=== PATIENT | female | born 1935 | race Caucasian/White ===

== ENCOUNTER 2016-08-03 15:20 | Inpatient (IN) | payer MEDICARE, MEDICAID ==
--- NOTE | 2016-08-03 15:53 | ED Physician Chart ---
Chief Complaint/HPI - Patient Information Date Seen:: 08/03/16 Time Seen:: 15:40 Chief Complaint:: decubiti History of Present Illness:: Patient is being sent here for evaluation of decubiti. Patient states she's had them for a long time. Allergies:: Allergies Allergy/AdvReac Type Severity Reaction Status Date / Time furosemide [From Lasix] AdvReac Verified 06/14/16 11:58 Penicillins [PCN] AdvReac Verified 06/14/16 11:58 Tetanus Vaccines & Toxoid AdvReac Verified 06/14/16 11:58 Historian:: Patient Review:: Nurse's Note Reviewed Review of Systems - Review of Systems General/Constitutional: No fever, No chills Skin: Skin lesions Head: No headache Eyes: No loss of vision ENT: No earache Neck: No neck pain, No swelling Cardio Vascular: No chest pain Pulmonary: No SOB GI: No nausea, Vomiting G/U: No dysuria Musculoskeletal: No bone or joint pain Endocrine: No polyuria Psychiatric: No prior psych history Past Medical History - Past Medical History Past Medical History: HTN, DM, CHF, Thyroid disorder, Other (hypothyroidism; hyperlipidemia; peripheral vascular disease) Family History: Diabetes Melitus, HTN Social History: No Alcohol, Care Facility, Other Employment:: Former smoker Surgical History: other (shoulder) Psychiatricy History: None Medication: Reviewed Family Medical History - Family Member Mother History Unknown: Yes Ethnicity: Unknown Living Status: Unknown Hx Family Cancer: No Hx Family Congestive Heart Failure: No Hx Family Dementia: No Hx Family Hepatitis: No Hx Family Psychiatric Problems: No Physical Exam - Physical Examination General/Constitutional: Well-developed, well-nourished, Alert Other Gen/Cons comments:: Please to be slightly confused; patient does not know the correct year Eyes: Lids, conjuctiva normal, PERRL Other Skin comments:: 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 lateral hip; large stage IV decubitus right calf ENMT: External ears, nose nl Neck: No nuchal rigidity Respiratory: Nl effort/Exclusion Cardio Vascular: RRR GI: No tenderness/rebounding/guarding : No CVA tenderness Extremities: Normal digits & nails Neuro/Psych: No focal deficits Misc: Normal back Labs/Radiology/EKG Results - Lab Results Comments:: Laboratory Results - last 24 hr 06/29/17 06/29/17 06/29/17 15:57 15:57 15:57 WBC 14.9 H D RBC 3.20 L Hgb 9.8 L Hct 28.6 L MCV 89.3 MCH 30.7 MCHC Differential 34.4 RDW 13.6 Plt Count 527 H MPV 7.2 Neutrophils % 82.9 H Lymphocytes % 12.1 L Monocytes % 4.6 Eosinophils % 0.4 Basophils % 0.0 PT 20.7 H INR 1.92 H Sodium 130 L Potassium 3.5 Chloride 100 Carbon Dioxide 25.7 Anion Gap 7.8 BUN 12 Creatinine 0.4 L Est GFR ( Amer) TNP Est GFR (Non-Af Amer) TNP BUN/Creatinine Ratio 30.0 Glucose 166 H Whole Bld Lactic Acid Calcium 8.1 L 08/03/16 15:57 WBC RBC Hgb Hct MCV MCH MCHC Differential RDW Plt Count MPV Neutrophils % Lymphocytes % Monocytes % Eosinophils % Basophils % PT INR Sodium Potassium Chloride Carbon Dioxide Anion Gap BUN Creatinine Est GFR ( Amer) Est GFR (Non-Af Amer) BUN/Creatinine Ratio Glucose Whole Bld Lactic Acid 1.17 Calcium ED Septic Shock - . Is Septic Shock (SBP<90, OR Lactate>4 mmol\L) present?: No Reassessment (Disposition) - Reassessment Reassessment Condition:: Unchanged - Diagnosis Diagnosis:: stage 4 decubiti; leukocytosis; hyponatremia; hyperglycemia - Patient Disposition Admitted to:: Med/Surg Spoke to:: Ray Nunes Admitting Medical Physician:: Ray Nunes Condition at Disposition:: Stable, Unchanged
[2016-08-03 16:05] LABS: % EOSINOPHILS 0.4 % (0.0-5.0); % LYMPHOCYTES 12.1 % (20.0-50.0); % MONOCYTES 4.6 % (2.0-10.0); % NEUTROPHILS 82.9 % (40.0-80.0); HEMATOCRIT 28.6 % (35.0-45.0); HEMOGLOBIN 9.8 gm/dL (11.7-16.1); MEAN CELL VOLUME 89.3 fl (81-100); MEAN CORPUSCULAR HEMOGLOBIN 30.7 pg (27.0-31.0); MEAN CORPUSCULAR HGB CONC 34.4 pg (28.0-36.0); MEAN PLATELET VOLUME 7.2 fl; NEUTROPHILE ABSOLUTE 12.3 Th/cmm (1.8-8.0); PLATELET COUNT 527 Th/cmm (150-400); RED CELL DISTRIBUTION WIDTH 13.6 % (11.5-20.0)
[2016-08-03 16:13] LABS: WHITE BLOOD COUNT 14.9 Th/cmm (4.8-10.8)
[2016-08-03 16:20] LABS: INR 1.92 (0.5-1.4); PROTHROMBIN TIME (TEST) 20.7 SECONDS (9.5-11.5)
[2016-08-03 16:25] LABS: ANION GAP 7.8 (7.0-16.0); BUN - UREA NITROGEN 12 mg/dL (7-25); CALCIUM SERUM 8.1 mg/dL (8.6-10.3); CARBON DIOXIDE 25.7 mEq/L (21.0-31.0); CHLORIDE 100 mEq/L (98-107); CREATININE - SERUM 0.4 mg/dL (0.6-1.2); GLUCOSE 166 mg/dL (70-105); POTASSIUM SERUM 3.5 mEq/L (3.5-5.1); SODIUM SERUM 130 mEq/L (136-145)
[2016-08-03] MEDS ORDERED: Sodium Chloride 0.9% 1,000 ML IV SCH (21:32)
[2016-08-03] MEDS: INSULIN ASPART, RECOMBINANT 100 UNITS/ML SUBQ SCH (22:16)
[2016-08-03] MEDS: Albuterol/Ipratropium Neb 3 ML AERS HHN SCH (22:39)
[2016-08-04 03:43] VITALS: BP 136/63
[2016-08-04] MEDS: INSULIN ASPART, RECOMBINANT 100 UNITS/ML SUBQ SCH ×4 (06:31→21:54)
[2016-08-04] MEDS: Albuterol/Ipratropium Neb 3 ML AERS HHN SCH ×6 (07:40→23:24)
[2016-08-04 11:01] LABS: % BASOPHILS 0.2 % (0.0-2.0); % EOSINOPHILS 0.3 % (0.0-5.0); % LYMPHOCYTES 10.4 % (20.0-50.0); % MONOCYTES 6.2 % (2.0-10.0); % NEUTROPHILS 82.9 % (40.0-80.0); HEMATOCRIT 27.2 % (35.0-45.0); HEMOGLOBIN 9.2 gm/dL (11.7-16.1); MEAN CELL VOLUME 89.7 fl (81-100); MEAN CORPUSCULAR HEMOGLOBIN 30.5 pg (27.0-31.0); MEAN PLATELET VOLUME 7.5 fl; NEUTROPHILE ABSOLUTE 10.8 Th/cmm (1.8-8.0); PLATELET COUNT 501 Th/cmm (150-400); RED BLOOD COUNT 3.03 Mil/cmm (3.80-5.20); RED CELL DISTRIBUTION WIDTH 14.4 % (11.5-20.0); WHITE BLOOD COUNT 12.9 Th/cmm (4.8-10.8)
[2016-08-04 11:14] LABS: ALB/GLOB RATIO 0.5 (1.0-1.8); ALKALINE PHOSPHATASE 134 U/L (34-104); ANION GAP 7.7 (7.0-16.0); BILIRUBIN,TOTAL 0.3 mg/dL (0.3-1.0); BUN - UREA NITROGEN 10 mg/dL (7-25); BUN/CREATININE RATIO 33.3; CALCIUM SERUM 7.7 mg/dL (8.6-10.3); CARBON DIOXIDE 23.5 mEq/L (21.0-31.0); CHLORIDE 102 mEq/L (98-107); CHOLESTEROL 109 mg/dL (<200); CREATININE - SERUM 0.3 mg/dL (0.6-1.2); GLUCOSE 154 mg/dL (70-105); MAGNESIUM 1.3 mg/dL (1.9-2.7); POTASSIUM SERUM 3.2 mEq/L (3.5-5.1); SGOT 10 U/L (13-39); SGPT/ALT 8 U/L (7-52); SODIUM SERUM 130 mEq/L (136-145); TRIGLYCERIDES 111 mg/dL (<150)
[2016-08-04] MEDS: Hydrocodone/APAP 10 mg/325 mg Tab PO PRN (12:00)
[2016-08-04] MEDS ORDERED: VTE Chemical Prophylaxis Screen/Admission MC PRN (14:48)
[2016-08-04] MEDS: Potassium Chloride 20 mEq ER Tab PO SCH (17:32)
--- NOTE | 2016-08-04 19:12 | General Progress Note ---
Subjective - Review of Systems Service Date: 08/04/16 Events since last encounter: chart reviewed has multiple decutus ulcers doppler ; no DVT arterial result not back Objective - Results Result Diagrams: 08/04/16 10:37 08/04/16 10:37 Recent Labs: Laboratory Last Values WBC 12.9 Th/cmm (4.8-10.8) H 08/04/16 10:37 RBC 3.03 Mil/cmm (3.80-5.20) L 08/04/16 10:37 Hgb 9.2 gm/dL (11.7-16.1) L 08/04/16 10:37 Hct 27.2 % (35.0-45.0) L 08/04/16 10:37 MCV 89.7 fl (81-100) 08/04/16 10:37 MCH 30.5 pg (27.0-31.0) 08/04/16 10:37 MCHC Differential 34.0 pg (28.0-36.0) 08/04/16 10:37 RDW 14.4 % (11.5-20.0) 08/04/16 10:37 Plt Count 501 Th/cmm (150-400) H 08/04/16 10:37 MPV 7.5 fl 08/04/16 10:37 Neutrophils % 82.9 % (40.0-80.0) H 08/04/16 10:37 Lymphocytes % 10.4 % (20.0-50.0) L 08/04/16 10:37 Monocytes % 6.2 % (2.0-10.0) 08/04/16 10:37 Eosinophils % 0.3 % (0.0-5.0) 08/04/16 10:37 Basophils % 0.2 % (0.0-2.0) 08/04/16 10:37 ESR 140 mm/hr (0-30) H 08/04/16 10:37 PT 20.7 SECONDS (9.5-11.5) H 08/03/16 15:57 INR 1.92 (0.5-1.4) H 08/03/16 15:57 Sodium 130 mEq/L (136-145) L 08/04/16 10:37 Potassium 3.2 mEq/L (3.5-5.1) L 08/04/16 10:37 Chloride 102 mEq/L (98-107) 08/04/16 10:37 Carbon Dioxide 23.5 mEq/L (21.0-31.0) 08/04/16 10:37 Anion Gap 7.7 (7.0-16.0) 08/04/16 10:37 BUN 10 mg/dL (7-25) 08/04/16 10:37 Creatinine 0.3 mg/dL (0.6-1.2) L 08/04/16 10:37 Est GFR ( Amer) TNP 08/04/16 10:37 Est GFR (Non-Af Amer) TNP 08/04/16 10:37 BUN/Creatinine Ratio 33.3 08/04/16 10:37 Glucose 154 mg/dL (70-105) H 08/04/16 10:37 POC Glucose 119 MG/DL (70 - 105) H 08/04/16 17:29 Whole Bld Lactic Acid 1.17 mmol/L (0.60-1.99) 08/03/16 15:57 Calcium 7.7 mg/dL (8.6-10.3) L 08/04/16 10:37 Magnesium 1.3 mg/dL (1.9-2.7) L 08/04/16 10:37 Total Bilirubin 0.3 mg/dL (0.3-1.0) 08/04/16 10:37 AST 10 U/L (13-39) L 08/04/16 10:37 ALT 8 U/L (7-52) 08/04/16 10:37 Alkaline Phosphatase 134 U/L (34-104) H 08/04/16 10:37 C-Reactive Protein 24.6 mg/dL (0.0-0.9) H 08/04/16 10:37 Total Protein 5.5 gm/dL (6.0-8.3) L 08/04/16 10:37 Albumin 1.8 gm/dL (3.7-5.3) L 08/04/16 10:37 Globulin 3.7 gm/dL 08/04/16 10:37 Albumin/Globulin Ratio 0.5 (1.0-1.8) L 08/04/16 10:37 Triglycerides 111 mg/dL (<150) 08/04/16 10:37 Cholesterol 109 mg/dL (<200) 08/04/16 10:37 LDL Cholesterol Direct 66 mg/dL (75-193) L 08/04/16 10:37 HDL Cholesterol 24 mg/dL (23-92) 08/04/16 10:37 - Physical Exam Vitals and I&O: Vital Signs Temp 98.8 F 08/04/16 12:00 Pulse 99 08/04/16 14:15 Resp 18 08/04/16 14:15 BP 135/75 08/04/16 12:00 Pulse Ox 95 08/04/16 14:15 Intake & Output 08/04/16 08/04/16 08/05/16 06:59 18:59 06:59 Intake Total 250 350 Output Total 200 200 Balance 50 150 Weight (lbs) 108.409 kg 108.409 kg Intake: Intake, IV Amount 250 Vancomycin HCl 1 gm In 250 Sodium Chloride 0.9% 250 ml @ 165 mls/hr IV ONCE ONE Rx#:[id number] Oral 350 Output: Urine 200 200 Other: # Bowel Movements 1 Active Medications: Current Medications Acetaminophen (Tylenol) 325 mg PO Q4HR PRN PRN Reason: Fever > 101 Stop: 10/02/16 21:31 Acetaminophen/Hydrocodone Bitart (Currie 10 Mg/325 Mg) 1 tab PO Q6H PRN PRN Reason: Pain (Mild) Stop: 10/02/16 21:31 Last Admin: 08/04/16 12:00 Dose: 1 tab Albuterol/Ipratropium (Duoneb Neb) 3 ml HHN Q4HRT SHARIF Stop: 10/02/16 22:59 Last Admin: 08/04/16 14:14 Dose: Not Given Carvedilol (Coreg) 25 mg PO DAILY SHARIF Stop: 10/03/16 08:59 Last Admin: 08/04/16 08:50 Dose: 12.5 mg Ezetimibe (Zetia) 10 mg PO HS [facility] Stop: 10/02/16 21:31 Last Admin: 08/03/16 22:37 Dose: Not Given Furosemide (Lasix) 40 mg IVP DAILY SHARIF Stop: 10/03/16 09:14 Last Admin: 08/04/16 11:53 Dose: 40 mg Gabapentin (Neurontin) 600 mg PO BID [facility] Stop: 10/03/16 08:59 Last Admin: 08/04/16 17:33 Dose: 600 mg Heparin Sodium (Porcine) (Heparin) 5,000 units SUBQ Q12HR SHARIF Stop: 10/02/16 21:31 Last Admin: 08/04/16 08:52 Dose: 5,000 units Vancomycin HCl 1.25 gm/ Sodium (Chloride) 250 mls @ 165 mls/hr IV Q18H SHARIF Stop: 10/03/16 13:59 Last Admin: 08/04/16 15:21 Dose: 165 mls/hr Insulin Aspart (Novolog) 0 units SUBQ ACHS SHARIF PRN Reason: Protocol Stop: 10/02/16 21:59 Last Admin: 08/04/16 12:05 Dose: 2 units Miscellaneous (Vancomycin Iv Per Pharmacy) 1 ea PRN PRN PRN Reason: PROTOCOL Stop: 10/02/16 21:31 Miscellaneous (Vte Chemical Prophylaxis Screen/ Admission) 1 ea PRN PRN PRN Reason: PROTOCOL Stop: 10/03/16 14:47 Potassium Chloride (Klor-Con) 10 meq PO DAILY SHARIF Stop: 10/03/16 09:14 Last Admin: 08/04/16 17:32 Dose: 10 meq Valsartan (Diovan) 80 mg PO DAILY [facility] Stop: 10/03/16 08:59 Last Admin: 08/04/16 08:47 Dose: 80 mg Nutritional Asmnt/Malnutr-PDOC - Dietary Evaluation Malnutrition Findings (Please click <Entered> for more info): Nutritional Asmnt/Malnutrition Start: 08/04/16 12: 35 Text: Status: Complete Freq: Document 08/04/16 12:35 GSUN (Rec: 08/04/16 12:49 [email or web address] [email or web address]) Nutritional Asmnt/Malnutrition Patient General Information Nutritional Screening Consult Diagnosis ER: stage 4 decubiti, leukocytosis, hyponatremia, hyperglycemia Pertinent Medical Hx/Surgical Hx ER: HTN, DM, CHF, thyroid disorder, hypothyroidism, hyperlipidemia, peripheral vascular disease Subjective Information 81 [address] consult for multiple decubiti. Pt was alert, pleasant, but appeared unreceptive of diet recommendations. RD explaine importance of nutrient especially protein fod wound healing, suggested oral supplements, pt responded "no, I don't like those wound healing things." RD encouraged as able, pt finally said "I' ll see." Informed EVANGELISTA Saucedo of nutrition recommendations. Pt apepared obese, with some lose skin possible from weight loss. Pt does not know UBW. 12/22 Vicente adm, pt was 243.7lb . EMR CBW 239lb. Pt with few teeth intact. Pt stated usually fair appetite. Current Diet Order/ Nutrition Support [id number] Pertinent Medications Lasix, Novolog, Vancomycin, Klor-Con Pertinent Labs 08/04: glucose 154H Nutritional Hx/Data Height 1.7 m Height (Calculated Centimeters) 170.2 Current Weight (lbs) 108.409 kg Weight (Calculated Kilograms) 108.4 Weight (Calculated Grams) 466409.6 [place] Body Weight 148 Weight Status Obese GI Symptoms Food Allergies No Cultural/Ethnic/[employer] Belief Pt likes "dried crispy" food such as cheese and crakers. Skin Integrity/Comment: Grey 12. Multiple decubiti Estimated Nutritional Goals BEE in Kcals: Adj wt of IBW Calories/Kcals/Kg AdjBW 161/73.2kg Kcals Calculated 1830-2196kcal (25-30kcal/kg) Protein: Adj wt of IBW Protein Calculated 88-117g (1.2-1.6g/kg) Fluid: ml 1830-2196ml (1ml/kcal) Nutritional Problem 1. Problem Problem Icnreased prot needs related to Etiology skin integrity aeb Signs/Symptoms: pt with multiple decubiti, wound care consult pending Intervention/Recommendation Comments 1. Recommend [id number]. 2. Recommend 2 packet Arginaid daily and 1 packet Prosource daily for wound healing. Explained importance of nutrition especially protein for wound healing, purpose of oral supplements. Pt appeared unreceptive of idea, then finally said "I'll see." Provide encouragement as able. Expected Outcomes/Goals Expected Outcomes/Goals 1. PO intake to meet 100% of estimated nutritional needs.
[2016-08-05] MEDS: Albuterol/Ipratropium Neb 3 ML AERS HHN SCH ×7 (03:24→23:08)
[2016-08-05 06:00] LABS: % BASOPHILS 0.6 % (0.0-2.0); % EOSINOPHILS 0.6 % (0.0-5.0); % LYMPHOCYTES 11.3 % (20.0-50.0); % MONOCYTES 6.9 % (2.0-10.0); % NEUTROPHILS 80.6 % (40.0-80.0); HEMOGLOBIN 10.2 gm/dL (11.7-16.1); MEAN CELL VOLUME 89.9 fl (81-100); MEAN CORPUSCULAR HEMOGLOBIN 29.9 pg (27.0-31.0); MEAN CORPUSCULAR HGB CONC 33.2 pg (28.0-36.0); MEAN PLATELET VOLUME 7.5 fl; NEUTROPHILE ABSOLUTE 10.7 Th/cmm (1.8-8.0); PLATELET COUNT 506 Th/cmm (150-400); RED CELL DISTRIBUTION WIDTH 14.1 % (11.5-20.0)
[2016-08-05 06:02] LABS: ANION GAP 7.6 (7.0-16.0); BUN - UREA NITROGEN 9 mg/dL (7-25); BUN/CREATININE RATIO 22.5; CALCIUM SERUM 7.8 mg/dL (8.6-10.3); CARBON DIOXIDE 23.7 mEq/L (21.0-31.0); CHLORIDE 103 mEq/L (98-107); CREATININE - SERUM 0.4 mg/dL (0.6-1.2); GLUCOSE 130 mg/dL (70-105); MAGNESIUM 1.7 mg/dL (1.9-2.7); POTASSIUM SERUM 3.3 mEq/L (3.5-5.1); SODIUM SERUM 131 mEq/L (136-145)
[2016-08-05 06:12] LABS: HEMATOCRIT 30.6 % (35.0-45.0); WHITE BLOOD COUNT 13.3 Th/cmm (4.8-10.8)
[2016-08-05] MEDS: INSULIN ASPART, RECOMBINANT 100 UNITS/ML SUBQ SCH ×4 (06:33→21:11)
--- NOTE | 2016-08-05 07:04 | Admit Criteria Form ---
Admit Criteria Forms - Admit Criteria Diagnosis: GENERAL ADMISSION CRITERIA (Place 'X' for any and all applicable criteria): Admission is indicated for ANY ONE of the following: [ ]I. Hemodynamic instability as indicated by ANY ONE of the following(1)(2) (3)(4)(5): [ ]a) Vital sign abnormality not readily corrected by appropriate treatment within 12 to 24 hours indicated by ANY ONE of the following: [ ]i) Hypotension [ ]ii) Symptomatic Tachycardia unresponsive to treatment (eg , analgesia, fluids, sedation as indicated) [ ]iii) Orthostatic vital sign changes unresponsive to treatment (eg, fluids) [ ]b) Vital sign abnormality that is severe indicated by ANY ONE of the following: [ ]i) Inadequate perfusion indicated by ANY ONE of the following: [ ]1) Lactic acidosis (greater than 2 mmol/L) [ ]2) New abnormal capillary refill (greater than 3 seconds) [ ]3) Other metabolic acidosis (arterial pH less than 7.35) not otherwise explained [ ]4) Reduced urine output [ ]5) Altered mental status [ ]6) Myocardial Ischemia [ ]v) Mean arterial pressure[A] less than 60 mm Hg [ ]vi) Mean arterial pressure[A] less than 70 mm Hg after 30 minutes of appropriate treatment (eg, fluid resuscitation) [ ]vii) IV inotropic or vasopressor medication required to maintain adequate blood pressure or perfusion [ ]viii) Sustained heart rate greater than 120 beats per minute in adult or child 6 years or older[B]] [ ]II. Hypertension requiring inpatient treatment as indicated by ANY ONE of the following(6)(7)(8): [ ]a) SBP greater than 220 mm Hg or DBP greater than 120 mm Hg despite treatment [ ]b) SBP greater than 140 mm Hg or DBP greater than 100 mm Hg with evidence of acute end organ damage as indicated by ANY ONE of the following: [ ]i) Encephalopathy [ ]ii) Acute renal failure as indicated by new onset of ANY ONE of the following(9)(10)(11)(12)(13): [ ]1) A 3-fold rise in serum creatinine from baseline [ ]2) Serum creatinine greater than 4 mg/dL ( 354 micromoles/L) with acute rise greater than 0.5 mg/dL (44.2 micromoles/L) [ ]3) Reduction of more than 75% in estimated glomerular filtration rate from baseline [ ]4) Estimated glomerular filtration rate less than 35 mL/min/1.73m2 (0.59 mL/sec/1.73m2) in child up to 18 years of age [ ]5) Cessation of urine output indicated by ALL of the following: [ ]A. Adequate volume status [ ]B. Inadequate urine output as indicated by ANY ONE of the following: [ ]a. Urine output less than 0.3 mL/kg/hr for 24 hours [ ]b. Anuria (urine output less than 0.1 mL/kg/hr) for 12 hours [ ]iii) Aortic dissection [ ]iv) Myocardial ischemia [ ]v) Left ventricular heart failure [ ]vi) Retinal hemorrhage [ ]vii) Other significant finding [ ]c) Hypertension in child requiring inpatient treatment as indicated by ALL of the following(14)(15)(16): [ ]i) Outpatient treatment not effective, not available, or not appropriate [ ]ii) SBP or DBP greater than 95th percentile for age [ ]iii) Evidence of acute end organ damage as indicated by ANY ONE of the following: [ ]1) Altered mental status [ ]2) Acute renal failure as indicated by new onset of ANY ONE of the following(9)(10)(11)(12)(13): [ ]A. A 3-fold rise in serum creatinine from baseline [ ]B. Serum creatinine greater than 4 mg/dL (354 micromoles/L) with acute rise greater than 0.5 mg/dL (44.2 micromoles/L) [ ]C. Reduction of more than 75% in estimated glomerular filtration rate from baseline [ ]D. Estimated glomerular filtration rate less than 35 mL/min/1.73m2 (0.59 mL/sec/1.73m2)in child up to 18 years of age [ ]E. Cessation of urine output indicated by ALL of the following: [ ]a. Adequate volume status [ ]b. Inadequate urine output as indicated by ANY ONE of the following: [ ]1) Urine output less than 0.3 mL/kg/hr for 24 hours [ ]2) Anuria (urine output less than 0.1 mL/kg/hr) for 12 hours [ ]3) Severe headache [ ]4) Visual disturbance [ ]5) Retinal hemorrhage [ ]6) Other significant finding [ ]III. Acute cardiac or peripheral ischemia as indicated by ANY ONE of the following: [ ]a) Acute coronary syndrome(17)(18) [ ]b) Acute peripheral ischemia (eg, pulseless, cool, mottled, or cyanotic extremity)(19) [ ]IV. Cardiac arrhythmias or findings of immediate concern indicated by ANY ONE of the following(20)(21): [ ]a) Heart rhythms that are inherently dangerous or unstable indicated by ANY ONE of the following(22)(23)(24): [ ]i) Resuscitated ventricular fibrillation or cardiac arrest [ ]ii) Ventricular escape rhythm [ ]iii) Sustained ventricular tachycardia (30 seconds or more of ventricular rhythm at greater than 100 beats per minute) [ ]iv) Nonsustained ventricular tachycardia and ANY ONE of the following: [ ]1) Suspected cardiac ischemia as cause or consequence of ventricular tachycardia [ ]2) In setting of acute myocarditis [ ]b) Unstable cardiac conduction defects indicated by ANY ONE of the following(24)(25)(26): [ ]i) Type II second-degree atrioventricular block [ ]ii) Third-degree atrioventricular block [ ]iii) New-onset left bundle branch block with suspected myocardial ischemia [ ]c) Any heart rhythm and ANY ONE of the following(22)(23)(27)(28)( 29): [ ] i) Continuous long-term ECG monitoring needed (eg, initiation of drug requiring monitoring for more than 24 hours) [ ] ii) Patient has automatic implanted cardioverter defibrillator that is repeatedly firing, malfunctioning, or in need of immediate adjustment of settings beyond the scope of ambulatory or observation care. [ ]d) Heart rhythms of concern due to ANY ONE of the following: [ ]i) Hypotension [ ]ii) Respiratory distress [ ]iii) Association with other significant symptoms (eg, bradycardia with syncope or ongoing dizziness, supraventricular tachycardia with chest pain) (27)(28) (30) [ ] V. Severe heart failure as indicated by ANY ONE of the following ( 31)(32): [ ]a) Respiratory distress [ ]b) Hypotension [ ]c) Anasarca (refractory to outpatient therapy) [ ]d) Cardiac arrhythmias of immediate concern [ ]e) Myocardial ischemia [ ]. Respiratory abnormalities, including ANY ONE of the following(33)(34) (35)(36): [ ]a) Respiratory rate greater than 30 breaths per minute unresponsive to treatment [A] [ ]b) New saturation of arterial oxygen less than 90% [ ]c) New partial pressure of carbon dioxide greater than 44 mm Hg ( 5.9 kPa) [ ]d) Supplemental oxygen or respiratory treatments needed that are new or not performable at other levels of care [ ]e) New-onset cyanosis [ ]f) Inability to protect airway [ ]g) Chronic lung disease with severe deterioration (not responsive to emergency and observation care treatment as appropriate) as indicated by ANY ONE of the following(34)(36 ): [ ]i) SaO2 5% below baseline in patient with chronic hypoxemia [ ]ii) New requirement for supplemental oxygen to keep SaO2 at baseline or acceptable level [ ]iii) Required supplemental oxygen performable only in acute inpatient setting [ ]iv) Severe airflow or ventilation abnormalities [ ]v) Previously mobile patient unable to walk between rooms [ ]vi Inability to eat or sleep due to dyspnea [ ]vii) Rapid rate of exacerbation onset [ ]viii) Altered mental status ]VII. Severe airflow or ventilation abnormalities (not responsive to emergency and observation care treatment as appropriate) as indicated by ANY ONE of the following(33)(34)(35)(37): [ ]a) PCO2 greater than 42 mm Hg (5.6 kPa) and pH less than 7.35 (new ) [ ]b) Documented PCO2 increased more than 5 mm Hg (0.7 kPa) from disease baseline [ ]c) Airflow measurements [B] less than 60% of previous best or predicted (eg, peak expiratory flow rate less than 300 L/minute) despite intensive emergent treatment [C] [ ]d) Required respiratory treatments that are performable only in acute inpatient setting [ ]VIII. Impending or actual respiratory arrest ( Also use Respiratory Failure GRG for severe respiratory disease and long-term mechanical ventilation patients) [ ]IX. Neurologic abnormalities, including ANY ONE of the following: [ ]a) New findings that suggest ANY ONE of the following: [ ]i) CRITICAL CARE PHYSICIAN infection(38) [ ]ii) Cerebral bleeding, ischemia, or vasospasm(39)(40) [ ]iii) Increased intracranial pressure, hydrocephalus, or cerebral edema(41)(42)(43) [ ]iv) Spinal cord injury(44) [ ]b) Uncontrolled seizures(45) [ ]c) New-onset coma (eg, [place] coma scale score less than 9) or unexplained abnormal mental status (eg, [place] coma scale score less than 14) [D](41)(46)(47) [ ]X. New-onset severe neurologic findings requiring inpatient care; examples include(42)(48)(49): [ ]a) Papilledema [ ]b) Cerebral edema [ ]c) Mass effect on CT scan [ ]XI. Suspected acute intra-abdominal process with peritoneal signs, abdominal mass, or similar findings (50)(51)(52) [ ]XII. Severe physiologic disorder remaining after emergency or observation level care (as appropriate) as indicated by ANY ONE of the following (53): [ ]a) Significant dehydration [ ]b) Diabetic ketoacidosis [ ]c) Hyperglycemic hyperosmolar state (eg, osmolality greater than 320 mOsm/kg (mmol/kg) [ ]d) Hypoglycemia [ ]e) Other (new) acid-base disorder with pH less than 7.35 or greater than 7.5(54) [ ]f) Thyroid storm (55) [ ]g) Myxedema coma (55) [ ]XIII. Abdominal abnormalities with ANY ONE of the following(56)(57): [ ]a) Absent bowel sounds with complete ileus [ ]b) Signs of intestinal obstruction or peritonitis [E] [ ]c) Nausea and vomiting that cannot be controlled with outpatient or observation care [ ]XIV. Acute renal failure as indicated by new onset of ANY ONE of the following(9)(10)(11)(12)(13): [ ]a) A 3-fold rise in serum creatinine from baseline [ ]b) Serum creatinine greater than 4 mg/dL (354 micromoles/L) with acute rise greater than 0.5 mg/dL (44.2 micromoles/L) [ ]c) Reduction of more than 75% in estimated glomerular filtration rate from baseline [ ]d) Estimated glomerular filtration rate less than 35 mL/min/ 1.73m2 (0.59 mL/sec/1.73m2) in child up to 18 years of age [ ]e) Cessation of urine output indicated by ALL of the following: [ ]i) Adequate volume status [ ]ii) Inadequate urine output as indicated by ANY ONE of the following: [ ]1) Urine output less than 0.3 mL/kg/hr for 24 hours [ ]2) Anuria (urine output less than 0.1 mL/kg/hr) for 12 hours [ ]XV. Significant uremic complications as indicated by ANY ONE of the following(58)(59)(60): [ ]a) Outpatient therapy is ineffective or not feasible for ANY ONE of the following: [ ]i) Severe heart failure [ ]ii) Severehypertension [ ]iii) Pleural effusion [ ]iv) Pericarditis or pericardial effusion [ ]b) Cardiac arrhythmias of immediate concern [ ]c) Intractable nausea or vomiting [ ]d) Recurrent seizures [ ]e) Encephalopathy [ ]f) Bleeding abnormalities (eg, platelet dysfunction) with active (eg, gastrointestinal) bleeding [ ]g) Dialysis indicated before long-term access or ambulatory arrangements can be made [ ]h) Significant metabolic or electrolyte abnormalities (eg, severe acidosis or hyperkalemia) [ ]XVI. High fever or other high-risk infection situation as indicated by ANY ONE of the following(61)(62)(63)(64): [ ]a) Outpatient and observation care antimicrobial treatment unavailable, not effective, or not appropriate [ ]b) Documented bacteremia [ ]c) Temperature greater than 40.5 degrees C (104.9 degrees F) ( oral) [ ]d) Temperature greater than 39.5 degrees C (103.1 degrees F) ( oral) or less than 36 degrees C (96.8 degrees F) (rectal) that does not respond to e treatment and observation care [ ] XVII. Temperature less than 95 degrees F (35 degrees C)(rectal)(65) [ ] XVIII. Severe nutritional abnormalities as indicated by ALL of the following (66)(67): [ ]a) Inability to tolerate or establish sufficient oral or other enteral nutrition in outpatient setting [ ]b) Parenteral nutrition regimen need that must be implemented on inpatient basis [ ] XIX. Severe electrolyte abnormalities indicated by ALL of the following(68) (69)(70): [ ]a) Electrolytes and associated findings are not as expected for patient baseline or acceptable treatment effects. [ ]b) Severe abnormalities indicated by ANY ONE of the following: [ ]i) Sodium less than 130 mEq/L (mmol/L) (new) [ ]ii)Sodium less than 135 mEq/L (mmol/L) with ANY ONE of the following: [ ]1) Uncorrectable (to near normal or chronic baseline) after trial of outpatient and emergency treatment [ ]2) Altered mental status [ ]3) Seizures [ ]4) Severe medical etiology requiring inpatient management (eg, heart failure, hypovolemia) [ ]iii) Sodium greater than 155 mEq/L (mmol/L) [ ]iv) Sodium greater than 150 mEq/L (mmol/L) with ANY ONE of the following: [ ]1) Uncorrectable (to near normal or chronic baseline) with outpatient and emergency treatment [ ]2) Altered mental status [ ]3) Seizures [ ]4) Severe medical etiology (eg, hypovolemia, diabetes insipidus) [ ]v) Potassium less than 2.5 mEq/L (mmol/L) despite outpatient and emergency treatment [ ]vi) Potassium less than 3 mEq/L (mmol/L) with ANY ONE of the following: [ ]1) Weakness [ ]2) Cardiac abnormality (eg, arrhythmia, conduction disturbance) [ ]3) Cardiac ischemia [ ]4) Ileus [ ]5) Ongoing medical cause requiring inpatient management (eg, acute renal wasting or SIADH) [ ]6) Other severe symptoms [ ]vii) Potassium greater than 6.5 mEq/L (mmol/L) [ ]viii) Potassium greater than 5 mEq/L (mmol/L) with ANY ONE of the following: [ ]1) Uncorrectable (to near normal or chronic baseline) with outpatient and emergency treatment [ ]2) Severe ECG findings [F] [ ]3) Acute worsening of renal failure (creatinine greater than 2.5 mg/dL (221 micromoles/L) or significant elevation for age and size) [ ]4) Severe weakness [ ]5) Severe medical etiology (eg, hemolysis, infection, drug overdose) [ ]ix) Calcium less than 7 mg/dL (1.75 mmol/L) despite outpatient and emergency treatment (72) [ ]x) Calcium less than 8 mg/dL (2 mmol/L) with significant symptoms or findings; examples include(72): [ ]1) Altered mental status [ ]2) Muscle spasms [ ]3) Seizures [ ]4) Breathing difficulty [ ]5) Cardiac abnormality (eg, arrhythmia or conduction disturbance) [ ]xi) Calcium greater than 14 mg/dL (3.5 mmol/L)(72) [ ]xii) Calcium greater than 12 mg/dL (3 mmol/L) with ANY ONE of the following(72): [ ]1) Uncorrectable (to near normal or chronic baseline) with outpatient and emergency treatment [ ]2) Significant dehydration or hypovolemia as indicated by ALL of the following(70)(73)(74): [ ]A. Not resolved with initial treatments [ ]B. Clinically significant dehydration as indicated by ANY ONE of the following: [ ]a. Vomiting refractory to outpatient treatment (ie, precluding oral rehydration) [ ]b. Inability to drink [ ]c. Hypernatremia or other electrolyte abnormality unable to be corrected with outpatient and emergency treatment [ ]d. Failure to remain hydrated with outpatient therapy [ ]e. Reduced urine output [ ]f. Hypotension [ ]g. Serious cause for dehydration requiring acute hospitalization (eg, bowel obstruction, increased intracranial pressure, infectious cause) [ ]h. Child with ANY ONE of the following(75): [ ]1) Severe abdominal tenderness [ ]2) Adequate care not available at home [ ]3) Severe dehydration ( greater than 9% loss of body weight) [ ]4) Significant symptoms or findings; examples include: [ ]A. Altered mental status [ ]B. Cardiac abnormality (eg, arrhythmia, conduction disturbance) [ ]C. Malignant etiology requiring inpatient treatment [ ]xiii) Phosphorus less than 1 mg/dL (0.32 mmol/L) [ ]xiv) Phosphorus less than 1.5 mg/dL (0.48 mmol/L) with ANY ONE of the following: [ ]1) Patient unresponsive to outpatient and emergency treatment [ ]2) Significant symptoms or findings; examples include: [ ]A. Weakness [ ]B. Altered mental status [ ]C. Breathing difficulty [ ]D. Seizures [ ]E. Rhabdomyolysis [ ]xv) Phosphorus greater than 10 mg/dL (3.2 mmol/L) [ ]xvi) Phosphorus greater than 4.5 mg/dL (1.45 mmol/L) (new) with ANY ONE of the following: [ ]1) Severe medical etiology (eg, crush injury, acute renal failure) [ ]2) Associated hypocalcemia with significant findings; examples include: [ ]A. Neurologic symptoms [ ]B. Altered mental status [ ]C. Muscle spasms [ ]D. Seizures [ ]E. Breathing difficulty [ ]F. Cardiac abnormality (eg, arrhythmia, conduction disturbance) [ ]xvii) Magnesium less than 1 mg/dL (0.41 mmol/L) [ ]xviii) Magnesium less than 1.5 mg/dL (0.62 mmol/L) with ANY ONE of the following: [ ]1) Patient unresponsive to outpatient and emergency treatment [ ]2) Associated hypocalcemia with significant findings; examples include: [ ]A. Altered mental status [ ]B. Muscle spasms [ ]C. Seizures [ ]D. Breathing difficulty [ ]E. Cardiac abnormality (eg, arrhythmia , conduction disturbance) [ ]3) Associated hypokalemia (potassium less than 3 mEq/L (mmol/L)) with risk of arrhythmia [ ]xix) Magnesium greater than 4 mEq/L (2 mmol/L) [ ]xx) Magnesium greater than 2.5 mEq/L (1.25 mmol/L) with significant symptoms or findings; examples include: [ ]1) Weakness [ ]2) Altered mental status [ ]3) Cardiac abnormality (eg, arrhythmia, conduction disturbance) [ ]4) Breathing difficulty [ ]5) Severe medical etiology (eg, renal failure, hypovolemia) [ ]xxi) Uric acid greater than 20 mg/dL (1190 micromoles/L)(76) [ ]xxii) Uric acid greater than 8 mg/dL (476 micromoles/L) with significant symptoms or findings of tumor lysis syndrome; examples include(76): [ ]1) Creatinine greater than 1.5 times upper limit of normal [ ]2) Cardiac abnormality (eg, arrhythmia, conduction disturbance) [ ]3) Seizure [ ]XX. Acute blood loss causing significant abnormality as indicated by ANY ONE of the following(77)(78): [ ]a) Hemoglobin less than 10 g/dL (100 g/L) (not baseline) [ ]b) Hematocrit less than 30% (0.30) (not baseline) [ ]c) Repeat hematocrit decreased more than 2% (0.02) [ ]d) Uncontrolled bleeding [ ]XXI. Severe anemia indicated by ANY ONE of the following(78)(79): [ ]a) Altered mental status [ ]b) Chest pain [ ]c) Exertional dyspnea [ ]d) Syncope [ ]e) Other findings suggesting inadequate perfusion [ ]f) Treatment with transfusion or volume replacement is ineffective at resolving ANY ONE of the following [G]: [ ]i) Tachycardia for age [ ]ii) Orthostatic vital sign changes as indicated by ANY ONE of the following(80): [ ]1) Fall in SBP of 20 mm Hg or more 1 to 3 minutes after patient sits or stands from recumbent position [ ]2) Fall in DBP of 10 mm Hg or more 1 to 3 minutes after patient sits or stands from recumbent position [ ]XXII. High-risk low platelet count as indicated by ANY ONE of the following( 81)(82): [ ]a) Severe or life-threatening bleeding (eg, intracranial, major gastrointestinal, or extensive mucosal bleeding), with any reduced platelet count [ ]b) Platelet count less than 20,000/mm3 (20 x109/L) with any active bleeding [ ]c) Platelet count less than 10,000/mm3 (10 x109/L) with minor purpura or petechiae [ ]d) Platelet count less than 5000/mm3 (5 x109/L) [ ]e) Low platelet count with hemolytic anemia [ ]XXIII. Disseminated intravascular coagulation(77)(83) [ ]XXIV. Severe adverse drug or systemic toxin reaction requiring inpatient treatment; examples include(84)(85): [ ]a) Serotonin syndrome(86) [ ]b) Neuroleptic malignant syndrome(86) [ ]c) Cholinergic syndrome with severe symptoms (eg, bronchorrhea, weakness, mental status changes, seizures) [ ]d) Sympathetic syndrome with severe symptoms (eg, seizures, mental status changes, cardiac dysrhythmias) [ ]e) Anticholinergic syndrome [ ]XXV. Severe pain requiring acute inpatient management as indicated by ALL of the following (87)(88)(89): [ ]a) Continuous or frequent (eg, every 2 to 4 hours) parenteral analgesics required [H] [ ]b) Rapid improvement expected from treatment or acute intervention (eg, surgery, anesthesia procedure) [ ]XXVI.Severe behavioral health issues judged unmanageable at a lower level of care (eg, residential) in a patient who is ANY ONE of the following(91) [ ]a) Acutely suicidal [ ]b) A danger to self (eg, self-mutilating or suicidal behavior) [ ]c) A danger to others (eg, assaultive or homicidal behavior) [ ]d) Incapacitated because of grave disability (eg, inability to provide for self at lower level of care) (92) [X]XXVII. Inpatient monitoring needed; examples include(1)(3)(87)(93)(94)(95)(96 ): [X]a) Vital signs, neurologic signs, or vascular checks more frequently than every 4 hours [ ]b) Cardiac or respiratory monitoring beyond the scope (eg, over 24 hours) of observation care [ ]c) Pulmonary artery catheter monitoring [ ]d) Suspected compartment syndrome(97) (98) [ ]e) Cerebral bleeding, hydrocephalus, or vasospasm monitoring [ ]f) Increased intracranial pressure or cerebral edema monitoring [ ]g) monitoring [ ]XXVIII. Treatment requiring inpatient care; examples include: [ ]a) IV fluid to replace significant ongoing losses (greater than 3 L/m2 per day)(53) [ ]b) High concentration oxygen (greater than 40%)(33)(99)(100) [ ]c) Frequent respiratory therapy (more frequently than every 4 hours) to maintain airflow rates greater than 60% of baseline(33)(99)(100) [ ]d) Epidural analgesia(87) [ ]e) IV anticoagulation, vasoactive, or antiarrhythmic medication(19 )(23) [ ]f) Acute thrombolytics (generally require 24 hours of observation )(101)(102) [ ]XXIX. Emergency procedures needed; examples include: [ ]a) Emergency inpatient surgery [ ]b) Temporary pacemaker placement(103) [ ]c) Chest tube placement with active evacuation (eg, suction, drainage)(104) [ ]d) Emergent cardioversion(105) [ ]e) Emergent cardiac or vascular procedures (eg, cardiac catheterization, angioplasty) (17)(18) [ ]f) Emergent dialysis access placement and institution(10)(106) [ ]g) Emergent pericardiocentesis(107) [ ]h) Emergent plasmapheresis or leukapheresis(83) [ ]i) Emergent tracheostomy The original [employer] content created by [employer] has been revised. The portions of the content which have been revised are identified through the use of italic text or in bold, and [employer] has neither reviewed nor approved the modified material. All other unmodified content is copyright [employer]. Please see references footnoted in the original [employer] edition 2016
--- NOTE | 2016-08-05 09:59 | Diagnostic Imaging Report ---
Right lower extremity DVT study HISTORY: Pain COMPARISON: None Technique: Longitudinal and transverse sonographic images of the right lower extremity veins were obtained with doppler analysis. FINDINGS: Exam is incomplete as patient refused to cooperate for the entire examination. There is patency of the right common femoral and proximal and mid superficial femoral vein. Compressibility and augmentation is demonstrated with no evidence of DVT formation. There appears to be partial thrombus within the right distal superficial femoral vein. The patient refused the remainder of the exam. IMPRESSION: Incomplete exam as patient refused to cooperate for the entire examination. There appears to be partial thrombus in the region of the right distal superficial femoral vein. When clinically feasible, repeat exam is recommended for further assessment. Results relayed to the referring team following the exam.
[2016-08-05] MEDS: Potassium Chloride 20 mEq ER Tab PO SCH (10:12)
--- NOTE | 2016-08-05 10:20 | Diagnostic Imaging Report ---
Bilateral lower extremity arterial Doppler study HISTORY: Pain COMPARISON: None Technique: Longitudinal and transverse sonographic images of the bilateral lower extremity arteries were obtained with doppler analysis. FINDINGS: Exam the right side demonstrate severe generalized atherosclerotic vascular disease with diffuse monophasic waveforms seen extending from the right common femoral artery to the right dorsalis pedis artery. Exam of the left side demonstrates diffuse generalized atherosclerotic vascular disease with diffuse loss of the triphasic flow extending from left common femoral to the left tibialis anterior artery. The left tibialis posterior and dorsalis pedis arteries were not visualized. Ankle-brachial index were not able to be obtained due to patient medical condition including lower extremity ulcers and pain IMPRESSION: Extensive bilateral lower extremity atherosclerotic vascular disease. The left posterior tibialis and dorsalis pedis arteries were not visualized. Please correlate with clinical findings as occlusion these regions cannot be excluded. If indicated CT angiography of the lower extremities may also be obtained.
--- NOTE | 2016-08-05 11:38 | General Progress Note ---
Subjective - Review of Systems Service Date: 08/05/16 Events since last encounter: left leg ulcer very deep and extends close to knee right foot ulcer involves toes and heel arterial doppler severe PVD extent of ulcers and gangrene shown to daughter in law CTA might be helpful in determining level of amputation patient has been bedridden for at least 2 years Objective - Results Result Diagrams: 08/05/16 05:20 08/05/16 05:20 Recent Labs: Laboratory Last Values WBC 13.3 Th/cmm (4.8-10.8) H 08/05/16 05:20 RBC 3.40 Mil/cmm (3.80-5.20) L 08/05/16 05:20 Hgb 10.2 gm/dL (11.7-16.1) L 08/05/16 05:20 Hct 30.6 % (35.0-45.0) L D 08/05/16 05:20 MCV 89.9 fl (81-100) 08/05/16 05:20 MCH 29.9 pg (27.0-31.0) 08/05/16 05:20 MCHC Differential 33.2 pg (28.0-36.0) 08/05/16 05:20 RDW 14.1 % (11.5-20.0) 08/05/16 05:20 Plt Count 506 Th/cmm (150-400) H 08/05/16 05:20 MPV 7.5 fl 08/05/16 05:20 Neutrophils % 80.6 % (40.0-80.0) H 08/05/16 05:20 Lymphocytes % 11.3 % (20.0-50.0) L 08/05/16 05:20 Monocytes % 6.9 % (2.0-10.0) 08/05/16 05:20 Eosinophils % 0.6 % (0.0-5.0) 08/05/16 05:20 Basophils % 0.6 % (0.0-2.0) 08/05/16 05:20 ESR 140 mm/hr (0-30) H 08/04/16 10:37 PT 20.7 SECONDS (9.5-11.5) H 08/03/16 15:57 INR 1.92 (0.5-1.4) H 08/03/16 15:57 Sodium 131 mEq/L (136-145) L 08/05/16 05:20 Potassium 3.3 mEq/L (3.5-5.1) L 08/05/16 05:20 Chloride 103 mEq/L (98-107) 08/05/16 05:20 Carbon Dioxide 23.7 mEq/L (21.0-31.0) 08/05/16 05:20 Anion Gap 7.6 (7.0-16.0) 08/05/16 05:20 BUN 9 mg/dL (7-25) 08/05/16 05:20 Creatinine 0.4 mg/dL (0.6-1.2) L 08/05/16 05:20 Est GFR ( Amer) TNP 08/05/16 05:20 Est GFR (Non-Af Amer) NJP 08/05/16 05:20 BUN/Creatinine Ratio 22.5 08/05/16 05:20 Glucose 130 mg/dL (70-105) H 08/05/16 05:20 POC Glucose 132 MG/DL (70 - 105) H 08/05/16 05:50 Whole Bld Lactic Acid 1.17 mmol/L (0.60-1.99) 08/03/16 15:57 Calcium 7.8 mg/dL (8.6-10.3) L 08/05/16 05:20 Magnesium 1.7 mg/dL (1.9-2.7) L 08/05/16 05:20 Total Bilirubin 0.3 mg/dL (0.3-1.0) 08/04/16 10:37 AST 10 U/L (13-39) L 08/04/16 10:37 ALT 8 U/L (7-52) 08/04/16 10:37 Alkaline Phosphatase 134 U/L (34-104) H 08/04/16 10:37 C-Reactive Protein 24.6 mg/dL (0.0-0.9) H 08/04/16 10:37 Total Protein 5.5 gm/dL (6.0-8.3) L 08/04/16 10:37 Albumin 1.8 gm/dL (3.7-5.3) L 08/04/16 10:37 Globulin 3.7 gm/dL 08/04/16 10:37 Albumin/Globulin Ratio 0.5 (1.0-1.8) L 08/04/16 10:37 Triglycerides 111 mg/dL (<150) 08/04/16 10:37 Cholesterol 109 mg/dL (<200) 08/04/16 10:37 LDL Cholesterol Direct 66 mg/dL (75-193) L 08/04/16 10:37 HDL Cholesterol 24 mg/dL (23-92) 08/04/16 10:37 - Physical Exam Vitals and I&O: Vital Signs Temp 98.8 F 08/05/16 04:00 Pulse 97 08/05/16 11:04 Resp 18 08/05/16 11:04 BP 142/62 08/05/16 04:00 Pulse Ox 96 08/05/16 11:04 Intake & Output 08/04/16 08/05/16 08/05/16 18:59 06:59 18:59 Intake Total 600 120 Output Total 200 100 Balance 400 20 Weight (lbs) 108.409 kg 104.581 kg Intake: Intake, IV Amount 250 Vancomycin HCl 1.25 gm In 250 Sodium Chloride 0.9% 250 ml @ 165 mls/hr IV Q18H [facility] Rx#:[id number] Oral 350 120 Output: Urine 200 100 Other: # Voids 2 # Bowel Movements 1 Stool Characteristics Soft Soft Brown Brown Active Medications: Current Medications Acetaminophen (Tylenol) 325 mg PO Q4HR PRN PRN Reason: Fever > 101 Stop: 10/02/16 21:31 Last Admin: 08/05/16 00:39 Dose: 325 mg Acetaminophen/Hydrocodone Bitart (Wiggins 10 Mg/325 Mg) 1 tab PO Q6H PRN PRN Reason: Pain (Mild) Stop: 10/02/16 21:31 Last Admin: 08/04/16 12:00 Dose: 1 tab Albuterol/Ipratropium (Duoneb Neb) 3 ml HHN Q4HRT [facility] Stop: 10/02/16 22:59 Last Admin: 08/05/16 10:58 Dose: 3 ml Carvedilol (Coreg) 25 mg PO DAILY [facility] Stop: 10/03/16 08:59 Last Admin: 08/05/16 10:12 Dose: Not Given Ezetimibe (Zetia) 10 mg PO HS [facility] Stop: 10/02/16 21:31 Last Admin: 08/04/16 21:53 Dose: 10 mg Furosemide (Lasix) 40 mg IVP DAILY [facility] Stop: 10/03/16 09:14 Last Admin: 08/05/16 10:12 Dose: Not Given Gabapentin (Neurontin) 600 mg PO BID [facility] Stop: 10/03/16 08:59 Last Admin: 08/05/16 10:12 Dose: Not Given Heparin Sodium (Porcine) (Heparin) 5,000 units SUBQ Q12HR [facility] Stop: 10/02/16 21:31 Last Admin: 08/05/16 10:12 Dose: Not Given Vancomycin HCl 1.25 gm/ Sodium (Chloride) 250 mls @ 165 mls/hr IV Q18H [facility] Stop: 10/03/16 13:59 Last Admin: 08/05/16 09:24 Dose: 165 mls/hr Insulin Aspart (Novolog) 0 units SUBQ ACHS [facility] PRN Reason: Protocol Stop: 10/02/16 21:59 Last Admin: 08/05/16 06:33 Dose: Not Given Miscellaneous (Vancomycin Iv Per Pharmacy) 1 [facility] PRN PRN PRN Reason: PROTOCOL Stop: 10/02/16 21:31 Miscellaneous (Vte Chemical Prophylaxis Screen/ Admission) 1 [facility] PRN PRN PRN Reason: PROTOCOL Stop: 10/03/16 14:47 Potassium Chloride (Klor-Con) 10 meq PO DAILY [facility] Stop: 10/03/16 09:14 Last Admin: 08/05/16 10:12 Dose: Not Given Valsartan (Diovan) 80 mg PO DAILY [facility] Stop: 10/03/16 08:59 Last Admin: 08/05/16 10:12 Dose: Not Given Nutritional Asmnt/Malnutr-PDOC - Dietary Evaluation Malnutrition Findings (Please click <Entered> for more info): Nutritional Asmnt/Malnutrition Start: 08/04/16 12: 35 Text: Status: Complete Freq: Document 08/04/16 12:35 GSUN (Rec: 08/04/16 12:49 [email or web address] [email or web address]) Nutritional Asmnt/Malnutrition Patient General Information Nutritional Screening Consult Diagnosis ER: stage 4 decubiti, leukocytosis, hyponatremia, hyperglycemia Pertinent Medical Hx/Surgical Hx ER: HTN, DM, CHF, thyroid disorder, hypothyroidism, hyperlipidemia, peripheral vascular disease Subjective Information 81 [address] consult for multiple decubiti. Pt was alert, pleasant, but appeared unreceptive of diet recommendations. RD explaine importance of nutrient especially protein fod wound healing, suggested oral supplements, pt responded "no, I don't like those wound healing things." RD encouraged as able, pt finally said "I' ll see." Informed RN Sheryl of nutrition recommendations. Pt apepared obese, with some lose skin possible from weight loss. Pt does not know UBW. 12/22 Vicente adm, pt was 243.7lb . EMR CBW 239lb. Pt with few teeth intact. Pt stated usually fair appetite. Current Diet Order/ Nutrition Support [id number] Pertinent Medications Lasix, Novolog, Vancomycin, Klor-Con Pertinent Labs 08/04: glucose 154H Nutritional Hx/Data Height 1.7 m Height (Calculated Centimeters) 170.2 Current Weight (lbs) 108.409 kg Weight (Calculated Kilograms) 108.4 Weight (Calculated Grams) 666836.6 [place] Body Weight 148 Weight Status Obese GI Symptoms Food Allergies No Cultural/Ethnic/Taoism Belief Pt likes "dried crispy" food such as cheese and crakers. Skin Integrity/Comment: Grey 12. Multiple decubiti Estimated Nutritional Goals BEE in Kcals: Adj wt of IBW Calories/Kcals/Kg AdjBW 161/73.2kg Kcals Calculated 1830-2196kcal (25-30kcal/kg) Protein: Adj wt of IBW Protein Calculated 88-117g (1.2-1.6g/kg) Fluid: ml 1830-2196ml (1ml/kcal) Nutritional Problem 1. Problem Problem Icnreased prot needs related to Etiology skin integrity aeb Signs/Symptoms: pt with multiple decubiti, wound care consult pending Intervention/Recommendation Comments 1. Recommend [id number]. 2. Recommend 2 packet Arginaid daily and 1 packet Prosource daily for wound healing. Explained importance of nutrition especially protein for wound healing, purpose of oral supplements. Pt appeared unreceptive of idea, then finally said "I'll see." Provide encouragement as able. Expected Outcomes/Goals Expected Outcomes/Goals 1. PO intake to meet 100% of estimated nutritional needs.
[2016-08-05] MEDS ORDERED: Potassium Chloride 20 mEq ER Tab PO ONE (12:14)
[2016-08-05] MEDS ORDERED: Mag Sulfate 2gm/50mL Premix 2 GM/50 ML BAG IV ONE (12:15)
[2016-08-05] MEDS ORDERED: IOHEXOL 350mg/mL 100mL Bottle IVP ONE ×2 (14:06→14:37)
[2016-08-05] MEDS: Morphine Sulfate 2 mg/mL 1mL Syr IVP PRN ×2 (14:36→21:16)
[2016-08-06] MEDS: Albuterol/Ipratropium Neb 3 ML AERS HHN SCH ×6 (04:24→22:35)
[2016-08-06] MEDS: INSULIN ASPART, RECOMBINANT 100 UNITS/ML SUBQ SCH ×4 (06:33→21:40)
[2016-08-06] MEDS: Morphine Sulfate 2 mg/mL 1mL Syr IVP PRN ×2 (08:53→14:23)
[2016-08-06 08:54] LABS: % BASOPHILS 0.1 % (0.0-2.0); % EOSINOPHILS 0.3 % (0.0-5.0); % LYMPHOCYTES 12.8 % (20.0-50.0); % NEUTROPHILS 79.8 % (40.0-80.0); HEMATOCRIT 29.8 % (35.0-45.0); HEMOGLOBIN 9.7 gm/dL (11.7-16.1); MEAN CELL VOLUME 90.3 fl (81-100); MEAN CORPUSCULAR HEMOGLOBIN 29.5 pg (27.0-31.0); MEAN CORPUSCULAR HGB CONC 32.7 pg (28.0-36.0); MEAN PLATELET VOLUME 7.2 fl; NEUTROPHILE ABSOLUTE 10.4 Th/cmm (1.8-8.0); PLATELET COUNT 584 Th/cmm (150-400)
[2016-08-06 09:13] LABS: MAGNESIUM 1.6 mg/dL (1.9-2.7); PHOSPHOROUS 2.3 mg/dL (2.5-5.0)
[2016-08-06 09:15] LABS: BUN - UREA NITROGEN 11 mg/dL (7-25); CALCIUM SERUM 7.7 mg/dL (8.6-10.3); CARBON DIOXIDE 23.2 mEq/L (21.0-31.0); CHLORIDE 101 mEq/L (98-107); CREATININE - SERUM 0.5 mg/dL (0.6-1.2); GLUCOSE 143 mg/dL (70-105); POTASSIUM SERUM 3.2 mEq/L (3.5-5.1); SODIUM SERUM 130 mEq/L (136-145)
[2016-08-06] MEDS: Potassium Chloride 20 mEq ER Tab PO SCH (09:45)
--- NOTE | 2016-08-06 10:28 | Diagnostic Imaging Report ---
CHEST X-RAY: AP view INDICATION: Infiltrates COMPARISON: Chest x-ray 06/15/2016 FINDINGS: As right basal lung markings are noted. No focal consolidation. There may be a trace left effusion. Mild cardiomegaly is noted. IMPRESSION: Increased right basal lung markings favoring atelectasis. No focal consolidation identified. Mild cardiomegaly.
[2016-08-06] MEDS ORDERED: Potassium Chloride 40 MEQ, Lidocaine 1% 20mL Vial 25 MG in Sodium Chloride 0.9% 250 ML IV ONE (10:33)
--- NOTE | 2016-08-06 11:23 | Diagnostic Imaging Report ---
CT abdomen and bilateral bilateral lower extremity, angiogram History: Gangrene Comparison: Arterial ultrasound on 08/04/2016 Technique: Axial images were obtained from the abdomen to the bilateral lower extremities with IV contrast, angiogram protocol. Reconstructions were made. Total DLP 1042, CTD I 21 Findings: Heterogeneous liver is noted. Nonspecific perinephric inflammatory changes are noted. A Barrett catheter is seen within collapsed urinary bladder. Small pocket of gas is seen adjacent to the anterior aspect of the urinary bladder likely within the adjacent bowel loop and less likely within the urinary bladder. Small fat-containing midline ventral hernia is noted. Nonspecific fluid-filled loops of bowel are noted. There is diffuse anasarca and diffuse bilateral lower extremity edema with likely cellulitis. There are large soft tissue defects seen along the left lateral lower extremity with pockets of gas seen throughout these regions primarily along the posterior lateral left lower extending to the left foot. There may have been previous fasciotomy is in this regions. Soft tissue defect extends and may involve the adjacent muscles laterally. Few pockets of gas are also seen in the posterior subcutaneous tissues. There are also a few pockets of gas seen along the left fourth and fifth phalanges. There are areas of resorption of the left fibula most likely due to osteomyelitis. There may be additional areas of osteomyelitis of the hindfoot and fourth and fifth phalanges. Vasculature: Diffuse atherosclerosis of the abdominal aorta and branches are noted. There is diffuse atherosclerosis of the bilateral iliac arteries. Right: Diffuse atherosclerosis seen within the right common femoral and right superficial femoral artery. There is opacification throughout the these arteries with three-vessel runoff extending to the right ankle. Left: There is focal high grade plaque formation seen within the left superficial femoral artery with estimated 70% narrowing in this region (image 5, 78 and 79.) There is opacification of the remaining left superficial femoral artery and left popliteal artery. Three-vessel runoff is seen distally to the left ankle. IMPRESSION: Severe bilateral atherosclerotic vascular disease. There is a three-vessel runoff is seen extending to the ankle bilaterally.. Note is made of a focal area of high grade calcified plaque within the left superficial femoral artery with estimated 70% narrowing in this region. Diffuse pockets of gas and soft tissue defect throughout the left lower extremity along the posterior/lateral aspect adjacent to the fibula extending to the hindfoot and additional few pockets of gas and soft tissue defects along the fourth and fifth left phalanges. Resorptive changes are seen throughout the fibula, hindfoot and left fourth and fifth phalanges which are suggestive of osteomyelitis in these regions. There may have been previous fasciotomy is in this region. Clinical correlation and follow-up is recommended. Bilateral lower extremity subcutaneous edema which may be due to the bilateral cellulitis. Small fat-containing ventral hernia. Additional findings as above.
[2016-08-06] MEDS ORDERED: Mag Sulfate 2gm/50mL Premix 2 GM/50 ML BAG IV ONE (13:12)
[2016-08-06] MEDS ORDERED: Sodium Phosphate 20 MMOLE in Sodium Chloride 0.9% 250 ML IV ONE (13:13)
--- NOTE | 2016-08-06 21:20 | Consultation ---
Consult Note - Consult Note Service Date: 08/06/16 Referring Physician: Linda Berg Consult Note: PHYSICIAN Consultation Note: Date of Admission: 08/03/16 Purpose of Consultation: Chief Complaint: Patient [facility] was admitted to location Medical/Surgical Unit I with INFECTED DECUBITUS. History of Present Illness: 81yr old female admitted from SNF for necrotic ulcers of left toes and right heel with swelling of the legs and feet.CTA revealed gaspockets in L lower extremity laterlly, along fibula and osteomyelitic involvement left fibula extending wown to hind foot, osteomyelitis invoolvement of 4th and 5th toes wit presnece of gas pockets in soft tissues. She was started on vanco IV and iD consult was called for further antibiotic management. Past Medical History: Diagnoses ELEVATED WHITE BLOOD CELL COUNT, UNSPECIFIED (08/03/16) HYPOTHYROIDISM, UNSPECIFIED (08/03/16) TYPE 2 DIABETES MELLITUS WITH HYPERGLYCEMIA (08/03/16) HYPERLIPIDEMIA, UNSPECIFIED (08/03/16) HYPO-OSMOLALITY AND HYPONATREMIA (08/03/16) NICOTINE DEPENDENCE, CIGARETTES, UNCOMPLICATED (08/03/16) ESSENTIAL (PRIMARY) HYPERTENSION (08/03/16) UNSPECIFIED ATRIAL FIBRILLATION (08/03/16) HEART FAILURE, UNSPECIFIED (08/03/16) PERIPHERAL VASCULAR DISEASE, UNSPECIFIED (08/03/16) PRESSURE ULCER OF LEFT HIP, STAGE 4 (08/03/16) PRESSURE ULCER OF OTHER SITE, STAGE 4 (08/03/16) Allergies Allergy/AdvReac Type Severity Reaction Status Date / Time furosemide [From Lasix] AdvReac Verified 06/14/16 11:58 Penicillins [PCN] AdvReac Verified 06/14/16 11:58 Tetanus Vaccines & Toxoid AdvReac Verified 06/14/16 11:58 Vital Signs Temp 97 F 08/06/16 20:00 Pulse 91 08/06/16 20:00 Resp 18 08/06/16 20:00 BP 129/73 08/06/16 20:00 Pulse Ox 95 08/06/16 20:00 Intake & Output 08/06/16 08/06/16 08/07/16 06:59 18:59 06:59 Intake Total 940 450 Balance 940 450 Weight (lbs) 105.233 kg 105.687 kg Intake: Intake, IV Amount 250 Vancomycin HCl 1.25 gm In 250 Sodium Chloride 0.9% 250 ml @ 165 mls/hr IV Q18H [facility] Rx#:[id number] Oral 690 450 Other: # Voids 2 3 # Bowel Movements 2 1 Laboratory Results - last 24 hr 08/06/16 08/06/16 08/06/16 05:27 08:35 08:35 WBC 13.0 H RBC 3.30 L Hgb 9.7 L Hct 29.8 L MCV 90.3 MCH 29.5 MCHC Differential 32.7 RDW 14.0 Plt Count 584 H MPV 7.2 Neutrophils % 79.8 Lymphocytes % 12.8 L Monocytes % 7.0 Eosinophils % 0.3 Basophils % 0.1 Sodium 130 L Potassium 3.2 L Chloride 101 Carbon Dioxide 23.2 Anion Gap 9.0 BUN 11 Creatinine 0.5 L Est GFR ( Amer) TNP Est GFR (Non-Af Amer) TNP BUN/Creatinine Ratio 22.0 Glucose 143 H POC Glucose 161 H Calcium 7.7 L Phosphorus Magnesium Vancomycin Trough 08/06/16 08/06/16 08/06/16 08:35 08:35 11:17 WBC RBC Hgb Hct MCV MCH MCHC Differential RDW Plt Count MPV Neutrophils % Lymphocytes % Monocytes % Eosinophils % Basophils % Sodium Potassium Chloride Carbon Dioxide Anion Gap BUN Creatinine Est GFR ( Amer) Est GFR (Non-Af Amer) BUN/Creatinine Ratio Glucose POC Glucose 148 H Calcium Phosphorus 2.3 L Magnesium 1.6 L Vancomycin Trough 18.6 08/06/16 16:22 WBC RBC Hgb Hct MCV MCH MCHC Differential RDW Plt Count MPV Neutrophils % Lymphocytes % Monocytes % Eosinophils % Basophils % Sodium Potassium Chloride Carbon Dioxide Anion Gap BUN Creatinine Est GFR ( Amer) Est GFR (Non-Af Amer) BUN/Creatinine Ratio Glucose POC Glucose 171 H Calcium Phosphorus Magnesium Vancomycin Trough Home Medication Medication Instructions Recorded Type Warfarin Sodium [Coumadin] 5 mg PO DAILY 06/14/16 History Acetaminophen [Tylenol] 325 mg PO Q4HR PRN #0 tab 06/16/16 Rx Albuterol/Ipratropium Neb [Duoneb 3 ml HHN Q4HRT #0 aers 06/16/16 Rx Neb] Ascorbic Acid [Vitamin C] 500 mg PO DAILY #0 tab 06/16/16 Rx Calcium Carb/Vit D 500mg/200U 1 tab PO DAILY #0 tab 06/16/16 Rx [Oscal w/Vitamin D] Carvedilol [Coreg] 25 mg PO DAILY #0 tab 06/16/16 Rx Ezetimibe [Zetia] 10 mg PO HS #0 tab 06/16/16 Rx Gabapentin [Neurontin*] 600 mg PO BID #0 cap 06/16/16 Rx Heparin Sodium [Heparin*] 5,000 units SUBQ Q12HR #0 vial 06/16/16 Rx Hydrocodone/APAP 10 mg/325 mg 1 tab PO Q6H PRN #0 tab 06/16/16 Rx [[place] 10 mg/325 mg] Insulin Aspart Sliding Scale 0 units SUBQ ACHS #0 unit 06/16/16 Rx [NovoLOG INSULIN SLIDING SCALE] Valsartan [Diovan] 80 mg PO DAILY #0 tab 06/16/16 Rx Zinc Sulfate 220 mg PO DAILY #0 cap 06/16/16 Rx Doxycycline Hyclate 50 mg PO BID 08/03/16 History Warfarin Sodium [Coumadin*] 2 mg PO 1300 08/03/16 History Current Medications Generic Name Dose Route Start Last Admin Trade Name Freq PRN Reason Stop Dose Admin Acetaminophen 325 mg 08/03/16 21:32 08/05/16 14:04 Tylenol PO 10/02/16 21:31 325 mg Q4HR PRN Administration Fever > 101 Acetaminophen/Hydrocodone Bitart 1 tab 08/03/16 21:32 08/04/16 12:00 [place] 10 Mg/325 Mg PO 10/02/16 21:31 1 tab Q6H PRN Administration Pain (Mild) Albuterol/Ipratropium 3 ml 08/03/16 23:00 08/06/16 19:13 Duoneb Neb HHN 10/02/16 22:59 Not Given Q4HRT SHARIF Carvedilol 25 mg 08/04/16 09:00 08/06/16 09:45 Coreg PO 10/03/16 08:59 Not Given DAILY SHAR[facility] Ezetimibe 10 mg 08/03/16 21:32 08/05/16 21:10 Zetia PO 10/02/16 21:31 10 mg HS SHARIF Administration Gabapentin 600 mg 08/04/16 09:00 08/06/16 16:19 Neurontin PO 10/03/16 08:59 600 mg BID SHAR[facility] Administration Heparin Sodium (Porcine) 5,000 units 08/03/16 21:32 08/06/16 08:54 Heparin SUBQ 10/02/16 21:31 5,000 units Q12HR [facility] Administration Vancomycin HCl 1.25 gm/ Sodium 250 mls @ 165 mls/hr 08/04/16 14:00 08/06/16 03:35 Chloride IV 10/03/16 13:59 Infused Q18H [facility] Infusion Insulin Aspart 0 units 08/03/16 22:00 08/06/16 17:44 Novolog SUBQ 10/02/16 21:59 2 units ACHS SHAR[facility] Administration Protocol Miscellaneous 1 08/03/16 21:32 Vancomycin Iv Per Pharmacy 10/02/16 21:31 PRN PRN PROTOCOL Miscellaneous 1 08/04/16 14:48 Vte Chemical Prophylaxis Screen/ Admission 10/03/16 14:47 PRN PRN PROTOCOL Morphine Sulfate 2 mg 08/05/16 12:06 08/06/16 14:23 Morphine IVP 10/04/16 12:05 2 mg Q6H PRN Administration Pain Level 8 - 10 Potassium Chloride 10 meq 08/04/16 09:15 08/06/16 09:45 Klor-Con PO 10/03/16 09:14 Not Given DAILY [facility] Valsartan 80 mg 08/04/16 09:00 08/06/16 09:35 Diovan PO 10/03/16 08:59 Not Given DAILY [facility] Review of Systems: A 12 point ROS was reviewed with the pertinent positive and negatives noted in the HPI. Social History Smoking Status Never smoker Drug Use No Alcohol Use No Family Medical History noncontributory. Physical Exam: General: No Acute Distress, obese. HEENT: EOMI Bilaterally, PERRLA Bilaterally, Head is normocephalic, atraumatic on inspection. Cardio: +S1/S2 Auscultated, RRR, no murmurs/rubs/gallops noted Respiratory: Clear to Auscultate Bilaterally Abdominal: Soft, Nondistended, Nontender to palpation x 4 quadrants Genital/Urinary: Deferred. Extremities: Swollen legs. multiple ischemic area of left foot, including heel , forefoot medially,laterally with surrounding erythema. Left 4th and 5th toes are necrotic and gangrenous.left leg laterally: there is large open wound stage 4 with bine exposed in left lower leg.right heel ganrenous ulcer. Neurological: Alert and Oriented x3, Cranial Nerves II-XII intact bilaterally , Gait Steady, No Focal Deficits noted. Assessment/Plan: 1. Leukocytosis, sepsis. 2. cellulitis of both legs. 3. 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 4. 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 5. right heel necrosis. 6. PAD. 7. DM2 8. HTN. Recommendations: Will continue vanco IV, start clindamycin, and levaquin. patient need surgical intervention, as per Dr Thorpe. Thank you Dr Berg / Dr Nunes for involving me in taking care of this patient. Signed, Terrence Gaytan M.D. 08/06/[id number]
[2016-08-07] MEDS: Albuterol/Ipratropium Neb 3 ML AERS HHN SCH ×6 (02:51→22:53)
[2016-08-07] MEDS ORDERED: Levofloxacin 500mg/100mL 500 MG/100 ML BAG IV ONE (04:11)
[2016-08-07] MEDS: Levofloxacin 500mg/100mL 500 MG/100 ML BAG IV SCH (04:14)
[2016-08-07] MEDS ORDERED: Clindamycin 150 mg/mL 4mL Vial ONE (04:43)
[2016-08-07] MEDS: Clindamycin 600mg/50mL 600 MG/50 ML BAG IV SCH ×3 (06:08→21:50)
[2016-08-07] MEDS: Morphine Sulfate 2 mg/mL 1mL Syr IVP PRN ×2 (06:08→16:55)
[2016-08-07] MEDS ORDERED: Bupivacaine 0.75% 10 mL Vial INJ ONE (07:15)
[2016-08-07] MEDS ORDERED: Clindamycin 600mg/50mL 600 MG/50 ML BAG IV ONE (07:15)
[2016-08-07 07:16] LABS: % BASOPHILS 0.3 % (0.0-2.0); % EOSINOPHILS 0.6 % (0.0-5.0); % LYMPHOCYTES 11.1 % (20.0-50.0); % MONOCYTES 5.9 % (2.0-10.0); % NEUTROPHILS 82.1 % (40.0-80.0); HEMATOCRIT 27.9 % (35.0-45.0); HEMOGLOBIN 9.4 gm/dL (11.7-16.1); MEAN CELL VOLUME 90.9 fl (81-100); MEAN CORPUSCULAR HEMOGLOBIN 30.7 pg (27.0-31.0); MEAN CORPUSCULAR HGB CONC 33.8 pg (28.0-36.0); MEAN PLATELET VOLUME 7.5 fl; NEUTROPHILE ABSOLUTE 13.6 Th/cmm (1.8-8.0); PLATELET COUNT 568 Th/cmm (150-400); RED BLOOD COUNT 3.07 Mil/cmm (3.80-5.20); RED CELL DISTRIBUTION WIDTH 14.2 % (11.5-20.0); WHITE BLOOD COUNT 16.5 Th/cmm (4.8-10.8)
[2016-08-07 07:29] LABS: INR 1.43 (0.5-1.4); PROTHROMBIN TIME (TEST) 15.2 SECONDS (9.5-11.5)
[2016-08-07] MEDS ORDERED: Midazolam 1mg/ml 2 ml vial IV ONE (07:34)
[2016-08-07 07:37] LABS: ANION GAP 10.3 (7.0-16.0); BUN - UREA NITROGEN 13 mg/dL (7-25); CALCIUM SERUM 7.6 mg/dL (8.6-10.3); CARBON DIOXIDE 21.9 mEq/L (21.0-31.0); CHLORIDE 104 mEq/L (98-107); CREATININE - SERUM 0.5 mg/dL (0.6-1.2); GLUCOSE 136 mg/dL (70-105); POTASSIUM SERUM 4.2 mEq/L (3.5-5.1); SODIUM SERUM 132 mEq/L (136-145)
--- NOTE | 2016-08-07 09:05 | Consultation ---
Consult Note - Consult Note Service Date: 08/05/16 Referring Physician: Ray Nunes Consult Note: PHYSICIAN Consultation Note: Date of Admission: 08/03/16 Purpose of Consultation: Chief Complaint: History of Present Illness: Patient NAV MADDOX was admitted to location Medical/Surgical Unit I with INFECTED DECUBITUS. Past Medical History: Diagnoses ELEVATED WHITE BLOOD CELL COUNT, UNSPECIFIED (08/03/16) HYPOTHYROIDISM, UNSPECIFIED (08/03/16) TYPE 2 DIABETES MELLITUS WITH HYPERGLYCEMIA (08/03/16) HYPERLIPIDEMIA, UNSPECIFIED (08/03/16) HYPO-OSMOLALITY AND HYPONATREMIA (08/03/16) NICOTINE DEPENDENCE, CIGARETTES, UNCOMPLICATED (08/03/16) ESSENTIAL (PRIMARY) HYPERTENSION (08/03/16) UNSPECIFIED ATRIAL FIBRILLATION (08/03/16) HEART FAILURE, UNSPECIFIED (08/03/16) PERIPHERAL VASCULAR DISEASE, UNSPECIFIED (08/03/16) PRESSURE ULCER OF LEFT HIP, STAGE 4 (08/03/16) PRESSURE ULCER OF OTHER SITE, STAGE 4 (08/03/16) Allergies Allergy/AdvReac Type Severity Reaction Status Date / Time furosemide [From Lasix] AdvReac Verified 06/14/16 11:58 Penicillins [PCN] AdvReac Verified 06/14/16 11:58 Tetanus Vaccines & Toxoid AdvReac Verified 06/14/16 11:58 Vital Signs Temp 98.0 F 08/07/16 04:00 Pulse 81 08/07/16 07:05 Resp 16 08/07/16 07:07 BP 120/52 08/07/16 04:00 Pulse Ox 94 08/07/16 07:05 Intake & Output 08/06/16 08/07/16 08/07/16 18:59 06:59 18:59 Intake Total 450 120 Output Total 100 Balance 450 20 Weight (lbs) 105.687 kg 105.687 kg Intake: Oral 450 120 Output: Urine 100 Other: # Voids 3 2 # Bowel Movements 1 0 Laboratory Results - last 24 hr 08/06/16 08/06/16 08/06/16 08:35 08:35 08:35 WBC RBC Hgb Hct MCV MCH MCHC Differential RDW Plt Count MPV Neutrophils % Lymphocytes % Monocytes % Eosinophils % Basophils % PT INR Sodium 130 L Potassium 3.2 L Chloride 101 Carbon Dioxide 23.2 Anion Gap 9.0 BUN 11 Creatinine 0.5 L Est GFR ( Amer) TNP Est GFR (Non-Af Amer) TNP BUN/Creatinine Ratio 22.0 Glucose 143 H POC Glucose Calcium 7.7 L Phosphorus 2.3 L Magnesium 1.6 L Vancomycin Trough 18.6 08/06/16 08/06/16 08/06/16 11:17 16:22 21:39 WBC RBC Hgb Hct MCV MCH MCHC Differential RDW Plt Count MPV Neutrophils % Lymphocytes % Monocytes % Eosinophils % Basophils % PT INR Sodium Potassium Chloride Carbon Dioxide Anion Gap BUN Creatinine Est GFR ( Amer) Est GFR (Non-Af Amer) BUN/Creatinine Ratio Glucose POC Glucose 148 H 171 H 110 H Calcium Phosphorus Magnesium Vancomycin Trough 08/07/16 08/07/16 08/07/16 06:05 06:50 06:50 WBC 16.5 H D RBC 3.07 L Hgb 9.4 L Hct 27.9 L MCV 90.9 MCH 30.7 MCHC Differential 33.8 RDW 14.2 Plt Count 568 H MPV 7.5 Neutrophils % 82.1 H Lymphocytes % 11.1 L Monocytes % 5.9 Eosinophils % 0.6 Basophils % 0.3 PT INR Sodium 132 L Potassium 4.2 Chloride 104 Carbon Dioxide 21.9 Anion Gap 10.3 BUN 13 Creatinine 0.5 L Est GFR ( Amer) TNP Est GFR (Non-Af Amer) TNP BUN/Creatinine Ratio 26.0 Glucose 136 H POC Glucose 135 H Calcium 7.6 L Phosphorus Magnesium 2.0 Vancomycin Trough 08/07/16 06:50 WBC RBC Hgb Hct MCV MCH MCHC Differential RDW Plt Count MPV Neutrophils % Lymphocytes % Monocytes % Eosinophils % Basophils % PT 15.2 H INR 1.43 H Sodium Potassium Chloride Carbon Dioxide Anion Gap BUN Creatinine Est GFR ( Amer) Est GFR (Non-Af Amer) BUN/Creatinine Ratio Glucose POC Glucose Calcium Phosphorus Magnesium Vancomycin Trough Home Medication Medication Instructions Recorded Type Warfarin Sodium [Coumadin] 5 mg PO DAILY 06/14/16 History Acetaminophen [Tylenol] 325 mg PO Q4HR PRN #0 tab 06/16/16 Rx Albuterol/Ipratropium Neb [Duoneb 3 ml HHN Q4HRT #0 aers 06/16/16 Rx Neb] Ascorbic Acid [Vitamin C] 500 mg PO DAILY #0 tab 06/16/16 Rx Calcium Carb/Vit D 500mg/200U 1 tab PO DAILY #0 tab 06/16/16 Rx [Oscal w/Vitamin D] Carvedilol [Coreg] 25 mg PO DAILY #0 tab 06/16/16 Rx Ezetimibe [Zetia] 10 mg PO HS #0 tab 06/16/16 Rx Gabapentin [Neurontin*] 600 mg PO BID #0 cap 06/16/16 Rx Heparin Sodium [Heparin*] 5,000 units SUBQ Q12HR #0 vial 06/16/16 Rx Hydrocodone/APAP 10 mg/325 mg 1 tab PO Q6H PRN #0 tab 06/16/16 Rx [[place] 10 mg/325 mg] Insulin Aspart Sliding Scale 0 units SUBQ ACHS #0 unit 06/16/16 Rx [NovoLOG INSULIN SLIDING SCALE] Valsartan [Diovan] 80 mg PO DAILY #0 tab 06/16/16 Rx Zinc Sulfate 220 mg PO DAILY #0 cap 06/16/16 Rx Doxycycline Hyclate 50 mg PO BID 08/03/16 History Warfarin Sodium [Coumadin*] 2 mg PO 1300 08/03/16 History Current Medications Generic Name Dose Route Start Last Admin Trade Name Freq PRN Reason Stop Dose Admin Acetaminophen 325 mg 08/03/16 21:32 08/05/16 14:04 Tylenol PO 10/02/16 21:31 325 mg Q4HR PRN Administration Fever > 101 Acetaminophen/Hydrocodone Bitart 1 tab 08/03/16 21:32 08/04/16 12:00 [place] 10 Mg/325 Mg PO 10/02/16 21:31 1 tab Q6H PRN Administration Pain (Mild) Albuterol/Ipratropium 3 ml 08/03/16 23:00 08/07/16 07:05 Duoneb Neb HHN 10/02/16 22:59 Not Given Q4HRT SHARIF Carvedilol 25 mg 08/04/16 09:00 08/06/16 09:45 Coreg PO 10/03/16 08:59 Not Given DAILY SHARIF Ezetimibe 10 mg 08/03/16 21:32 08/06/16 21:35 Zetia PO 10/02/16 21:31 10 mg HS SHARIF Administration Gabapentin 600 mg 08/04/16 09:00 08/06/16 16:19 Neurontin PO 10/03/16 08:59 600 mg BID SHARIF Administration Heparin Sodium (Porcine) 5,000 units 08/03/16 21:32 08/06/16 21:34 Heparin SUBQ 10/02/16 21:31 Not Given Q12HR SHARIF Vancomycin HCl 1.25 gm/ Sodium 250 mls @ 165 mls/hr 08/04/16 14:00 08/06/16 21:35 Chloride IV 10/03/16 13:59 165 mls/hr Q18H SHARIF Administration Clindamycin Phosphate 600 mg in 50 mls @ 100 mls/hr 08/07/16 05:00 08/07/16 06:08 Cleocin Pb IV 10/06/16 04:59 100 mls/hr Q8HR SHARIF Administration Levofloxacin 500 mg in 100 mls @ 100 mls/hr 08/07/16 01:00 08/07/16 04:14 Levaquin Pb IV 10/06/16 00:59 100 mls/hr Q24HR SHARIF Administration Insulin Aspart 0 units 08/03/16 22:00 08/06/16 21:40 Novolog SUBQ 10/02/16 21:59 Not Given ACHS SHARIF Protocol Miscellaneous 1 08/03/16 21:32 Vancomycin Iv Per Pharmacy 10/02/16 21:31 PRN PRN PROTOCOL Miscellaneous 1 08/04/16 14:48 Vte Chemical Prophylaxis Screen/ Admission 10/03/16 14:47 PRN PRN PROTOCOL Morphine Sulfate 2 mg 08/05/16 12:06 08/07/16 06:08 Morphine IVP 10/04/16 12:05 2 mg Q6H PRN Administration Pain Level 8 - 10 Potassium Chloride 10 meq 08/04/16 09:15 08/06/16 09:45 Klor-Con PO 10/03/16 09:14 Not Given DAILY SHARIF Valsartan 80 mg 08/04/16 09:00 08/06/16 09:35 Diovan PO 10/03/16 08:59 Not Given DAILY SHARIF Review of Systems: A 12 point ROS was reviewed with the pertinent positive and negatives noted in the HPI. Social History Smoking Status Never smoker Drug Use No Alcohol Use No Family Medical History Family Medical History Start: 08/03/16 20: 33 Freq: ONCE Status: Active Document 08/03/16 20:33 DANIELITO (Rec: 08/03/16 22:49 DANIELITO [id number]) Family Medical History Mother History Unknown Yes Physical Exam: General: Alert and Oriented x3, No Acute Distress HEENT: EOMI Bilaterally, PERRLA Bilaterally, Head is normocephalic, atraumatic on inspection. Cardio: +S1/S2 Auscultated, RRR, no murmurs/rubs/gallops noted Respiratory: Clear to Auscultate Bilaterally Abdominal: Soft, Nondistended, Nontender to palpation x 4 quadrants Genital/Urinary: Extremities: No Edema noted in the lower extremities Neurological: Cranial Nerves II-XII intact bilaterally, Gait Steady, No Focal Deficits noted. Assessment/Plan: doppler arterial and venous studies ordered. has extensive ulcers left leg likely requiring amputation Signed, Judy Thorpe [id number]
[2016-08-07] MEDS ORDERED: Meperidine 25 mg/mL 1mL Syr IVP PRN (09:10)
[2016-08-07] MEDS ORDERED: Lactated Ringer 1,000 ML IV SCH (09:15)
--- NOTE | 2016-08-07 09:16 | Operative Report ---
Operative Report - Surgery Date of Surgery:: 08/07/16 Procedure:: 08/07/16 Operation: 1.left above knee amputation 2. debridement right 5th toe ( 2 x 1 cm stage 2) 3. debridement right 4th toe ( 2x2 cm stage 2) 4. debridment right leg stage 3 ( 10 by 5 cm) Procedure consent:: done Anesthesia:: spinal/Marbellaji Preoperative diagnosis:: 1. gangrene left leg 2. stage 2 ulcers right 4 and 5 toes 3. stage 3 ulcer right leg Postoperative diagnosis:: same Description of Procedure:: the patient was given spinal anesthesia. The left lower extremity was prepped with Betadine and draped in an appropriate manner. An incision was made at the knee joint and the distal femur was exposed. This was transected with a saw. the vessels were identified, no significant bleeding was noted. These were ligated with 2-0 silk. Following satisfactory hemostasis, the incision was closed with a drain and the fascia was approximated using 2-0 Vicryl, the skin closed with lore. Coban over dressings was applied. The right lower extremity was prepped with Betadine and excisional debridement was done on the 4 and 5 toes and the leg. Iodoform gauze was applied. The patient tolerated the procedure well and will be sent to Telemetry
[2016-08-07] MEDS: Potassium Chloride 20 mEq ER Tab PO SCH (12:12)
[2016-08-07] MEDS: INSULIN ASPART, RECOMBINANT 100 UNITS/ML SUBQ SCH ×3 (12:13→22:00)
[2016-08-08] MEDS: Levofloxacin 500mg/100mL 500 MG/100 ML BAG IV SCH (01:18)
[2016-08-08] MEDS: Morphine Sulfate 2 mg/mL 1mL Syr IVP PRN ×3 (02:07→16:56)
[2016-08-08] MEDS: Albuterol/Ipratropium Neb 3 ML AERS HHN SCH ×4 (02:39→14:42)
[2016-08-08] MEDS: Clindamycin 600mg/50mL 600 MG/50 ML BAG IV SCH (05:30)
[2016-08-08 06:09] LABS: MEAN CELL VOLUME 89.9 fl (81-100); MEAN CORPUSCULAR HEMOGLOBIN 29.6 pg (27.0-31.0); MEAN CORPUSCULAR HGB CONC 32.9 pg (28.0-36.0); MEAN PLATELET VOLUME 7.4 fl; PLATELET COUNT 469 Th/cmm (150-400); RED BLOOD COUNT 2.62 Mil/cmm (3.80-5.20); RED CELL DISTRIBUTION WIDTH 14.2 % (11.5-20.0); WHITE BLOOD COUNT 11.1 Th/cmm (4.8-10.8)
[2016-08-08 06:13] LABS: HEMATOCRIT 23.5 % (35.0-45.0)
[2016-08-08 06:24] LABS: ANION GAP 9.6 (7.0-16.0); BUN - UREA NITROGEN 13 mg/dL (7-25); CARBON DIOXIDE 21.2 mEq/L (21.0-31.0); CHLORIDE 104 mEq/L (98-107); CREATININE - SERUM 0.5 mg/dL (0.6-1.2); GLUCOSE 104 mg/dL (70-105); MAGNESIUM 1.7 mg/dL (1.9-2.7); POTASSIUM SERUM 3.8 mEq/L (3.5-5.1); SODIUM SERUM 131 mEq/L (136-145)
[2016-08-08 06:30] LABS: VANCOMYCIN TROUGH 22.9 ug/mL (10-20)
[2016-08-08] MEDS ORDERED: Mag Sulfate 2gm/50mL Premix 2 GM/50 ML BAG IV ONE (06:39)
[2016-08-08 07:02] LABS: BAND NEUTROPHILE 1 % (0-10); EOSINOPHIL 1 % (0-5); NEUTROPHILS 84 % (40-80); TOTAL CELLS COUNTED 100
[2016-08-08 07:03] LABS: PLATELET ESTIMATE INCREASED PLATELETS (NORMAL); PLATELET MORPHOLOGY PLATELET CLUMPS SEEN (NORMAL)
[2016-08-08 07:04] LABS: ANISOCYTOSIS 1+
[2016-08-08 08:06] LABS: HEMOGLOBIN 7.7 gm/dL (11.7-16.1)
[2016-08-08] MEDS: INSULIN ASPART, RECOMBINANT 100 UNITS/ML SUBQ SCH ×4 (08:29→21:02)
--- NOTE | 2016-08-08 10:57 | General Progress Note ---
Subjective - Review of Systems Service Date: 08/08/16 Events since last encounter: Hb 7.7 gm 1 unit PRBC ordered dressings are dry, minimal ADELITA drainage Objective - Results Result Diagrams: 08/08/16 05:00 08/08/16 05:00 Recent Labs: Laboratory Last Values WBC 11.1 Th/cmm (4.8-10.8) H D 08/08/16 05:00 RBC 2.62 Mil/cmm (3.80-5.20) L 08/08/16 05:00 Hgb 7.7 gm/dL (11.7-16.1) L* D 08/08/16 05:00 Hct 23.5 % (35.0-45.0) L* D 08/08/16 05:00 MCV 89.9 fl (81-100) 08/08/16 05:00 MCH 29.6 pg (27.0-31.0) 08/08/16 05:00 MCHC Differential 32.9 pg (28.0-36.0) 08/08/16 05:00 RDW 14.2 % (11.5-20.0) 08/08/16 05:00 Plt Count 469 Th/cmm (150-400) H 08/08/16 05:00 MPV 7.4 fl 08/08/16 05:00 Neutrophils % 82.1 % (40.0-80.0) H 08/07/16 06:50 Band Neutrophils % 1 % (0-10) 08/08/16 05:00 Lymphocytes % 11.1 % (20.0-50.0) L 08/07/16 06:50 Monocytes % 5.9 % (2.0-10.0) 08/07/16 06:50 Eosinophils % 0.6 % (0.0-5.0) 08/07/16 06:50 Basophils % 0.3 % (0.0-2.0) 08/07/16 06:50 Neutrophils (Manual) 84 % (40-80) H 08/08/16 05:00 Lymphocytes 11 % (20-50) L 08/08/16 05:00 Monocytes 3 % (2-10) 08/08/16 05:00 Eosinophils 1 % (0-5) 08/08/16 05:00 Platelet Estimate INCREASED PLATELETS (NORMAL) 08/08/16 05:00 Platelet Morphology PLATELET CLUMPS SEEN (NORMAL) 08/08/16 05:00 Anisocytosis 1+ 08/08/16 05:00 RBC Morph Micro Appear ABNORMAL (NORMAL) 08/08/16 05:00 ESR 140 mm/hr (0-30) H 08/04/16 10:37 PT 15.2 SECONDS (9.5-11.5) H 08/07/16 06:50 INR 1.43 (0.5-1.4) H 08/07/16 06:50 Sodium 131 mEq/L (136-145) L 08/08/16 05:00 Potassium 3.8 mEq/L (3.5-5.1) 08/08/16 05:00 Chloride 104 mEq/L (98-107) 08/08/16 05:00 Carbon Dioxide 21.2 mEq/L (21.0-31.0) 08/08/16 05:00 Anion Gap 9.6 (7.0-16.0) 08/08/16 05:00 BUN 13 mg/dL (7-25) 08/08/16 05:00 Creatinine 0.5 mg/dL (0.6-1.2) L 08/08/16 05:00 Est GFR ( Amer) TNP 08/08/16 05:00 Est GFR (Non-Af Amer) TNP 08/08/16 05:00 BUN/Creatinine Ratio 26.0 08/08/16 05:00 Glucose 104 mg/dL (70-105) 08/08/16 05:00 POC Glucose 118 MG/DL (70 - 105) H 08/07/16 21:49 Whole Bld Lactic Acid 1.17 mmol/L (0.60-1.99) 08/03/16 15:57 Calcium 7.0 mg/dL (8.6-10.3) L 08/08/16 05:00 Phosphorus 3.1 mg/dL (2.5-5.0) 08/07/16 06:50 Magnesium 1.7 mg/dL (1.9-2.7) L 08/08/16 05:00 Total Bilirubin 0.3 mg/dL (0.3-1.0) 08/04/16 10:37 AST 10 U/L (13-39) L 08/04/16 10:37 ALT 8 U/L (7-52) 08/04/16 10:37 Alkaline Phosphatase 134 U/L (34-104) H 08/04/16 10:37 C-Reactive Protein 24.6 mg/dL (0.0-0.9) H 08/04/16 10:37 Total Protein 5.5 gm/dL (6.0-8.3) L 08/04/16 10:37 Albumin 1.8 gm/dL (3.7-5.3) L 08/04/16 10:37 Globulin 3.7 gm/dL 08/04/16 10:37 Albumin/Globulin Ratio 0.5 (1.0-1.8) L 08/04/16 10:37 Triglycerides 111 mg/dL (<150) 08/04/16 10:37 Cholesterol 109 mg/dL (<200) 08/04/16 10:37 LDL Cholesterol Direct 66 mg/dL (75-193) L 08/04/16 10:37 HDL Cholesterol 24 mg/dL (23-92) 08/04/16 10:37 Vancomycin Trough 22.9 ug/mL (10-20) H 08/08/16 05:00 Blood Type O POSITIVE 08/08/16 06:55 Antibody Screen NEGATIVE 08/08/16 06:55 Crossmatch See Detail 08/08/16 06:55 - Physical Exam Vitals and I&O: Vital Signs Temp 98.7 F 08/08/16 04:00 Pulse 100 08/08/16 08:31 Resp 18 08/08/16 08:00 BP 95/49 08/08/16 08:31 Pulse Ox 92 08/08/16 07:10 Intake & Output 08/07/16 08/08/16 08/08/16 18:59 06:59 18:59 Intake Total 1100 300 Output Total 230 245 Balance 870 55 Weight (lbs) 105.687 kg 101.605 kg Intake: Intake, IV Amount 300 50 Clindamycin 600mg/50mL 50 50 600 mg In 50 ml @ 100 mls /hr IV Q8HR SHARIF Rx#: [id number] Vancomycin HCl 1.25 gm In 250 Sodium Chloride 0.9% 250 ml @ 165 mls/hr IV Q18H SHARIF Rx#:[id number] Oral 800 250 Output: Drainage 25 ADELITA 25 Urine 230 220 Other: # Voids 1 # Bowel Movements 0 Stool Characteristics Formed Formed Active Medications: Current Medications Acetaminophen (Tylenol) 325 mg PO Q4HR PRN PRN Reason: Fever > 101 Stop: 10/02/16 21:31 Last Admin: 08/05/16 14:04 Dose: 325 mg Acetaminophen/Hydrocodone Bitart ([place] 10 Mg/325 Mg) 1 tab PO Q6H PRN PRN Reason: Pain (Mild) Stop: 10/02/16 21:31 Last Admin: 08/04/16 12:00 Dose: 1 tab Albuterol/Ipratropium (Duoneb Neb) 3 ml HHN Q4HRT [facility] Stop: 10/02/16 22:59 Last Admin: 08/08/16 07:10 Dose: Not Given Carvedilol (Coreg) 25 mg PO DAILY [facility] Stop: 10/03/16 08:59 Last Admin: 08/08/16 08:30 Dose: Not Given Ezetimibe (Zetia) 10 mg PO HS [facility] Stop: 10/02/16 21:31 Last Admin: 08/07/16 22:00 Dose: Not Given Gabapentin (Neurontin) 600 mg PO BID [facility] Stop: 10/03/16 08:59 Last Admin: 08/07/16 17:02 Dose: 600 mg Heparin Sodium (Porcine) (Heparin) 5,000 units SUBQ Q12HR SHARIF Stop: 10/02/16 21:31 Last Admin: 08/07/16 22:00 Dose: Not Given Vancomycin HCl 1.25 gm/ Sodium (Chloride) 250 mls @ 165 mls/hr IV Q18H [facility] Stop: 10/03/16 13:59 Last Admin: 08/08/16 08:34 Dose: 165 mls/hr Clindamycin Phosphate (Cleocin Pb) 600 mg in 50 mls @ 100 mls/hr IV Q8HR [facility] Stop: 10/06/16 04:59 Last Admin: 08/08/16 05:30 Dose: 100 mls/hr Levofloxacin (Levaquin Pb) 500 mg in 100 mls @ 100 mls/hr IV Q24HR [facility] Stop: 10/06/16 00:59 Last Admin: 08/08/16 01:18 Dose: 100 mls/hr Insulin Aspart (Novolog) 0 units SUBQ ACHS SHARIF PRN Reason: Protocol Stop: 10/02/16 21:59 Last Admin: 08/08/16 08:29 Dose: Not Given Miscellaneous (Vancomycin Iv Per Pharmacy) 1 ea PRN PRN PRN Reason: PROTOCOL Stop: 10/02/16 21:31 Miscellaneous (Vte Chemical Prophylaxis Screen/ Admission) 1 ea PRN PRN PRN Reason: PROTOCOL Stop: 10/03/16 14:47 Morphine Sulfate (Morphine) 2 mg IVP Q6H PRN PRN Reason: Pain Level 8 - 10 Stop: 10/04/16 12:05 Last Admin: 08/08/16 10:30 Dose: 2 mg Ondansetron HCl (Zofran) 4 mg IV UD PRN PRN Reason: Nausea / Vomiting Stop: 10/06/16 09:09 Potassium Chloride (Klor-Con) 10 meq PO DAILY [facility] Stop: 10/03/16 09:14 Last Admin: 08/07/16 12:12 Dose: Not Given Valsartan (Diovan) 80 mg PO DAILY [facility] Stop: 10/03/16 08:59 Last Admin: 08/08/16 08:31 Dose: Not Given - Procedures Procedures: Procedures Procedure Code Date AMPUTATE LEG AT THIGH 00338 08/03/16 ANNETTE SUBQ TISSUE 20 SQ CM/< 46708 08/03/16 DETACHMENT AT LEFT UPPER LEG, LOW, OPEN APPROACH [id number] 08/03/16 EXCISION OF R FOOT SUBCU/FASCIA, OPEN APPROACH [id number] 08/03/16 EXCISION OF R LOW LEG SUBCU/FASCIA, OPEN APPROACH [id number] 08/03/16 Nutritional Asmnt/Malnutr-PDOC - Dietary Evaluation Malnutrition Findings (Please click <Entered> for more info): Nutritional Asmnt/Malnutrition Start: 08/04/16 12: 35 Text: Status: Complete Freq: Document 08/04/16 12:35 GSUN (Rec: 08/04/16 12:49 GSUN [email or web address]) Nutritional Asmnt/Malnutrition Patient General Information Nutritional Screening Consult Diagnosis ER: stage 4 decubiti, leukocytosis, hyponatremia, hyperglycemia Pertinent Medical Hx/Surgical Hx ER: HTN, DM, CHF, thyroid disorder, hypothyroidism, hyperlipidemia, peripheral vascular disease Subjective Information 81 [address] consult for multiple decubiti. Pt was alert, pleasant, but appeared unreceptive of diet recommendations. RD explaine importance of nutrient especially protein fod wound healing, suggested oral supplements, pt responded "no, I don't like those wound healing things." RD encouraged as able, pt finally said "I' ll see." Informed RN Sheryl of nutrition recommendations. Pt apepared obese, with some lose skin possible from weight loss. Pt does not know UBW. 12/22 Vicente adm, pt was 243.7lb . EMR CBW 239lb. Pt with few teeth intact. Pt stated usually fair appetite. Current Diet Order/ Nutrition Support [id number] Pertinent Medications Lasix, Novolog, Vancomycin, Klor-Con Pertinent Labs 08/04: glucose 154H Nutritional Hx/Data Height 1.7 m Height (Calculated Centimeters) 170.2 Current Weight (lbs) 108.409 kg Weight (Calculated Kilograms) 108.4 Weight (Calculated Grams) 058416.6 Winter Body Weight 148 Weight Status Obese GI Symptoms Food Allergies No Cultural/Ethnic/[place] Belief Pt likes "dried crispy" food such as cheese and crakers. Skin Integrity/Comment: Grey 12. Multiple decubiti Estimated Nutritional Goals BEE in Kcals: Adj wt of IBW Calories/Kcals/Kg AdjBW 161/73.2kg Kcals Calculated 1830-2196kcal (25-30kcal/kg) Protein: Adj wt of IBW Protein Calculated 88-117g (1.2-1.6g/kg) Fluid: ml 1830-2196ml (1ml/kcal) Nutritional Problem 1. Problem Problem Icnreased prot needs related to Etiology skin integrity aeb Signs/Symptoms: pt with multiple decubiti, wound care consult pending Intervention/Recommendation Comments 1. Recommend [id number]. 2. Recommend 2 packet Arginaid daily and 1 packet Prosource daily for wound healing. Explained importance of nutrition especially protein for wound healing, purpose of oral supplements. Pt appeared unreceptive of idea, then finally said "I'll see." Provide encouragement as able. Expected Outcomes/Goals Expected Outcomes/Goals 1. PO intake to meet 100% of estimated nutritional needs.
--- NOTE | 2016-08-08 11:08 | Infectious Disease Prog Note ---
Infectious Disease Subjective - Review of Systems Service Date: 08/08/16 Events since last encounter: L leg AKA was performed yesterday. Subjective: She is doing well, no fever. Receiving one unit of PRBC today. Infectious Disease Objective - Results Result Diagrams: 08/08/16 05:00 08/08/16 05:00 Recent Labs: Laboratory Last Values WBC 11.1 Th/cmm (4.8-10.8) H D 08/08/16 05:00 RBC 2.62 Mil/cmm (3.80-5.20) L 08/08/16 05:00 Hgb 7.7 gm/dL (11.7-16.1) L* D 08/08/16 05:00 Hct 23.5 % (35.0-45.0) L* D 08/08/16 05:00 MCV 89.9 fl (81-100) 08/08/16 05:00 MCH 29.6 pg (27.0-31.0) 08/08/16 05:00 MCHC Differential 32.9 pg (28.0-36.0) 08/08/16 05:00 RDW 14.2 % (11.5-20.0) 08/08/16 05:00 Plt Count 469 Th/cmm (150-400) H 08/08/16 05:00 MPV 7.4 fl 08/08/16 05:00 Neutrophils % 82.1 % (40.0-80.0) H 08/07/16 06:50 Band Neutrophils % 1 % (0-10) 08/08/16 05:00 Lymphocytes % 11.1 % (20.0-50.0) L 08/07/16 06:50 Monocytes % 5.9 % (2.0-10.0) 08/07/16 06:50 Eosinophils % 0.6 % (0.0-5.0) 08/07/16 06:50 Basophils % 0.3 % (0.0-2.0) 08/07/16 06:50 Neutrophils (Manual) 84 % (40-80) H 08/08/16 05:00 Lymphocytes 11 % (20-50) L 08/08/16 05:00 Monocytes 3 % (2-10) 08/08/16 05:00 Eosinophils 1 % (0-5) 08/08/16 05:00 Platelet Estimate INCREASED PLATELETS (NORMAL) 08/08/16 05:00 Platelet Morphology PLATELET CLUMPS SEEN (NORMAL) 08/08/16 05:00 Anisocytosis 1+ 08/08/16 05:00 RBC Morph Micro Appear ABNORMAL (NORMAL) 08/08/16 05:00 ESR 140 mm/hr (0-30) H 08/04/16 10:37 PT 15.2 SECONDS (9.5-11.5) H 08/07/16 06:50 INR 1.43 (0.5-1.4) H 08/07/16 06:50 Sodium 131 mEq/L (136-145) L 08/08/16 05:00 Potassium 3.8 mEq/L (3.5-5.1) 08/08/16 05:00 Chloride 104 mEq/L (98-107) 08/08/16 05:00 Carbon Dioxide 21.2 mEq/L (21.0-31.0) 08/08/16 05:00 Anion Gap 9.6 (7.0-16.0) 08/08/16 05:00 BUN 13 mg/dL (7-25) 08/08/16 05:00 Creatinine 0.5 mg/dL (0.6-1.2) L 08/08/16 05:00 Est GFR ( Amer) TNP 08/08/16 05:00 Est GFR (Non-Af Amer) TNP 08/08/16 05:00 BUN/Creatinine Ratio 26.0 08/08/16 05:00 Glucose 104 mg/dL (70-105) 08/08/16 05:00 POC Glucose 118 MG/DL (70 - 105) H 08/07/16 21:49 Whole Bld Lactic Acid 1.17 mmol/L (0.60-1.99) 08/03/16 15:57 Calcium 7.0 mg/dL (8.6-10.3) L 08/08/16 05:00 Phosphorus 3.1 mg/dL (2.5-5.0) 08/07/16 06:50 Magnesium 1.7 mg/dL (1.9-2.7) L 08/08/16 05:00 Total Bilirubin 0.3 mg/dL (0.3-1.0) 08/04/16 10:37 AST 10 U/L (13-39) L 08/04/16 10:37 ALT 8 U/L (7-52) 08/04/16 10:37 Alkaline Phosphatase 134 U/L (34-104) H 08/04/16 10:37 C-Reactive Protein 24.6 mg/dL (0.0-0.9) H 08/04/16 10:37 Total Protein 5.5 gm/dL (6.0-8.3) L 08/04/16 10:37 Albumin 1.8 gm/dL (3.7-5.3) L 08/04/16 10:37 Globulin 3.7 gm/dL 08/04/16 10:37 Albumin/Globulin Ratio 0.5 (1.0-1.8) L 08/04/16 10:37 Triglycerides 111 mg/dL (<150) 08/04/16 10:37 Cholesterol 109 mg/dL (<200) 08/04/16 10:37 LDL Cholesterol Direct 66 mg/dL (75-193) L 08/04/16 10:37 HDL Cholesterol 24 mg/dL (23-92) 08/04/16 10:37 Vancomycin Trough 22.9 ug/mL (10-20) H 08/08/16 05:00 Blood Type O POSITIVE 08/08/16 06:55 Antibody Screen NEGATIVE 08/08/16 06:55 Crossmatch See Detail 08/08/16 06:55 - Physical Exam Vitals and I&O: Vital Signs Temp 98.7 F 08/08/16 04:00 Pulse 100 08/08/16 08:31 Resp 18 08/08/16 08:00 BP 95/49 08/08/16 08:31 Pulse Ox 92 08/08/16 07:10 Intake & Output 08/07/16 08/08/16 08/08/16 18:59 06:59 18:59 Intake Total 1100 300 Output Total 230 245 Balance 870 55 Weight (lbs) 105.687 kg 101.605 kg Intake: Intake, IV Amount 300 50 Clindamycin 600mg/50mL 50 50 600 mg In 50 ml @ 100 mls /hr IV Q8HR [facility] Rx#: [id number] Vancomycin HCl 1.25 gm In 250 Sodium Chloride 0.9% 250 ml @ 165 mls/hr IV Q18H [facility] Rx#:[id number] Oral 800 250 Output: Drainage 25 ADELITA 25 Urine 230 220 Other: # Voids 1 # Bowel Movements 0 Stool Characteristics Formed Formed Active Medications: Current Medications Acetaminophen (Tylenol) 325 mg PO Q4HR PRN PRN Reason: Fever > 101 Stop: 10/02/16 21:31 Last Admin: 08/05/16 14:04 Dose: 325 mg Acetaminophen/Hydrocodone Bitart ([place] 10 Mg/325 Mg) 1 tab PO Q6H PRN PRN Reason: Pain (Mild) Stop: 10/02/16 21:31 Last Admin: 08/04/16 12:00 Dose: 1 tab Albuterol/Ipratropium (Duoneb Neb) [address] [facility] Stop: 10/02/16 22:59 Last Admin: 08/08/16 07:10 Dose: Not Given Carvedilol (Coreg) [address] [facility] Stop: 10/03/16 08:59 Last Admin: 08/08/16 08:30 Dose: Not Given Ezetimibe (Zetia) [address] [facility] Stop: 10/02/16 21:31 Last Admin: 08/07/16 22:00 Dose: Not Given Gabapentin (Neurontin) [address] [facility] Stop: 10/03/16 08:59 Last Admin: 08/07/16 17:02 Dose: 600 mg Heparin Sodium (Porcine) (Heparin) 5,[address] [facility] Stop: 10/02/16 21:31 Last Admin: 08/07/16 22:00 Dose: Not Given Vancomycin HCl 1.25 gm/ Sodium (Chloride) 250 mls @ 165 mls/hr IV Q18H [facility] Stop: 10/03/16 13:59 Last Admin: 08/08/16 08:34 Dose: 165 mls/hr Clindamycin Phosphate (Cleocin Pb) 600 mg in 50 mls @ 100 mls/hr IV Q8HR [facility] Stop: 10/06/16 04:59 Last Admin: 08/08/16 05:30 Dose: 100 mls/hr Levofloxacin (Levaquin Pb) 500 mg in 100 mls @ 100 mls/hr IV Q24HR [facility] Stop: 10/06/16 00:59 Last Admin: 08/08/16 01:18 Dose: 100 mls/hr Insulin Aspart (Novolog) 0 units SUBQ ACHS [facility] PRN Reason: Protocol Stop: 10/02/16 21:59 Last Admin: 08/08/16 08:29 Dose: Not Given Miscellaneous (Vancomycin Iv Per Pharmacy) 1 ea PRN PRN PRN Reason: PROTOCOL Stop: 10/02/16 21:31 Miscellaneous (Vte Chemical Prophylaxis Screen/ Admission) 1 ea PRN PRN PRN Reason: PROTOCOL Stop: 10/03/16 14:47 Morphine Sulfate (Morphine) 2 mg IVP Q6H PRN PRN Reason: Pain Level 8 - 10 Stop: 10/04/16 12:05 Last Admin: 08/08/16 10:30 Dose: 2 mg Ondansetron HCl (Zofran) 4 mg IV UD PRN PRN Reason: Nausea / Vomiting Stop: 10/06/16 09:09 Potassium Chloride (Klor-Con) [address] [facility] Stop: 10/03/16 09:14 Last Admin: 08/07/16 12:12 Dose: Not Given Valsartan (Diovan) [address] [facility] Stop: 10/03/16 08:59 Last Admin: 08/08/16 08:31 Dose: Not Given General: no acute distress, well developed, well nourished HEENT: atraumatic, normocephalic, PERRLA, EOMI, moist mucous membrane Neck: supple, no thyromegaly, no lymphadenopathy, no rigid Cardiovascular: S1S2, systolic murmur Lungs: clear to auscultation bilaterally, clear to percussion Abdomen: soft, no tender, no distended, no mass Extremities: other (Left AKA, Right foot wounds.), no cyanosis, no clubbing Neurological: other (confused.) - Procedures Procedures: Procedures Procedure Code Date AMPUTATE LEG AT THIGH 56225 08/03/16 ANNETTE SUBQ TISSUE 20 SQ CM/< 11923 08/03/16 DETACHMENT AT LEFT UPPER LEG, LOW, OPEN APPROACH [id number] 08/03/16 EXCISION OF R FOOT SUBCU/FASCIA, OPEN APPROACH [id number] 08/03/16 EXCISION OF R LOW LEG SUBCU/FASCIA, OPEN APPROACH [id number] 08/03/16 Infectious Disease Assmt/Plan - Assessment Assessment: Assessment/Plan: 1. Leukocytosis, sepsis. 2. cellulitis of both legs. 3. 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 4. 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 5. right heel necrosis. 6. PAD. 7. DM2 8. HTN. 9. 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 Recommendations: Will continue vanco IV, clindamycin, and levaquin. Wound care. Nutritional Asmnt/Malnutr-PDOC - Dietary Evaluation Malnutrition Findings (Please click <Entered> for more info): Nutritional Asmnt/Malnutrition Start: 08/04/16 12: 35 Text: Status: Complete Freq: Document 08/04/16 12:35 GSUN (Rec: 08/04/16 12:49 [email or web address] [email or web address]) Nutritional Asmnt/Malnutrition Patient General Information Nutritional Screening Consult Diagnosis ER: stage 4 decubiti, leukocytosis, hyponatremia, hyperglycemia Pertinent Medical Hx/Surgical Hx ER: HTN, DM, CHF, thyroid disorder, hypothyroidism, hyperlipidemia, peripheral vascular disease Subjective Information 81 [address] consult for multiple decubiti. Pt was alert, pleasant, but appeared unreceptive of diet recommendations. RD explaine importance of nutrient especially protein fod wound healing, suggested oral supplements, pt responded "no, I don't like those wound healing things." RD encouraged as able, pt finally said "I' ll see." Informed RN Sheryl of nutrition recommendations. Pt apepared obese, with some lose skin possible from weight loss. Pt does not know UBW. 12/22 Vicente adm, pt was 243.7lb . EMR CBW 239lb. Pt with few teeth intact. Pt stated usually fair appetite. Current Diet Order/ Nutrition Support [id number] Pertinent Medications Lasix, Novolog, Vancomycin, Klor-Con Pertinent Labs 08/04: glucose 154H Nutritional Hx/Data Height 1.7 m Height (Calculated Centimeters) 170.2 Current Weight (lbs) 108.409 kg Weight (Calculated Kilograms) 108.4 Weight (Calculated Grams) 904700.6 [place] Body Weight 148 Weight Status Obese GI Symptoms Food Allergies No Cultural/Ethnic/Sikh Belief Pt likes "dried crispy" food such as cheese and crakers. Skin Integrity/Comment: Grey 12. Multiple decubiti Estimated Nutritional Goals BEE in Kcals: Adj wt of IBW Calories/Kcals/Kg AdjBW 161/73.2kg Kcals Calculated 1830-2196kcal (25-30kcal/kg) Protein: Adj wt of IBW Protein Calculated 88-117g (1.2-1.6g/kg) Fluid: ml 1830-2196ml (1ml/kcal) Nutritional Problem 1. Problem Problem Icnreased prot needs related to Etiology skin integrity aeb Signs/Symptoms: pt with multiple decubiti, wound care consult pending Intervention/Recommendation Comments 1. Recommend [id number]. 2. Recommend 2 packet Arginaid daily and 1 packet Prosource daily for wound healing. Explained importance of nutrition especially protein for wound healing, purpose of oral supplements. Pt appeared unreceptive of idea, then finally said "I'll see." Provide encouragement as able. Expected Outcomes/Goals Expected Outcomes/Goals 1. PO intake to meet 100% of estimated nutritional needs.
[2016-08-08] MEDS: Potassium Chloride 20 mEq ER Tab PO SCH (11:33)
[2016-08-08] MEDS: cefTRIAXone 1 GM in 0.9% NS 50 ML IV SCH (15:25)
[2016-08-09] MEDS: Morphine Sulfate 2 mg/mL 1mL Syr IVP PRN ×2 (04:41→12:38)
[2016-08-09 06:29] LABS: % BASOPHILS 0.2 % (0.0-2.0); % LYMPHOCYTES 16.1 % (20.0-50.0); % MONOCYTES 6.6 % (2.0-10.0); % NEUTROPHILS 76.1 % (40.0-80.0); HEMOGLOBIN 9.3 gm/dL (11.7-16.1); MEAN CELL VOLUME 90.3 fl (81-100); MEAN CORPUSCULAR HEMOGLOBIN 30.3 pg (27.0-31.0); MEAN CORPUSCULAR HGB CONC 33.5 pg (28.0-36.0); MEAN PLATELET VOLUME 7.5 fl; NEUTROPHILE ABSOLUTE 8.1 Th/cmm (1.8-8.0); PLATELET COUNT 458 Th/cmm (150-400); RED BLOOD COUNT 3.05 Mil/cmm (3.80-5.20); RED CELL DISTRIBUTION WIDTH 13.8 % (11.5-20.0); WHITE BLOOD COUNT 10.6 Th/cmm (4.8-10.8)
[2016-08-09 06:33] LABS: HEMATOCRIT 27.6 % (35.0-45.0)
[2016-08-09 06:37] LABS: BUN - UREA NITROGEN 9 mg/dL (7-25); BUN/CREATININE RATIO 22.5; CALCIUM SERUM 7.1 mg/dL (8.6-10.3); CREATININE - SERUM 0.4 mg/dL (0.6-1.2); GLUCOSE 121 mg/dL (70-105); MAGNESIUM 1.8 mg/dL (1.9-2.7)
[2016-08-09 07:30] LABS: ANION GAP 11.1 (7.0-16.0); CARBON DIOXIDE 20.6 mEq/L (21.0-31.0); CHLORIDE 106 mEq/L (98-107); POTASSIUM SERUM 3.7 mEq/L (3.5-5.1)
[2016-08-09] MEDS: Albuterol/Ipratropium Neb 3 ML AERS HHN SCH ×5 (07:30→23:38)
[2016-08-09] MEDS: INSULIN ASPART, RECOMBINANT 100 UNITS/ML SUBQ SCH ×4 (07:32→20:46)
[2016-08-09 07:34] LABS: SODIUM SERUM 134 mEq/L (136-145)
--- NOTE | 2016-08-09 08:07 | General Progress Note ---
Subjective - Review of Systems Service Date: 08/09/16 Events since last encounter: dressings dry, will change in AM local wound care for right foot ordered Hb 9.3 start PT Objective - Results Result Diagrams: 08/09/16 05:59 08/09/16 05:59 Recent Labs: Laboratory Last Values WBC 10.6 Th/cmm (4.8-10.8) 08/09/16 05:59 RBC 3.05 Mil/cmm (3.80-5.20) L 08/09/16 05:59 Hgb 9.3 gm/dL (11.7-16.1) L 08/09/16 05:59 Hct 27.6 % (35.0-45.0) L D 08/09/16 05:59 MCV 90.3 fl (81-100) 08/09/16 05:59 MCH 30.3 pg (27.0-31.0) 08/09/16 05:59 MCHC Differential 33.5 pg (28.0-36.0) 08/09/16 05:59 RDW 13.8 % (11.5-20.0) 08/09/16 05:59 Plt Count 458 Th/cmm (150-400) H 08/09/16 05:59 MPV 7.5 fl 08/09/16 05:59 Neutrophils % 76.1 % (40.0-80.0) 08/09/16 05:59 Band Neutrophils % 1 % (0-10) 08/08/16 05:00 Lymphocytes % 16.1 % (20.0-50.0) L 08/09/16 05:59 Monocytes % 6.6 % (2.0-10.0) 08/09/16 05:59 Eosinophils % 1.0 % (0.0-5.0) 08/09/16 05:59 Basophils % 0.2 % (0.0-2.0) 08/09/16 05:59 Neutrophils (Manual) 84 % (40-80) H 08/08/16 05:00 Lymphocytes 11 % (20-50) L 08/08/16 05:00 Monocytes 3 % (2-10) 08/08/16 05:00 Eosinophils 1 % (0-5) 08/08/16 05:00 Platelet Estimate INCREASED PLATELETS (NORMAL) 08/08/16 05:00 Platelet Morphology PLATELET CLUMPS SEEN (NORMAL) 08/08/16 05:00 Anisocytosis 1+ 08/08/16 05:00 RBC Morph Micro Appear ABNORMAL (NORMAL) 08/08/16 05:00 ESR 140 mm/hr (0-30) H 08/04/16 10:37 PT 15.2 SECONDS (9.5-11.5) H 08/07/16 06:50 INR 1.43 (0.5-1.4) H 08/07/16 06:50 Sodium 134 mEq/L (136-145) L 08/09/16 05:59 Potassium 3.7 mEq/L (3.5-5.1) 08/09/16 05:59 Chloride 106 mEq/L (98-107) 08/09/16 05:59 Carbon Dioxide 20.6 mEq/L (21.0-31.0) L 08/09/16 05:59 Anion Gap 11.1 (7.0-16.0) 08/09/16 05:59 BUN 9 mg/dL (7-25) 08/09/16 05:59 Creatinine 0.4 mg/dL (0.6-1.2) L 08/09/16 05:59 Est GFR ( Amer) TNP 08/09/16 05:59 Est GFR (Non-Af Amer) TNP 08/09/16 05:59 BUN/Creatinine Ratio 22.5 08/09/16 05:59 Glucose 121 mg/dL (70-105) H 08/09/16 05:59 POC Glucose 113 MG/DL (70 - 105) H 08/09/16 07:06 Whole Bld Lactic Acid 1.17 mmol/L (0.60-1.99) 08/03/16 15:57 Calcium 7.1 mg/dL (8.6-10.3) L 08/09/16 05:59 Phosphorus 3.1 mg/dL (2.5-5.0) 08/07/16 06:50 Magnesium 1.8 mg/dL (1.9-2.7) L 08/09/16 05:59 Total Bilirubin 0.3 mg/dL (0.3-1.0) 08/04/16 10:37 AST 10 U/L (13-39) L 08/04/16 10:37 ALT 8 U/L (7-52) 08/04/16 10:37 Alkaline Phosphatase 134 U/L (34-104) H 08/04/16 10:37 C-Reactive Protein 24.6 mg/dL (0.0-0.9) H 08/04/16 10:37 Total Protein 5.5 gm/dL (6.0-8.3) L 08/04/16 10:37 Albumin 1.8 gm/dL (3.7-5.3) L 08/04/16 10:37 Globulin 3.7 gm/dL 08/04/16 10:37 Albumin/Globulin Ratio 0.5 (1.0-1.8) L 08/04/16 10:37 Triglycerides 111 mg/dL (<150) 08/04/16 10:37 Cholesterol 109 mg/dL (<200) 08/04/16 10:37 LDL Cholesterol Direct 66 mg/dL (75-193) L 08/04/16 10:37 HDL Cholesterol 24 mg/dL (23-92) 08/04/16 10:37 Vancomycin Trough 22.9 ug/mL (10-20) H 08/08/16 05:00 Blood Type O POSITIVE 08/08/16 06:55 Antibody Screen NEGATIVE 08/08/16 06:55 Crossmatch See Detail 08/08/16 06:55 - Physical Exam Vitals and I&O: Vital Signs Temp 98.7 F 08/09/16 04:00 Pulse 78 08/09/16 07:30 Resp 18 08/09/16 07:30 BP 146/86 08/09/16 04:00 Pulse Ox 95 08/09/16 07:30 Intake & Output 08/08/16 08/09/16 08/09/16 18:59 06:59 18:59 Intake Total 750 240 Output Total 25 440 Balance 725 -200 Weight (lbs) 101.605 kg 103.147 kg Intake: Intake, IV Amount 350 Mag Sulfate 2gm/50mL 50 Premix 2 gm In 50 ml @ 25 mls/hr IV X1 ONE Rx#: [id number] Vancomycin HCl 1.25 gm In 250 Sodium Chloride 0.9% 250 ml @ 165 mls/hr IV Q18H [facility] Rx#:[id number] cefTRIAXone 1 gm In 50 Sodium Chloride 0.9% 50 ml @ 100 mls/hr IV Q24HR [facility] Rx#:[id number] Oral 400 240 Output: Drainage 25 20 ADELITA 25 20 Urine 420 Other: # Voids 4 # Bowel Movements 1 Active Medications: Current Medications Acetaminophen (Tylenol) 325 mg PO Q4HR PRN PRN Reason: Fever > 101 Stop: 10/02/16 21:31 Last Admin: 08/05/16 14:04 Dose: 325 mg Acetaminophen/Hydrocodone Bitart ([place] 10 Mg/325 Mg) 1 tab PO Q6H PRN PRN Reason: Pain (Mild) Stop: 10/02/16 21:31 Last Admin: 08/04/16 12:00 Dose: 1 tab Albuterol/Ipratropium (Duoneb Neb) 3 ml HHN Q4HRT [facility] Stop: 10/02/16 22:59 Last Admin: 08/09/16 07:30 Dose: Not Given Carvedilol (Coreg) 25 mg PO DAILY [facility] Stop: 10/03/16 08:59 Last Admin: 08/08/16 08:30 Dose: Not Given Ezetimibe (Zetia) 10 mg PO HS [facility] Stop: 10/02/16 21:31 Last Admin: 08/08/16 21:02 Dose: Not Given Gabapentin (Neurontin) 600 mg PO BID [facility] Stop: 10/03/16 08:59 Last Admin: 08/08/16 18:38 Dose: Not Given Vancomycin HCl 1.25 gm/ Sodium (Chloride) 250 mls @ 165 mls/hr IV Q18H [facility] Stop: 10/03/16 13:59 Last Admin: 08/09/16 02:27 Dose: 165 mls/hr Ceftriaxone Sodium 1 gm/ (Sodium Chloride) 50 mls @ 100 mls/hr IV Q24HR [facility] Stop: 10/07/16 13:59 Last Infusion: 08/08/16 15:55 Dose: Infused Insulin Aspart (Novolog) 0 units SUBQ ACHS [facility] PRN Reason: Protocol Stop: 10/02/16 21:59 Last Admin: 08/09/16 07:32 Dose: Not Given Miscellaneous (Vancomycin Iv Per Pharmacy) 1 ea [facility] PRN PRN PRN Reason: PROTOCOL Stop: 10/02/16 21:31 Miscellaneous (Vte Chemical Prophylaxis Screen/ Admission) 1 ea MC PRN PRN PRN Reason: PROTOCOL Stop: 10/03/16 14:47 Morphine Sulfate (Morphine) 2 mg IVP Q6H PRN PRN Reason: Pain Level 8 - 10 Stop: 10/04/16 12:05 Last Admin: 08/09/16 04:41 Dose: 2 mg Ondansetron HCl (Zofran) 4 mg IV UD PRN PRN Reason: Nausea / Vomiting Stop: 10/06/16 09:09 Potassium Chloride (Klor-Con) 10 meq PO DAILY [facility] Stop: 10/03/16 09:14 Last Admin: 08/08/16 11:33 Dose: Not Given Valsartan (Diovan) 80 mg PO DAILY [facility] Stop: 10/03/16 08:59 Last Admin: 08/08/16 08:31 Dose: Not Given - Procedures Procedures: Procedures Procedure Code Date AMPUTATE LEG AT THIGH 69522 08/03/16 ANNETTE SUBQ TISSUE 20 SQ CM/< 33683 08/03/16 DETACHMENT AT LEFT UPPER LEG, LOW, OPEN APPROACH [id number] 08/03/16 EXCISION OF R FOOT SUBCU/FASCIA, OPEN APPROACH [id number] 08/03/16 EXCISION OF R LOW LEG SUBCU/FASCIA, OPEN APPROACH [id number] 08/03/16 Nutritional Asmnt/Malnutr-PDOC - Dietary Evaluation Malnutrition Findings (Please click <Entered> for more info): Nutritional Asmnt/Malnutrition Start: 08/04/16 12: 35 Text: Status: Complete Freq: Document 08/04/16 12:35 GSUN (Rec: 08/04/16 12:49 [email or web address] [email or web address]) Nutritional Asmnt/Malnutrition Patient General Information Nutritional Screening Consult Diagnosis ER: stage 4 decubiti, leukocytosis, hyponatremia, hyperglycemia Pertinent Medical Hx/Surgical Hx ER: HTN, DM, CHF, thyroid disorder, hypothyroidism, hyperlipidemia, peripheral vascular disease Subjective Information 81 [address] consult for multiple decubiti. Pt was alert, pleasant, but appeared unreceptive of diet recommendations. RD explaine importance of nutrient especially protein fod wound healing, suggested oral supplements, pt responded "no, I don't like those wound healing things." RD encouraged as able, pt finally said "I' ll see." Informed RN Sheryl of nutrition recommendations. Pt apepared obese, with some lose skin possible from weight loss. Pt does not know UBW. 12/22 Vicente adm, pt was 243.7lb . EMR CBW 239lb. Pt with few teeth intact. Pt stated usually fair appetite. Current Diet Order/ Nutrition Support [id number] Pertinent Medications Lasix, Novolog, Vancomycin, Klor-Con Pertinent Labs 08/04: glucose 154H Nutritional Hx/Data Height 1.7 m Height (Calculated Centimeters) 170.2 Current Weight (lbs) 108.409 kg Weight (Calculated Kilograms) 108.4 Weight (Calculated Grams) 365774.6 [place] Body Weight 148 Weight Status Obese GI Symptoms Food Allergies No Cultural/Ethnic/Gnosticist Belief Pt likes "dried crispy" food such as cheese and crakers. Skin Integrity/Comment: Grey 12. Multiple decubiti Estimated Nutritional Goals BEE in Kcals: Adj wt of IBW Calories/Kcals/Kg AdjBW 161/73.2kg Kcals Calculated 1830-2196kcal (25-30kcal/kg) Protein: Adj wt of IBW Protein Calculated 88-117g (1.2-1.6g/kg) Fluid: ml 1830-2196ml (1ml/kcal) Nutritional Problem 1. Problem Problem Icnreased prot needs related to Etiology skin integrity aeb Signs/Symptoms: pt with multiple decubiti, wound care consult pending Intervention/Recommendation Comments 1. Recommend [id number]. 2. Recommend 2 packet Arginaid daily and 1 packet Prosource daily for wound healing. Explained importance of nutrition especially protein for wound healing, purpose of oral supplements. Pt appeared unreceptive of idea, then finally said "I'll see." Provide encouragement as able. Expected Outcomes/Goals Expected Outcomes/Goals 1. PO intake to meet 100% of estimated nutritional needs.
[2016-08-09] MEDS: Potassium Chloride 20 mEq ER Tab PO SCH (11:23)
--- NOTE | 2016-08-09 12:00 | Infectious Disease Prog Note ---
Infectious Disease Subjective - Review of Systems Service Date: 08/09/16 Subjective: She is doing well, no fever. Infectious Disease Objective - Results Result Diagrams: 08/09/16 05:59 08/09/16 05:59 Recent Labs: Laboratory Last Values WBC 10.6 Th/cmm (4.8-10.8) 08/09/16 05:59 RBC 3.05 Mil/cmm (3.80-5.20) L 08/09/16 05:59 Hgb 9.3 gm/dL (11.7-16.1) L 08/09/16 05:59 Hct 27.6 % (35.0-45.0) L D 08/09/16 05:59 MCV 90.3 fl (81-100) 08/09/16 05:59 MCH 30.3 pg (27.0-31.0) 08/09/16 05:59 MCHC Differential 33.5 pg (28.0-36.0) 08/09/16 05:59 RDW 13.8 % (11.5-20.0) 08/09/16 05:59 Plt Count 458 Th/cmm (150-400) H 08/09/16 05:59 MPV 7.5 fl 08/09/16 05:59 Neutrophils % 76.1 % (40.0-80.0) 08/09/16 05:59 Band Neutrophils % 1 % (0-10) 08/08/16 05:00 Lymphocytes % 16.1 % (20.0-50.0) L 08/09/16 05:59 Monocytes % 6.6 % (2.0-10.0) 08/09/16 05:59 Eosinophils % 1.0 % (0.0-5.0) 08/09/16 05:59 Basophils % 0.2 % (0.0-2.0) 08/09/16 05:59 Neutrophils (Manual) 84 % (40-80) H 08/08/16 05:00 Lymphocytes 11 % (20-50) L 08/08/16 05:00 Monocytes 3 % (2-10) 08/08/16 05:00 Eosinophils 1 % (0-5) 08/08/16 05:00 Platelet Estimate INCREASED PLATELETS (NORMAL) 08/08/16 05:00 Platelet Morphology PLATELET CLUMPS SEEN (NORMAL) 08/08/16 05:00 Anisocytosis 1+ 08/08/16 05:00 RBC Morph Micro Appear ABNORMAL (NORMAL) 08/08/16 05:00 ESR 140 mm/hr (0-30) H 08/04/16 10:37 PT 15.2 SECONDS (9.5-11.5) H 08/07/16 06:50 INR 1.43 (0.5-1.4) H 08/07/16 06:50 Sodium 134 mEq/L (136-145) L 08/09/16 05:59 Potassium 3.7 mEq/L (3.5-5.1) 08/09/16 05:59 Chloride 106 mEq/L (98-107) 08/09/16 05:59 Carbon Dioxide 20.6 mEq/L (21.0-31.0) L 08/09/16 05:59 Anion Gap 11.1 (7.0-16.0) 08/09/16 05:59 BUN 9 mg/dL (7-25) 08/09/16 05:59 Creatinine 0.4 mg/dL (0.6-1.2) L 08/09/16 05:59 Est GFR ( Amer) TNP 08/09/16 05:59 Est GFR (Non-Af Amer) TNP 08/09/16 05:59 BUN/Creatinine Ratio 22.5 08/09/16 05:59 Glucose 121 mg/dL (70-105) H 08/09/16 05:59 POC Glucose 130 MG/DL (70 - 105) H 08/09/16 11:18 Whole Bld Lactic Acid 1.17 mmol/L (0.60-1.99) 08/03/16 15:57 Calcium 7.1 mg/dL (8.6-10.3) L 08/09/16 05:59 Phosphorus 3.1 mg/dL (2.5-5.0) 08/07/16 06:50 Magnesium 1.8 mg/dL (1.9-2.7) L 08/09/16 05:59 Total Bilirubin 0.3 mg/dL (0.3-1.0) 08/04/16 10:37 AST 10 U/L (13-39) L 08/04/16 10:37 ALT 8 U/L (7-52) 08/04/16 10:37 Alkaline Phosphatase 134 U/L (34-104) H 08/04/16 10:37 C-Reactive Protein 24.6 mg/dL (0.0-0.9) H 08/04/16 10:37 Total Protein 5.5 gm/dL (6.0-8.3) L 08/04/16 10:37 Albumin 1.8 gm/dL (3.7-5.3) L 08/04/16 10:37 Globulin 3.7 gm/dL 08/04/16 10:37 Albumin/Globulin Ratio 0.5 (1.0-1.8) L 08/04/16 10:37 Triglycerides 111 mg/dL (<150) 08/04/16 10:37 Cholesterol 109 mg/dL (<200) 08/04/16 10:37 LDL Cholesterol Direct 66 mg/dL (75-193) L 08/04/16 10:37 HDL Cholesterol 24 mg/dL (23-92) 08/04/16 10:37 Vancomycin Trough 22.9 ug/mL (10-20) H 08/08/16 05:00 Blood Type O POSITIVE 08/08/16 06:55 Antibody Screen NEGATIVE 08/08/16 06:55 Crossmatch See Detail 08/08/16 06:55 - Physical Exam Vitals and I&O: Vital Signs Temp 97.9 F 08/09/16 11:43 Pulse 90 08/09/16 11:43 Resp 18 08/09/16 11:43 BP 154/73 08/09/16 11:43 Pulse Ox 96 08/09/16 11:43 Intake & Output 08/08/16 08/09/16 08/09/16 18:59 06:59 18:59 Intake Total 750 240 Output Total 25 440 Balance 725 -200 Weight (lbs) 101.605 kg 103.147 kg Intake: Intake, IV Amount 350 Mag Sulfate 2gm/50mL 50 Premix 2 gm In 50 ml @ 25 mls/hr IV X1 ONE Rx#: [id number] Vancomycin HCl 1.25 gm In 250 Sodium Chloride 0.9% 250 ml @ 165 mls/hr IV Q18H [facility] Rx#:[id number] cefTRIAXone 1 gm In 50 Sodium Chloride 0.9% 50 ml @ 100 mls/hr IV Q24HR [facility] Rx#:[id number] Oral 400 240 Output: Drainage 25 20 ADELITA 25 20 Urine 420 Other: # Voids 4 # Bowel Movements 1 Active Medications: Current Medications Acetaminophen (Tylenol) 325 mg PO Q4HR PRN PRN Reason: Fever > 101 Stop: 10/02/16 21:31 Last Admin: 08/05/16 14:04 Dose: 325 mg Acetaminophen/Hydrocodone Bitart ([place] 10 Mg/325 Mg) 1 tab PO Q6H PRN PRN Reason: Pain (Mild) Stop: 10/02/16 21:31 Last Admin: 08/04/16 12:00 Dose: 1 tab Albuterol/Ipratropium (Duoneb Neb) 3 ml HHN Q4HRT [facility] Stop: 10/02/16 22:59 Last Admin: 08/09/16 11:34 Dose: Not Given Carvedilol (Coreg) 25 mg PO DAILY [facility] Stop: 10/03/16 08:59 Last Admin: 08/09/16 11:22 Dose: Not Given Ezetimibe (Zetia) 10 mg PO HS [facility] Stop: 10/02/16 21:31 Last Admin: 08/08/16 21:02 Dose: Not Given Gabapentin (Neurontin) 600 mg PO BID [facility] Stop: 10/03/16 08:59 Last Admin: 08/09/16 11:22 Dose: Not Given Vancomycin HCl 1.25 gm/ Sodium (Chloride) 250 mls @ 165 mls/hr IV Q18H [facility] Stop: 10/03/16 13:59 Last Admin: 08/09/16 02:27 Dose: 165 mls/hr Ceftriaxone Sodium 1 gm/ (Sodium Chloride) 50 mls @ 100 mls/hr IV Q24HR [facility] Stop: 10/07/16 13:59 Last Infusion: 08/08/16 15:55 Dose: Infused Insulin Aspart (Novolog) 0 units SUBQ ACHS [facility] PRN Reason: Protocol Stop: 10/02/16 21:59 Last Admin: 08/09/16 11:22 Dose: Not Given Miscellaneous (Vancomycin Iv Per Pharmacy) 1 ea MC PRN PRN PRN Reason: PROTOCOL Stop: 10/02/16 21:31 Miscellaneous (Vte Chemical Prophylaxis Screen/ Admission) 1 ea MC PRN PRN PRN Reason: PROTOCOL Stop: 10/03/16 14:47 Morphine Sulfate (Morphine) 2 mg IVP Q6H PRN PRN Reason: Pain Level 8 - 10 Stop: 10/04/16 12:05 Last Admin: 08/09/16 04:41 Dose: 2 mg Morphine Sulfate (Morphine) 2 mg IVP Q6HR PRN PRN Reason: PAIN LEVEL 8-10 Stop: 10/08/16 11:16 Ondansetron HCl (Zofran) 4 mg IV UD PRN PRN Reason: Nausea / Vomiting Stop: 10/06/16 09:09 Potassium Chloride (Klor-Con) 10 meq PO DAILY [facility] Stop: 10/03/16 09:14 Last Admin: 08/09/16 11:23 Dose: Not Given Valsartan (Diovan) 80 mg PO DAILY [facility] Stop: 10/03/16 08:59 Last Admin: 08/09/16 11:23 Dose: Not Given General: no acute distress, well developed, well nourished HEENT: atraumatic, normocephalic, EOMI, moist mucous membrane Neck: supple, no rigid Cardiovascular: S1S2, no systolic murmur Lungs: clear to auscultation bilaterally, clear to percussion Abdomen: soft, bowel sounds, obese, no tender, no distended Extremities: other (Left AKA and right foot wounds.), no cyanosis, no edema Neurological: awake, oriented, no focal findings - Procedures Procedures: Procedures Procedure Code Date AMPUTATE LEG AT THIGH 55340 08/03/16 ANNETTE SUBQ TISSUE 20 SQ CM/< 59791 08/03/16 DETACHMENT AT LEFT UPPER LEG, LOW, OPEN APPROACH [id number] 08/03/16 EXCISION OF R FOOT SUBCU/FASCIA, OPEN APPROACH [id number] 08/03/16 EXCISION OF R LOW LEG SUBCU/FASCIA, OPEN APPROACH [id number] 08/03/16 Infectious Disease Assmt/Plan - Assessment Assessment: Assessment/Plan: 1. Leukocytosis, sepsis. 2. cellulitis of both legs. 3. 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 4. 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 5. right heel necrosis. 6. PAD. 7. DM2 8. HTN. 9. 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 Recommendations: Will continue vanco IV, and levaquin changed to rocephin. Wound care. LTAC eval and transfer to [facility] or [place]. Nutritional Asmnt/Malnutr-PDOC - Dietary Evaluation Malnutrition Findings (Please click <Entered> for more info): Nutritional Asmnt/Malnutrition Start: 08/04/16 12: 35 Text: Status: Complete Freq: Document 08/04/16 12:35 GSUN (Rec: 08/04/16 12:49 [email or web address] [email or web address]) Nutritional Asmnt/Malnutrition Patient General Information Nutritional Screening Consult Diagnosis ER: stage 4 decubiti, leukocytosis, hyponatremia, hyperglycemia Pertinent Medical Hx/Surgical Hx ER: HTN, DM, CHF, thyroid disorder, hypothyroidism, hyperlipidemia, peripheral vascular disease Subjective Information 81 [address] consult for multiple decubiti. Pt was alert, pleasant, but appeared unreceptive of diet recommendations. RD explaine importance of nutrient especially protein fod wound healing, suggested oral supplements, pt responded "no, I don't like those wound healing things." RD encouraged as able, pt finally said "I' ll see." Informed RN Sheryl of nutrition recommendations. Pt apepared obese, with some lose skin possible from weight loss. Pt does not know UBW. 12/22 Vicente adm, pt was 243.7lb . EMR CBW 239lb. Pt with few teeth intact. Pt stated usually fair appetite. Current Diet Order/ Nutrition Support [id number] Pertinent Medications Lasix, Novolog, Vancomycin, Klor-Con Pertinent Labs 08/04: glucose 154H Nutritional Hx/Data Height 1.7 m Height (Calculated Centimeters) 170.2 Current Weight (lbs) 108.409 kg Weight (Calculated Kilograms) 108.4 Weight (Calculated Grams) 628503.6 [place] Body Weight 148 Weight Status Obese GI Symptoms Food Allergies No Cultural/Ethnic/Confucianist Belief Pt likes "dried crispy" food such as cheese and crakers. Skin Integrity/Comment: Grey 12. Multiple decubiti Estimated Nutritional Goals BEE in Kcals: Adj wt of IBW Calories/Kcals/Kg AdjBW 161/73.2kg Kcals Calculated 1830-2196kcal (25-30kcal/kg) Protein: Adj wt of IBW Protein Calculated 88-117g (1.2-1.6g/kg) Fluid: ml 1830-2196ml (1ml/kcal) Nutritional Problem 1. Problem Problem Icnreased prot needs related to Etiology skin integrity aeb Signs/Symptoms: pt with multiple decubiti, wound care consult pending Intervention/Recommendation Comments 1. Recommend [id number]. 2. Recommend 2 packet Arginaid daily and 1 packet Prosource daily for wound healing. Explained importance of nutrition especially protein for wound healing, purpose of oral supplements. Pt appeared unreceptive of idea, then finally said "I'll see." Provide encouragement as able. Expected Outcomes/Goals Expected Outcomes/Goals 1. PO intake to meet 100% of estimated nutritional needs.
[2016-08-09] MEDS: cefTRIAXone 1 GM in 0.9% NS 50 ML IV SCH (13:41)
[2016-08-10] MEDS: Albuterol/Ipratropium Neb 3 ML AERS HHN SCH ×6 (03:38→23:03)
[2016-08-10 05:33] LABS: WHITE BLOOD COUNT 10.5 Th/cmm (4.8-10.8)
[2016-08-10 05:46] LABS: HEMATOCRIT 27.4 % (35.0-45.0); HEMOGLOBIN 9.2 gm/dL (11.7-16.1); MEAN CORPUSCULAR HEMOGLOBIN 30.1 pg (27.0-31.0); MEAN CORPUSCULAR HGB CONC 33.5 pg (28.0-36.0); MEAN PLATELET VOLUME 7.4 fl; PLATELET COUNT 444 Th/cmm (150-400); RED BLOOD COUNT 3.05 Mil/cmm (3.80-5.20); RED CELL DISTRIBUTION WIDTH 13.6 % (11.5-20.0)
[2016-08-10 05:59] LABS: ANION GAP 8.4 (7.0-16.0); BUN - UREA NITROGEN 7 mg/dL (7-25); BUN/CREATININE RATIO 23.3; CARBON DIOXIDE 21.9 mEq/L (21.0-31.0); CHLORIDE 104 mEq/L (98-107); CREATININE - SERUM 0.3 mg/dL (0.6-1.2); GLUCOSE 119 mg/dL (70-105); MAGNESIUM 1.6 mg/dL (1.9-2.7); POTASSIUM SERUM 3.3 mEq/L (3.5-5.1); SODIUM SERUM 131 mEq/L (136-145)
[2016-08-10] MEDS: INSULIN ASPART, RECOMBINANT 100 UNITS/ML SUBQ SCH ×4 (06:41→23:07)
[2016-08-10 07:28] LABS: BAND NEUTROPHILE 2 % (0-10); NEUTROPHILS 70 % (40-80); TOTAL CELLS COUNTED 100
[2016-08-10 07:29] LABS: PLATELET ESTIMATE ADEQUATE (NORMAL)
[2016-08-10] MEDS: Morphine Sulfate 4 mg/mL 1mL Syr IVP PRN ×3 (08:53→23:06)
[2016-08-10] MEDS: Potassium Chloride 10 mEq ER Tab PO SCH (08:56)
--- NOTE | 2016-08-10 09:15 | General Progress Note ---
Subjective - Review of Systems Service Date: 08/10/16 Events since last encounter: left AKA amputation stump redressed. Healing well, no cellulitis for DC to [place] Objective - Results Result Diagrams: 08/10/16 05:18 08/10/16 05:18 Recent Labs: Laboratory Last Values WBC 10.5 Th/cmm (4.8-10.8) 08/10/16 05:18 RBC 3.05 Mil/cmm (3.80-5.20) L 08/10/16 05:18 Hgb 9.2 gm/dL (11.7-16.1) L 08/10/16 05:18 Hct 27.4 % (35.0-45.0) L 08/10/16 05:18 MCV 90.0 fl (81-100) 08/10/16 05:18 MCH 30.1 pg (27.0-31.0) 08/10/16 05:18 MCHC Differential 33.5 pg (28.0-36.0) 08/10/16 05:18 RDW 13.6 % (11.5-20.0) 08/10/16 05:18 Plt Count 444 Th/cmm (150-400) H 08/10/16 05:18 MPV 7.4 fl 08/10/16 05:18 Neutrophils % 76.1 % (40.0-80.0) 08/09/16 05:59 Band Neutrophils % 2 % (0-10) 08/10/16 05:18 Lymphocytes % 16.1 % (20.0-50.0) L 08/09/16 05:59 Monocytes % 6.6 % (2.0-10.0) 08/09/16 05:59 Eosinophils % 1.0 % (0.0-5.0) 08/09/16 05:59 Basophils % 0.2 % (0.0-2.0) 08/09/16 05:59 Neutrophils (Manual) 70 % (40-80) 08/10/16 05:18 Lymphocytes 20 % (20-50) 08/10/16 05:18 Monocytes 8 % (2-10) 08/10/16 05:18 Eosinophils 1 % (0-5) 08/08/16 05:00 Platelet Estimate ADEQUATE (NORMAL) 08/10/16 05:18 Platelet Morphology PLATELET CLUMPS SEEN (NORMAL) 08/08/16 05:00 Anisocytosis 1+ 08/08/16 05:00 RBC Morph Micro Appear ABNORMAL (NORMAL) 08/08/16 05:00 ESR 140 mm/hr (0-30) H 08/04/16 10:37 PT 15.2 SECONDS (9.5-11.5) H 08/07/16 06:50 INR 1.43 (0.5-1.4) H 08/07/16 06:50 Sodium 131 mEq/L (136-145) L 08/10/16 05:18 Potassium 3.3 mEq/L (3.5-5.1) L 08/10/16 05:18 Chloride 104 mEq/L (98-107) 08/10/16 05:18 Carbon Dioxide 21.9 mEq/L (21.0-31.0) 08/10/16 05:18 Anion Gap 8.4 (7.0-16.0) 08/10/16 05:18 BUN 7 mg/dL (7-25) 08/10/16 05:18 Creatinine 0.3 mg/dL (0.6-1.2) L 08/10/16 05:18 Est GFR ( Amer) TNP 08/10/16 05:18 Est GFR (Non-Af Amer) TNP 08/10/16 05:18 BUN/Creatinine Ratio 23.3 08/10/16 05:18 Glucose 119 mg/dL (70-105) H 08/10/16 05:18 POC Glucose 131 MG/DL (70 - 105) H 08/10/16 05:38 Whole Bld Lactic Acid 1.17 mmol/L (0.60-1.99) 08/03/16 15:57 Calcium 7.0 mg/dL (8.6-10.3) L 08/10/16 05:18 Phosphorus 3.1 mg/dL (2.5-5.0) 08/07/16 06:50 Magnesium 1.6 mg/dL (1.9-2.7) L 08/10/16 05:18 Total Bilirubin 0.3 mg/dL (0.3-1.0) 08/04/16 10:37 AST 10 U/L (13-39) L 08/04/16 10:37 ALT 8 U/L (7-52) 08/04/16 10:37 Alkaline Phosphatase 134 U/L (34-104) H 08/04/16 10:37 C-Reactive Protein 24.6 mg/dL (0.0-0.9) H 08/04/16 10:37 Total Protein 5.5 gm/dL (6.0-8.3) L 08/04/16 10:37 Albumin 1.8 gm/dL (3.7-5.3) L 08/04/16 10:37 Globulin 3.7 gm/dL 08/04/16 10:37 Albumin/Globulin Ratio 0.5 (1.0-1.8) L 08/04/16 10:37 Triglycerides 111 mg/dL (<150) 08/04/16 10:37 Cholesterol 109 mg/dL (<200) 08/04/16 10:37 LDL Cholesterol Direct 66 mg/dL (75-193) L 08/04/16 10:37 HDL Cholesterol 24 mg/dL (23-92) 08/04/16 10:37 Vancomycin Trough 22.9 ug/mL (10-20) H 08/08/16 05:00 Blood Type O POSITIVE 08/08/16 06:55 Antibody Screen NEGATIVE 08/08/16 06:55 Crossmatch See Detail 08/08/16 06:55 - Physical Exam Vitals and I&O: Vital Signs Temp 98.2 F 08/10/16 04:00 Pulse 82 08/10/16 08:57 Resp 18 08/10/16 04:00 BP 147/76 08/10/16 08:57 Pulse Ox 94 08/10/16 04:00 Intake & Output 08/09/16 08/10/16 08/10/16 18:59 06:59 18:59 Intake Total 200 490 Output Total 360 325 Balance -160 165 Weight (lbs) 102.965 kg 101.605 kg Intake: Intake, IV Amount 50 250 Vancomycin HCl 1.25 gm In 250 Sodium Chloride 0.9% 250 ml @ 165 mls/hr IV Q18H [facility] Rx#:[id number] cefTRIAXone 1 gm In 50 Sodium Chloride 0.9% 50 ml @ 100 mls/hr IV Q24HR [facility] Rx#:[id number] Oral 150 240 Output: Drainage 10 25 ADELITA 10 25 Urine 325 300 Other 25 Active Medications: Current Medications Acetaminophen (Tylenol) 325 mg PO Q4HR PRN PRN Reason: Fever > 101 Stop: 10/02/16 21:31 Last Admin: 08/05/16 14:04 Dose: 325 mg Acetaminophen/Hydrocodone Bitart ([place] 10 Mg/325 Mg) 1 tab PO Q6H PRN PRN Reason: Pain (Mild) Stop: 10/02/16 21:31 Last Admin: 08/04/16 12:00 Dose: 1 tab Albuterol/Ipratropium (Duoneb Neb) 3 ml HHN Q4HRT [facility] Stop: 10/02/16 22:59 Last Admin: 08/10/16 07:54 Dose: 3 ml Carvedilol (Coreg) 25 mg PO DAILY [facility] Stop: 10/03/16 08:59 Last Admin: 08/10/16 08:56 Dose: 25 mg Ezetimibe (Zetia) 10 mg PO HS [facility] Stop: 10/02/16 21:31 Last Admin: 08/09/16 20:46 Dose: 10 mg Gabapentin (Neurontin) 600 mg PO BID [facility] Stop: 10/03/16 08:59 Last Admin: 08/10/16 08:56 Dose: 600 mg Vancomycin HCl 1.25 gm/ Sodium (Chloride) 250 mls @ 165 mls/hr IV Q18H [facility] Stop: 10/03/16 13:59 Last Infusion: 08/09/16 22:17 Dose: Infused Ceftriaxone Sodium 1 gm/ (Sodium Chloride) 50 mls @ 100 mls/hr IV Q24HR [facility] Stop: 10/07/16 13:59 Last Infusion: 08/09/16 14:11 Dose: Infused Insulin Aspart (Novolog) 0 units SUBQ ACHS [facility] PRN Reason: Protocol Stop: 10/02/16 21:59 Last Admin: 08/10/16 06:41 Dose: Not Given Miscellaneous (Vancomycin Iv Per Pharmacy) 1 ea MC PRN PRN PRN Reason: PROTOCOL Stop: 10/02/16 21:31 Miscellaneous (Vte Chemical Prophylaxis Screen/ Admission) 1 ea MC PRN PRN PRN Reason: PROTOCOL Stop: 10/03/16 14:47 Morphine Sulfate (Morphine) 2 mg IVP Q6HR PRN PRN Reason: PAIN LEVEL 8-10 Stop: 10/08/16 11:16 Last Admin: 08/10/16 08:53 Dose: 2 mg Ondansetron HCl (Zofran) 4 mg IV UD PRN PRN Reason: Nausea / Vomiting Stop: 10/06/16 09:09 Potassium Chloride (Klor-Con) 10 meq PO DAILY [facility] Stop: 10/09/16 08:59 Last Admin: 08/10/16 08:56 Dose: 10 meq Valsartan (Diovan) 80 mg PO DAILY [facility] Stop: 10/03/16 08:59 Last Admin: 08/10/16 08:57 Dose: 80 mg - Procedures Procedures: Procedures Procedure Code Date AMPUTATE LEG AT THIGH 92871 08/03/16 ANNETTE SUBQ TISSUE 20 SQ CM/< 16943 08/03/16 DETACHMENT AT LEFT UPPER LEG, LOW, OPEN APPROACH [id number] 08/03/16 EXCISION OF R FOOT SUBCU/FASCIA, OPEN APPROACH [id number] 08/03/16 EXCISION OF R LOW LEG SUBCU/FASCIA, OPEN APPROACH [id number] 08/03/16 Nutritional Asmnt/Malnutr-PDOC - Dietary Evaluation Malnutrition Findings (Please click <Entered> for more info): Nutritional Asmnt/Malnutrition Start: 08/04/16 12: 35 Text: Status: Complete Freq: Document 08/04/16 12:35 GSUN (Rec: 08/04/16 12:49 GSUN [email or web address]) Nutritional Asmnt/Malnutrition Patient General Information Nutritional Screening Consult Diagnosis ER: stage 4 decubiti, leukocytosis, hyponatremia, hyperglycemia Pertinent Medical Hx/Surgical Hx ER: HTN, DM, CHF, thyroid disorder, hypothyroidism, hyperlipidemia, peripheral vascular disease Subjective Information 81 [address] consult for multiple decubiti. Pt was alert, pleasant, but appeared unreceptive of diet recommendations. RD explaine importance of nutrient especially protein fod wound healing, suggested oral supplements, pt responded "no, I don't like those wound healing things." RD encouraged as able, pt finally said "I' ll see." Informed RN Sheryl of nutrition recommendations. Pt apepared obese, with some lose skin possible from weight loss. Pt does not know UBW. 12/22 Vicente adm, pt was 243.7lb . EMR CBW 239lb. Pt with few teeth intact. Pt stated usually fair appetite. Current Diet Order/ Nutrition Support [id number] Pertinent Medications Lasix, Novolog, Vancomycin, Klor-Con Pertinent Labs 08/04: glucose 154H Nutritional Hx/Data Height 1.7 m Height (Calculated Centimeters) 170.2 Current Weight (lbs) 108.409 kg Weight (Calculated Kilograms) 108.4 Weight (Calculated Grams) 456498.6 [place] Body Weight 148 Weight Status Obese GI Symptoms Food Allergies No Cultural/Ethnic/Jew Belief Pt likes "dried crispy" food such as cheese and crakers. Skin Integrity/Comment: Grey 12. Multiple decubiti Estimated Nutritional Goals BEE in Kcals: Adj wt of IBW Calories/Kcals/Kg AdjBW 161/73.2kg Kcals Calculated 1830-2196kcal (25-30kcal/kg) Protein: Adj wt of IBW Protein Calculated 88-117g (1.2-1.6g/kg) Fluid: ml 1830-2196ml (1ml/kcal) Nutritional Problem 1. Problem Problem Icnreased prot needs related to Etiology skin integrity aeb Signs/Symptoms: pt with multiple decubiti, wound care consult pending Intervention/Recommendation Comments 1. Recommend [id number]. 2. Recommend 2 packet Arginaid daily and 1 packet Prosource daily for wound healing. Explained importance of nutrition especially protein for wound healing, purpose of oral supplements. Pt appeared unreceptive of idea, then finally said "I'll see." Provide encouragement as able. Expected Outcomes/Goals Expected Outcomes/Goals 1. PO intake to meet 100% of estimated nutritional needs.
[2016-08-10] MEDS ORDERED: Potassium Chloride 20 mEq ER Tab PO ONE (09:21)
[2016-08-10] MEDS ORDERED: Mag Sulfate 2gm/50mL Premix 2 GM/50 ML BAG IV ONE (09:21)
--- NOTE | 2016-08-10 12:36 | Infectious Disease Prog Note ---
Infectious Disease Subjective - Review of Systems Service Date: 08/10/16 Subjective: She is doing well, no fever. Infectious Disease Objective - Results Result Diagrams: 08/11/16 07:21 08/11/16 07:21 Recent Labs: Laboratory Last Values WBC 10.5 Th/cmm (4.8-10.8) 08/10/16 05:18 RBC 3.05 Mil/cmm (3.80-5.20) L 08/10/16 05:18 Hgb 9.2 gm/dL (11.7-16.1) L 08/10/16 05:18 Hct 27.4 % (35.0-45.0) L 08/10/16 05:18 MCV 90.0 fl (81-100) 08/10/16 05:18 MCH 30.1 pg (27.0-31.0) 08/10/16 05:18 MCHC Differential 33.5 pg (28.0-36.0) 08/10/16 05:18 RDW 13.6 % (11.5-20.0) 08/10/16 05:18 Plt Count 444 Th/cmm (150-400) H 08/10/16 05:18 MPV 7.4 fl 08/10/16 05:18 Neutrophils % 76.1 % (40.0-80.0) 08/09/16 05:59 Band Neutrophils % 2 % (0-10) 08/10/16 05:18 Lymphocytes % 16.1 % (20.0-50.0) L 08/09/16 05:59 Monocytes % 6.6 % (2.0-10.0) 08/09/16 05:59 Eosinophils % 1.0 % (0.0-5.0) 08/09/16 05:59 Basophils % 0.2 % (0.0-2.0) 08/09/16 05:59 Neutrophils (Manual) 70 % (40-80) 08/10/16 05:18 Lymphocytes 20 % (20-50) 08/10/16 05:18 Monocytes 8 % (2-10) 08/10/16 05:18 Eosinophils 1 % (0-5) 08/08/16 05:00 Platelet Estimate ADEQUATE (NORMAL) 08/10/16 05:18 Platelet Morphology PLATELET CLUMPS SEEN (NORMAL) 08/08/16 05:00 Anisocytosis 1+ 08/08/16 05:00 RBC Morph Micro Appear ABNORMAL (NORMAL) 08/08/16 05:00 ESR 140 mm/hr (0-30) H 08/04/16 10:37 PT 15.2 SECONDS (9.5-11.5) H 08/07/16 06:50 INR 1.43 (0.5-1.4) H 08/07/16 06:50 Sodium 131 mEq/L (136-145) L 08/10/16 05:18 Potassium 3.3 mEq/L (3.5-5.1) L 08/10/16 05:18 Chloride 104 mEq/L (98-107) 08/10/16 05:18 Carbon Dioxide 21.9 mEq/L (21.0-31.0) 08/10/16 05:18 Anion Gap 8.4 (7.0-16.0) 08/10/16 05:18 BUN 7 mg/dL (7-25) 08/10/16 05:18 Creatinine 0.3 mg/dL (0.6-1.2) L 08/10/16 05:18 Est GFR ( Amer) TNP 08/10/16 05:18 Est GFR (Non-Af Amer) TNP 08/10/16 05:18 BUN/Creatinine Ratio 23.3 08/10/16 05:18 Glucose 119 mg/dL (70-105) H 08/10/16 05:18 POC Glucose 141 MG/DL (70 - 105) H 08/10/16 11:07 Whole Bld Lactic Acid 1.17 mmol/L (0.60-1.99) 08/03/16 15:57 Calcium 7.0 mg/dL (8.6-10.3) L 08/10/16 05:18 Phosphorus 3.1 mg/dL (2.5-5.0) 08/07/16 06:50 Magnesium 1.6 mg/dL (1.9-2.7) L 08/10/16 05:18 Total Bilirubin 0.3 mg/dL (0.3-1.0) 08/04/16 10:37 AST 10 U/L (13-39) L 08/04/16 10:37 ALT 8 U/L (7-52) 08/04/16 10:37 Alkaline Phosphatase 134 U/L (34-104) H 08/04/16 10:37 C-Reactive Protein 24.6 mg/dL (0.0-0.9) H 08/04/16 10:37 Total Protein 5.5 gm/dL (6.0-8.3) L 08/04/16 10:37 Albumin 1.8 gm/dL (3.7-5.3) L 08/04/16 10:37 Globulin 3.7 gm/dL 08/04/16 10:37 Albumin/Globulin Ratio 0.5 (1.0-1.8) L 08/04/16 10:37 Triglycerides 111 mg/dL (<150) 08/04/16 10:37 Cholesterol 109 mg/dL (<200) 08/04/16 10:37 LDL Cholesterol Direct 66 mg/dL (75-193) L 08/04/16 10:37 HDL Cholesterol 24 mg/dL (23-92) 08/04/16 10:37 Vancomycin Trough 22.9 ug/mL (10-20) H 08/08/16 05:00 Blood Type O POSITIVE 08/08/16 06:55 Antibody Screen NEGATIVE 08/08/16 06:55 Crossmatch See Detail 08/08/16 06:55 - Physical Exam Vitals and I&O: Vital Signs Temp 98.7 F 08/10/16 11:31 Pulse 80 08/10/16 11:31 Resp 18 08/10/16 12:00 BP 138/65 08/10/16 11:31 Pulse Ox 95 08/10/16 11:31 Intake & Output 08/09/16 08/10/16 08/10/16 18:59 06:59 18:59 Intake Total 200 490 Output Total 360 325 5 Balance -160 165 -5 Weight (lbs) 102.965 kg 101.605 kg Intake: Intake, IV Amount 50 250 Vancomycin HCl 1.25 gm In 250 Sodium Chloride 0.9% 250 ml @ 165 mls/hr IV Q18H [facility] Rx#:[id number] cefTRIAXone 1 gm In 50 Sodium Chloride 0.9% 50 ml @ 100 mls/hr IV Q24HR [facility] Rx#:[id number] Oral 150 240 Output: Drainage 10 25 5 ADELITA 10 25 5 Urine 325 300 Other 25 Active Medications: Current Medications Acetaminophen (Tylenol) 325 mg PO Q4HR PRN PRN Reason: Fever > 101 Stop: 10/02/16 21:31 Last Admin: 08/05/16 14:04 Dose: 325 mg Acetaminophen/Hydrocodone Bitart ([place] 10 Mg/325 Mg) 1 tab PO Q6H PRN PRN Reason: Pain (Mild) Stop: 10/02/16 21:31 Last Admin: 08/04/16 12:00 Dose: 1 tab Albuterol/Ipratropium (Duoneb Neb) 3 ml HHN Q4HRT [facility] Stop: 10/02/16 22:59 Last Admin: 08/10/16 11:15 Dose: 3 ml Carvedilol (Coreg) 25 mg PO DAILY [facility] Stop: 10/03/16 08:59 Last Admin: 08/10/16 08:56 Dose: 25 mg Ezetimibe (Zetia) 10 mg PO HS [facility] Stop: 10/02/16 21:31 Last Admin: 08/09/16 20:46 Dose: 10 mg Gabapentin (Neurontin) 600 mg PO BID [facility] Stop: 10/03/16 08:59 Last Admin: 08/10/16 08:56 Dose: 600 mg Vancomycin HCl 1.25 gm/ Sodium (Chloride) 250 mls @ 165 mls/hr IV Q18H [facility] Stop: 10/03/16 13:59 Last Infusion: 08/09/16 22:17 Dose: Infused Ceftriaxone Sodium 1 gm/ (Sodium Chloride) 50 mls @ 100 mls/hr IV Q24HR [facility] Stop: 10/07/16 13:59 Last Infusion: 08/09/16 14:11 Dose: Infused Insulin Aspart (Novolog) 0 units SUBQ ACHS [facility] PRN Reason: Protocol Stop: 10/02/16 21:59 Last Admin: 08/10/16 12:22 Dose: Not Given Miscellaneous (Vancomycin Iv Per Pharmacy) 1 ea [facility] PRN PRN PRN Reason: PROTOCOL Stop: 10/02/16 21:31 Miscellaneous (Vte Chemical Prophylaxis Screen/ Admission) 1 ea [facility] PRN PRN PRN Reason: PROTOCOL Stop: 10/03/16 14:47 Morphine Sulfate (Morphine) 2 mg IVP Q6HR PRN PRN Reason: PAIN LEVEL 8-10 Stop: 10/08/16 11:16 Last Admin: 08/10/16 08:53 Dose: 2 mg Ondansetron HCl (Zofran) 4 mg IV UD PRN PRN Reason: Nausea / Vomiting Stop: 10/06/16 09:09 Potassium Chloride (Klor-Con) 10 meq PO DAILY [facility] Stop: 10/09/16 08:59 Last Admin: 08/10/16 08:56 Dose: 10 meq Valsartan (Diovan) 80 mg PO DAILY [facility] Stop: 10/03/16 08:59 Last Admin: 08/10/16 08:57 Dose: 80 mg - Procedures Procedures: Procedures Procedure Code Date AMPUTATE LEG AT THIGH 18114 08/03/16 ANNETTE SUBQ TISSUE 20 SQ CM/< 45701 08/03/16 DETACHMENT AT LEFT UPPER LEG, LOW, OPEN APPROACH [id number] 08/03/16 EXCISION OF R FOOT SUBCU/FASCIA, OPEN APPROACH [id number] 08/03/16 EXCISION OF R LOW LEG SUBCU/FASCIA, OPEN APPROACH [id number] 08/03/16 Infectious Disease Assmt/Plan - Assessment Assessment: Assessment/Plan: 1. Leukocytosis, sepsis. 2. cellulitis of both legs. 3. 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 4. 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 5. right heel necrosis. 6. PAD. 7. DM2 8. HTN. 9. 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 Recommendations: Will continue vanco IV, and levaquin changed to rocephin. Wound care. LTAC eval and transfer to [facility] or [place]. Nutritional Asmnt/Malnutr-PDOC - Dietary Evaluation Malnutrition Findings (Please click <Entered> for more info): Nutritional Asmnt/Malnutrition Start: 08/04/16 12: 35 Text: Status: Complete Freq: Document 08/04/16 12:35 GSUN (Rec: 08/04/16 12:49 GSUN [email or web address]) Nutritional Asmnt/Malnutrition Patient General Information Nutritional Screening Consult Diagnosis ER: stage 4 decubiti, leukocytosis, hyponatremia, hyperglycemia Pertinent Medical Hx/Surgical Hx ER: HTN, DM, CHF, thyroid disorder, hypothyroidism, hyperlipidemia, peripheral vascular disease Subjective Information 81 [address] consult for multiple decubiti. Pt was alert, pleasant, but appeared unreceptive of diet recommendations. RD explaine importance of nutrient especially protein fod wound healing, suggested oral supplements, pt responded "no, I don't like those wound healing things." RD encouraged as able, pt finally said "I' ll see." Informed RN Sheryl of nutrition recommendations. Pt apepared obese, with some lose skin possible from weight loss. Pt does not know UBW. 12/22 Vicente adm, pt was 243.7lb . EMR CBW 239lb. Pt with few teeth intact. Pt stated usually fair appetite. Current Diet Order/ Nutrition Support [id number] Pertinent Medications Lasix, Novolog, Vancomycin, Klor-Con Pertinent Labs 08/04: glucose 154H Nutritional Hx/Data Height 1.7 m Height (Calculated Centimeters) 170.2 Current Weight (lbs) 108.409 kg Weight (Calculated Kilograms) 108.4 Weight (Calculated Grams) 705057.6 [place] Body Weight 148 Weight Status Obese GI Symptoms Food Allergies No Cultural/Ethnic/Mormonism Belief Pt likes "dried crispy" food such as cheese and crakers. Skin Integrity/Comment: Grey 12. Multiple decubiti Estimated Nutritional Goals BEE in Kcals: Adj wt of IBW Calories/Kcals/Kg AdjBW 161/73.2kg Kcals Calculated 1830-2196kcal (25-30kcal/kg) Protein: Adj wt of IBW Protein Calculated 88-117g (1.2-1.6g/kg) Fluid: ml 1830-2196ml (1ml/kcal) Nutritional Problem 1. Problem Problem Icnreased prot needs related to Etiology skin integrity aeb Signs/Symptoms: pt with multiple decubiti, wound care consult pending Intervention/Recommendation Comments 1. Recommend [id number]. 2. Recommend 2 packet Arginaid daily and 1 packet Prosource daily for wound healing. Explained importance of nutrition especially protein for wound healing, purpose of oral supplements. Pt appeared unreceptive of idea, then finally said "I'll see." Provide encouragement as able. Expected Outcomes/Goals Expected Outcomes/Goals 1. PO intake to meet 100% of estimated nutritional needs.
[2016-08-10] MEDS: cefTRIAXone 1 GM in 0.9% NS 50 ML IV SCH (13:12)
[2016-08-11] MEDS: Hydrocodone/APAP 10 mg/325 mg Tab PO PRN ×2 (02:36→08:36)
[2016-08-11] MEDS: Albuterol/Ipratropium Neb 3 ML AERS HHN SCH ×4 (03:51→14:32)
[2016-08-11] MEDS: Morphine Sulfate 4 mg/mL 1mL Syr IVP PRN (04:28)
[2016-08-11 07:46] LABS: % BASOPHILS 0.1 % (0.0-2.0); % EOSINOPHILS 3.5 % (0.0-5.0); % LYMPHOCYTES 23.6 % (20.0-50.0); % MONOCYTES 8.2 % (2.0-10.0); % NEUTROPHILS 64.6 % (40.0-80.0); MEAN CELL VOLUME 90.4 fl (81-100); MEAN CORPUSCULAR HEMOGLOBIN 30.2 pg (27.0-31.0); MEAN CORPUSCULAR HGB CONC 33.4 pg (28.0-36.0); MEAN PLATELET VOLUME 7.4 fl; NEUTROPHILE ABSOLUTE 7.1 Th/cmm (1.8-8.0); PLATELET COUNT 453 Th/cmm (150-400); RED BLOOD COUNT 2.99 Mil/cmm (3.80-5.20); RED CELL DISTRIBUTION WIDTH 14.2 % (11.5-20.0)
[2016-08-11] MEDS: INSULIN ASPART, RECOMBINANT 100 UNITS/ML SUBQ SCH ×2 (07:53→16:25)
[2016-08-11 07:56] LABS: ANION GAP 4.5 (7.0-16.0); BUN - UREA NITROGEN 8 mg/dL (7-25); CALCIUM SERUM 7.1 mg/dL (8.6-10.3); CARBON DIOXIDE 24.7 mEq/L (21.0-31.0); CHLORIDE 108 mEq/L (98-107); CREATININE - SERUM 0.4 mg/dL (0.6-1.2); GLUCOSE 115 mg/dL (70-105); POTASSIUM SERUM 4.2 mEq/L (3.5-5.1); SODIUM SERUM 133 mEq/L (136-145)
[2016-08-11] MEDS: Potassium Chloride 10 mEq ER Tab PO SCH (08:36)
--- NOTE | 2016-08-11 10:56 | Infectious Disease Prog Note ---
Infectious Disease Subjective - Review of Systems Service Date: 08/11/16 Subjective: She is doing well, no fever. Infectious Disease Objective - Results Result Diagrams: 08/11/16 07:21 08/11/16 07:21 Recent Labs: Laboratory Last Values WBC 11.0 Th/cmm (4.8-10.8) H 08/11/16 07:21 RBC 2.99 Mil/cmm (3.80-5.20) L 08/11/16 07:21 Hgb 9.0 gm/dL (11.7-16.1) L 08/11/16 07:21 Hct 27.0 % (35.0-45.0) L 08/11/16 07:21 MCV 90.4 fl (81-100) 08/11/16 07:21 MCH 30.2 pg (27.0-31.0) 08/11/16 07:21 MCHC Differential 33.4 pg (28.0-36.0) 08/11/16 07:21 RDW 14.2 % (11.5-20.0) 08/11/16 07:21 Plt Count 453 Th/cmm (150-400) H 08/11/16 07:21 MPV 7.4 fl 08/11/16 07:21 Neutrophils % 64.6 % (40.0-80.0) 08/11/16 07:21 Band Neutrophils % 2 % (0-10) 08/10/16 05:18 Lymphocytes % 23.6 % (20.0-50.0) 08/11/16 07:21 Monocytes % 8.2 % (2.0-10.0) 08/11/16 07:21 Eosinophils % 3.5 % (0.0-5.0) 08/11/16 07:21 Basophils % 0.1 % (0.0-2.0) 08/11/16 07:21 Neutrophils (Manual) 70 % (40-80) 08/10/16 05:18 Lymphocytes 20 % (20-50) 08/10/16 05:18 Monocytes 8 % (2-10) 08/10/16 05:18 Eosinophils 1 % (0-5) 08/08/16 05:00 Platelet Estimate ADEQUATE (NORMAL) 08/10/16 05:18 Platelet Morphology PLATELET CLUMPS SEEN (NORMAL) 08/08/16 05:00 Anisocytosis 1+ 08/08/16 05:00 RBC Morph Micro Appear ABNORMAL (NORMAL) 08/08/16 05:00 ESR 140 mm/hr (0-30) H 08/04/16 10:37 PT 15.2 SECONDS (9.5-11.5) H 08/07/16 06:50 INR 1.43 (0.5-1.4) H 08/07/16 06:50 Sodium 133 mEq/L (136-145) L 08/11/16 07:21 Potassium 4.2 mEq/L (3.5-5.1) 08/11/16 07:21 Chloride 108 mEq/L (98-107) H 08/11/16 07:21 Carbon Dioxide 24.7 mEq/L (21.0-31.0) 08/11/16 07:21 Anion Gap 4.5 (7.0-16.0) L 08/11/16 07:21 BUN 8 mg/dL (7-25) 08/11/16 07:21 Creatinine 0.4 mg/dL (0.6-1.2) L 08/11/16 07:21 Est GFR ( Amer) TNP 08/11/16 07:21 Est GFR (Non-Af Amer) TNP 08/11/16 07:21 BUN/Creatinine Ratio 20.0 08/11/16 07:21 Glucose 115 mg/dL (70-105) H 08/11/16 07:21 POC Glucose 127 MG/DL (70 - 105) H 08/11/16 06:27 Whole Bld Lactic Acid 1.17 mmol/L (0.60-1.99) 08/03/16 15:57 Calcium 7.1 mg/dL (8.6-10.3) L 08/11/16 07:21 Phosphorus 3.1 mg/dL (2.5-5.0) 08/07/16 06:50 Magnesium 2.0 mg/dL (1.9-2.7) 08/11/16 07:21 Total Bilirubin 0.3 mg/dL (0.3-1.0) 08/04/16 10:37 AST 10 U/L (13-39) L 08/04/16 10:37 ALT 8 U/L (7-52) 08/04/16 10:37 Alkaline Phosphatase 134 U/L (34-104) H 08/04/16 10:37 C-Reactive Protein 24.6 mg/dL (0.0-0.9) H 08/04/16 10:37 Total Protein 5.5 gm/dL (6.0-8.3) L 08/04/16 10:37 Albumin 1.8 gm/dL (3.7-5.3) L 08/04/16 10:37 Globulin 3.7 gm/dL 08/04/16 10:37 Albumin/Globulin Ratio 0.5 (1.0-1.8) L 08/04/16 10:37 Triglycerides 111 mg/dL (<150) 08/04/16 10:37 Cholesterol 109 mg/dL (<200) 08/04/16 10:37 LDL Cholesterol Direct 66 mg/dL (75-193) L 08/04/16 10:37 HDL Cholesterol 24 mg/dL (23-92) 08/04/16 10:37 Vancomycin Trough 21.6 ug/mL (10-20) H 08/11/16 07:21 Blood Type O POSITIVE 08/08/16 06:55 Antibody Screen NEGATIVE 08/08/16 06:55 Crossmatch See Detail 08/08/16 06:55 - Physical Exam Vitals and I&O: Vital Signs Temp 97.9 F 08/11/16 07:48 Pulse 108 08/11/16 08:37 Resp 18 08/11/16 08:00 BP 128/63 08/11/16 08:37 Pulse Ox 99 08/11/16 07:48 Intake & Output 08/10/16 08/11/16 08/11/16 18:59 06:59 18:59 Intake Total 50 200 Output Total 5 150 Balance 45 50 Weight (lbs) 101.831 kg Intake: Intake, IV Amount 50 cefTRIAXone 1 gm In 50 Sodium Chloride 0.9% 50 ml @ 100 mls/hr IV Q24HR [facility] Rx#:[id number] Oral 200 Output: Drainage 5 ADELITA 5 Urine 150 Other: # Bowel Movements 1 Stool Characteristics Soft Active Medications: Current Medications Acetaminophen (Tylenol) 325 mg PO Q4HR PRN PRN Reason: Fever > 101 Stop: 10/02/16 21:31 Last Admin: 08/05/16 14:04 Dose: 325 mg Albuterol/Ipratropium (Duoneb Neb) 3 ml HHN Q4HRT [facility] Stop: 10/02/16 22:59 Last Admin: 08/11/16 10:20 Dose: 3 ml Carvedilol (Coreg) 25 mg PO DAILY [facility] Stop: 10/03/16 08:59 Last Admin: 08/11/16 08:35 Dose: 25 mg Ezetimibe (Zetia) 10 mg PO HS [facility] Stop: 10/02/16 21:31 Last Admin: 08/10/16 23:06 Dose: 10 mg Gabapentin (Neurontin) 600 mg PO BID [facility] Stop: 10/03/16 08:59 Last Admin: 08/11/16 08:35 Dose: 600 mg Ceftriaxone Sodium 1 gm/ (Sodium Chloride) 50 mls @ 100 mls/hr IV Q24HR [facility] Stop: 10/07/16 13:59 Last Infusion: 08/10/16 14:56 Dose: Infused Vancomycin HCl 1.25 gm/ Sodium (Chloride) 250 mls @ 165 mls/hr IV Q24HR [facility] Stop: 10/03/16 13:59 Insulin Aspart (Novolog) 0 units SUBQ ACHS [facility] PRN Reason: Protocol Stop: 10/02/16 21:59 Last Admin: 08/11/16 07:53 Dose: Not Given Miscellaneous (Vancomycin Iv Per Pharmacy) 1 ea PRN PRN PRN Reason: PROTOCOL Stop: 10/02/16 21:31 Miscellaneous (Vte Chemical Prophylaxis Screen/ Admission) 1 [facility] PRN PRN PRN Reason: PROTOCOL Stop: 10/03/16 14:47 Morphine Sulfate (Morphine) 2 mg IVP Q6HR PRN PRN Reason: PAIN LEVEL 8-10 Stop: 10/08/16 11:16 Last Admin: 08/11/16 04:28 Dose: 2 mg Ondansetron HCl (Zofran) 4 mg IV UD PRN PRN Reason: Nausea / Vomiting Stop: 10/06/16 09:09 Last Admin: 08/10/16 23:06 Dose: 4 mg Potassium Chloride (Klor-Con) 10 meq PO DAILY [facility] Stop: 10/09/16 08:59 Last Admin: 08/11/16 08:36 Dose: 10 meq Valsartan (Diovan) 80 mg PO DAILY [facility] Stop: 10/03/16 08:59 Last Admin: 08/11/16 08:37 Dose: 80 mg General: no acute distress, well developed, well nourished HEENT: atraumatic, normocephalic, PERRLA, EOMI, moist mucous membrane Neck: supple, no thyromegaly, no lymphadenopathy, no rigid, no tracheostomy Cardiovascular: S1S2, regular Lungs: clear to auscultation bilaterally, clear to percussion Abdomen: soft, no tender, no distended Extremities: other (left aka), no cyanosis, no clubbing, no edema, no lines Neurological: awake, alert, oriented Skin: intact, other (right foot wound.) - Procedures Procedures: Procedures Procedure Code Date AMPUTATE LEG AT THIGH 12049 08/03/16 ANNETTE SUBQ TISSUE 20 SQ CM/< 50885 08/03/16 DETACHMENT AT LEFT UPPER LEG, LOW, OPEN APPROACH [id number] 08/03/16 EXCISION OF R FOOT SUBCU/FASCIA, OPEN APPROACH [id number] 08/03/16 EXCISION OF R LOW LEG SUBCU/FASCIA, OPEN APPROACH [id number] 08/03/16 Infectious Disease Assmt/Plan - Assessment Assessment: Assessment/Plan: 1. Leukocytosis, sepsis. 2. cellulitis of both legs. 3. 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 4. 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 5. right heel necrosis. 6. PAD. 7. DM2 8. HTN. 9. 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 Recommendations: Will continue vanco IV, and rocephin. Wound care. LTAC eval and transfer to [facility]. Nutritional Asmnt/Malnutr-PDOC - Dietary Evaluation Malnutrition Findings (Please click <Entered> for more info): Nutritional Asmnt/Malnutrition Start: 08/04/16 12: 35 Text: Status: Complete Freq: Document 08/04/16 12:35 GSUN (Rec: 08/04/16 12:49 GSUN [email or web address]) Nutritional Asmnt/Malnutrition Patient General Information Nutritional Screening Consult Diagnosis ER: stage 4 decubiti, leukocytosis, hyponatremia, hyperglycemia Pertinent Medical Hx/Surgical Hx ER: HTN, DM, CHF, thyroid disorder, hypothyroidism, hyperlipidemia, peripheral vascular disease Subjective Information 81 [address] consult for multiple decubiti. Pt was alert, pleasant, but appeared unreceptive of diet recommendations. RD explaine importance of nutrient especially protein fod wound healing, suggested oral supplements, pt responded "no, I don't like those wound healing things." RD encouraged as able, pt finally said "I' ll see." Informed RN Sheryl of nutrition recommendations. Pt apepared obese, with some lose skin possible from weight loss. Pt does not know UBW. 12/22 Vicente adm, pt was 243.7lb . EMR CBW 239lb. Pt with few teeth intact. Pt stated usually fair appetite. Current Diet Order/ Nutrition Support [id number] Pertinent Medications Lasix, Novolog, Vancomycin, Klor-Con Pertinent Labs 08/04: glucose 154H Nutritional Hx/Data Height 1.7 m Height (Calculated Centimeters) 170.2 Current Weight (lbs) 108.409 kg Weight (Calculated Kilograms) 108.4 Weight (Calculated Grams) 193639.6 [place] Body Weight 148 Weight Status Obese GI Symptoms Food Allergies No Cultural/Ethnic/Hinduism Belief Pt likes "dried crispy" food such as cheese and crakers. Skin Integrity/Comment: Grey 12. Multiple decubiti Estimated Nutritional Goals BEE in Kcals: Adj wt of IBW Calories/Kcals/Kg AdjBW 161/73.2kg Kcals Calculated 1830-2196kcal (25-30kcal/kg) Protein: Adj wt of IBW Protein Calculated 88-117g (1.2-1.6g/kg) Fluid: ml 1830-2196ml (1ml/kcal) Nutritional Problem 1. Problem Problem Icnreased prot needs related to Etiology skin integrity aeb Signs/Symptoms: pt with multiple decubiti, wound care consult pending Intervention/Recommendation Comments 1. Recommend [id number]. 2. Recommend 2 packet Arginaid daily and 1 packet Prosource daily for wound healing. Explained importance of nutrition especially protein for wound healing, purpose of oral supplements. Pt appeared unreceptive of idea, then finally said "I'll see." Provide encouragement as able. Expected Outcomes/Goals Expected Outcomes/Goals 1. PO intake to meet 100% of estimated nutritional needs.
[2016-08-11] MEDS: cefTRIAXone 1 GM in 0.9% NS 50 ML IV SCH (14:24)
== END 2016-08-11 18:42 | DRG 853 ==
LOC: ER 15:20 → MSI 19:18 → TELE 08-07 11:05
PROVIDERS: ADMIT Internal Medicine; ATTEND Internal Medicine
PROC: 0Y6D0Z3 Detachment at Left Upper Leg, Low, Open Approach (ICD-10-PCS; principal; 2016-08-07)
PROC: 0JBQ0ZZ Excision of Right Foot Subcutaneous Tissue and Fascia, Open Approach (ICD-10-PCS; 2016-08-07)
PROC: 0JBN0ZZ Excision of Right Lower Leg Subcutaneous Tissue and Fascia, Open Approach (ICD-10-PCS; 2016-08-07)
PROC: 30233N1 Transfusion of Nonautologous Red Blood Cells into Peripheral Vein, Percutaneous Approach (ICD-10-PCS; 2016-08-08)
DX: A41.9 Sepsis, unspecified organism (principal); A48.0 Gas gangrene; I11.0 Hypertensive heart disease with heart failure; L89.893 Pressure ulcer of other site, stage 3; E11.65 Type 2 diabetes mellitus with hyperglycemia; E11.52 Type 2 diabetes mellitus with diabetic peripheral angiopathy with gangrene; I50.9 Heart failure, unspecified; E87.1 Hypo-osmolality and hyponatremia; L03.115 Cellulitis of right lower limb; L03.116 Cellulitis of left lower limb; M86.8X7 Other osteomyelitis, ankle and foot; M86.8X6 Other osteomyelitis, lower leg; M87.88 Other osteonecrosis, other site; D72.829 Elevated white blood cell count, unspecified; I48.91 Unspecified atrial fibrillation; E03.9 Hypothyroidism, unspecified; E78.5 Hyperlipidemia, unspecified; I73.9 Peripheral vascular disease, unspecified; F17.210 Nicotine dependence, cigarettes, uncomplicated; E11.69 Type 2 diabetes mellitus with other specified complication; Z88.7 Allergy status to serum and vaccine; Z88.8 Allergy status to other drugs, medicaments and biological substances; Z88.0 Allergy status to penicillin; Z83.3 Family history of diabetes mellitus; Z82.49 Family history of ischemic heart disease and other diseases of the circulatory system
CPT/HCPCS: 36415-UA; 71010-TC; 73701-TC-LT; 80048-TC; 80053-TC; 80061-TC; 80202-TC; 82948-90; 83605; 83735-TC; 84100-TC; 85007-TC; 85025-TC; 85027-TC; 85610-TC; 85652-TC; 86141-TC; 86850-TC; 86900-TC; 86901-TC; 86922-TC; 87070-90; 87075-90; 87205-90; 88304-TC; 88307-TC; 90799; 93005; 93925-TC; 93971-TC-RT; 94760; J0696; J1644; J1815; J1940; J1956; J2001; J2250; J2270; J2405; J2704; J3370; J3475; J3480; J7030; P9016; Q9967; X5790; X5958; X6158; Z7610

== ENCOUNTER 2016-09-18 14:38 | Inpatient (IN) | payer MEDICARE, MEDICAID ==
[2016-09-18 15:39] LABS: MEAN CORPUSCULAR HEMOGLOBIN 30.3 pg (27.0-31.0); MEAN CORPUSCULAR HGB CONC 33.6 pg (28.0-36.0); MEAN PLATELET VOLUME 7.4 fl; NEUTROPHILE ABSOLUTE 40.4 Th/cmm (1.8-8.0); PLATELET COUNT 515 Th/cmm (150-400); RED BLOOD COUNT 3.99 Mil/cmm (3.80-5.20); RED CELL DISTRIBUTION WIDTH 14.7 % (11.5-20.0)
[2016-09-18 15:50] LABS: INR 3.48 (0.5-1.4); PROTHROMBIN TIME (TEST) 38.7 SECONDS (9.5-11.5)
[2016-09-18 15:54] LABS: ALKALINE PHOSPHATASE 113 U/L (34-104); ANION GAP 13.5 (7.0-16.0); BILIRUBIN,TOTAL 0.7 mg/dL (0.3-1.0); BUN - UREA NITROGEN 26 mg/dL (7-25); CALCIUM SERUM 7.9 mg/dL (8.6-10.3); CARBON DIOXIDE 16.1 mEq/L (21.0-31.0); CHLORIDE 103 mEq/L (98-107); CREATININE - SERUM 1.3 mg/dL (0.6-1.2); GLUCOSE 344 mg/dL (70-105); POTASSIUM SERUM 3.6 mEq/L (3.5-5.1); SGOT 8 U/L (13-39); SGPT/ALT 4 U/L (7-52); SODIUM SERUM 129 mEq/L (136-145)
[2016-09-18 15:55] LABS: CHOLESTEROL 48 mg/dL (<200); TRIGLYCERIDES 130 mg/dL (<150)
--- NOTE | 2016-09-18 16:09 | ED Physician Chart ---
Chief Complaint/HPI - Patient Information Date Seen:: 09/18/16 Time Seen:: 15:37 Chief Complaint:: COMA History of Present Illness:: THIS IS A CRITICALLY ILL 81 YO PATIENT TRANSFER TO THIS ER FOR A CT SCAN OF THE HEAD AND HOSPITALIZATION FOR TREATMENT OF HYPOTENSION, A FIB,AND HYPOXEMIA. SHE WAS SENT FROM [facility] HERE FOR TREATMENT. Allergies:: Allergies Allergy/AdvReac Type Severity Reaction Status Date / Time furosemide [From Lasix] AdvReac Verified 06/14/16 11:58 Penicillins [PCN] AdvReac Verified 06/14/16 11:58 Tetanus Vaccines & Toxoid AdvReac Verified 06/14/16 11:58 Vitals:: Vital Signs - 8 hr 09/18/16 09/18/16 15:41 15:57 Temp 97.7 F HR 119 148 RR 23 BP 103/70 118/57 O2 Sat % 97 Historian:: Medical Records Review:: Nurse's Note Reviewed, Transfer documents Reviewed Review of Systems - Review of Systems General/Constitutional: Other (THIS PATIENT CANNOT GIVE A REVIEW OF SYSTEMS.) Skin: No skin lesions, No rash, No bruising Head: No headache, No light-headedness Eyes: No loss of vision, No pain, No diplopia ENT: No earache, No nasal drainage, No sore throat, No tinnitus Neck: No neck pain, No swelling, No thyromegaly, No stiffness, No mass noted Cardio Vascular: No chest pain, No palpitations, No PND, No orthopnea, No edema Pulmonary: No SOB, No cough, No sputum, No wheezing GI: No nausea, No vomiting, No diarrhea, No pain, No melena, No hematochezia, No constipation, No hematemesis G/U: No dysuria, No frequency, No hematuria Musculoskeletal: No bone or joint pain, No back pain, No muscle pain Endocrine: No polyuria, No polydipsia Psychiatric: No prior psych history, No depression, No anxiety, No suicidal ideation Hematopoietic: No bruising, No lymphadenopathy Allergic/Immuno: No urticaria, No angioedema Neurological: No syncope, No focal symptoms, No weakness, No paresthesia, No headache, No seizure, No dizziness, No confusion, No vertigo Past Medical History - Past Medical History Obtainable: Yes Past Medical History: HTN, CAD, CHF, CVA/TIA, DVT/PE, Thyroid disorder, Other ( OBESITY) Family History: None Social History: Non Smoker, No Alcohol, No Drug Use, Care Facility Family Medical History - Family Member Mother History Unknown: Yes Ethnicity: Unknown Living Status: Unknown Hx Family Cancer: No Hx Family Congestive Heart Failure: No Hx Family Dementia: No Hx Family Hepatitis: No Hx Family Psychiatric Problems: No Physical Exam - Physical Examination General/Constitutional: Well-developed, well-nourished, Alert, No distress, GCS 15, Non-toxic appearing, Ambulatory Other Gen/Cons comments:: THIS PATIENT IS NONE VERBAL AND DOES NOT RESPOND TO VERBAL STIMULI. SHE RESPONDS ONLY TO PAINFUL STIMULI. THE BLOOD PRESSURES IS LOW AND SHE WAS GIVEN VERAPAMIL 5 MG, IV FLUIDS NS AT A RATE OF 50CC/HR., THE PATIENT ALSO GOT BICARB 50 MEQ IV PUSH. Head: Atraumatic Eyes: Lids, conjuctiva normal, PERRL, EOMI Skin: Nl inspection, No rash, No skin lesions, No ecchymosis, Well hydrated, No lymphadenopathy ENMT: External ears, nose nl, Nasal exam nl, Lips, teeth, gums nl Neck: Nontender, Full ROM w/o pain, No JVD, No nuchal rigidity, No bruit, No mass, No stridor Respiratory: Nl effort/Exclusion Other Respiratory comments:: THERE ARE BILATERAL RHONCHI HEARD Cardio Vascular: No murmur, gallop, rubs, NL S1 S2 Other Cardio Vascular comments:: TACHYCARDIC IN ATRIAL FIB 144 GI: No tenderness/rebounding/guarding, No organomegaly, No hernia, Normal BS's, Nondistended, No mass/bruits, No McBurney tenderness : No CVA tenderness Extremities: No tenderness or effusion, Full ROM, normal strength in all extremities, No edema, Normal digits & nails Neuro/Psych: Alert/oriented, DTR's symmetric, Normal sensory exam, Normal motor strength, Judgement/insight normal, Mood normal, Normal gait, No focal deficits Misc: normal gait, Normal back, No paraspinal tenderness Labs/Radiology/EKG Results - Lab Results Results: Abnormal Lab Results 09/18/16 09/18/16 09/18/16 15:24 15:24 15:24 WBC 46.1 H* D RBC 3.99 Hgb 12.1 D Hct 36.0 D MCV 90.0 MCH 30.3 MCHC Differential 33.6 RDW 14.7 Plt Count 515 H MPV 7.4 Band Neutrophils % 3 Neutrophils (Manual) 87 H Lymphocytes 8 L Monocytes 2 Platelet Estimate INCREASED PLATELETS PT 38.7 H INR 3.48 H PTT (Actin FS) 56.1 H Sodium Potassium Chloride Carbon Dioxide Anion Gap BUN Creatinine Est GFR ( Amer) Est GFR (Non-Af Amer) BUN/Creatinine Ratio Glucose Calcium Total Bilirubin AST ALT Alkaline Phosphatase Troponin I Total Protein Albumin Globulin Albumin/Globulin Ratio Triglycerides 130 Cholesterol 48 LDL Cholesterol Direct 19 L HDL Cholesterol 13 L 09/18/16 09/18/16 15:24 15:24 WBC RBC Hgb Hct MCV MCH MCHC Differential RDW Plt Count MPV Band Neutrophils % Neutrophils (Manual) Lymphocytes Monocytes Platelet Estimate PT INR PTT (Actin FS) Sodium 129 L Potassium 3.6 Chloride 103 Carbon Dioxide 16.1 L Anion Gap 13.5 BUN 26 H Creatinine 1.3 H Est GFR ( Amer) TNP Est GFR (Non-Af Amer) TNP BUN/Creatinine Ratio 20.0 Glucose 344 H Calcium 7.9 L Total Bilirubin 0.7 AST 8 L ALT 4 L Alkaline Phosphatase 113 H Troponin I 0.47 H* D Total Protein 4.6 L Albumin 2.3 L Globulin 2.3 Albumin/Globulin Ratio 1.0 Triglycerides Cholesterol LDL Cholesterol Direct HDL Cholesterol - EKG Interpretations EKG Time:: 15:30 Rate & Rhythm: 144 RATE AND A FIB WITH RAPID VENT RESPONSE. [place]: RIGHT AXIS Assessment - Assessment General Assessment: SEPSIS ED Septic Shock - . Is Septic Shock (SBP<90, OR Lactate>4 mmol\L) present?: Yes - <6hrs of presentation: Vital Signs: Vital Signs - 8 hr 09/18/16 09/18/16 15:41 15:57 Temp 97.7 F HR 119 148 RR 23 BP 103/70 118/57 O2 Sat % 97 Assessment of Lungs: Rhonchi, Rales, Wheezing Assessment of Heart: RRR (A FIB 144) EKG Interpretation: Tachy, A-Fib Capillary refill evaluation: Capillary refill < 2 secs Skin Exam: Warm - Time of Reassessment Time of Reassessment: 16:40 Reassessment (Disposition) - Diagnosis Diagnosis:: SEPSIS - Patient Disposition Discharge/Transfer:: Acute Care w/in this hosp Admitted to:: ICU Condition at Disposition:: Improved ED Discharge Plan - Patient Disposition Admit/Discharge/Transfer: Acute Care w/in this hosp Condition at Disposition: Improved
[2016-09-18 16:16] LABS: WHITE BLOOD COUNT 46.1 Th/cmm (4.8-10.8)
[2016-09-18 16:17] LABS: HEMOGLOBIN 12.1 gm/dL (11.7-16.1)
[2016-09-18] MEDS ORDERED: Sodium Bicarbonate 8.4% 50mEq PFS IVP STA (16:26)
[2016-09-18 16:31] LABS: BAND NEUTROPHILE 3 % (0-10); NEUTROPHILS 87 % (40-80); PLATELET ESTIMATE INCREASED PLATELETS (NORMAL); TOTAL CELLS COUNTED 100
[2016-09-18 16:31] LABS: URINE BILIRUBIN NEGATIVE (NEGATIVE); URINE BLOOD NEGATIVE (NEGATIVE); URINE GLUCOSE (UA) NEGATIVE (NEGATIVE); URINE KETONE NEGATIVE (NEGATIVE); URINE PH 5.5 (4.6 - 8.0); URINE PROTEIN TRACE mg/dL (NEGATIVE); URINE UROBILINOGEN 0.2 E.U./dL (0.2 - 1.0)
[2016-09-18 16:45] LABS: URINE COLOR YELLOW
[2016-09-18 16:48] LABS: pH 7.42 (7.35-7.45)
[2016-09-18 16:49] LABS: ABG SOURCE Arterial; BE(B) -7.8 mEq/L (-3.0-3.0); CRITICAL VALUES REPORTED BY SH; FIO2 37; HCO3 18.8 mEq/L (20.0-26.0)
[2016-09-18 16:53] LABS: URINE BACTERIA 1+ /hpf (NONE SEEN); URINE EPITHELIAL CELLS FEW /lpf (FEW)
[2016-09-18 16:54] LABS: URINE WBC 50-100 /hpf (0-5)
[2016-09-18] MEDS ORDERED: MICAFUNGIN 100 MG IV SCH (19:30)
[2016-09-18] MEDS ORDERED: GLUCAGON HCl 1 MG KIT IM PRN (20:10)
[2016-09-18] MEDS ORDERED: Dextrose 50% 50 mL Abboject IVP PRN (20:10)
[2016-09-18] MEDS: Sodium Chloride 0.9% 1,000 ML IV SCH (20:15)
[2016-09-18] MEDS ORDERED: Norepinephrine 4 mg/4mL Vial IV ONE ×2 (21:08→21:11)
[2016-09-18] MEDS ORDERED: Piperacillin Sodium/Tazobact 3.375 gm Vial IV ONE (21:09)
[2016-09-18] MEDS: Micafungin 100 MG in Sodium Chloride 0.9% 100 ML IV SCH (22:11)
[2016-09-18] MEDS: Albuterol/Ipratropium Neb 3 ML AERS HHN SCH (22:22)
[2016-09-19] MEDS ORDERED: INSULIN ASPART SLIDING SCALE 100 UNITS/ML UNIT SUBQ SCH
[2016-09-19] MEDS: Albuterol/Ipratropium Neb 3 ML AERS HHN SCH ×6 (02:21→23:22)
[2016-09-19] MEDS ORDERED: Piperacillin Sodium/Tazobact 3.375 gm Vial IV ONE (03:25)
[2016-09-19 05:19] LABS: HEMATOCRIT 36.6 % (35.0-45.0); HEMOGLOBIN 12.4 gm/dL (11.7-16.1); MEAN CELL VOLUME 89.8 fl (81-100); MEAN CORPUSCULAR HEMOGLOBIN 30.3 pg (27.0-31.0); MEAN CORPUSCULAR HGB CONC 33.8 pg (28.0-36.0); MEAN PLATELET VOLUME 7.8 fl; PLATELET COUNT 485 Th/cmm (150-400); RED BLOOD COUNT 4.07 Mil/cmm (3.80-5.20); RED CELL DISTRIBUTION WIDTH 14.7 % (11.5-20.0)
[2016-09-19 05:30] LABS: WHITE BLOOD COUNT 43.9 Th/cmm (4.8-10.8)
[2016-09-19 05:33] LABS: ALB/GLOB RATIO 0.9 (1.0-1.8); ALKALINE PHOSPHATASE 107 U/L (34-104); ANION GAP 13.3 (7.0-16.0); BILIRUBIN,TOTAL 0.8 mg/dL (0.3-1.0); BUN - UREA NITROGEN 27 mg/dL (7-25); BUN/CREATININE RATIO 20.8; CALCIUM SERUM 7.9 mg/dL (8.6-10.3); CHLORIDE 105 mEq/L (98-107); CREATININE - SERUM 1.3 mg/dL (0.6-1.2); GLUCOSE 290 mg/dL (70-105); POTASSIUM SERUM 3.3 mEq/L (3.5-5.1); SGOT 10 U/L (13-39); SGPT/ALT 5 U/L (7-52); SODIUM SERUM 132 mEq/L (136-145)
[2016-09-19] MEDS: INSULIN ASPART SLIDING SCALE 100 UNITS/ML UNIT SUBQ SCH ×3 (05:58→17:42)
[2016-09-19 07:17] LABS: BAND NEUTROPHILE 4 % (0-10); NEUTROPHILS 80 % (40-80); TOTAL CELLS COUNTED 100
[2016-09-19 07:23] LABS: PLATELET ESTIMATE INCREASED PLATELETS (NORMAL); PLATELET MORPHOLOGY NORMAL (NORMAL)
--- NOTE | 2016-09-19 07:50 | Diagnostic Imaging Report ---
Head CT without intravenous contrast Indication: CVA Comparison: None Technique: Axial images were obtained from the vertex to the skull base without IV contrast. Coronal reconstructions were made. Total DLP: 583, [id number] FINDINGS: Images of the brain obtained without contrast demonstrate no evidence of an acute hemorrhage. Atrophy is noted. Moderate supratentorial white matter disease is noted. The ventricles and basal cisterns are patent. No mass effect or midline shift. Exam is limited due to motion however no obvious skull fracture identified. There is mild soft tissue swelling of the frontal regions. Sclerotic bilateral mastoids are noted. The visualized paranasal sinuses are clear. Atherosclerosis is noted. IMPRESSION: No evidence of acute intracranial hemorrhage. Atrophy. Moderate supratentorial white matter disease which is nonspecific and may be due to chronic microvessel ischemia. Given clinical history if indicated MRI follow-up may also be obtained. Atherosclerotic vascular disease. Sclerotic bilateral mastoids may be due to chronic inflammatory process.
--- NOTE | 2016-09-19 07:56 | Diagnostic Imaging Report ---
CT Chest without IV contrast HISTORY: Congestion COMPARISON: Chest x-ray dated 08/06/2016 Technique: Axial images were obtained from the base of the neck to the upper abdomen without IV contrast. Reconstructions were made. Total DLP to 73, CTD I 17.68 Findings: Evaluation of the mediastinum is limited due to lack of IV contrast. Mild cardiomegaly is seen with severe atherosclerotic vascular disease including coronary artery calcifications. Trace pericardial fluid is noted. No evidence of any aortic aneurysm. Chronic lung changes are seen with diffuse patchy multifocal pulmonary infiltrates. Bibasal consolidative changes are also seen with small bilateral effusions. The upper abdomen demonstrates ascites and cirrhotic liver. Distended stomach is noted with air-fluid level. Small hiatal hernia is noted. Renal vascular calcifications are noted. Diffuse degenerative changes of the spine are noted. Anasarca is noted. IMPRESSION: Extensive multifocal bilateral pulmonary infiltrates most concerning for multifocal pneumonia. Bibasal consolidative changes also seen with small bilateral effusions Extensive atherosclerotic vascular disease Mild cardiomegaly. Ascites partially visualized Cirrhotic liver. Distended stomach with air-fluid level. Small hiatal hernia is also noted. Anasarca.
[2016-09-19] MEDS: Sodium Chloride 0.9% 1,000 ML IV SCH (08:42)
[2016-09-19] MEDS: Calcium Carb/Vit D 500 mg/200 U Tab PO SCH (08:44)
--- NOTE | 2016-09-19 09:17 | History and Physical ---
History of Present Illness - HPI Chief Complaint: Sepsis HPI: Patient was transferred from [facility] for a Head CT scan and wound debridament (ulcers). Patient has been treated at [facility] Vital Signs: Last Vital Signs Temp 98.1 F 09/19/16 04:00 Pulse 140 09/19/16 08:00 Resp 17 09/19/16 07:41 BP 111/62 09/19/16 08:00 Pulse Ox 96 09/19/16 07:41 Past Medical History Cardiovascular: Report: AFIB, CAD, CHF, HTN, Hyperlipidemia Pulmonary: Report: Pneumonia [employer]: Report: CVA GI: Report: No Pertinent Hx Psych: Report: No Pertinent Hx Musculoskeletal: Report: Weakness Rheumatologic: Report: No pertinent Hx Infectious Disease: Report: No Pertinent Hx Renal/: Report: Chronic Renal Insuff Endocrine: Report: Diabetes Dermatology: Report: Other (Multiple decubits ulcer in different parts of body, bigger in right lower leg) - Past Surgical History Past Surgical History: Other (Above Knee left leg amputation.) Family Medical History - Family Member Mother History Unknown: Yes Ethnicity: Unknown Living Status: Unknown Hx Family Cancer: No Hx Family Congestive Heart Failure: No Hx Family Dementia: No Hx Family Hepatitis: No Hx Family Psychiatric Problems: No Social History Smoke: No Alcohol: None Drugs: None Lives: Alone Domestic Violence: Negative Health Maintenance Health Maintenance: Cholesterol - Medications Home Medications: Home Medication Medication Instructions Recorded Type Warfarin Sodium [Coumadin*] 5 mg PO DAILY 06/14/16 History Acetaminophen [Tylenol] 325 mg PO Q4HR PRN #0 tab 06/16/16 Rx Ascorbic Acid [Vitamin C] 500 mg PO DAILY #0 tab 06/16/16 Rx Calcium Carb/Vit D 500mg/200U 1 tab PO DAILY #0 tab 06/16/16 Rx [Oscal w/Vitamin D] Zinc Sulfate 220 mg PO DAILY #0 cap 06/16/16 Rx Warfarin Sodium [Coumadin*] 2 mg PO 1300 08/03/16 History Albuterol/Ipratropium Neb [Duoneb 3 ml HHN Q4HRT 08/11/16 Rx Neb] Ezetimibe [Zetia] 10 mg PO HS tab 08/11/[address] [Cymbalta] 30 mg PO HS 09/18/16 History Dextrose 50% [D50w] 25 ml IV PRN 09/18/16 History Dextrose 50% [D50w] 50 ml IV PRN PRN 09/18/16 History Diphenhydramine HCL [Benadryl] 50 mg PO Q8H PRN 09/18/16 History Donepezil HCl [Donepezil HCl Odt] 5 mg PO HS 09/18/16 History Fidaxomicin [Dificid] 200 mg IV Q12H 09/18/16 History Gabapentin [Neurontin*] 600 mg PO Q12H 09/18/16 History Hydrocodone/APAP 10 mg/325 mg 1 tab PO Q8H PRN 09/18/16 History [[place] 10 mg/325 mg] Insulin Aspart, Recombinant 0 units SUBQ ACHS 09/18/16 History [NovoLOG] Linezolid 600mg/300mL [Zyvox] 600 mg IV Q12H 09/18/16 History Memantine [Namenda] 5 mg PO DAILY 09/18/16 History Meropenem [Premierpro Rx Meropenem] 1 gm IV Q12H 09/18/16 History Micafungin [Mycamine] 100 mg IV Q24H 09/18/16 History Morphine Sulfate [Morphine] 4 mg IM Q4H PRN 09/18/16 History Multivitamin with Minerals 1 tab PO Q24H 09/18/16 History [Multivitamins with Minerals] Norepinephrine Bitartrate/D5w 10 mg IV DAILY 09/18/16 History [Norepinephrine 8 mg/250 ml-D5w] Nystatin 1 each MC Q12H 09/18/16 History Ondansetron HCl/Pf [Ondansetron 4 4 mg IJ Q6H PRN 09/18/16 History mg/2 ml Ampule] Potassium Chloride ER [Klor-Con] 20 meq PO BID 09/18/16 History Pregabalin [Lyrica] 25 mg PO Q12H 09/18/16 History Protein Supplement [Procel] 1 pow PO BID 09/18/16 History Sodium Chloride 0.9% [NaCL 0.9%] 50 ml IV DAILY 09/18/16 History Verapamil HCl 5 mg IV Q15MIN PRN 09/18/16 History metroNIDAZOLE [Flagyl] 500 mg PO Q8H 09/18/16 History - Allergies Allergies/Adverse Reactions: Allergies Allergy/AdvReac Type Severity Reaction Status Date / Time furosemide [From Lasix] AdvReac Verified 06/14/16 11:58 Penicillins [PCN] AdvReac Verified 06/14/16 11:58 Tetanus Vaccines & Toxoid AdvReac Verified 06/14/16 11:58 Review of Systems - Review of Systems Review of Systems: Information was not obtain due that patient is unconscious. Constitutional: Report: Other (Unconscious) Eyes: Report: No Significant ENT: Report: No Significant Respiratory: Report: Other (Crackles) Cardiovascular: Report: Other (A-fib) Genitourinary: Report: No Significant Musculoskeletal: Report: Other (Weakness) Skin: Report: Other (Multiple decubit ulcers) Neurological: Report: Weakness, Other (Unconscious) Physical Exam - Physical Exam HEENT: Report: Ears Nose Throat within normal limits Neck: Report: Within normal limits Cardiovascular Systems: Report: Tachycardia Respiratory: Report: Crackles, Rhonchi Abdomen: Report: Non-tender to palpation Back: Report: Inspection of back is within normal limits. Extremities: Report: Pedal edema was noted on inspection (Amputation above knee of left leg) Skin: Report: A wound was noted (Multiple decubits ulcers in different parts of body, the biggest is in right lower leg ( see picture)) Neuro/Psych: Report: Weakness or sensory loss noted. (Patient is unconscious, responding only to pain.) - Lab Results All Lab Results last 24 hours: Laboratory Last Values WBC 43.9 Th/cmm (4.8-10.8) H* 09/19/16 04:55 RBC 4.07 Mil/cmm (3.80-5.20) 09/19/16 04:55 Hgb 12.4 gm/dL (11.7-16.1) 09/19/16 04:55 Hct 36.6 % (35.0-45.0) 09/19/16 04:55 MCV 89.8 fl (81-100) 09/19/16 04:55 MCH 30.3 pg (27.0-31.0) 09/19/16 04:55 MCHC Differential 33.8 pg (28.0-36.0) 09/19/16 04:55 RDW 14.7 % (11.5-20.0) 09/19/16 04:55 Plt Count 485 Th/cmm (150-400) H 08/15/17 04:55 MPV 7.8 fl 09/19/16 04:55 Band Neutrophils % 4 % (0-10) 09/19/16 04:55 Neutrophils (Manual) 80 % (40-80) 09/19/16 04:55 Lymphocytes 13 % (20-50) L 09/19/16 04:55 Monocytes 3 % (2-10) 09/19/16 04:55 Nucleated RBCs 1.0 % (0-0) H 09/19/16 04:55 Platelet Estimate INCREASED PLATELETS (NORMAL) 09/19/16 04:55 Platelet Morphology NORMAL (NORMAL) 09/19/16 04:55 RBC Morph Micro Appear NORMAL (NORMAL) 09/19/16 04:55 PT 38.7 SECONDS (9.5-11.5) H 09/18/16 15:24 INR 3.48 (0.5-1.4) H 09/18/16 15:24 PTT (Actin FS) 56.1 SECONDS (26.0-38.0) H 09/18/16 15:24 Specimen Source Arterial 09/18/16 16:16 Sample Site RB 09/18/16 16:16 pH 7.42 (7.35-7.45) 09/18/16 16:16 pCO2 23.0 mmHg (35.0-45.0) L* 09/18/16 16:16 pO2 70.0 mmHg (80.0-100.0) L 09/18/16 16:16 HCO3 18.8 mEq/L (20.0-26.0) L 09/18/16 16:16 Base Excess -7.8 mEq/L (-3.0-3.0) L 09/18/16 16:16 O2 Saturation 94.0 % (92.0-100.0) 09/18/16 16:16 Toni Test NA 09/18/16 16:16 Vent Rate NA 09/18/16 16:16 Inspired O2 37 09/18/16 16:16 Tidal Volume NA 09/18/16 16:16 PEEP NA 09/18/16 16:16 Pressure (ins/psv/peep) NA 09/18/16 16:16 Critical Value SH 09/18/16 16:16 Sodium 132 mEq/L (136-145) L 09/19/16 04:55 Potassium 3.3 mEq/L (3.5-5.1) L 09/19/16 04:55 Chloride 105 mEq/L (98-107) 09/19/16 04:55 Carbon Dioxide 17.0 mEq/L (21.0-31.0) L 09/19/16 04:55 Anion Gap 13.3 (7.0-16.0) 09/19/16 04:55 BUN 27 mg/dL (7-25) H 09/19/16 04:55 Creatinine 1.3 mg/dL (0.6-1.2) H 09/19/16 04:55 Est GFR ( Amer) TNP 09/19/16 04:55 Est GFR (Non-Af Amer) TNP 09/19/16 04:55 BUN/Creatinine Ratio 20.8 09/19/16 04:55 Glucose 290 mg/dL (70-105) H 09/19/16 04:55 POC Glucose 246 MG/DL (70 - 105) H 09/19/16 05:54 Hemoglobin A1c % 5.7 % (4.0-6.0) 09/18/16 14:24 Whole Bld Lactic Acid 3.78 mmol/L (0.60-1.99) H* 09/18/16 22:13 Calcium 7.9 mg/dL (8.6-10.3) L 09/19/16 04:55 Total Bilirubin 0.8 mg/dL (0.3-1.0) 09/19/16 04:55 AST 10 U/L (13-39) L 09/19/16 04:55 ALT 5 U/L (7-52) L 09/19/16 04:55 Alkaline Phosphatase 107 U/L (34-104) H 09/19/16 04:55 Troponin I 0.47 ng/mL (0.01-0.05) H* D 09/18/16 15:24 Total Protein 4.8 gm/dL (6.0-8.3) L 09/19/16 04:55 Albumin 2.2 gm/dL (3.7-5.3) L 09/19/16 04:55 Globulin 2.6 gm/dL 09/19/16 04:55 Albumin/Globulin Ratio 0.9 (1.0-1.8) L 09/19/16 04:55 Triglycerides 130 mg/dL (<150) 09/18/16 15:24 Cholesterol 48 mg/dL (<200) 09/18/16 15:24 LDL Cholesterol Direct 19 mg/dL (75-193) L 09/18/16 15:24 HDL Cholesterol 13 mg/dL (23-92) L 09/18/16 15:24 TSH 7.73 uIU/ml (0.34-5.60) H 09/18/16 15:24 Urine Source [place] 09/18/16 16:25 Urine Color YELLOW 09/18/16 16:25 Urine Clarity SLIGHT CLOUDY (CLEAR) 09/18/16 16:25 Urine pH 5.5 (4.6 - 8.0) 09/18/16 16:25 Ur Specific [place] 1.015 (1.005-1.030) 09/18/16 16:25 Urine Protein TRACE mg/dL (NEGATIVE) 09/18/16 16:25 Urine Glucose (UA) NEGATIVE mg/dL (NEGATIVE) 09/18/16 16:25 Urine Ketones NEGATIVE mg/dL (NEGATIVE) 09/18/16 16:25 Urine Blood NEGATIVE (NEGATIVE) 09/18/16 16:25 Urine Nitrate NEGATIVE (NEGATIVE) 09/18/16 16:25 Urine Bilirubin NEGATIVE (NEGATIVE) 09/18/16 16:25 Urine Urobilinogen 0.2 E.U./dL (0.2 - 1.0) 09/18/16 16:25 Ur Leukocyte Esterase SMALL (NEGATIVE) H 09/18/16 16:25 Urine RBC 2-5 /hpf (0-5) 09/18/16 16:25 Urine WBC 50-100 /hpf (0-5) H 09/18/16 16:25 Ur Epithelial Cells FEW /lpf (FEW) 09/18/16 16:25 Urine Bacteria 1+ /hpf (NONE SEEN) H 09/18/16 16:25 RPR NONREACTIVE (NONREACTIVE) 09/18/16 15:24 Laboratory Results - last 24 hr 09/18/16 09/18/16 09/19/16 22:13 23:42 04:55 WBC 43.9 H* RBC 4.07 Hgb 12.4 Hct 36.6 MCV 89.8 MCH 30.3 MCHC Differential 33.8 RDW 14.7 Plt Count 485 H MPV 7.8 Band Neutrophils % 4 Neutrophils (Manual) 80 Lymphocytes 13 L Monocytes 3 Nucleated RBCs 1.0 H Platelet Estimate INCREASED PLATELETS Platelet Morphology NORMAL RBC Morph Micro Appear NORMAL Sodium Potassium Chloride Carbon Dioxide Anion Gap BUN Creatinine Est GFR ( Amer) Est GFR (Non-Af Amer) BUN/Creatinine Ratio Glucose POC Glucose 297 H Whole Bld Lactic Acid 3.78 H* Calcium Total Bilirubin AST ALT Alkaline Phosphatase Total Protein Albumin Globulin Albumin/Globulin Ratio 09/19/16 09/19/16 04:55 05:54 WBC RBC Hgb Hct MCV MCH MCHC Differential RDW Plt Count MPV Band Neutrophils % Neutrophils (Manual) Lymphocytes Monocytes Nucleated RBCs Platelet Estimate Platelet Morphology RBC Morph Micro Appear Sodium 132 L Potassium 3.3 L Chloride 105 Carbon Dioxide 17.0 L Anion Gap 13.3 BUN 27 H Creatinine 1.3 H Est GFR ( Amer) TNP Est GFR (Non-Af Amer) TNP BUN/Creatinine Ratio 20.8 Glucose 290 H POC Glucose 246 H Whole Bld Lactic Acid Calcium 7.9 L Total Bilirubin 0.8 AST 10 L ALT 5 L Alkaline Phosphatase 107 H Total Protein 4.8 L Albumin 2.2 L Globulin 2.6 Albumin/Globulin Ratio 0.9 L - Assessment Assessment: Current Active Problems Problem Status Onset ELEVATED WBC LEVELS Acute Patient is critical ill, unconscious, responding only to pain, in 10 mc of levophed, With nasal O2. Heah CT shows no acute illness, Chest CT shows multiple pneumonia. Dx: Sepsis, PNA, Hypotension, A-fib, HTN, CAD, CHF, CVA, S/ p DVT, Obesity. - Plan Plan: Patient on levophed, Sozyn, Vanco, IV NS, Insulin sliding scale, Zetia and home meds. Awaiting eval from Cardio, surgery and Nephro. Will continue to monitor.
[2016-09-19 12:33] LABS: pH 7.42 (7.35-7.45)
[2016-09-19 12:38] LABS: BE(B) -7.8 mEq/L (-3.0-3.0); HCO3 18.7 mEq/L (20.0-26.0)
[2016-09-19 12:39] LABS: ABG SOURCE ARTERIAL
[2016-09-19 12:40] LABS: CRITICAL VALUES REPORTED BY JC; FIO2 28
[2016-09-19] MEDS ORDERED: D5-0.9%NS 1,000 ML IV SCH (12:48)
[2016-09-19] MEDS ORDERED: Sodium Bicarbonate 8.4% 50mEq PFS IVP ONE (12:56)
[2016-09-19] MEDS ORDERED: VTE Chemical Prophylaxis Screen/Admission MC PRN (14:23)
[2016-09-19] MEDS ORDERED: Potassium Chloride 20 mEq ER Tab PO ONE (14:30)
[2016-09-19] MEDS: Vancomycin HCL 250 mg /10mL UDC PO SCH ×2 (14:52→21:35)
[2016-09-19] MEDS ORDERED: Potassium Chloride Elixir 20 mEq /15 mL UDC PO ONE (15:20)
--- NOTE | 2016-09-19 16:50 | General Progress Note ---
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 Objective - Results Result Diagrams: 09/19/16 04:55 09/19/16 04:55 Recent Labs: Laboratory Last Values WBC 43.9 Th/cmm (4.8-10.8) H* 09/19/16 04:55 RBC 4.07 Mil/cmm (3.80-5.20) 09/19/16 04:55 Hgb 12.4 gm/dL (11.7-16.1) 09/19/16 04:55 Hct 36.6 % (35.0-45.0) 09/19/16 04:55 MCV 89.8 fl (81-100) 09/19/16 04:55 MCH 30.3 pg (27.0-31.0) 09/19/16 04:55 MCHC Differential 33.8 pg (28.0-36.0) 09/19/16 04:55 RDW 14.7 % (11.5-20.0) 09/19/16 04:55 Plt Count 485 Th/cmm (150-400) H 09/19/16 04:55 MPV 7.8 fl 09/19/16 04:55 Band Neutrophils % 4 % (0-10) 09/19/16 04:55 Neutrophils (Manual) 80 % (40-80) 09/19/16 04:55 Lymphocytes 13 % (20-50) L 09/19/16 04:55 Monocytes 3 % (2-10) 09/19/16 04:55 Nucleated RBCs 1.0 % (0-0) H 09/19/16 04:55 Platelet Estimate INCREASED PLATELETS (NORMAL) 09/19/16 04:55 Platelet Morphology NORMAL (NORMAL) 09/19/16 04:55 RBC Morph Micro Appear NORMAL (NORMAL) 09/19/16 04:55 PT 38.7 SECONDS (9.5-11.5) H 09/18/16 15:24 INR 3.48 (0.5-1.4) H 09/18/16 15:24 PTT (Actin FS) 56.1 SECONDS (26.0-38.0) H 09/18/16 15:24 Specimen Source ARTERIAL 09/19/16 12:17 Sample Site RB 09/19/16 12:17 pH 7.42 (7.35-7.45) 09/19/16 12:17 pCO2 23.0 mmHg (35.0-45.0) L* 09/19/16 12:17 pO2 62.0 mmHg (80.0-100.0) L 09/19/16 12:17 HCO3 18.7 mEq/L (20.0-26.0) L 09/19/16 12:17 Base Excess -7.8 mEq/L (-3.0-3.0) L 09/19/16 12:17 O2 Saturation 92.0 % (92.0-100.0) 09/19/16 12:17 Toni Test N/A 09/19/16 12:17 Vent Rate N/A 09/19/16 12:17 Inspired O2 28 09/19/16 12:17 Tidal Volume N/A 09/19/16 12:17 PEEP N/A 09/19/16 12:17 Pressure (ins/psv/peep) N/A 09/19/16 12:17 Critical Value KIM 09/19/16 12:17 Sodium 132 mEq/L (136-145) L 09/19/16 04:55 Potassium 3.3 mEq/L (3.5-5.1) L 09/19/16 04:55 Chloride 105 mEq/L (98-107) 09/19/16 04:55 Carbon Dioxide 17.0 mEq/L (21.0-31.0) L 09/19/16 04:55 Anion Gap 13.3 (7.0-16.0) 09/19/16 04:55 BUN 27 mg/dL (7-25) H 09/19/16 04:55 Creatinine 1.3 mg/dL (0.6-1.2) H 09/19/16 04:55 Est GFR ( Amer) TNP 09/19/16 04:55 Est GFR (Non-Af Amer) TNP 09/19/16 04:55 BUN/Creatinine Ratio 20.8 09/19/16 04:55 Glucose 290 mg/dL (70-105) H 09/19/16 04:55 POC Glucose 285 MG/DL (70 - 105) H 09/19/16 12:07 Hemoglobin A1c % 5.7 % (4.0-6.0) 09/18/16 14:24 Whole Bld Lactic Acid 3.78 mmol/L (0.60-1.99) H* 09/18/16 22:13 Calcium 7.9 mg/dL (8.6-10.3) L 09/19/16 04:55 Total Bilirubin 0.8 mg/dL (0.3-1.0) 09/19/16 04:55 AST 10 U/L (13-39) L 09/19/16 04:55 ALT 5 U/L (7-52) L 09/19/16 04:55 Alkaline Phosphatase 107 U/L (34-104) H 09/19/16 04:55 Troponin I 0.47 ng/mL (0.01-0.05) H* D 09/18/16 15:24 Total Protein 4.8 gm/dL (6.0-8.3) L 09/19/16 04:55 Albumin 2.2 gm/dL (3.7-5.3) L 09/19/16 04:55 Globulin 2.6 gm/dL 09/19/16 04:55 Albumin/Globulin Ratio 0.9 (1.0-1.8) L 09/19/16 04:55 Triglycerides 130 mg/dL (<150) 09/18/16 15:24 Cholesterol 48 mg/dL (<200) 09/18/16 15:24 LDL Cholesterol Direct 19 mg/dL (75-193) L 09/18/16 15:24 HDL Cholesterol 13 mg/dL (23-92) L 09/18/16 15:24 TSH 7.73 uIU/ml (0.34-5.60) H 09/18/16 15:24 Urine Source [place] 09/18/16 16:25 Urine Color YELLOW 09/18/16 16:25 Urine Clarity SLIGHT CLOUDY (CLEAR) 09/18/16 16:25 Urine pH 5.5 (4.6 - 8.0) 09/18/16 16:25 Ur Specific [place] 1.015 (1.005-1.030) 09/18/16 16:25 Urine Protein TRACE mg/dL (NEGATIVE) 09/18/16 16:25 Urine Glucose (UA) NEGATIVE mg/dL (NEGATIVE) 09/18/16 16:25 Urine Ketones NEGATIVE mg/dL (NEGATIVE) 09/18/16 16:25 Urine Blood NEGATIVE (NEGATIVE) 09/18/16 16:25 Urine Nitrate NEGATIVE (NEGATIVE) 09/18/16 16:25 Urine Bilirubin NEGATIVE (NEGATIVE) 09/18/16 16:25 Urine Urobilinogen 0.2 E.U./dL (0.2 - 1.0) 09/18/16 16:25 Ur Leukocyte Esterase SMALL (NEGATIVE) H 09/18/16 16:25 Urine RBC 2-5 /hpf (0-5) 09/18/16 16:25 Urine WBC 50-100 /hpf (0-5) H 09/18/16 16:25 Ur Epithelial Cells FEW /lpf (FEW) 09/18/16 16:25 Urine Bacteria 1+ /hpf (NONE SEEN) H 09/18/16 16:25 RPR NONREACTIVE (NONREACTIVE) 09/18/16 15:24 - Physical Exam Vitals and I&O: Vital Signs Temp 98.4 F 09/19/16 08:00 Pulse 120 09/19/16 15:04 Resp 17 09/19/16 15:04 BP 78/52 09/19/16 12:15 Pulse Ox 97 09/19/16 15:04 Intake & Output 09/18/16 09/19/16 09/19/16 18:59 06:59 18:59 Intake Total 1100 235.103 Output Total 50 500 Balance -50 600 235.103 Weight (lbs) 109.769 kg 115.439 kg Intake: Intake, IV Amount 1100 235.103 Norepinephrine 8 mg In 235.103 Dextrose 5% 250 ml @ 10 MCG/MIN 19.35 mls/hr IV TITR PRN Rx#:[id number] Piperacillin Sodium/ 100 Tazobact 3.375 gm In Sodium Chloride 0.9% 50 ml @ 100 mls/hr IV Q8H [facility] Rx#:[id number] Sodium Chloride 0.9% 1, 1000 000 ml @ 100 mls/hr IV . Q10H SHARIF Rx#:[id number] Oral 0 Output: Urine 50 500 Other: # Bowel Movements 0 1 Active Medications: Current Medications Acetaminophen (Tylenol) 325 mg PO Q4HR PRN PRN Reason: Fever > 101 Stop: 11/17/16 19:17 Albuterol/Ipratropium (Duoneb Neb) 3 ml HHN Q4HRT [facility] Stop: 11/17/16 22:59 Last Admin: 09/19/16 15:04 Dose: 3 ml Ascorbic Acid (Vitamin C) 500 mg PO DAILY [facility] Stop: 11/18/16 08:59 Last Admin: 09/19/16 08:44 Dose: 500 mg Calcium/Vitamin D (Oscal W/Vitamin D) 1 tab PO DAILY [facility] Stop: 11/18/16 08:59 Last Admin: 09/19/16 08:44 Dose: 1 tab Dextrose (D50w) 50 ml IVP PRN PRN PRN Reason: Blood Glucose less than 70 Stop: 11/17/16 20:09 Dextrose (Glutose 40%) 18.75 gm PO PRN PRN PRN Reason: Blood Glucose less than 70 Stop: 11/17/16 20:09 Donepezil HCl (Aricept) 5 mg PO HS [facility] Stop: 11/17/16 20:59 Last Admin: 09/18/16 22:01 Dose: 5 mg Ezetimibe (Zetia) 10 mg PO HS [facility] Stop: 11/17/16 20:59 Last Admin: 09/18/16 22:28 Dose: 10 mg Glucagon (Glucagen) 1 mg IM PRN PRN PRN Reason: Blood Glucose less than 70 Stop: 11/17/16 20:09 Heparin Sodium (Porcine) (Heparin) 5,000 units SUBQ Q12HR [facility] Stop: 11/18/16 20:59 Piperacillin Sod/Tazobactam (Sod 3.375 gm/ Sodium Chloride) 50 mls @ 100 mls/ hr IV Q8H [facility] Stop: 11/17/16 19:15 Last Admin: 09/19/16 11:15 Dose: 100 mls/hr Norepinephrine Bitartrate 8 mg (/ Dextrose) 258 mls @ 19.35 mls/hr IV TITR PRN ; Protocol; 10 MCG/MIN PRN Reason: BP MAINTENANCE (PER PROTOCOL) Stop: 11/17/16 19:17 Last Admin: 09/19/16 08:40 Dose: 10 mcg/min, 19.35 mls/hr Micafungin Sodium 100 mg/ (Sodium Chloride) 100 mls @ 100 mls/hr IV Q24H [facility] Stop: 11/17/16 19:59 Last Admin: 09/18/16 22:11 Dose: Not Given Vancomycin HCl 1.25 gm/ Sodium (Chloride) 250 mls @ 165 mls/hr IV Q24H [facility] Stop: 11/18/16 10:59 Last Admin: 09/19/16 12:08 Dose: 165 mls/hr Dextrose/Sodium Chloride (D5-0.9%Ns) 1,000 mls @ 100 mls/hr IV .Q10H [facility] Stop: 11/18/16 12:47 Last Admin: 09/19/16 12:30 Dose: 100 mls/hr Insulin Aspart (Novolog Insulin Sliding Scale) 0 units SUBQ Q6HR [facility] PRN Reason: Protocol Stop: 11/18/16 00:00 Last Admin: 09/19/16 14:08 Dose: Not Given Memantine (Namenda) 5 mg PO DAILY [facility] Stop: 11/18/16 08:59 Last Admin: 09/19/16 08:44 Dose: 5 mg Metronidazole (Flagyl) 250 mg PO TID [facility] Stop: 11/18/16 13:59 Last Admin: 09/19/16 14:30 Dose: 250 mg Miscellaneous (Vancomycin Iv Per Pharmacy) 1 ea PRN PRN PRN Reason: PROTOCOL Stop: 11/17/16 19:15 Miscellaneous (Vte Chemical Prophylaxis Screen/ Admission) 1 ea PRN PRN PRN Reason: PROTOCOL Stop: 11/18/16 14:22 Ondansetron HCl (Zofran) 4 mg IV Q6HR PRN PRN Reason: NAUSEA/VOMITING Stop: 11/17/16 19:44 Vancomycin HCl (Vancomycin Oral) 250 mg PO TID [facility] Stop: 11/18/16 13:59 Last Admin: 09/19/16 14:52 Dose: 250 mg Warfarin Sodium (Coumadin) 5 mg PO C [facility] PRN Reason: Protocol Stop: 11/19/16 12:59 Zinc Sulfate (Zinc Sulfate) 220 mg PO DAILY [facility] Stop: 11/18/16 08:59 Last Admin: 09/19/16 08:43 Dose: 220 mg - Procedures Procedures: Procedures Procedure Code Date AMPUTATE LEG AT THIGH 06899 08/03/16 ANNETTE SUBQ TISSUE 20 SQ CM/< 45744 08/03/16 DETACHMENT AT LEFT UPPER LEG, LOW, OPEN APPROACH [id number] 08/03/16 EXCISION OF R FOOT SUBCU/FASCIA, OPEN APPROACH [id number] 08/03/16 EXCISION OF R LOW LEG SUBCU/FASCIA, OPEN APPROACH [id number] 08/03/16 TRANSFUSE NONAUT RED BLOOD CELLS IN PERIPH VEIN, PERC 09299K5 08/03/16 Assessment/Plan - Problem List Patient Problems: All Active Problems ELEVATED WBC LEVELS (Acute) Nutritional Asmnt/Malnutr-PDOC - Dietary Evaluation Malnutrition Findings (Please click <Entered> for more info): Nutritional Asmnt/Malnutrition Start: 09/19/16 15: 45 Text: Status: Complete Freq: Document 09/19/16 15:46 [facility] (Rec: 09/19/16 16:02 [facility] [id number]) Nutritional Asmnt/Malnutrition Patient General Information Nutritional Screening Consult Diagnosis Sepsis, pneumonia, hypotension Pertinent Medical Hx/Surgical Hx AFIB, CAD, CHF, HTN, hyperlipidemia, CVA, pneumonia , chronic renal insufficiency, DM, multiple decubitus ulcers in different parts of body, left AKA Subjective Information Nutrition consult for pt is diabetic received and completed. Pt is a 81-year-old female from [facility] admitted with chief complaint of sepsis. Pt is a poor historian at the moment, lethargic and nonverbal. Pt appears obese with edema observed. RD measured wt with medical devices removed, three pillows on bed: 216.2#/98.3 kg. Adjusted BMI with consideration of AKA: 40.3 kg/ m2. Adjusted IBW with consideration of AKA: 113#/51. 4 kg. Per medical records, pt wt 242#/110 kg in August 2016. NGT placed last night 09/18, pending tube feeding order. Current Diet Order/ Nutrition Support NPO Patient / S.O Can't verbalize diet edu Pertinent Medications Vitamin C, Oscal with Vitamin D, D5-0.9 Ns, Novolog (not given during NPO status), Flagyl, Piperacillin, Vancomycin, Coumadin, Zinc Sulfate Pertinent Labs (09/18) Glucose 344H, A1C WNL, HDL Cholesterol 13L, LDL Cholesterol 19L (09/19) Na 132L , K 3.3L, Glucose 290H, POC Glucose 246H-285H, BUN 27H, Creatinine 1.3H, Alkaline Phosphatase 107H, Albumin 2.2L Nutritional Hx/Data Height 1.7 m Height (Calculated Centimeters) 170.2 Current Weight (lbs) 98.067 kg Weight (Calculated Kilograms) 98.1 Weight (Calculated Grams) 66660.7 Usual body Weight (lbs) 242 % Usual Body Weight 89 [place] Body Weight 113 % [place] Body Weight 191 Recent Weight Change Yes Weight Status Morbidly Obese GI Symptoms GI Symptoms None Difficult in: Swallowing Food Allergies No Usual diet at home Mechanical soft ground with protein supplement 30 ml BID Skin Integrity/Comment: Grey 10. Pt with multiple wounds body and leg. Estimated Nutritional Goals BEE in Kcals: Using Current wt Calories/Kcals/Kg Based on current wt of 98.3 kg with consideration of wounds, sepsis,obesity Kcals Calculated 3617-4147 kcals/day ([place] St. Jeor x 1.2-1.5) Protein: Adj wt of IBW Protein g/kg: Based on adjusted IBW 51.4 kg with consideration of wounds, sepsis Protein Calculated 93-103 gm/day (1.8-2 gm/kg) Fluid: ml Per MD/DO Nutritional Problem 2. Problem Problem Increased energy and protein needs related to Etiology altered skin integrity as evidenced by Signs/Symptoms: multiple decubitus ulcers to body and leg, per RN notes. 1. Problem Problem Malnutrition related to Etiology morbid obesity as evidenced by Signs/Symptoms: adjusted BMI of 40.3 kg/m2. Malnutrition Alert Protein-Calorie Malnutrition N/A Is there a minimum of two criteria No selected? Query Text:Check all the applicable criteria. A minimum of two criteria are recommended for diagnosis of either severe or non-severe malnutrition. Malnutrition Related to Morbid Obesity Malnutrition related to morbid obesity BMI> or equal to 40 Query Text:(Any 1 Criteria met) Malnutrition related to morbid obesity Yes Intervention/Recommendation Comments 1. When medically appropriate, recommend initiate tube feeding Diabetisource AC at 20 ml/hr. Increase by 10 ml/hr every 4 hours until the goal rate of 70 ml/hr is reached. Tube feeding to provide 2016 kcals, 101 gm protein, and 1374 ml free water per day. 2. Recommend one packet of Arginaid via NGT BID to promote wound healing. Expected Outcomes/Goals Expected Outcomes/Goals Provide pt with 100% of estimated nutritional needs to promote wound healing. Physician Parameters for PEM Serum Albumin (g/dl) <2.4 (Severe)
[2016-09-19] MEDS ORDERED: Albumin 25% 25gm/100mL 25 GM/100 ML BTL IV ONE ×2 (18:54→18:55)
[2016-09-19] MEDS ORDERED: Diltiazem 5 mg/mL 5mL Vial IVP PRN (20:12)
[2016-09-19] MEDS: Micafungin 100 MG in Sodium Chloride 0.9% 100 ML IV SCH (20:30)
[2016-09-19] MEDS ORDERED: Diltiazem 5 mg/mL 25mL Vial IV ONE (21:04)
--- NOTE | 2016-09-19 22:13 | Consultation ---
DATE OF CONSULTATION: 09/19/[address] Atwood. HISTORY AND PHYSICAL: This is an 81-year-old female patient, who was transferred from [facility] for CT scan of the brain as well as debridement of the multiple decubitus. The patient is hypotensive and hence cardiac consult is requested. PAST MEDICAL HISTORY: Aspiration pneumonia, respiratory failure, hypotension, paroxysmal atrial fibrillation, congestive heart failure, diastolic dysfunction, stable angina, , multiple decubitus, dementia, diabetes mellitus type 2, insulin-dependent diabetes mellitus, hypokalemia. FAMILY HISTORY: Unremarkable. SOCIAL HISTORY: No history of smoking, alcohol abuse. ALLERGIES: No known allergies. PHYSICAL EXAMINATION: VITAL SIGNS: Blood pressure 100/80 on Levophed, pulse 100 and irregular, respirations 28. HEAD: Normocephalic. No lumps or bumps. EYES: Pupils equal, reactive to light. Fundi show AV nicking. Sclerae white, conjunctivae pink. NECK: Carotid 2+. Normal upstroke. JVD flat. Thyroid not palpable. Lymph nodes not palpable. CHEST: Shows increased AP diameter. No kyphosis, scoliosis. LUNGS: Bilateral bronchovesicular breath sounds, occasional wheeze noted . HEART: PMI fifth intercostal space with lateral to midclavicular line. S1, S2. No S3. Soft S4. Systolic murmur, grade 2/6, lower left sternal border without radiation. ABDOMEN: Soft. Liver and spleen are not palpable. No organomegaly. Bowel sounds active. NEUROLOGIC: Difficult to evaluate. EXTREMITIES: Peripheral pulses 1+. No pedal edema. The patient has multiple decubitus ulcers in the body. CLINICAL IMPRESSION: Acute respiratory failure, hypotension, aspiration pneumonia, paroxysmal atrial fibrillation, congestive heart failure, diastolic dysfunction, stable angina, multiple decubitus ulcers, dementia, diabetes mellitus type 2, insulin-dependent diabetes mellitus, diabetic chronic kidney disease stage 2, hypokalemia, and osteoporosis. PLAN: Admit the patient. We will continue anticoagulation, potassium supplement, IV antibiotics, and also get an echocardiogram for left ventricular function. [facility]# [id number]
--- NOTE | 2016-09-19 23:47 | Consultation ---
DATE OF CONSULTATION: 09/19/2016 The patient is of Dr. Atwood. Thank you very much Dr. Atwood for this consultation. HISTORY OF PRESENT ILLNESS: This is an 81-year-old female who presented with altered level of consciousness, tachycardia, hypertension, diagnosis of sepsis and admitted for treatment and management. The patient is still tachycardic, on Levophed for the blood pressure. Respiration is equal and not in acute distress. She had earlier ABG showed some metabolic acidosis compensated with respiratory alkalosis, received bicarb amp. She has been on 100 mL an hour of IV fluids total of 2 years since admission. PAST MEDICAL HISTORY: Significant for diabetes mellitus, hypertension, coronary artery disease, and hypothyroidism. SOCIAL HISTORY: skilled nursing resident. ____ available at this time. The patient has decubitus ulcers as well. Other past medical history is osteomyelitis status post amputation. REVIEW OF SYSTEMS: Unable to obtain because of the patient's condition. PHYSICAL EXAMINATION: GENERAL: The patient is arousable, not in acute distress. VITAL SIGNS: Temperature 97.2, pulse is 125 to 150, respirations 19, blood pressure ____, saturation 98%. HEENT: Atraumatic and normocephalic. Pupils are equal and reactive to light and accommodation. Ears, nose, and throat normal. NECK: Supple. No JVD. CHEST: There are a few rhonchi in bases. HEART: Sinus tachycardia. No murmurs. ABDOMEN: Soft. EXTREMITIES: Edema on the left leg with BKA. CT of the chest showed multifocal pneumonias and cardiomegaly. LABORATORY DATA: WBC is 43.9, hemoglobin 12.4, hematocrit 36.6, platelets is 485,000. ABGs: pH 7.42, pCO2 of 23, pO2 of 62, bicarbonate 18, saturation is 92%. Sodium 132, potassium 3.3, BUN is 27, and creatinine . UA showed large amount wbc's, leukocyte esterase, and bacteria. IMPRESSION: This is an 81-year-old female with sepsis causing the tachycardia and significant leukocytosis. Sepsis shows probably multiple sources including the wound and pneumonia in the urine. PLAN: 1. Continue IV antibiotics. Infection Disease followup. 2. Give bolus of IV fluids. The patient will benefit from increased IV fluids as well. Followup cultures and Cardiology followup. Overall prognosis is poor. I will follow the patient with you. Thank you very much for this consultation. JOB# [id number]
[2016-09-20] MEDS: D5-0.9%NS 1,000 ML IV SCH ×3 (03:43→11:28)
[2016-09-20] MEDS: Albuterol/Ipratropium Neb 3 ML AERS HHN SCH ×6 (04:07→22:45)
[2016-09-20 05:35] LABS: HEMOGLOBIN 10.8 gm/dL (11.7-16.1); MEAN CELL VOLUME 90.1 fl (81-100); MEAN CORPUSCULAR HEMOGLOBIN 30.7 pg (27.0-31.0); MEAN PLATELET VOLUME 8.1 fl; PLATELET COUNT 392 Th/cmm (150-400); RED BLOOD COUNT 3.53 Mil/cmm (3.80-5.20); RED CELL DISTRIBUTION WIDTH 14.5 % (11.5-20.0)
[2016-09-20 05:56] LABS: INR 2.36 (0.5-1.4); PROTHROMBIN TIME (TEST) 25.7 SECONDS (9.5-11.5)
[2016-09-20 06:01] LABS: ALB/GLOB RATIO 1.1 (1.0-1.8); ALKALINE PHOSPHATASE 77 U/L (34-104); ANION GAP 13.7 (7.0-16.0); BILIRUBIN,TOTAL 0.9 mg/dL (0.3-1.0); BUN - UREA NITROGEN 32 mg/dL (7-25); BUN/CREATININE RATIO 29.1; CALCIUM SERUM 7.4 mg/dL (8.6-10.3); CARBON DIOXIDE 17.3 mEq/L (21.0-31.0); CHLORIDE 107 mEq/L (98-107); CREATININE - SERUM 1.1 mg/dL (0.6-1.2); GLUCOSE 394 mg/dL (70-105); SGOT 7 U/L (13-39); SGPT/ALT 3 U/L (7-52); SODIUM SERUM 135 mEq/L (136-145)
[2016-09-20 06:09] LABS: HEMATOCRIT 31.8 % (35.0-45.0); WHITE BLOOD COUNT 27.2 Th/cmm (4.8-10.8)
[2016-09-20] MEDS: INSULIN ASPART SLIDING SCALE 100 UNITS/ML UNIT SUBQ SCH ×4 (06:42→17:10)
[2016-09-20 07:08] LABS: ANISOCYTOSIS 1+; BAND NEUTROPHILE 4 % (0-10); METAMYELOCYTE 1 % (0-0); NEUTROPHILS 80 % (40-80); PLATELET ESTIMATE ADEQUATE (NORMAL); PLATELET MORPHOLOGY GIANT PLATELETS SEEN (NORMAL); POLYCHROMASIA 1+; TOTAL CELLS COUNTED 100
--- NOTE | 2016-09-20 08:53 | General Progress Note ---
Subjective - Review of Systems Service Date: 09/20/16 Subjective: Patient is unconscious Objective - Results Result Diagrams: 09/20/16 05:05 09/20/16 05:05 Recent Labs: Laboratory Last Values WBC 27.2 Th/cmm (4.8-10.8) H* D 09/20/16 05:05 RBC 3.53 Mil/cmm (3.80-5.20) L 09/20/16 05:05 Hgb 10.8 gm/dL (11.7-16.1) L 09/20/16 05:05 Hct 31.8 % (35.0-45.0) L D 09/20/16 05:05 MCV 90.1 fl (81-100) 09/20/16 05:05 MCH 30.7 pg (27.0-31.0) 09/20/16 05:05 MCHC Differential 34.0 pg (28.0-36.0) 09/20/16 05:05 RDW 14.5 % (11.5-20.0) 09/20/16 05:05 Plt Count 392 Th/cmm (150-400) 09/20/16 05:05 MPV 8.1 fl 09/20/16 05:05 Band Neutrophils % 4 % (0-10) 09/20/16 05:05 Neutrophils (Manual) 80 % (40-80) 09/20/16 05:05 Lymphocytes 13 % (20-50) L 09/20/16 05:05 Monocytes 2 % (2-10) 09/20/16 05:05 Metamyelocytes 1 % (0-0) H 09/20/16 05:05 Nucleated RBCs 1.0 % (0-0) H 09/19/16 04:55 Platelet Estimate ADEQUATE (NORMAL) 09/20/16 05:05 Platelet Morphology GIANT PLATELETS SEEN (NORMAL) 09/20/16 05:05 Polychromasia 1+ 09/20/16 05:05 Anisocytosis 1+ 09/20/16 05:05 RBC Morph Micro Appear ABNORMAL (NORMAL) 09/20/16 05:05 PT 25.7 SECONDS (9.5-11.5) H 09/20/16 05:05 INR 2.36 (0.5-1.4) H 09/20/16 05:05 PTT (Actin FS) 56.1 SECONDS (26.0-38.0) H 09/18/16 15:24 Specimen Source ARTERIAL 09/19/16 12:17 Sample Site RB 09/19/16 12:17 pH 7.42 (7.35-7.45) 09/19/16 12:17 pCO2 23.0 mmHg (35.0-45.0) L* 09/19/16 12:17 pO2 62.0 mmHg (80.0-100.0) L 09/19/16 12:17 HCO3 18.7 mEq/L (20.0-26.0) L 09/19/16 12:17 Base Excess -7.8 mEq/L (-3.0-3.0) L 09/19/16 12:17 O2 Saturation 92.0 % (92.0-100.0) 09/19/16 12:17 Toni Test N/A 09/19/16 12:17 Vent Rate N/A 09/19/16 12:17 Inspired O2 28 09/19/16 12:17 Tidal Volume N/A 09/19/16 12:17 PEEP N/A 09/19/16 12:17 Pressure (ins/psv/peep) N/A 09/19/16 12:17 Critical Value KIM 09/19/16 12:17 Sodium 135 mEq/L (136-145) L 09/20/16 05:05 Potassium 3.0 mEq/L (3.5-5.1) L 09/20/16 05:05 Chloride 107 mEq/L (98-107) 09/20/16 05:05 Carbon Dioxide 17.3 mEq/L (21.0-31.0) L 09/20/16 05:05 Anion Gap 13.7 (7.0-16.0) 09/20/16 05:05 BUN 32 mg/dL (7-25) H 09/20/16 05:05 Creatinine 1.1 mg/dL (0.6-1.2) 09/20/16 05:05 Est GFR ( Amer) TNP 09/20/16 05:05 Est GFR (Non-Af Amer) TNP 09/20/16 05:05 BUN/Creatinine Ratio 29.1 09/20/16 05:05 Glucose 394 mg/dL (70-105) H 09/20/16 05:05 POC Glucose 335 MG/DL (70 - 105) H 09/20/16 05:47 Hemoglobin A1c % 5.7 % (4.0-6.0) 09/18/16 14:24 Whole Bld Lactic Acid 3.78 mmol/L (0.60-1.99) H* 09/18/16 22:13 Calcium 7.4 mg/dL (8.6-10.3) L 09/20/16 05:05 Total Bilirubin 0.9 mg/dL (0.3-1.0) 09/20/16 05:05 AST 7 U/L (13-39) L 09/20/16 05:05 ALT 3 U/L (7-52) L 09/20/16 05:05 Alkaline Phosphatase 77 U/L (34-104) 09/20/16 05:05 Troponin I 0.47 ng/mL (0.01-0.05) H* D 09/18/16 15:24 B-Natriuretic Peptide 1280.0 pg/mL (5.0-100.0) H 09/20/16 05:05 Total Protein 4.5 gm/dL (6.0-8.3) L 09/20/16 05:05 Albumin 2.3 gm/dL (3.7-5.3) L 09/20/16 05:05 Globulin 2.2 gm/dL 09/20/16 05:05 Albumin/Globulin Ratio 1.1 (1.0-1.8) 09/20/16 05:05 Triglycerides 130 mg/dL (<150) 09/18/16 15:24 Cholesterol 48 mg/dL (<200) 09/18/16 15:24 LDL Cholesterol Direct 19 mg/dL (75-193) L 09/18/16 15:24 HDL Cholesterol 13 mg/dL (23-92) L 09/18/16 15:24 TSH 7.73 uIU/ml (0.34-5.60) H 09/18/16 15:24 Urine Source [place] 09/18/16 16:25 Urine Color YELLOW 09/18/16 16:25 Urine Clarity SLIGHT CLOUDY (CLEAR) 09/18/16 16:25 Urine pH 5.5 (4.6 - 8.0) 09/18/16 16:25 Ur Specific [place] 1.015 (1.005-1.030) 09/18/16 16:25 Urine Protein TRACE mg/dL (NEGATIVE) 09/18/16 16:25 Urine Glucose (UA) NEGATIVE mg/dL (NEGATIVE) 09/18/16 16:25 Urine Ketones NEGATIVE mg/dL (NEGATIVE) 09/18/16 16:25 Urine Blood NEGATIVE (NEGATIVE) 09/18/16 16:25 Urine Nitrate NEGATIVE (NEGATIVE) 09/18/16 16:25 Urine Bilirubin NEGATIVE (NEGATIVE) 09/18/16 16:25 Urine Urobilinogen 0.2 E.U./dL (0.2 - 1.0) 09/18/16 16:25 Ur Leukocyte Esterase SMALL (NEGATIVE) H 09/18/16 16:25 Urine RBC 2-5 /hpf (0-5) 09/18/16 16:25 Urine WBC 50-100 /hpf (0-5) H 09/18/16 16:25 Ur Epithelial Cells FEW /lpf (FEW) 09/18/16 16:25 Urine Bacteria 1+ /hpf (NONE SEEN) H 09/18/16 16:25 RPR NONREACTIVE (NONREACTIVE) 09/18/16 15:24 - Physical Exam Vitals and I&O: Vital Signs Temp 97.8 F 09/20/16 04:00 Pulse 85 09/20/16 07:24 Resp 20 09/20/16 07:24 BP 105/52 09/20/16 07:00 Pulse Ox 98 09/20/16 07:24 Intake & Output 09/19/16 09/20/16 09/20/16 18:59 06:59 18:59 Intake Total 285.103 992.167 Output Total 1150 Balance 285.103 -157.833 Weight (lbs) 115.757 kg Intake: Intake, IV Amount 285.103 312.167 D5-0.9%Ns 1,000 ml @ 125 4.167 mls/hr IV .Q8H SHARIF Rx#: [id number] Norepinephrine 8 mg In 235.103 258 Dextrose 5% 250 ml @ 10 MCG/MIN 19.35 mls/hr IV TITR PRN Rx#:[id number] Piperacillin Sodium/ 50 50 Tazobact 3.375 gm In Sodium Chloride 0.9% 50 ml @ 100 mls/hr IV Q8H SHARIF Rx#:[id number] Oral 0 Tube Feeding 80 Albumin 100 Other 500 Output: Gastric Drainage 200 Urine 950 Other: # Bowel Movements 1 Active Medications: Current Medications Acetaminophen (Tylenol) 325 mg PO Q4HR PRN PRN Reason: Fever > 101 Stop: 11/17/16 19:17 Albuterol/Ipratropium (Duoneb Neb) 3 ml HHN Q4HRT [facility] Stop: 11/17/16 22:59 Last Admin: 09/20/16 07:24 Dose: 3 ml Ascorbic Acid (Vitamin C) 500 mg PO DAILY [facility] Stop: 11/18/16 08:59 Last Admin: 09/19/16 08:44 Dose: 500 mg Calcium/Vitamin D (Oscal W/Vitamin D) 1 tab PO DAILY [facility] Stop: 11/18/16 08:59 Last Admin: 09/19/16 08:44 Dose: 1 tab Dextrose (D50w) 50 ml IVP PRN PRN PRN Reason: Blood Glucose less than 70 Stop: 11/17/16 20:09 Dextrose (Glutose 40%) 18.75 gm PO PRN PRN PRN Reason: Blood Glucose less than 70 Stop: 11/17/16 20:09 Diltiazem HCl (Cardizem) 10 mg IVP Q4HR PRN PRN Reason: HR >130 Stop: 11/18/16 20:11 Donepezil HCl (Aricept) 5 mg PO HS [facility] Stop: 11/17/16 20:59 Last Admin: 09/19/16 21:55 Dose: 5 mg Ezetimibe (Zetia) 10 mg PO HS [facility] Stop: 11/17/16 20:59 Last Admin: 09/19/16 21:45 Dose: 10 mg Glucagon (Glucagen) 1 mg IM PRN PRN PRN Reason: Blood Glucose less than 70 Stop: 11/17/16 20:09 Heparin Sodium (Porcine) (Heparin) 5,000 units SUBQ Q12HR [facility] Stop: 11/18/16 20:59 Last Admin: 09/19/16 21:48 Dose: 5,000 units Piperacillin Sod/Tazobactam (Sod 3.375 gm/ Sodium Chloride) 50 mls @ 100 mls/ hr IV Q8H [facility] Stop: 11/17/16 19:15 Last Admin: 09/20/16 02:22 Dose: 100 mls/hr Norepinephrine Bitartrate 8 mg (/ Dextrose) 258 mls @ 19.35 mls/hr IV TITR PRN ; Protocol; 10 MCG/MIN PRN Reason: BP MAINTENANCE (PER PROTOCOL) Stop: 11/17/16 19:17 Last Admin: 09/19/16 23:49 Dose: 10 mcg/min, 19.35 mls/hr Micafungin Sodium 100 mg/ (Sodium Chloride) 100 mls @ 100 mls/hr IV Q24H [facility] Stop: 11/17/16 19:59 Last Admin: 09/19/16 20:30 Dose: 100 mls/hr Vancomycin HCl 1.25 gm/ Sodium (Chloride) 250 mls @ 165 mls/hr IV Q24H [facility] Stop: 11/18/16 10:59 Last Admin: 09/19/16 12:08 Dose: 165 mls/hr Dextrose/Sodium Chloride (D5-0.9%Ns) 1,000 mls @ 125 mls/hr IV .Q8H [facility] Stop: 11/18/16 12:47 Last Admin: 09/20/16 03:45 Dose: 125 mls/hr Diltiazem HCl 125 mg/ Dextrose 125 mls @ 10 mls/hr IV TITR [facility]ARIF; 10 MG/HR PRN Reason: Protocol Stop: 11/18/16 20:32 Last Admin: 09/19/16 21:30 Dose: 10 mg/hr, 10 mls/hr Potassium Chloride (Potassium Chloride) 20 meq in 100 mls @ 50 mls/hr IV Q8H [facility] Stop: 09/20/16 17:59 Insulin Aspart (Novolog Insulin Sliding Scale) 0 units SUBQ Q6HR [facility] PRN Reason: Protocol Stop: 11/18/16 00:00 Last Admin: 09/20/16 06:42 Dose: 14 units Memantine (Namenda) 5 mg PO DAILY [facility] Stop: 11/18/16 08:59 Last Admin: 09/19/16 08:44 Dose: 5 mg Metronidazole (Flagyl) 250 mg PO TID [facility] Stop: 11/18/16 13:59 Last Admin: 09/19/16 21:53 Dose: 250 mg Miscellaneous (Vancomycin Iv Per Pharmacy) 1 ea PRN PRN PRN Reason: PROTOCOL Stop: 11/17/16 19:15 Miscellaneous (Vte Chemical Prophylaxis Screen/ Admission) 1 ea MC PRN PRN PRN Reason: PROTOCOL Stop: 11/18/16 14:22 Morphine Sulfate (Morphine) 1 mg IVP Q6HR PRN PRN Reason: Pain (Moderate) Stop: 11/18/16 20:02 Ondansetron HCl (Zofran) 4 mg IV Q6HR PRN PRN Reason: NAUSEA/VOMITING Stop: 11/17/16 19:44 Pantoprazole Sodium (Protonix) 40 mg IVP DAILY [facility] Stop: 11/19/16 08:59 Vancomycin HCl (Vancomycin Oral) 250 mg PO TID [facility] Stop: 11/18/16 13:59 Last Admin: 09/19/16 21:35 Dose: 250 mg Zinc Sulfate (Zinc Sulfate) 220 mg PO DAILY [facility] Stop: 11/18/16 08:59 Last Admin: 09/19/16 08:43 Dose: 220 mg General: Other (Patient is unconscious, responding only to pain) Neck: Supple Cardiovascular: Other (Tachicardic) Lungs: Other (Abundant secretions bilaterally) Abdomen: Bowel sounds, Soft Extremities: Other (Pitting edema) Neurological: Other (Non ambulatory) Skin: Other (Multiple decubits ulcers) Psych/Mental Status: Other (Unconscious) - Procedures Procedures: Procedures Procedure Code Date AMPUTATE LEG AT THIGH 69706 08/03/16 ANNETTE SUBQ TISSUE 20 SQ CM/< 14155 08/03/16 DETACHMENT AT LEFT UPPER LEG, LOW, OPEN APPROACH [id number] 08/03/16 EXCISION OF R FOOT SUBCU/FASCIA, OPEN APPROACH [id number] 08/03/16 EXCISION OF R LOW LEG SUBCU/FASCIA, OPEN APPROACH [id number] 08/03/16 TRANSFUSE NONAUT RED BLOOD CELLS IN PERIPH VEIN, PERC 94041R9 08/03/16 Assessment/Plan - Problem List Patient Problems: All Active Problems ELEVATED WBC LEVELS (Acute) - Assessment Assessment: Current Active Problems Problem Status Onset ELEVATED WBC LEVELS Acute Patient is critical ill, unconscious, responding only to pain, in 10 mc of levophed, WBC improving, K low, Heah CT shows no acute illness but multiple old abnormalities, Chest CT shows multiple pneumonia. Dx: Sepsis, PNA, Hypotension, A-fib, HTN, CAD, CHF, CVA, S/p DVT, Obesity. - Plan Plan: Patient on levophed, Sozyn, Vanco, IV NS, Insulin sliding scale, Zetia and home meds, NPO Aready evaluated by Cardio, surgery, Pulmonology and Nephro. K is replaced. Case discussed with Son and informed him about poor prognosis. Will continue to monitor. Nutritional Asmnt/Malnutr-PDOC - Dietary Evaluation Malnutrition Findings (Please click <Entered> for more info): Nutritional Asmnt/Malnutrition Start: 09/19/16 15: 45 Text: Status: Complete Freq: Document 09/19/16 15:46 [facility] (Rec: 09/19/16 16:02 [facility] [id number]) Nutritional Asmnt/Malnutrition Patient General Information Nutritional Screening Consult Diagnosis Sepsis, pneumonia, hypotension Pertinent Medical Hx/Surgical Hx AFIB, CAD, CHF, HTN, hyperlipidemia, CVA, pneumonia , chronic renal insufficiency, DM, multiple decubitus ulcers in different parts of body, left AKA Subjective Information Nutrition consult for pt is diabetic received and completed. Pt is a 81-year-old female from [facility] admitted with chief complaint of sepsis. Pt is a poor historian at the moment, lethargic and nonverbal. Pt appears obese with edema observed. RD measured wt with medical devices removed, three pillows on bed: 216.2#/98.3 kg. Adjusted BMI with consideration of AKA: 40.3 kg/ m2. Adjusted IBW with consideration of AKA: 113#/51. 4 kg. Per medical records, pt wt 242#/110 kg in August 2016. NGT placed last night 09/18, pending tube feeding order. Current Diet Order/ Nutrition Support NPO Patient / S.O Can't verbalize diet edu Pertinent Medications Vitamin C, Oscal with Vitamin D, D5-0.9 Ns, Novolog (not given during NPO status), Flagyl, Piperacillin, Vancomycin, Coumadin, Zinc Sulfate Pertinent Labs (09/18) Glucose 344H, A1C WNL, HDL Cholesterol 13L, LDL Cholesterol 19L (09/19) Na 132L , K 3.3L, Glucose 290H, POC Glucose 246H-285H, BUN 27H, Creatinine 1.3H, Alkaline Phosphatase 107H, Albumin 2.2L Nutritional Hx/Data Height 1.7 m Height (Calculated Centimeters) 170.2 Current Weight (lbs) 98.067 kg Weight (Calculated Kilograms) 98.1 Weight (Calculated Grams) 75221.7 Usual body Weight (lbs) 242 % Usual Body Weight 89 [place] Body Weight 113 % [place] Body Weight 191 Recent Weight Change Yes Weight Status Morbidly Obese GI Symptoms GI Symptoms None Difficult in: Swallowing Food Allergies No Usual diet at home Mechanical soft ground with protein supplement 30 ml BID Skin Integrity/Comment: Grey 10. Pt with multiple wounds body and leg. Estimated Nutritional Goals BEE in Kcals: Using Current wt Calories/Kcals/Kg Based on current wt of 98.3 kg with consideration of wounds, sepsis,obesity Kcals Calculated 7970-3587 kcals/day ([place] [address] Jeor x 1.2-1.5) Protein: Adj wt of IBW Protein g/kg: Based on adjusted IBW 51.4 kg with consideration of wounds, sepsis Protein Calculated 93-103 gm/day (1.8-2 gm/kg) Fluid: ml Per MD/DO Nutritional Problem 2. Problem Problem Increased energy and protein needs related to Etiology altered skin integrity as evidenced by Signs/Symptoms: multiple decubitus ulcers to body and leg, per RN notes. 1. Problem Problem Malnutrition related to Etiology morbid obesity as evidenced by Signs/Symptoms: adjusted BMI of 40.3 kg/m2. Malnutrition Alert Protein-Calorie Malnutrition N/A Is there a minimum of two criteria No selected? Query Text:Check all the applicable criteria. A minimum of two criteria are recommended for diagnosis of either severe or non-severe malnutrition. Malnutrition Related to Morbid Obesity Malnutrition related to morbid obesity BMI> or equal to 40 Query Text:(Any 1 Criteria met) Malnutrition related to morbid obesity Yes Intervention/Recommendation Comments 1. When medically appropriate, recommend initiate tube feeding Diabetisource AC at 20 ml/hr. Increase by 10 ml/hr every 4 hours until the goal rate of 70 ml/hr is reached. Tube feeding to provide 2016 kcals, 101 gm protein, and 1374 ml free water per day. 2. Recommend one packet of Arginaid via NGT BID to promote wound healing. Expected Outcomes/Goals Expected Outcomes/Goals Provide pt with 100% of estimated nutritional needs to promote wound healing. Physician Parameters for PEM Serum Albumin (g/dl) <2.4 (Severe)
--- NOTE | 2016-09-20 09:53 | Diagnostic Imaging Report ---
Portable chest x-ray HISTORY: Shortness of breath This 5 a poor inspiration and portable technique, the heart appears enlarged. Atherosclerotic calcination seen in the aorta. Infiltrate is noted in the right upper lobe. Faint infiltrate also suggested in the left upper lobe. This represents changes since the prior exam of August 06, 2016. Pneumonia cannot be excluded. A nasogastric tube extends into the gastric region. IMPRESSION: 1. New infiltrate right upper and to a lesser degree left upper lobe regions. Pneumonia cannot be excluded. Clinical correlation needed. 2. Cardiomegaly with atherosclerotic vascular changes
[2016-09-20 10:49] LABS: HCO3 19.4 mEq/L (20.0-26.0); pH 7.35 (7.35-7.45)
[2016-09-20 10:50] LABS: ABG SOURCE Arterial; BE(B) -6.9 mEq/L (-3.0-3.0)
[2016-09-20 10:51] LABS: FIO2 36
--- NOTE | 2016-09-20 10:57 | Diagnostic Imaging Report ---
CT scan abdomen and pelvis without intravenous contrast HISTORY: Colitis, pain Total DLP equals 850 CTDI equals 17.0 Axial sections were obtained in the xiphoid process down to the pubic symphysis. Limited sections through the lower chest demonstrate cardiomegaly. Coronary and atherosclerotic vascular calcification noted. Small bilateral pleural effusions are seen. Parenchymal density consistent with consolidation and/or atelectasis noted within the right and left lower lobe regions. A nasogastric tube is seen extending into the stomach. The liver exhibits a somewhat diminished size with an irregular contour. No focal lesions. The spleen appears normal. The pancreas appears atrophic. Intraluminal hyperdensity seen in the gallbladder consistent with cholelithiasis. The right kidney exhibits a decrease in size. No focal lesions. The left kidney demonstrates a punctate calcification the medullary region. This may represent a small calculus. No hydronephrosis. Extensive diffuse atherosclerotic vascular calcination noted throughout the aorta and major branches. Small amount of ascites seen throughout the abdomen with more focal accumulation in the lower pelvis. The exam demonstrates extensive abnormal changes along the descending and sigmoid colon and perirectal area. The findings appear to be associated with marked wall thickening and narrowing of the lumen particularly through the descending and sigmoid colon. Pericolonic fluid is seen. Findings consistent with inflammatory change. Clinical correlation is needed. There is an approximate 2.8 cm defect within the anterior abdominal wall. Nondilated bowel is noted along the margin of the defect. Diffuse degenerative changes seen to the spine. IMPRESSION: 1. Extensive abnormal changes along the descending and sigmoid colon regions and perirectal area as described above. Evidence of pericolonic fluid. Findings may be associated with inflammatory change. Clinical correlation needed. In view of the extensive atherosclerotic vascular changes, ischemic bowel cannot be excluded. Again, clinical correlation is needed. 2. Small amount of ascites throughout the abdomen and pelvis 3. Irregular hepatic contour. No focal lesions 4. Findings consistent with cholelithiasis 5. Extensive atherosclerotic vascular changes 6. Small ventral hernia 7. Anasarca 8. Cardiomegaly with small bilateral pleural effusions and pulmonary parenchymal changes within the lower lobes of the lungs consistent with consolidation and/or atelectasis.
[2016-09-20] MEDS: KCL 20mEq/100mL Premix 20 MEQ/100 ML PIGGYBACK IV SCH ×2 (11:20→18:14)
[2016-09-20] MEDS: Calcium Carb/Vit D 500 mg/200 U Tab PO SCH (12:40)
[2016-09-20] MEDS: Vancomycin HCL 250 mg /10mL UDC PO SCH ×3 (12:41→21:00)
--- NOTE | 2016-09-20 13:52 | Consultation ---
DATE OF CONSULTATION: 09/19/2016 KICK PRESS SETTER: Kevin Berg M.D. REASON FOR CONSULTATION: Worsening kidney function, electrolyte imbalance and fluid management. HISTORY OF PRESENT ILLNESS: This is an 81-year-old female with past medical history of severe peripheral arterial disease, who was transferred to [facility] because of septic shock. 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 She underwent left AKA and right leg/foot sharp debridement of the ulcers. She was then transferred to [place] for further antibiotics and wound care. She was agitated, belligerent, screaming most of the time and uncomplicated at [place]. She refused her IV antibiotics, oral medications, and wound care. She was seen by psychiatry. She continued to refuse wound care due to pain. She wanted a morphine drip. Pain medication consult. She was administered morphine sulfate IM because she had no IV access. She refused PICC line several times. Discharge planning was initiated because the patient continued to be uncooperative. However, wanted the patient to be located in [facility]. She eventually had a PICC line placed. She started receiving her IV antibiotics. She was also scheduled for right foot sharp debridement, but refused on the day of surgery. She developed severe diarrhea. Stool was positive for C. diff toxin. She was started on vanco and Flagyl p.o. resolved, she had worsening leukocytosis. She became hypotensive and encephalopathic. She was then transferred to ICU and started to pressors. Panculture was done. She was transferred to [facility]. As requested earlier during her admission by her . She has no history of kidney failure in the past. However, her BUN/creatinine were 26/1.3 upon transfer. PAST MEDICAL HISTORY: 1. Morbid obesity. 2. Severe peripheral arterial disease. 3. Coronary artery disease. 4. Bipolar disorder. 5. Type 2 diabetes mellitus. 6. Alzheimer dementia with behavioral disturbance. CURRENT MEDICATIONS: She is currently on ascorbic acid, calcium carbonate, donepezil, Zetia, heparin subQ, aspart, Levophed, Namenda, Flagyl, micafungin, vancomycin, Zosyn, zinc sulfate. ALLERGIES: ALLERGIC TO FUROSEMIDE, PENICILLIN, TETANUS TOXINS AND TOXOID. SOCIAL AND FAMILY HISTORY: I was not able to obtain directly from the patient because she is currently encephalopathic. REVIEW OF SYSTEMS: Again, I was not able to decipher directly from the patient. PHYSICAL EXAMINATION: GENERAL: The patient remains stuporous, barely responsive. However, comfortable. VITAL SIGNS: Afebrile, pulse is irregular at 125 with a blood pressure of 100/43. SKIN: Poor turgor, warm. No rash, no jaundice appreciated. However, she does have some ecchymosis and hematomas in her extremities. HEENT: Head normocephalic, atraumatic. Eyes: Unable to assess extraocular muscles. Pupils equal, round, reactive to light and accommodates. Anicteric sclerae. Pale conjunctivae. Nose: Midline nasal septum. Mouth: Dry mucosa with poor dentition. NECK: Supple, no adenopathy, no thyromegaly, no bruits. Trachea palpated in the midline. CHEST AND CARDIOVASCULAR: Irregularly irregular, tachycardic, S1, S2. No rub, murmur, no gallop appreciated. Point of maximal impulse difficult to assess due to size. No abdominal or femoral bruits appreciated. LUNGS: Equal expansion. Minimal use of accessory muscles. No supraclavicular retractions. Scattered rhonchi, but no rales, no wheezes appreciated. BREASTS: Symmetrical, without any discharge. ABDOMEN: Obese, soft, positive for bowel sounds. No bruits either diastolic or systolic. RECTAL: Unable to perform due to patient's size. GENITOURINARY: Normal appearing female genitalia. MUSCULOSKELETAL: No effusions present in her right joint. EXTREMITIES: She does have edema, I would say +3 to 4 involving right lower extremity, multiple scabs and eschar, as well as nonhealing ulcers involving her right leg and right foot. She has a left stump that has some oozing mostly serous and intact lore. NEUROLOGIC: As mentioned, the patient is very stuporous as she was not able to follow my neuro commands and I was not able to perform my neuro exam. LABORATORY DATA: Revealed sodium 132, potassium 3.3, chloride 105, bicarbonate 17, BUN 27, creatinine 1.3, glucose 219, calcium 7.9, albumin 2.2. White count 43.9, hemoglobin 12.4, hematocrit 36.6, platelets 485, polys 80%. IMPRESSION: 1. Acute kidney injury. The patient developed septic shock, along with decrease in oral intake. She was not able to replenish both sensible and insensible fluid losses because of her decreased oral intake and encephalopathy. Physical exam revealed poor skin turgor with dry oral mucosa. Her azotemia eventually progressed to acute tubular injury. She also has overwhelming sepsis, which could give rise to acute interstitial nephritis. 2. Shock, likely septic in nature. 3. Sepsis due to Clostridium difficile colitis, infected multiple right foot ulcers, and possibly complicated urinary tract infection. 4. Atrial fibrillation with rapid ventricular response. 5. Acute respiratory failure. 6. Electrolyte imbalance. 7. Coagulopathy secondary to disseminated intravascular coagulation, possibly Coumadin. 8. Severe malnutrition. 9. Metabolic acidosis secondary to lactic acidosis. 10. Severe peripheral arterial disease, status post left above knee amputation, status post right leg/foot debridement, sharp debridement. 11. Coronary artery disease. 12. Bipolar disorder. 13. Type 2 diabetes mellitus. 14. Alzheimer dementia with behavioral disturbance. PLAN: 1. Urine spot sodium, eosinophils, and creatinine. 2. Urine microalbumin creatinine ratio. 3. Continue with IV fluids. 4. Continue with pressors. 5. Replace potassium. Thank you, Dr. Atwood for this consult and we will follow the patient closely with you. JOB# [id number]
--- NOTE | 2016-09-20 14:14 | General Progress Note ---
Subjective - Review of Systems Service Date: 09/20/16 Subjective: remains stuporous, but comfortable Objective - Results Result Diagrams: 09/20/16 05:05 09/20/16 05:05 Recent Labs: Laboratory Last Values WBC 27.2 Th/cmm (4.8-10.8) H* D 09/20/16 05:05 RBC 3.53 Mil/cmm (3.80-5.20) L 09/20/16 05:05 Hgb 10.8 gm/dL (11.7-16.1) L 09/20/16 05:05 Hct 31.8 % (35.0-45.0) L D 09/20/16 05:05 MCV 90.1 fl (81-100) 09/20/16 05:05 MCH 30.7 pg (27.0-31.0) 09/20/16 05:05 MCHC Differential 34.0 pg (28.0-36.0) 09/20/16 05:05 RDW 14.5 % (11.5-20.0) 09/20/16 05:05 Plt Count 392 Th/cmm (150-400) 09/20/16 05:05 MPV 8.1 fl 09/20/16 05:05 Band Neutrophils % 4 % (0-10) 09/20/16 05:05 Neutrophils (Manual) 80 % (40-80) 09/20/16 05:05 Lymphocytes 13 % (20-50) L 09/20/16 05:05 Monocytes 2 % (2-10) 09/20/16 05:05 Metamyelocytes 1 % (0-0) H 09/20/16 05:05 Nucleated RBCs 1.0 % (0-0) H 09/19/16 04:55 Platelet Estimate ADEQUATE (NORMAL) 09/20/16 05:05 Platelet Morphology GIANT PLATELETS SEEN (NORMAL) 09/20/16 05:05 Polychromasia 1+ 09/20/16 05:05 Anisocytosis 1+ 09/20/16 05:05 RBC Morph Micro Appear ABNORMAL (NORMAL) 09/20/16 05:05 PT 25.7 SECONDS (9.5-11.5) H 09/20/16 05:05 INR 2.36 (0.5-1.4) H 09/20/16 05:05 PTT (Actin FS) 56.1 SECONDS (26.0-38.0) H 09/18/16 15:24 Specimen Source Arterial 09/20/16 10:40 Sample Site rb 09/20/16 10:40 pH 7.35 (7.35-7.45) 09/20/16 10:40 pCO2 32.0 mmHg (35.0-45.0) L 09/20/16 10:40 pO2 68.0 mmHg (80.0-100.0) L 09/20/16 10:40 HCO3 19.4 mEq/L (20.0-26.0) L 09/20/16 10:40 Base Excess -6.9 mEq/L (-3.0-3.0) L 09/20/16 10:40 O2 Saturation 92.0 % (92.0-100.0) 09/20/16 10:40 Toni Test na 09/20/16 10:40 Vent Rate na 09/20/16 10:40 Inspired O2 36 09/20/16 10:40 Tidal Volume na 09/20/16 10:40 PEEP na 09/20/16 10:40 Pressure (ins/psv/peep) na 09/20/16 10:40 Critical Value e.aguilera 09/20/16 10:40 Sodium 135 mEq/L (136-145) L 09/20/16 05:05 Potassium 3.0 mEq/L (3.5-5.1) L 09/20/16 05:05 Chloride 107 mEq/L (98-107) 09/20/16 05:05 Carbon Dioxide 17.3 mEq/L (21.0-31.0) L 09/20/16 05:05 Anion Gap 13.7 (7.0-16.0) 09/20/16 05:05 BUN 32 mg/dL (7-25) H 09/20/16 05:05 Creatinine 1.1 mg/dL (0.6-1.2) 09/20/16 05:05 Est GFR ( Amer) TNP 09/20/16 05:05 Est GFR (Non-Af Amer) TNP 09/20/16 05:05 BUN/Creatinine Ratio 29.1 09/20/16 05:05 Glucose 394 mg/dL (70-105) H 09/20/16 05:05 POC Glucose 296 MG/DL (70 - 105) H 09/20/16 11:35 Hemoglobin A1c % 5.7 % (4.0-6.0) 09/18/16 14:24 Whole Bld Lactic Acid 3.78 mmol/L (0.60-1.99) H* 09/18/16 22:13 Calcium 7.4 mg/dL (8.6-10.3) L 09/20/16 05:05 Total Bilirubin 0.9 mg/dL (0.3-1.0) 09/20/16 05:05 AST 7 U/L (13-39) L 09/20/16 05:05 ALT 3 U/L (7-52) L 09/20/16 05:05 Alkaline Phosphatase 77 U/L (34-104) 09/20/16 05:05 Troponin I 0.47 ng/mL (0.01-0.05) H* D 09/18/16 15:24 B-Natriuretic Peptide 1280.0 pg/mL (5.0-100.0) H 09/20/16 05:05 Total Protein 4.5 gm/dL (6.0-8.3) L 09/20/16 05:05 Albumin 2.3 gm/dL (3.7-5.3) L 09/20/16 05:05 Globulin 2.2 gm/dL 09/20/16 05:05 Albumin/Globulin Ratio 1.1 (1.0-1.8) 09/20/16 05:05 Triglycerides 130 mg/dL (<150) 09/18/16 15:24 Cholesterol 48 mg/dL (<200) 09/18/16 15:24 LDL Cholesterol Direct 19 mg/dL (75-193) L 09/18/16 15:24 HDL Cholesterol 13 mg/dL (23-92) L 09/18/16 15:24 TSH 7.73 uIU/ml (0.34-5.60) H 09/18/16 15:24 Urine Source [place] 09/18/16 16:25 Urine Color YELLOW 09/18/16 16:25 Urine Clarity SLIGHT CLOUDY (CLEAR) 09/18/16 16:25 Urine pH 5.5 (4.6 - 8.0) 09/18/16 16:25 Ur Specific [place] 1.015 (1.005-1.030) 09/18/16 16:25 Urine Protein TRACE mg/dL (NEGATIVE) 09/18/16 16:25 Urine Glucose (UA) NEGATIVE mg/dL (NEGATIVE) 09/18/16 16:25 Urine Ketones NEGATIVE mg/dL (NEGATIVE) 09/18/16 16:25 Urine Blood NEGATIVE (NEGATIVE) 09/18/16 16:25 Urine Nitrate NEGATIVE (NEGATIVE) 09/18/16 16:25 Urine Bilirubin NEGATIVE (NEGATIVE) 09/18/16 16:25 Urine Urobilinogen 0.2 E.U./dL (0.2 - 1.0) 09/18/16 16:25 Ur Leukocyte Esterase SMALL (NEGATIVE) H 09/18/16 16:25 Urine RBC 2-5 /hpf (0-5) 09/18/16 16:25 Urine WBC 50-100 /hpf (0-5) H 09/18/16 16:25 Ur Epithelial Cells FEW /lpf (FEW) 09/18/16 16:25 Urine Bacteria 1+ /hpf (NONE SEEN) H 09/18/16 16:25 RPR NONREACTIVE (NONREACTIVE) 09/18/16 15:24 - Physical Exam Vitals and I&O: Vital Signs Temp 97.7 F 09/20/16 08:00 Pulse 96 09/20/16 13:50 Resp 20 09/20/16 13:50 BP 105/74 09/20/16 08:00 Pulse Ox 94 09/20/16 13:50 Intake & Output 09/19/16 09/20/16 09/20/16 18:59 06:59 18:59 Intake Total 179.347 9030.167 1267.423 Output Total 1150 Balance 535.103 -187.149 8274.423 Weight (lbs) 115.757 kg Intake: Intake, IV Amount 535.103 425.044 5882.423 D5-0.9%Ns 1,000 ml @ 125 4.167 964.583 mls/hr IV .Q8H [facility] Rx#: [id number] Norepinephrine 8 mg In 235.103 258 252.84 Dextrose 5% 250 ml @ 10 MCG/MIN 19.35 mls/hr IV TITR PRN Rx#:[id number] Piperacillin Sodium/ 50 100 50 Tazobact 3.375 gm In Sodium Chloride 0.9% 50 ml @ 100 mls/hr IV Q8H [facility] Rx#:[id number] Vancomycin HCl 1.25 gm In 250 Sodium Chloride 0.9% 250 ml @ 165 mls/hr IV Q24H [facility] Rx#:[id number] Oral 0 Tube Feeding 80 Albumin 100 Other 500 Output: Gastric Drainage 200 Urine 950 Other: # Bowel Movements 1 Active Medications: Current Medications Acetaminophen (Tylenol) 325 mg PO Q4HR PRN PRN Reason: Fever > 101 Stop: 11/17/16 19:17 Albuterol/Ipratropium (Duoneb Neb) 3 ml HHN Q4HRT [facility] Stop: 11/17/16 22:59 Last Admin: 09/20/16 13:50 Dose: 3 ml Ascorbic Acid (Vitamin C) 500 mg PO DAILY [facility] Stop: 11/18/16 08:59 Last Admin: 09/20/16 12:40 Dose: Not Given Calcium/Vitamin D (Oscal W/Vitamin D) 1 tab PO DAILY [facility] Stop: 11/18/16 08:59 Last Admin: 09/20/16 12:40 Dose: Not Given Dextrose (D50w) 50 ml IVP PRN PRN PRN Reason: Blood Glucose less than 70 Stop: 11/17/16 20:09 Dextrose (Glutose 40%) 18.75 gm PO PRN PRN PRN Reason: Blood Glucose less than 70 Stop: 11/17/16 20:09 Diltiazem HCl (Cardizem) 10 mg IVP Q4HR PRN PRN Reason: HR >130 Stop: 11/18/16 20:11 Donepezil HCl (Aricept) 5 mg PO HS [facility] Stop: 11/17/16 20:59 Last Admin: 09/19/16 21:55 Dose: 5 mg Ezetimibe (Zetia) 10 mg PO HS [facility] Stop: 11/17/16 20:59 Last Admin: 09/19/16 21:45 Dose: 10 mg Glucagon (Glucagen) 1 mg IM PRN PRN PRN Reason: Blood Glucose less than 70 Stop: 11/17/16 20:09 Heparin Sodium (Porcine) (Heparin) 5,000 units SUBQ Q12HR [facility] Stop: 11/18/16 20:59 Last Admin: 09/20/16 08:50 Dose: 5,000 units Piperacillin Sod/Tazobactam (Sod 3.375 gm/ Sodium Chloride) 50 mls @ 100 mls/ hr IV Q8H [facility] Stop: 11/17/16 19:15 Last Infusion: 09/20/16 12:44 Dose: Infused Norepinephrine Bitartrate 8 mg (/ Dextrose) 258 mls @ 19.35 mls/hr IV TITR PRN ; Protocol; 10 MCG/MIN PRN Reason: BP MAINTENANCE (PER PROTOCOL) Stop: 11/17/16 19:17 Last Admin: 09/20/16 12:53 Dose: 10 mcg/min, 19.35 mls/hr Micafungin Sodium 100 mg/ (Sodium Chloride) 100 mls @ 100 mls/hr IV Q24H [facility] Stop: 11/17/16 19:59 Last Admin: 09/19/16 20:30 Dose: 100 mls/hr Vancomycin HCl 1.25 gm/ Sodium (Chloride) 250 mls @ 165 mls/hr IV Q24H [facility] Stop: 11/18/16 10:59 Last Admin: 09/20/16 11:30 Dose: 165 mls/hr Dextrose/Sodium Chloride (D5-0.9%Ns) 1,000 mls @ 125 mls/hr IV .Q8H [facility] Stop: 11/18/16 12:47 Last Admin: 09/20/16 11:28 Dose: 125 mls/hr Diltiazem HCl 125 mg/ Dextrose 125 mls @ 10 mls/hr IV TITR [facility]; 10 MG/HR PRN Reason: Protocol Stop: 11/18/16 20:32 Last Admin: 09/19/16 21:30 Dose: 10 mg/hr, 10 mls/hr Potassium Chloride (Potassium Chloride) 20 meq in 100 mls @ 50 mls/hr IV Q8H [facility] Stop: 09/20/16 17:59 Last Admin: 09/20/16 11:20 Dose: 50 mls/hr Insulin Aspart (Novolog Insulin Sliding Scale) 0 units SUBQ Q6HR [facility] PRN Reason: Protocol Stop: 11/18/16 00:00 Last Admin: 09/20/16 11:50 Dose: 10 units Memantine (Namenda) 5 mg PO DAILY [facility] Stop: 11/18/16 08:59 Last Admin: 09/20/16 12:40 Dose: Not Given Metronidazole (Flagyl) 250 mg PO TID [facility] Stop: 11/18/16 13:59 Last Admin: 09/20/16 12:40 Dose: Not Given Miscellaneous (Vancomycin Iv Per Pharmacy) 1 ea MC PRN PRN PRN Reason: PROTOCOL Stop: 11/17/16 19:15 Miscellaneous (Vte Chemical Prophylaxis Screen/ Admission) 1 ea MC PRN PRN PRN Reason: PROTOCOL Stop: 11/18/16 14:22 Morphine Sulfate (Morphine) 1 mg IVP Q6HR PRN PRN Reason: Pain (Moderate) Stop: 11/18/16 20:02 Ondansetron HCl (Zofran) 4 mg IV Q6HR PRN PRN Reason: NAUSEA/VOMITING Stop: 11/17/16 19:44 Pantoprazole Sodium (Protonix) 40 mg IVP DAILY [facility] Stop: 11/19/16 08:59 Vancomycin HCl (Vancomycin Oral) 250 mg PO TID [facility] Stop: 11/18/16 13:59 Last Admin: 09/20/16 12:41 Dose: Not Given Zinc Sulfate (Zinc Sulfate) 220 mg PO DAILY [facility] Stop: 11/18/16 08:59 Last Admin: 09/19/16 08:43 Dose: 220 mg General: No acute distress, Other (Patient is unconscious, responding only to pain) HEENT: Atraumatic, Mucous membr. moist/pink Neck: Supple, +2 carotid pulse wo bruit (irregular rhythm) Cardiovascular: Other (Tachicardic) Lungs: Other (few rhonchi) Abdomen: Bowel sounds, Soft Extremities: Edema (right leg), Other (Pitting edema) Neurological: Sensation intact, Other (Non ambulatory) Skin: Significant lesion (ulcers right leg), Other (Multiple decubits ulcers) Psych/Mental Status: Other (Unconscious) - Procedures Procedures: Procedures Procedure Code Date AMPUTATE LEG AT THIGH 52753 08/03/16 ANNETTE SUBQ TISSUE 20 SQ CM/< 29278 08/03/16 DETACHMENT AT LEFT UPPER LEG, LOW, OPEN APPROACH [id number] 08/03/16 EXCISION OF R FOOT SUBCU/FASCIA, OPEN APPROACH [id number] 08/03/16 EXCISION OF R LOW LEG SUBCU/FASCIA, OPEN APPROACH [id number] 08/03/16 TRANSFUSE NONAUT RED BLOOD CELLS IN PERIPH VEIN, PERC 99053I8 08/03/16 Assessment/Plan - Problem List Patient Problems: All Active Problems ELEVATED WBC LEVELS (Acute) - Assessment Assessment: MICHAEL Shock Sepsis Sepsis 2nd to C. Diff, Right foot ulcers ?osteo, possible UTI A.Fib W/ RVR Acute Resp Failure Coagulopathy 2nd to DIC, Coumadin Lactic Acidosis T2 DM CAD Bipolar Disorder PAD S/P Left AKA, Sharp Debridement of Right Foot Ulcers - Plan Plan: Lab - Result Diagrams 09/20/16 05:05 09/20/16 05:05 Current Medications Acetaminophen (Tylenol) 325 mg PO Q4HR PRN PRN Reason: Fever > 101 Stop: 11/17/16 19:17 Albuterol/Ipratropium (Duoneb Neb) 3 ml HHN Q4HRT [facility] Stop: 11/17/16 22:59 Last Admin: 09/20/16 13:50 Dose: 3 ml Ascorbic Acid (Vitamin C) 500 mg PO DAILY [facility] Stop: 11/18/16 08:59 Last Admin: 09/20/16 12:40 Dose: Not Given Calcium/Vitamin D (Oscal W/Vitamin D) 1 tab PO DAILY [facility] Stop: 11/18/16 08:59 Last Admin: 09/20/16 12:40 Dose: Not Given Dextrose (D50w) 50 ml IVP PRN PRN PRN Reason: Blood Glucose less than 70 Stop: 11/17/16 20:09 Dextrose (Glutose 40%) 18.75 gm PO PRN PRN PRN Reason: Blood Glucose less than 70 Stop: 11/17/16 20:09 Diltiazem HCl (Cardizem) 10 mg IVP Q4HR PRN PRN Reason: HR >130 Stop: 11/18/16 20:11 Donepezil HCl (Aricept) 5 mg PO HS [facility] Stop: 11/17/16 20:59 Last Admin: 09/19/16 21:55 Dose: 5 mg Ezetimibe (Zetia) 10 mg PO HS [facility] Stop: 11/17/16 20:59 Last Admin: 09/19/16 21:45 Dose: 10 mg Glucagon (Glucagen) 1 mg IM PRN PRN PRN Reason: Blood Glucose less than 70 Stop: 11/17/16 20:09 Heparin Sodium (Porcine) (Heparin) 5,000 units SUBQ Q12HR [facility] Stop: 11/18/16 20:59 Last Admin: 09/20/16 08:50 Dose: 5,000 units Piperacillin Sod/Tazobactam (Sod 3.375 gm/ Sodium Chloride) 50 mls @ 100 mls/ hr IV Q8H [facility] Stop: 11/17/16 19:15 Last Infusion: 09/20/16 12:44 Dose: Infused Norepinephrine Bitartrate 8 mg (/ Dextrose) 258 mls @ 19.35 mls/hr IV TITR PRN ; Protocol; 10 MCG/MIN PRN Reason: BP MAINTENANCE (PER PROTOCOL) Stop: 11/17/16 19:17 Last Admin: 09/20/16 12:53 Dose: 10 mcg/min, 19.35 mls/hr Micafungin Sodium 100 mg/ (Sodium Chloride) 100 mls @ 100 mls/hr IV Q24H [facility] Stop: 11/17/16 19:59 Last Admin: 09/19/16 20:30 Dose: 100 mls/hr Vancomycin HCl 1.25 gm/ Sodium (Chloride) 250 mls @ 165 mls/hr IV Q24H [facility] Stop: 11/18/16 10:59 Last Admin: 09/20/16 11:30 Dose: 165 mls/hr Dextrose/Sodium Chloride (D5-0.9%Ns) 1,000 mls @ 125 mls/hr IV .Q8H [facility] Stop: 11/18/16 12:47 Last Admin: 09/20/16 11:28 Dose: 125 mls/hr Diltiazem HCl 125 mg/ Dextrose 125 mls @ 10 mls/hr IV TITR [facility]; 10 MG/HR PRN Reason: Protocol Stop: 11/18/16 20:32 Last Admin: 09/19/16 21:30 Dose: 10 mg/hr, 10 mls/hr Potassium Chloride (Potassium Chloride) 20 meq in 100 mls @ 50 mls/hr IV Q8H [facility] Stop: 09/20/16 17:59 Last Admin: 09/20/16 11:20 Dose: 50 mls/hr Insulin Aspart (Novolog Insulin Sliding Scale) 0 units SUBQ Q6HR [facility] PRN Reason: Protocol Stop: 11/18/16 00:00 Last Admin: 09/20/16 11:50 Dose: 10 units Memantine (Namenda) 5 mg PO DAILY [facility] Stop: 11/18/16 08:59 Last Admin: 09/20/16 12:40 Dose: Not Given Metronidazole (Flagyl) 250 mg PO TID [facility] Stop: 11/18/16 13:59 Last Admin: 09/20/16 12:40 Dose: Not Given Miscellaneous (Vancomycin Iv Per Pharmacy) 1 ea MC PRN PRN PRN Reason: PROTOCOL Stop: 11/17/16 19:15 Miscellaneous (Vte Chemical Prophylaxis Screen/ Admission) 1 ea MC PRN PRN PRN Reason: PROTOCOL Stop: 11/18/16 14:22 Morphine Sulfate (Morphine) 1 mg IVP Q6HR PRN PRN Reason: Pain (Moderate) Stop: 11/18/16 20:02 Ondansetron HCl (Zofran) 4 mg IV Q6HR PRN PRN Reason: NAUSEA/VOMITING Stop: 11/17/16 19:44 Pantoprazole Sodium (Protonix) 40 mg IVP DAILY [facility] Stop: 11/19/16 08:59 Vancomycin HCl (Vancomycin Oral) 250 mg PO TID [facility] Stop: 11/18/16 13:59 Last Admin: 09/20/16 12:41 Dose: Not Given Zinc Sulfate (Zinc Sulfate) 220 mg PO DAILY [facility] Stop: 11/18/16 08:59 Last Admin: 09/19/16 08:43 Dose: 220 mg Cr. better @ 1.1 WBC down to 27.3 continue Na HC03 decrease ivf due to peripheral edema, ascites, b/l effusions f/u electrolytes, cbc, PT/INR continue ABx agree w/ K replacement Nutritional Asmnt/Malnutr-PDOC - Dietary Evaluation Malnutrition Findings (Please click <Entered> for more info): Nutritional Asmnt/Malnutrition Start: 09/19/16 15: 45 Text: Status: Complete Freq: Document 09/19/16 15:46 [facility] (Rec: 09/19/16 16:02 [facility] [id number]) Nutritional Asmnt/Malnutrition Patient General Information Nutritional Screening Consult Diagnosis Sepsis, pneumonia, hypotension Pertinent Medical Hx/Surgical Hx AFIB, CAD, CHF, HTN, hyperlipidemia, CVA, pneumonia , chronic renal insufficiency, DM, multiple decubitus ulcers in different parts of body, left AKA Subjective Information Nutrition consult for pt is diabetic received and completed. Pt is a 81-year-old female from [facility] admitted with chief complaint of sepsis. Pt is a poor historian at the moment, lethargic and nonverbal. Pt appears obese with edema observed. RD measured wt with medical devices removed, three pillows on bed: 216.2#/98.3 kg. Adjusted BMI with consideration of AKA: 40.3 kg/ m2. Adjusted IBW with consideration of AKA: 113#/51. 4 kg. Per medical records, pt wt 242#/110 kg in August 2016. NGT placed last night 09/18, pending tube feeding order. Current Diet Order/ Nutrition Support NPO Patient / S.O Can't verbalize diet edu Pertinent Medications Vitamin C, Oscal with Vitamin D, D5-0.9 Ns, Novolog (not given during NPO status), Flagyl, Piperacillin, Vancomycin, Coumadin, Zinc Sulfate Pertinent Labs (09/18) Glucose 344H, A1C WNL, HDL Cholesterol 13L, LDL Cholesterol 19L (09/19) Na 132L , K 3.3L, Glucose 290H, POC Glucose 246H-285H, BUN 27H, Creatinine 1.3H, Alkaline Phosphatase 107H, Albumin 2.2L Nutritional Hx/Data Height 1.7 m Height (Calculated Centimeters) 170.2 Current Weight (lbs) 98.067 kg Weight (Calculated Kilograms) 98.1 Weight (Calculated Grams) 84686.7 Usual body Weight (lbs) 242 % Usual Body Weight 89 [place] Body Weight 113 % [place] Body Weight 191 Recent Weight Change Yes Weight Status Morbidly Obese GI Symptoms GI Symptoms None Difficult in: Swallowing Food Allergies No Usual diet at home Mechanical soft ground with protein supplement 30 ml BID Skin Integrity/Comment: Grey 10. Pt with multiple wounds body and leg. Estimated Nutritional Goals BEE in Kcals: Using Current wt Calories/Kcals/Kg Based on current wt of 98.3 kg with consideration of wounds, sepsis,obesity Kcals Calculated 8464-2849 kcals/day ([place] [address]. Jeor x 1.2-1.5) Protein: Adj wt of IBW Protein g/kg: Based on adjusted IBW 51.4 kg with consideration of wounds, sepsis Protein Calculated 93-103 gm/day (1.8-2 gm/kg) Fluid: ml Per MD/DO Nutritional Problem 2. Problem Problem Increased energy and protein needs related to Etiology altered skin integrity as evidenced by Signs/Symptoms: multiple decubitus ulcers to body and leg, per RN notes. 1. Problem Problem Malnutrition related to Etiology morbid obesity as evidenced by Signs/Symptoms: adjusted BMI of 40.3 kg/m2. Malnutrition Alert Protein-Calorie Malnutrition N/A Is there a minimum of two criteria No selected? Query Text:Check all the applicable criteria. A minimum of two criteria are recommended for diagnosis of either severe or non-severe malnutrition. Malnutrition Related to Morbid Obesity Malnutrition related to morbid obesity BMI> or equal to 40 Query Text:(Any 1 Criteria met) Malnutrition related to morbid obesity Yes Intervention/Recommendation Comments 1. When medically appropriate, recommend initiate tube feeding Diabetisource AC at 20 ml/hr. Increase by 10 ml/hr every 4 hours until the goal rate of 70 ml/hr is reached. Tube feeding to provide 2016 kcals, 101 gm protein, and 1374 ml free water per day. 2. Recommend one packet of Arginaid via NGT BID to promote wound healing. Expected Outcomes/Goals Expected Outcomes/Goals Provide pt with 100% of estimated nutritional needs to promote wound healing. Physician Parameters for PEM Serum Albumin (g/dl) <2.4 (Severe)
[2016-09-20] MEDS: Sodium Chloride 0.9% 1,000 ML IV SCH (14:45)
--- NOTE | 2016-09-20 15:42 | Cardiology ---
09/19/[address] Atwood. M-MODE ECHOCARDIOGRAM: Mitral valve, anterior leaflet of mitral valve shows decreased excursion, EF velocity. Posterior leaflet of mitral valve shows decreased excursion. Left ventricular posterior wall shows increased thickness, decreased excursion. Interventricular septum shows increased thickness, decreased excursion. Ejection fraction 15-20%. Left atrium normal. Aortic root shows normal dimension, normal excursion of aortic leaflets. CONCLUSION: Cardiomyopathy, ejection fraction 15-20%. 2D ECHO: Long axis view shows enlarged left ventricular cavity with decreased ejection fraction, mild left ventricular hypertrophy. Left atrium normal. Aortic root shows normal dimension, normal excursion of aortic leaflets. Short axis view of mitral valve normal. Short axis view of aortic valve normal. Apical four chamber view shows enlarged left ventricular cavity with decreased ejection fraction, minimal hypertrophy of the left ventricle. Left atrium normal. Right ventricular cavity, right atrium normal. No pericardial effusion. CONCLUSION: Hypertrophy of the left ventricle, cardiomyopathy, ejection fraction 15-20%. Doppler study showed trace mitral regurgitation, tricuspid regurgitation, aortic regurgitation. JOB# [id number]
[2016-09-20] MEDS ORDERED: Morphine Sulfate 4 mg/mL 1mL Syr IV PRN (16:27)
[2016-09-20] MEDS ORDERED: Morphine Sulfate 4 mg/mL 1mL Syr IVP PRN (16:31)
[2016-09-20] MEDS: Micafungin 100 MG in Sodium Chloride 0.9% 100 ML IV SCH (20:00)
--- NOTE | 2016-09-21 01:05 | Consultation ---
DATE OF CONSULTATION: 09/19/2016 PRIMARY CARE PHYSICIAN: Dr. Atwood. REASON FOR CONSULTATION: Leukocytosis. HISTORY OF PRESENT ILLNESS: This 81-year-old female was initially admitted to [facility] and the patient was found to have colitis and sepsis septic shock. The patient was transferred to ER at [facility] where the patient was evaluated, and admitted to ICU for sepsis. The patient is unable to provide any meaningful history. Old chart reviewed. Pertinent information obtained. PAST MEDICAL HISTORY: Atrial fibrillation, recurrent colitis, coronary artery disease, hypertension, CVA, hypothyroid. FAMILY HISTORY: Negative. SOCIAL HISTORY: Nonsmoker. REVIEW OF SYSTEMS: A 14-point review of systems negative except as above. PHYSICAL EXAMINATION: GENERAL: Obtunded. VITAL SIGNS: Temperature 97.7, pulse 119, respirations 23, blood pressure 103/70. HEENT: Mild pallor, no icterus or plaque. NECK: Supple. LUNGS: Breath sounds bilateral vesicular. CARDIOVASCULAR: S1, S2. ABDOMEN: Soft. Bowel sounds decreased, generalized tenderness. NODES: No thyroid, no cervical lymph nodes. LABORATORY DATA: C. difficile from another hospital positive. CT of the abdomen and pelvis ordered. White count is 43,000, hemoglobin 12 g, platelets 485. DIAGNOSES: Pneumonia, colitis, sepsis, hypertension, coronary artery disease. PLAN: The patient is started on vancomycin p.o. vancomycin also. Flagyl IV is not available, we will start with p.o. Flagyl. GI and Surgery evaluation. Repeat labs and CAT scan of abdomen and pelvis tomorrow. Rest of the care as ordered in CPOE. Thank you, Dr. Atwood for this consultation. JOB# [id number]
[2016-09-21] MEDS: Sodium Chloride 0.9% 1,000 ML IV SCH (02:33)
[2016-09-21] MEDS: Albuterol/Ipratropium Neb 3 ML AERS HHN SCH ×6 (03:41→22:12)
--- NOTE | 2016-09-21 03:46 | Consultation ---
DATE OF CONSULTATION: 09/20/2016 REASON FOR CONSULTATION: Colitis and ileus. HISTORY OF PRESENT ILLNESS: This consult was obtained through the courtesy of Dr. Atwood and Dr. Nunes for this 81-year-old with multiple medical problems including peripheral vascular disease, morbid obesity, coronary artery disease, bipolar disorder, diabetes, dementia who was transferred from [place] to [facility] for sepsis for possibility of surgery for peripheral vascular disease. Because of sepsis, she had a workup which included a CAT scan that showed colitis. She also had ileus. GI consult was called in for further evaluation. An NG-tube was inserted and 500 mL was aspirated from her stomach. Unfortunately, the patient is not able to provide any history. PAST MEDICAL HISTORY: Peripheral vascular disease, coronary artery disease, bipolar disorder, dementia, and morbid obesity. PAST SURGICAL HISTORY: She had an amputation on the left side. SOCIAL HISTORY: Nonsmoker and nonalcoholic and IV drug abuser. This is obtained from the chart. FAMILY HISTORY: Non-obtainable and noncontributory. ALLERGIES: LASIX, PENICILLIN, TETANUS TOXINS AND TOXOIDS. REVIEW OF SYSTEMS: Unobtainable. MEDICATIONS: The patient is on morphine. No epinephrine, Zofran, Protonix, vitamin K, Zosyn, sodium bicarb, vancomycin, and vancomycin orally, zinc, Tylenol, DuoNeb, vitamin C. PHYSICAL EXAMINATION: GENERAL: The patient is nonverbal, nonresponsive. VITAL SIGNS: Blood pressure is 110/71, heart rate 121, respiratory rate 18, and temperature is 98.8. HEAD AND NECK: Pupils are reactive to light. Extraocular muscles could not be tested. Oral cavity, no lesion. NECK: Supple. CHEST: Good air entry. LUNGS: Clear to auscultation. CARDIOVASCULAR: Regular rate and rhythm. No murmur or gallop. ABDOMEN: Soft. Positive bowel sounds, but decreased. Abdomen was not tender. EXTREMITIES: Lower extremities; on the right side, there is decubitus ulcer and on the left side, there is above-knee amputation. CENTRAL NERVOUS SYSTEM: Unable to evaluate. LABORATORY DATA: White count 27.2 and this was 46.1 on presentation. H and H are 10.8 and 31.8 with the platelets of 392,000. PT is 25.7 seconds. The patient has been on Coumadin before. Chemistry showed bilirubin of 0.9, AST of 7, ALT of 3, and BNP of 1280. IMPRESSION: This is an 81-year-old with multiple medical problems, now with sepsis and possible colitis. CAT scan showed thickening and some stranding and some fluids. ASSESSMENT AND PLAN: 1. Colitis could be ischemic, could be infectious, most probably clostridium difficile. This is likely to be just from sepsis. So, the recommendations are: I. Check stool for C. diff. II. Check stool for white blood cell. III. Continue antibiotics. IV: Whenever possible and the patient can take PO, we can start probiotics. 2. Ileus, at this time is most likely due to sepsis and the colitis. We will give the patient one dose of mineral oil on daily basis, get the KUB in a couple of days and see how the patient is doing. 3. Dementia. It seems that the patient is heading towards the G-tube, but we will watch her for a few days and see how she is doing. Other medical problems such as peripheral vascular disease, decubitus ulcers, coronary artery disease, dementia, etc., as per Dr. Nunes and Dr. Atwood. Thank you Dr. Nunes and Dr. Atwood for allowing me to participate in the care of the patient. If you have any further questions, please let me know. JOB# [id number] [id number]
--- NOTE | 2016-09-21 04:35 | Admit Criteria Form ---
Admit Criteria Forms - Admit Criteria Diagnosis: SEPSIS and OTHER FEBRILE ILLNESS, W/O FOCAL INFECTION Clinical Indications for Admission to Inpatient Care ( Place 'X' for any and all applicable criteria): Admission is indicated for ANY ONE of the following (1)(2)(3)(4): [ ] I. Bacteremia [ ]II. Suspected or identified specific infection requiring hospitalization (eg, meningitis, endocarditis) [X ]III. Hemodynamic instability [ ]IV. Altered mental status [ ]V. Failure or unavailability of outpatient antimicrobial treatment [ ]. Hypoxemia [ ]VII. Seizures [ ]VIII. High-risk febrile neutropenia [ ]IX. Need for parenteral antibiotic in patient who is likely to abuse vascular access device (eg, injection drug user) [A](7) [ ]X. Temperature greater than 104.9 degrees F (40.5 degrees C) (oral) [X ]XI. Inpatient admission required rather than observation care because of ANY ONE of the following: [ ]1) Specific infection identified that is too severe for outpatient treatment or observation care trial [ X]2) Metabolic disorder (eg, hypoglycemia, hyperglycemia, metabolic acidosis) that is severe or persistent [ ]3) Temperature greater than 103.1 degrees F (39.5 degrees C) ( oral) that is not responsive to observation care treatment [ ]4) IV fluid to replace significant ongoing (eg, for over 24 hours) losses (> 3 L/m2 per day) [ ]5) Supplemental oxygen or respiratory treatments for over 24 hours that is performable only in acute inpatient setting [ ]6) Parenteral nutrition regimen need that must be implemented on inpatient basis [ ]7) Strict or protective (eg, laminar flow) isolation [ ]8) Other condition, treatment or monitoring requiring inpatient admission Extended stay beyond goal length of stay may be needed for(1)(3) [ ]a) Sepsis or septic shock(22) [ ]b) Positive blood cultures [ ]c) Insufficient oral intake [ ]d) High-risk febrile neutropenia(29)(30) [ ]e) Continued fever and clinical instability [ ]f) Clinically active comorbid illness (e.g,heart failure, renal failure , diabetes) The original [employer] content created by [employer] has been revised. The portions of the content which have been revised are identified through the use of italic text or in bold, and [facility] [employer] has neither reviewed nor approved the modified material. All other unmodified content is copyright [facility]. Please see references footnoted in the original [facility] edition 2016 Admit Criteria Met?: Yes
[2016-09-21 05:39] LABS: HEMATOCRIT 32.9 % (35.0-45.0); MEAN CELL VOLUME 90.1 fl (81-100); MEAN CORPUSCULAR HEMOGLOBIN 30.2 pg (27.0-31.0); MEAN CORPUSCULAR HGB CONC 33.5 pg (28.0-36.0); MEAN PLATELET VOLUME 7.8 fl; PLATELET COUNT 437 Th/cmm (150-400); RED BLOOD COUNT 3.65 Mil/cmm (3.80-5.20); RED CELL DISTRIBUTION WIDTH 14.6 % (11.5-20.0)
[2016-09-21 05:58] LABS: WHITE BLOOD COUNT 40.8 Th/cmm (4.8-10.8)
[2016-09-21 06:05] LABS: ALB/GLOB RATIO 0.8 (1.0-1.8); ALKALINE PHOSPHATASE 80 U/L (34-104); ANION GAP 12.1 (7.0-16.0); BILIRUBIN,TOTAL 0.8 mg/dL (0.3-1.0); BUN - UREA NITROGEN 31 mg/dL (7-25); BUN/CREATININE RATIO 28.2; CALCIUM SERUM 7.4 mg/dL (8.6-10.3); CARBON DIOXIDE 16.8 mEq/L (21.0-31.0); CHLORIDE 107 mEq/L (98-107); CREATININE - SERUM 1.1 mg/dL (0.6-1.2); GLUCOSE 281 mg/dL (70-105); SGOT 9 U/L (13-39); SGPT/ALT 3 U/L (7-52); SODIUM SERUM 133 mEq/L (136-145)
[2016-09-21 06:10] LABS: POTASSIUM SERUM 2.9 mEq/L (3.5-5.1)
[2016-09-21 06:13] LABS: INR 2.22 (0.5-1.4); PROTHROMBIN TIME (TEST) 24.1 SECONDS (9.5-11.5)
--- NOTE | 2016-09-21 07:39 | General Progress Note ---
Subjective - Review of Systems Service Date: 09/21/16 Events since last encounter: PT 24 sec K 2.9 WBC 40,000 needs K replacement, VIT K or FFP, on antibiotics hold surgery Objective - Results Result Diagrams: 09/21/16 05:30 09/21/16 05:30 Recent Labs: Laboratory Last Values WBC 40.8 Th/cmm (4.8-10.8) H* D 09/21/16 05:30 RBC 3.65 Mil/cmm (3.80-5.20) L 09/21/16 05:30 Hgb 11.0 gm/dL (11.7-16.1) L 09/21/16 05:30 Hct 32.9 % (35.0-45.0) L 09/21/16 05:30 MCV 90.1 fl (81-100) 09/21/16 05:30 MCH 30.2 pg (27.0-31.0) 09/21/16 05:30 MCHC Differential 33.5 pg (28.0-36.0) 09/21/16 05:30 RDW 14.6 % (11.5-20.0) 09/21/16 05:30 Plt Count 437 Th/cmm (150-400) H 09/21/16 05:30 MPV 7.8 fl 09/21/16 05:30 Band Neutrophils % 4 % (0-10) 09/20/16 05:05 Neutrophils (Manual) 80 % (40-80) 09/20/16 05:05 Lymphocytes 13 % (20-50) L 09/20/16 05:05 Monocytes 2 % (2-10) 09/20/16 05:05 Metamyelocytes 1 % (0-0) H 09/20/16 05:05 Nucleated RBCs 1.0 % (0-0) H 09/19/16 04:55 Platelet Estimate ADEQUATE (NORMAL) 09/20/16 05:05 Platelet Morphology GIANT PLATELETS SEEN (NORMAL) 09/20/16 05:05 Polychromasia 1+ 09/20/16 05:05 Anisocytosis 1+ 09/20/16 05:05 RBC Morph Micro Appear ABNORMAL (NORMAL) 09/20/16 05:05 PT 24.1 SECONDS (9.5-11.5) H 09/21/16 05:30 INR 2.22 (0.5-1.4) H 09/21/16 05:30 PTT (Actin FS) 46.9 SECONDS (26.0-38.0) H 09/21/16 05:30 Specimen Source Arterial 09/20/16 10:40 Sample Site rb 09/20/16 10:40 pH 7.35 (7.35-7.45) 09/20/16 10:40 pCO2 32.0 mmHg (35.0-45.0) L 09/20/16 10:40 pO2 68.0 mmHg (80.0-100.0) L 09/20/16 10:40 HCO3 19.4 mEq/L (20.0-26.0) L 09/20/16 10:40 Base Excess -6.9 mEq/L (-3.0-3.0) L 09/20/16 10:40 O2 Saturation 92.0 % (92.0-100.0) 09/20/16 10:40 Toni Test na 09/20/16 10:40 Vent Rate na 09/20/16 10:40 Inspired O2 36 09/20/16 10:40 Tidal Volume na 09/20/16 10:40 PEEP na 09/20/16 10:40 Pressure (ins/psv/peep) na 09/20/16 10:40 Critical Value e.aguilera 09/20/16 10:40 Sodium 133 mEq/L (136-145) L 09/21/16 05:30 Potassium 2.9 mEq/L (3.5-5.1) L* 09/21/16 05:30 Chloride 107 mEq/L (98-107) 09/21/16 05:30 Carbon Dioxide 16.8 mEq/L (21.0-31.0) L 09/21/16 05:30 Anion Gap 12.1 (7.0-16.0) 09/21/16 05:30 BUN 31 mg/dL (7-25) H 09/21/16 05:30 Creatinine 1.1 mg/dL (0.6-1.2) 09/21/16 05:30 Est GFR ( Amer) TNP 09/21/16 05:30 Est GFR (Non-Af Amer) TNP 09/21/16 05:30 BUN/Creatinine Ratio 28.2 09/21/16 05:30 Glucose 281 mg/dL (70-105) H 09/21/16 05:30 POC Glucose 259 MG/DL (70 - 105) H 09/21/16 06:04 Hemoglobin A1c % 5.7 % (4.0-6.0) 09/18/16 14:24 Whole Bld Lactic Acid 3.78 mmol/L (0.60-1.99) H* 09/18/16 22:13 Calcium 7.4 mg/dL (8.6-10.3) L 09/21/16 05:30 Total Bilirubin 0.8 mg/dL (0.3-1.0) 09/21/16 05:30 AST 9 U/L (13-39) L 09/21/16 05:30 ALT 3 U/L (7-52) L 09/21/16 05:30 Alkaline Phosphatase 80 U/L (34-104) 09/21/16 05:30 Troponin I 0.47 ng/mL (0.01-0.05) H* D 09/18/16 15:24 B-Natriuretic Peptide 1120.0 pg/mL (5.0-100.0) H 09/21/16 05:30 Total Protein 4.7 gm/dL (6.0-8.3) L 09/21/16 05:30 Albumin 2.1 gm/dL (3.7-5.3) L 09/21/16 05:30 Globulin 2.6 gm/dL 09/21/16 05:30 Albumin/Globulin Ratio 0.8 (1.0-1.8) L 09/21/16 05:30 Triglycerides 130 mg/dL (<150) 09/18/16 15:24 Cholesterol 48 mg/dL (<200) 09/18/16 15:24 LDL Cholesterol Direct 19 mg/dL (75-193) L 09/18/16 15:24 HDL Cholesterol 13 mg/dL (23-92) L 09/18/16 15:24 TSH 7.73 uIU/ml (0.34-5.60) H 09/18/16 15:24 Urine Source [place] 09/18/16 16:25 Urine Color YELLOW 09/18/16 16:25 Urine Clarity SLIGHT CLOUDY (CLEAR) 09/18/16 16:25 Urine pH 5.5 (4.6 - 8.0) 09/18/16 16:25 Ur Specific [place] 1.015 (1.005-1.030) 09/18/16 16:25 Urine Protein TRACE mg/dL (NEGATIVE) 09/18/16 16:25 Urine Glucose (UA) NEGATIVE mg/dL (NEGATIVE) 09/18/16 16:25 Urine Ketones NEGATIVE mg/dL (NEGATIVE) 09/18/16 16:25 Urine Blood NEGATIVE (NEGATIVE) 09/18/16 16:25 Urine Nitrate NEGATIVE (NEGATIVE) 09/18/16 16:25 Urine Bilirubin NEGATIVE (NEGATIVE) 09/18/16 16:25 Urine Urobilinogen 0.2 E.U./dL (0.2 - 1.0) 09/18/16 16:25 Ur Leukocyte Esterase SMALL (NEGATIVE) H 09/18/16 16:25 Urine RBC 2-5 /hpf (0-5) 09/18/16 16:25 Urine WBC 50-100 /hpf (0-5) H 09/18/16 16:25 Ur Epithelial Cells FEW /lpf (FEW) 09/18/16 16:25 Urine Bacteria 1+ /hpf (NONE SEEN) H 09/18/16 16:25 RPR NONREACTIVE (NONREACTIVE) 09/18/16 15:24 - Physical Exam Vitals and I&O: Vital Signs Temp 97.4 F 09/21/16 06:00 Pulse 112 09/21/16 06:30 Resp 25 09/21/16 06:00 BP 119/65 09/21/16 06:30 Pulse Ox 99 09/21/16 06:00 Intake & Output 09/20/16 09/21/16 09/21/16 18:59 06:59 18:59 Intake Total 0559.653 5765.688 Output Total 300 250 Balance 0873.918 4166.688 -250 Weight (lbs) 115.757 kg 115.666 kg Intake: Intake, IV Amount 9735.039 3734.688 D5-0.9%Ns 1,000 ml @ 125 964.583 mls/hr IV .Q8H SHARIF Rx#: [id number] Diltiazem 125 mg In 125 Dextrose 5% 100 ml @ 10 MG/HR 10 mls/hr IV TITR SHARIF Rx#:[id number] KCL 20mEq/100mL Premix 20 100 meq In 100 ml @ 50 mls/ hr IV Q8H [facility] Rx#: [id number] Norepinephrine 8 mg In 252.84 217.688 Dextrose 5% 250 ml @ 10 MCG/MIN 19.35 mls/hr IV TITR PRN Rx#:[id number] Piperacillin Sodium/ 50 100 Tazobact 3.375 gm In Sodium Chloride 0.9% 50 ml @ 100 mls/hr IV Q8H [facility] Rx#:[id number] Sodium Chloride 0.9% 1, 1000 000 ml @ 100 mls/hr IV . Q10H [facility] Rx#:[id number] Vancomycin HCl 1.25 gm In 250 Sodium Chloride 0.9% 250 ml @ 165 mls/hr IV Q24H [facility] Rx#:[id number] Output: Urine 300 250 Active Medications: Current Medications Acetaminophen (Tylenol) 325 mg PO Q4HR PRN PRN Reason: Fever > 101 Stop: 11/17/16 19:17 Albuterol/Ipratropium (Duoneb Neb) 3 ml HHN Q4HRT [facility] Stop: 11/17/16 22:59 Last Admin: 09/21/16 03:41 Dose: 3 ml Ascorbic Acid (Vitamin C) 500 mg PO DAILY [facility] Stop: 11/18/16 08:59 Last Admin: 09/20/16 12:40 Dose: Not Given Calcium/Vitamin D (Oscal W/Vitamin D) 1 tab PO DAILY [facility] Stop: 11/18/16 08:59 Last Admin: 09/20/16 12:40 Dose: Not Given Dextrose (D50w) 50 ml IVP PRN PRN PRN Reason: Blood Glucose less than 70 Stop: 11/17/16 20:09 Dextrose (Glutose 40%) 18.75 gm PO PRN PRN PRN Reason: Blood Glucose less than 70 Stop: 11/17/16 20:09 Diltiazem HCl (Cardizem) 10 mg IVP Q4HR PRN PRN Reason: HR >130 Stop: 11/18/16 20:11 Donepezil HCl (Aricept) 5 mg PO HS [facility] Stop: 11/17/16 20:59 Last Admin: 09/20/16 21:00 Dose: Not Given Ezetimibe (Zetia) 10 mg PO HS [facility] Stop: 11/17/16 20:59 Last Admin: 09/20/16 21:00 Dose: Not Given Glucagon (Glucagen) 1 mg IM PRN PRN PRN Reason: Blood Glucose less than 70 Stop: 11/17/16 20:09 Heparin Sodium (Porcine) (Heparin) 5,000 units SUBQ Q12HR [facility] Stop: 11/18/16 20:59 Last Admin: 09/20/16 21:00 Dose: Not Given Piperacillin Sod/Tazobactam (Sod 3.375 gm/ Sodium Chloride) 50 mls @ 100 mls/ hr IV Q8H [facility] Stop: 11/17/16 19:15 Last Infusion: 09/21/16 03:46 Dose: Infused Norepinephrine Bitartrate 8 mg (/ Dextrose) 258 mls @ 19.35 mls/hr IV TITR PRN ; Protocol; 10 MCG/MIN PRN Reason: BP MAINTENANCE (PER PROTOCOL) Stop: 11/17/16 19:17 Last Admin: 09/21/16 00:10 Dose: 10 mcg/min, 19.35 mls/hr Micafungin Sodium 100 mg/ (Sodium Chloride) 100 mls @ 100 mls/hr IV Q24H [facility] Stop: 11/17/16 19:59 Last Admin: 09/20/16 20:00 Dose: 100 mls/hr Vancomycin HCl 1.25 gm/ Sodium (Chloride) 250 mls @ 165 mls/hr IV Q24H [facility] Stop: 11/18/16 10:59 Last Infusion: 09/20/16 18:19 Dose: Infused Diltiazem HCl 125 mg/ Dextrose 125 mls @ 10 mls/hr IV TITR SHARIF; 10 MG/HR PRN Reason: Protocol Stop: 11/18/16 20:32 Last Admin: 09/20/16 21:56 Dose: 10 mg/hr, 10 mls/hr Sodium Chloride (Nacl 0.9%) 1,000 mls @ 100 mls/hr IV .Q10H [facility] Stop: 11/19/16 14:18 Last Admin: 09/21/16 02:33 Dose: 100 mls/hr Potassium Chloride (Potassium Chloride) 20 meq in 100 mls @ 50 mls/hr IV X1 ONE Stop: 09/21/16 09:15 Insulin Aspart (Novolog Insulin Sliding Scale) 0 units SUBQ Q6HR SHARIF PRN Reason: Protocol Stop: 11/18/16 00:00 Last Admin: 09/21/16 00:00 Dose: 10 units Memantine (Namenda) 5 mg PO DAILY [facility] Stop: 11/18/16 08:59 Last Admin: 09/20/16 12:40 Dose: Not Given Metronidazole (Flagyl) 250 mg PO TID [facility] Stop: 11/18/16 13:59 Last Admin: 09/20/16 21:00 Dose: Not Given Mineral Oil (Mineral Oil 30 Ml) 30 ml NG DAILY [facility] Stop: 11/19/16 18:14 Last Admin: 09/20/16 18:21 Dose: Not Given Miscellaneous (Vancomycin Iv Per Pharmacy) 1 ea PRN PRN PRN Reason: PROTOCOL Stop: 11/17/16 19:15 Miscellaneous (Vte Chemical Prophylaxis Screen/ Admission) 1 ea PRN PRN PRN Reason: PROTOCOL Stop: 11/18/16 14:22 Morphine Sulfate (Morphine) 1 mg IVP Q6HR PRN PRN Reason: Pain (Moderate) Stop: 11/18/16 20:02 Morphine Sulfate (Morphine) 1 mg IVP Q6H PRN PRN Reason: MODERATE PAIN Stop: 11/19/16 16:26 Ondansetron HCl (Zofran) 4 mg IV Q6HR PRN PRN Reason: NAUSEA/VOMITING Stop: 11/17/16 19:44 Pantoprazole Sodium (Protonix) 40 mg IVP DAILY [facility] Stop: 11/19/16 08:59 Last Admin: 09/20/16 14:47 Dose: 40 mg Sodium Bicarbonate (Sodium Bicarbonate) 650 mg PO BID [facility]AR[facility] PRN Reason: Protocol Stop: 11/19/16 16:59 Last Admin: 09/20/16 18:24 Dose: Not Given Vancomycin HCl (Vancomycin Oral) 250 mg PO TID [facility] Stop: 11/18/16 13:59 Last Admin: 09/20/16 21:00 Dose: Not Given Zinc Sulfate (Zinc Sulfate) 220 mg PO DAILY [facility] Stop: 11/18/16 08:59 Last Admin: 09/20/16 16:56 Dose: Not Given General: No acute distress, Other (Patient is unconscious, responding only to pain) HEENT: Atraumatic, Mucous membr. moist/pink Neck: Supple, +2 carotid pulse wo bruit (irregular rhythm) Cardiovascular: Other (Tachicardic) Lungs: Other (few rhonchi) Abdomen: Bowel sounds, Soft Extremities: Edema (right leg), Other (Pitting edema) Neurological: Sensation intact, Other (Non ambulatory) Skin: Significant lesion (ulcers right leg), Other (Multiple decubits ulcers) Psych/Mental Status: Other (Unconscious) - Procedures Procedures: Procedures Procedure Code Date AMPUTATE LEG AT THIGH 74472 08/03/16 ANNETTE SUBQ TISSUE 20 SQ CM/< 42365 08/03/16 DETACHMENT AT LEFT UPPER LEG, LOW, OPEN APPROACH [id number] 08/03/16 EXCISION OF R FOOT SUBCU/FASCIA, OPEN APPROACH [id number] 08/03/16 EXCISION OF R LOW LEG SUBCU/FASCIA, OPEN APPROACH [id number] 08/03/16 TRANSFUSE NONAUT RED BLOOD CELLS IN PERIPH VEIN, PERC 20085G2 08/03/16 Assessment/Plan - Problem List Patient Problems: All Active Problems ELEVATED WBC LEVELS (Acute) Nutritional Asmnt/Malnutr-PDOC - Dietary Evaluation Malnutrition Findings (Please click <Entered> for more info): Nutritional Asmnt/Malnutrition Start: 09/19/16 15: 45 Text: Status: Complete Freq: Document 09/19/16 15:46 [facility] (Rec: 09/19/16 16:02 [facility] [id number]) Nutritional Asmnt/Malnutrition Patient General Information Nutritional Screening Consult Diagnosis Sepsis, pneumonia, hypotension Pertinent Medical Hx/Surgical Hx AFIB, CAD, CHF, HTN, hyperlipidemia, CVA, pneumonia , chronic renal insufficiency, DM, multiple decubitus ulcers in different parts of body, left AKA Subjective Information Nutrition consult for pt is diabetic received and completed. Pt is a 81-year-old female from [facility] admitted with chief complaint of sepsis. Pt is a poor historian at the moment, lethargic and nonverbal. Pt appears obese with edema observed. RD measured wt with medical devices removed, three pillows on bed: 216.2#/98.3 kg. Adjusted BMI with consideration of AKA: 40.3 kg/ m2. Adjusted IBW with consideration of AKA: 113#/51. 4 kg. Per medical records, pt wt 242#/110 kg in August 2016. NGT placed last night 09/18, pending tube feeding order. Current Diet Order/ Nutrition Support NPO Patient / S.O Can't verbalize diet edu Pertinent Medications Vitamin C, Oscal with Vitamin D, D5-0.9 Ns, Novolog (not given during NPO status), Flagyl, Piperacillin, Vancomycin, Coumadin, Zinc Sulfate Pertinent Labs (09/18) Glucose 344H, A1C WNL, HDL Cholesterol 13L, LDL Cholesterol 19L (09/19) Na 132L , K 3.3L, Glucose 290H, POC Glucose 246H-285H, BUN 27H, Creatinine 1.3H, Alkaline Phosphatase 107H, Albumin 2.2L Nutritional Hx/Data Height 1.7 m Height (Calculated Centimeters) 170.2 Current Weight (lbs) 98.067 kg Weight (Calculated Kilograms) 98.1 Weight (Calculated Grams) 30187.7 Usual body Weight (lbs) 242 % Usual Body Weight 89 [place] Body Weight 113 % [place] Body Weight 191 Recent Weight Change Yes Weight Status Morbidly Obese GI Symptoms GI Symptoms None Difficult in: Swallowing Food Allergies No Usual diet at home Mechanical soft ground with protein supplement 30 ml BID Skin Integrity/Comment: Grey 10. Pt with multiple wounds body and leg. Estimated Nutritional Goals BEE in Kcals: Using Current wt Calories/Kcals/Kg Based on current wt of 98.3 kg with consideration of wounds, sepsis,obesity Kcals Calculated 8790-0198 kcals/day ([place] St. Jeor x 1.2-1.5) Protein: Adj wt of IBW Protein g/kg: Based on adjusted IBW 51.4 kg with consideration of wounds, sepsis Protein Calculated 93-103 gm/day (1.8-2 gm/kg) Fluid: ml Per MD/DO Nutritional Problem 2. Problem Problem Increased energy and protein needs related to Etiology altered skin integrity as evidenced by Signs/Symptoms: multiple decubitus ulcers to body and leg, per RN notes. 1. Problem Problem Malnutrition related to Etiology morbid obesity as evidenced by Signs/Symptoms: adjusted BMI of 40.3 kg/m2. Malnutrition Alert Protein-Calorie Malnutrition N/A Is there a minimum of two criteria No selected? Query Text:Check all the applicable criteria. A minimum of two criteria are recommended for diagnosis of either severe or non-severe malnutrition. Malnutrition Related to Morbid Obesity Malnutrition related to morbid obesity BMI> or equal to 40 Query Text:(Any 1 Criteria met) Malnutrition related to morbid obesity Yes Intervention/Recommendation Comments 1. When medically appropriate, recommend initiate tube feeding Diabetisource AC at 20 ml/hr. Increase by 10 ml/hr every 4 hours until the goal rate of 70 ml/hr is reached. Tube feeding to provide 2016 kcals, 101 gm protein, and 1374 ml free water per day. 2. Recommend one packet of Arginaid via NGT BID to promote wound healing. Expected Outcomes/Goals Expected Outcomes/Goals Provide pt with 100% of estimated nutritional needs to promote wound healing. Physician Parameters for PEM Serum Albumin (g/dl) <2.4 (Severe)
[2016-09-21] MEDS: KCL 20mEq/100mL Premix 20 MEQ/100 ML PIGGYBACK IV ONE (08:06)
[2016-09-21] MEDS: INSULIN ASPART SLIDING SCALE 100 UNITS/ML UNIT SUBQ SCH ×4 (08:11→18:21)
[2016-09-21] MEDS ORDERED: KCL 20mEq/100mL Premix 20 MEQ/100 ML PIGGYBACK IV ONE (08:59)
--- NOTE | 2016-09-21 09:06 | General Progress Note ---
Subjective - Review of Systems Service Date: 09/21/16 Subjective: Patient is unconscious Objective - Results Result Diagrams: 09/21/16 05:30 09/21/16 05:30 Recent Labs: Laboratory Last Values WBC 40.8 Th/cmm (4.8-10.8) H* D 09/21/16 05:30 RBC 3.65 Mil/cmm (3.80-5.20) L 09/21/16 05:30 Hgb 11.0 gm/dL (11.7-16.1) L 09/21/16 05:30 Hct 32.9 % (35.0-45.0) L 09/21/16 05:30 MCV 90.1 fl (81-100) 09/21/16 05:30 MCH 30.2 pg (27.0-31.0) 09/21/16 05:30 MCHC Differential 33.5 pg (28.0-36.0) 09/21/16 05:30 RDW 14.6 % (11.5-20.0) 09/21/16 05:30 Plt Count 437 Th/cmm (150-400) H 09/21/16 05:30 MPV 7.8 fl 09/21/16 05:30 Band Neutrophils % 4 % (0-10) 09/20/16 05:05 Neutrophils (Manual) 80 % (40-80) 09/20/16 05:05 Lymphocytes 13 % (20-50) L 09/20/16 05:05 Monocytes 2 % (2-10) 09/20/16 05:05 Metamyelocytes 1 % (0-0) H 09/20/16 05:05 Nucleated RBCs 1.0 % (0-0) H 09/19/16 04:55 Platelet Estimate ADEQUATE (NORMAL) 09/20/16 05:05 Platelet Morphology GIANT PLATELETS SEEN (NORMAL) 09/20/16 05:05 Polychromasia 1+ 09/20/16 05:05 Anisocytosis 1+ 09/20/16 05:05 RBC Morph Micro Appear ABNORMAL (NORMAL) 09/20/16 05:05 PT 24.1 SECONDS (9.5-11.5) H 09/21/16 05:30 INR 2.22 (0.5-1.4) H 09/21/16 05:30 PTT (Actin FS) 46.9 SECONDS (26.0-38.0) H 09/21/16 05:30 Specimen Source Arterial 09/20/16 10:40 Sample Site rb 09/20/16 10:40 pH 7.35 (7.35-7.45) 09/20/16 10:40 pCO2 32.0 mmHg (35.0-45.0) L 09/20/16 10:40 pO2 68.0 mmHg (80.0-100.0) L 09/20/16 10:40 HCO3 19.4 mEq/L (20.0-26.0) L 09/20/16 10:40 Base Excess -6.9 mEq/L (-3.0-3.0) L 09/20/16 10:40 O2 Saturation 92.0 % (92.0-100.0) 09/20/16 10:40 Toni Test na 09/20/16 10:40 Vent Rate na 09/20/16 10:40 Inspired O2 36 09/20/16 10:40 Tidal Volume na 09/20/16 10:40 PEEP na 09/20/16 10:40 Pressure (ins/psv/peep) na 09/20/16 10:40 Critical Value e.[place] 09/20/16 10:40 Sodium 133 mEq/L (136-145) L 09/21/16 05:30 Potassium 2.9 mEq/L (3.5-5.1) L* 09/21/16 05:30 Chloride 107 mEq/L (98-107) 09/21/16 05:30 Carbon Dioxide 16.8 mEq/L (21.0-31.0) L 09/21/16 05:30 Anion Gap 12.1 (7.0-16.0) 09/21/16 05:30 BUN 31 mg/dL (7-25) H 09/21/16 05:30 Creatinine 1.1 mg/dL (0.6-1.2) 09/21/16 05:30 Est GFR ( Amer) TNP 09/21/16 05:30 Est GFR (Non-Af Amer) TNP 09/21/16 05:30 BUN/Creatinine Ratio 28.2 09/21/16 05:30 Glucose 281 mg/dL (70-105) H 09/21/16 05:30 POC Glucose 259 MG/DL (70 - 105) H 09/21/16 06:04 Hemoglobin A1c % 5.7 % (4.0-6.0) 09/18/16 14:24 Whole Bld Lactic Acid 3.78 mmol/L (0.60-1.99) H* 09/18/16 22:13 Calcium 7.4 mg/dL (8.6-10.3) L 09/21/16 05:30 Total Bilirubin 0.8 mg/dL (0.3-1.0) 09/21/16 05:30 AST 9 U/L (13-39) L 09/21/16 05:30 ALT 3 U/L (7-52) L 09/21/16 05:30 Alkaline Phosphatase 80 U/L (34-104) 09/21/16 05:30 Troponin I 0.47 ng/mL (0.01-0.05) H* D 09/18/16 15:24 B-Natriuretic Peptide 1120.0 pg/mL (5.0-100.0) H 09/21/16 05:30 Total Protein 4.7 gm/dL (6.0-8.3) L 09/21/16 05:30 Albumin 2.1 gm/dL (3.7-5.3) L 09/21/16 05:30 Globulin 2.6 gm/dL 09/21/16 05:30 Albumin/Globulin Ratio 0.8 (1.0-1.8) L 09/21/16 05:30 Triglycerides 130 mg/dL (<150) 09/18/16 15:24 Cholesterol 48 mg/dL (<200) 09/18/16 15:24 LDL Cholesterol Direct 19 mg/dL (75-193) L 09/18/16 15:24 HDL Cholesterol 13 mg/dL (23-92) L 09/18/16 15:24 TSH 7.73 uIU/ml (0.34-5.60) H 09/18/16 15:24 Urine Source [place] 09/18/16 16:25 Urine Color YELLOW 09/18/16 16:25 Urine Clarity SLIGHT CLOUDY (CLEAR) 09/18/16 16:25 Urine pH 5.5 (4.6 - 8.0) 09/18/16 16:25 Ur Specific [place] 1.015 (1.005-1.030) 09/18/16 16:25 Urine Protein TRACE mg/dL (NEGATIVE) 09/18/16 16:25 Urine Glucose (UA) NEGATIVE mg/dL (NEGATIVE) 09/18/16 16:25 Urine Ketones NEGATIVE mg/dL (NEGATIVE) 09/18/16 16:25 Urine Blood NEGATIVE (NEGATIVE) 09/18/16 16:25 Urine Nitrate NEGATIVE (NEGATIVE) 09/18/16 16:25 Urine Bilirubin NEGATIVE (NEGATIVE) 09/18/16 16:25 Urine Urobilinogen 0.2 E.U./dL (0.2 - 1.0) 09/18/16 16:25 Ur Leukocyte Esterase SMALL (NEGATIVE) H 09/18/16 16:25 Urine RBC 2-5 /hpf (0-5) 09/18/16 16:25 Urine WBC 50-100 /hpf (0-5) H 09/18/16 16:25 Ur Epithelial Cells FEW /lpf (FEW) 09/18/16 16:25 Urine Bacteria 1+ /hpf (NONE SEEN) H 09/18/16 16:25 RPR NONREACTIVE (NONREACTIVE) 09/18/16 15:24 - Physical Exam Vitals and I&O: Vital Signs Temp 97.6 F 09/21/16 07:00 Pulse 106 09/21/16 07:30 Resp 25 09/21/16 07:00 BP 64/39 09/21/16 07:30 Pulse Ox 99 09/21/16 07:00 Intake & Output 09/20/16 09/21/16 09/21/16 18:59 06:59 18:59 Intake Total 7154.079 3187.688 Output Total 300 250 Balance 0917.004 5277.688 -250 Weight (lbs) 115.757 kg 115.666 kg Intake: Intake, IV Amount 0177.052 4921.688 D5-0.9%Ns 1,000 ml @ 125 964.583 mls/hr IV .Q8H [facility] Rx#: [id number] Diltiazem 125 mg In 125 Dextrose 5% 100 ml @ 10 MG/HR 10 mls/hr IV TITR [facility] Rx#:[id number] KCL 20mEq/100mL Premix 20 100 meq In 100 ml @ 50 mls/ hr IV Q8H [facility] Rx#: [id number] Norepinephrine 8 mg In 252.84 217.688 Dextrose 5% 250 ml @ 10 MCG/MIN 19.35 mls/hr IV TITR PRN Rx#:[id number] Piperacillin Sodium/ 50 100 Tazobact 3.375 gm In Sodium Chloride 0.9% 50 ml @ 100 mls/hr IV Q8H [facility] Rx#:[id number] Sodium Chloride 0.9% 1, 1000 000 ml @ 100 mls/hr IV . Q10H [facility] Rx#:[id number] Vancomycin HCl 1.25 gm In 250 Sodium Chloride 0.9% 250 ml @ 165 mls/hr IV Q24H [facility] Rx#:[id number] Output: Urine 300 250 Active Medications: Current Medications Acetaminophen (Tylenol) 325 mg PO Q4HR PRN PRN Reason: Fever > 101 Stop: 11/17/16 19:17 Albuterol/Ipratropium (Duoneb Neb) 3 ml HHN Q4HRT [facility] Stop: 11/17/16 22:59 Last Admin: 09/21/16 07:58 Dose: 3 ml Ascorbic Acid (Vitamin C) 500 mg PO DAILY [facility] Stop: 11/18/16 08:59 Last Admin: 09/20/16 12:40 Dose: Not Given Calcium/Vitamin D (Oscal W/Vitamin D) 1 tab PO DAILY [facility] Stop: 11/18/16 08:59 Last Admin: 09/20/16 12:40 Dose: Not Given Dextrose (D50w) 50 ml IVP PRN PRN PRN Reason: Blood Glucose less than 70 Stop: 11/17/16 20:09 Dextrose (Glutose 40%) 18.75 gm PO PRN PRN PRN Reason: Blood Glucose less than 70 Stop: 11/17/16 20:09 Diltiazem HCl (Cardizem) 10 mg IVP Q4HR PRN PRN Reason: HR >130 Stop: 11/18/16 20:11 Donepezil HCl (Aricept) 5 mg PO HS [facility] Stop: 11/17/16 20:59 Last Admin: 09/20/16 21:00 Dose: Not Given Ezetimibe (Zetia) 10 mg PO HS [facility] Stop: 11/17/16 20:59 Last Admin: 09/20/16 21:00 Dose: Not Given Glucagon (Glucagen) 1 mg IM PRN PRN PRN Reason: Blood Glucose less than 70 Stop: 11/17/16 20:09 Heparin Sodium (Porcine) (Heparin) 5,000 units SUBQ Q12HR [facility] Stop: 11/18/16 20:59 Last Admin: 09/20/16 21:00 Dose: Not Given Piperacillin Sod/Tazobactam (Sod 3.375 gm/ Sodium Chloride) 50 mls @ 100 mls/ hr IV Q8H [facility] Stop: 11/17/16 19:15 Last Infusion: 09/21/16 03:46 Dose: Infused Norepinephrine Bitartrate 8 mg (/ Dextrose) 258 mls @ 19.35 mls/hr IV TITR PRN ; Protocol; 10 MCG/MIN PRN Reason: BP MAINTENANCE (PER PROTOCOL) Stop: 11/17/16 19:17 Last Admin: 09/21/16 00:10 Dose: 10 mcg/min, 19.35 mls/hr Micafungin Sodium 100 mg/ (Sodium Chloride) 100 mls @ 100 mls/hr IV Q24H [facility] Stop: 11/17/16 19:59 Last Admin: 09/20/16 20:00 Dose: 100 mls/hr Vancomycin HCl 1.25 gm/ Sodium (Chloride) 250 mls @ 165 mls/hr IV Q24H [facility] Stop: 11/18/16 10:59 Last Infusion: 09/20/16 18:19 Dose: Infused Diltiazem HCl 125 mg/ Dextrose 125 mls @ 10 mls/hr IV TITR [facility]; 10 MG/HR PRN Reason: Protocol Stop: 11/18/16 20:32 Last Admin: 09/20/16 21:56 Dose: 10 mg/hr, 10 mls/hr Sodium Chloride (Nacl 0.9%) 1,000 mls @ 100 mls/hr IV .Q10H [facility] Stop: 11/19/16 14:18 Last Admin: 09/21/16 02:33 Dose: 100 mls/hr Potassium Chloride (Potassium Chloride) 20 meq in 100 mls @ 50 mls/hr IV X1 ONE Stop: 09/21/16 09:15 Last Admin: 09/21/16 08:06 Dose: 50 mls/hr Potassium Chloride (Potassium Chloride) 20 meq in 100 mls @ 50 mls/hr IV X1 ONE Stop: 09/21/16 10:58 Insulin Aspart (Novolog Insulin Sliding Scale) 0 units SUBQ Q6HR [facility] PRN Reason: Protocol Stop: 11/18/16 00:00 Last Admin: 09/21/16 08:11 Dose: 10 units Memantine (Namenda) 5 mg PO DAILY [facility] Stop: 11/18/16 08:59 Last Admin: 09/20/16 12:40 Dose: Not Given Metronidazole (Flagyl) 250 mg PO TID [facility] Stop: 11/18/16 13:59 Last Admin: 09/20/16 21:00 Dose: Not Given Mineral Oil (Mineral Oil 30 Ml) 30 ml NG DAILY [facility] Stop: 11/19/16 18:14 Last Admin: 09/20/16 18:21 Dose: Not Given Miscellaneous (Vancomycin Iv Per Pharmacy) 1 ea PRN PRN PRN Reason: PROTOCOL Stop: 11/17/16 19:15 Miscellaneous (Vte Chemical Prophylaxis Screen/ Admission) 1 ea PRN PRN PRN Reason: PROTOCOL Stop: 11/18/16 14:22 Morphine Sulfate (Morphine) 1 mg IVP Q6HR PRN PRN Reason: Pain (Moderate) Stop: 11/18/16 20:02 Morphine Sulfate (Morphine) 1 mg IVP Q6H PRN PRN Reason: MODERATE PAIN Stop: 11/19/16 16:26 Ondansetron HCl (Zofran) 4 mg IV Q6HR PRN PRN Reason: NAUSEA/VOMITING Stop: 11/17/16 19:44 Pantoprazole Sodium (Protonix) 40 mg IVP DAILY [facility] Stop: 11/19/16 08:59 Last Admin: 09/20/16 14:47 Dose: 40 mg Sodium Bicarbonate (Sodium Bicarbonate) 650 mg PO BID [facility] PRN Reason: Protocol Stop: 11/19/16 16:59 Last Admin: 09/20/16 18:24 Dose: Not Given Vancomycin HCl (Vancomycin Oral) 250 mg PO TID [facility] Stop: 11/18/16 13:59 Last Admin: 09/20/16 21:00 Dose: Not Given Zinc Sulfate (Zinc Sulfate) 220 mg PO DAILY [facility] Stop: 11/18/16 08:59 Last Admin: 09/20/16 16:56 Dose: Not Given General: No acute distress, Other (Patient is unconscious, responding only to pain) HEENT: Atraumatic, Mucous membr. moist/pink Neck: Supple, +2 carotid pulse wo bruit (irregular rhythm) Cardiovascular: Other (Tachicardic) Lungs: Other (few rhonchi) Abdomen: Bowel sounds, Soft Extremities: Edema (right leg), Other (Pitting edema, amputation above knee of left leg) Neurological: Sensation intact, Other (Non ambulatory) Skin: Significant lesion (ulcers right leg), Other (Multiple decubits ulcers) Psych/Mental Status: Other (Unconscious) - Procedures Procedures: Procedures Procedure Code Date AMPUTATE LEG AT THIGH 55162 08/03/16 ANNETTE SUBQ TISSUE 20 SQ CM/< 29623 08/03/16 DETACHMENT AT LEFT UPPER LEG, LOW, OPEN APPROACH [id number] 08/03/16 EXCISION OF R FOOT SUBCU/FASCIA, OPEN APPROACH [id number] 08/03/16 EXCISION OF R LOW LEG SUBCU/FASCIA, OPEN APPROACH [id number] 08/03/16 TRANSFUSE NONAUT RED BLOOD CELLS IN PERIPH VEIN, PERC 89449R5 08/03/16 Assessment/Plan - Problem List Patient Problems: All Active Problems ELEVATED WBC LEVELS (Acute) - Assessment Assessment: Current Active Problems Problem Status Onset ELEVATED WBC LEVELS Acute Patient is critical ill, unconscious, responding only to pain, in 10 mc of levophed, WBC increased, K low, Heah CT shows no acute illness but multiple old abnormalities, Chest CT shows multiple pneumonia. Dx: Sepsis, PNA, Hypotension, A-fib, HTN, CAD, CHF, CVA, S/p DVT, Decubit ulcer, PVD, Obesity. - Plan Plan: Patient on levophed, Sozyn, Vanco, IV NS, Insulin sliding scale, Zetia and home meds, NPO Aready evaluated by Cardio, surgery, Pulmonology and Nephro. K is replaced. Surgery on hold due to elevated INR. Poor prognosis. Will continue to monitor. Nutritional Asmnt/Malnutr-PDOC - Dietary Evaluation Malnutrition Findings (Please click <Entered> for more info): Nutritional Asmnt/Malnutrition Start: 09/19/16 15: 45 Text: Status: Complete Freq: Document 09/19/16 15:46 [facility] (Rec: 09/19/16 16:02 [facility] [id number]) Nutritional Asmnt/Malnutrition Patient General Information Nutritional Screening Consult Diagnosis Sepsis, pneumonia, hypotension Pertinent Medical Hx/Surgical Hx AFIB, CAD, CHF, HTN, hyperlipidemia, CVA, pneumonia , chronic renal insufficiency, DM, multiple decubitus ulcers in different parts of body, left AKA Subjective Information Nutrition consult for pt is diabetic received and completed. [place] 81[place] [facility] [place] complaint of [place]. Pt is a poor historian at the moment, lethargic and nonverbal. Pt appears obese with edema observed. RD measured wt with medical devices removed, three pillows on bed: 216.2#/98.3 kg. Adjusted BMI with consideration of AKA: 40.3 kg/ m2. Adjusted IBW with consideration of AKA: 113#/51. 4 kg. Per medical records, pt wt 242#/110 kg in August 2016. NGT placed last night 09/18, pending tube feeding order. Current Diet Order/ Nutrition Support NPO Patient / S.O Can't verbalize diet edu Pertinent Medications Vitamin C, Oscal with Vitamin D, D5-0.9 Ns, Novolog (not given during NPO status), Flagyl, Piperacillin, Vancomycin, Coumadin, Zinc Sulfate Pertinent Labs (09/18) Glucose 344H, A1C WNL, HDL Cholesterol 13L, LDL Cholesterol 19L (09/19) Na 132L , K 3.3L, Glucose 290H, POC Glucose 246H-285H, BUN 27H, Creatinine 1.3H, Alkaline Phosphatase 107H, Albumin 2.2L Nutritional Hx/Data Height 1.7 m Height (Calculated Centimeters) 170.2 Current Weight (lbs) 98.067 kg Weight (Calculated Kilograms) 98.1 Weight (Calculated Grams) 25501.7 Usual body Weight (lbs) 242 % Usual Body Weight 89 [place] Body Weight 113 % [place] Body Weight 191 Recent Weight Change Yes Weight Status Morbidly Obese GI Symptoms GI Symptoms None Difficult in: Swallowing Food Allergies No Usual diet at home Mechanical soft ground with protein supplement 30 ml BID Skin Integrity/Comment: Grey 10. Pt with multiple wounds body and leg. Estimated Nutritional Goals BEE in Kcals: Using Current wt Calories/Kcals/Kg Based on current wt of 98.3 kg with consideration of wounds, sepsis,obesity Kcals Calculated 3215-3369 kcals/day ([place] St. Jeor x 1.2-1.5) Protein: Adj wt of IBW Protein g/kg: Based on adjusted IBW 51.4 kg with consideration of wounds, sepsis Protein Calculated 93-103 gm/day (1.8-2 gm/kg) Fluid: ml Per MD/DO Nutritional Problem 2. Problem Problem Increased energy and protein needs related to Etiology altered skin integrity as evidenced by Signs/Symptoms: multiple decubitus ulcers to body and leg, per RN notes. 1. Problem Problem Malnutrition related to Etiology morbid obesity as evidenced by Signs/Symptoms: adjusted BMI of 40.3 kg/m2. Malnutrition Alert Protein-Calorie Malnutrition N/A Is there a minimum of two criteria No selected? Query Text:Check all the applicable criteria. A minimum of two criteria are recommended for diagnosis of either severe or non-severe malnutrition. Malnutrition Related to Morbid Obesity Malnutrition related to morbid obesity BMI> or equal to 40 Query Text:(Any 1 Criteria met) Malnutrition related to morbid obesity Yes Intervention/Recommendation Comments 1. When medically appropriate, recommend initiate tube feeding Diabetisource AC at 20 ml/hr. Increase by 10 ml/hr every 4 hours until the goal rate of 70 ml/hr is reached. Tube feeding to provide 2016 kcals, 101 gm protein, and 1374 ml free water per day. 2. Recommend one packet of Arginaid via NGT BID to promote wound healing. Expected Outcomes/Goals Expected Outcomes/Goals Provide pt with 100% of estimated nutritional needs to promote wound healing. Physician Parameters for PEM Serum Albumin (g/dl) <2.4 (Severe)
--- NOTE | 2016-09-21 09:10 | Diagnostic Imaging Report ---
Portable chest x-ray HISTORY: Shortness of breath Compared with prior exam of September 20, 2016, persistent hazy infiltrate noted in the right upper and left lower lobe regions area of the heart remains enlarged. IMPRESSION: 1. No significant change in the cardiopulmonary status as noted above.
[2016-09-21] MEDS: Calcium Carb/Vit D 500 mg/200 U Tab PO SCH (09:35)
[2016-09-21 10:14] LABS: BAND NEUTROPHILE 2 % (0-10); NEUTROPHILS 82 % (40-80)
[2016-09-21 10:16] LABS: PLATELET ESTIMATE INCREASED PLATELETS (NORMAL); PLATELET MORPHOLOGY NORMAL (NORMAL)
[2016-09-21] MEDS ORDERED: Probiotic Screen MC PRN (12:43)
[2016-09-21] MEDS: Venelex 60gm Tube TP SCH (15:35)
[2016-09-21] MEDS ORDERED: Sodium Bicarbonate 8.4% 50mEq PFS IVP ONE (15:41)
[2016-09-21] MEDS ORDERED: Sodium Chloride 0.9% 1,000 ML IV SCH (18:38)
--- NOTE | 2016-09-21 18:57 | General Progress Note ---
Subjective - Review of Systems Service Date: 09/21/16 Subjective: remains stuporous, but comfortable Objective - Results Result Diagrams: 09/21/16 05:30 09/21/16 05:30 Recent Labs: Laboratory Last Values WBC 40.8 Th/cmm (4.8-10.8) H* D 09/21/16 05:30 RBC 3.65 Mil/cmm (3.80-5.20) L 09/21/16 05:30 Hgb 11.0 gm/dL (11.7-16.1) L 09/21/16 05:30 Hct 32.9 % (35.0-45.0) L 09/21/16 05:30 MCV 90.1 fl (81-100) 09/21/16 05:30 MCH 30.2 pg (27.0-31.0) 09/21/16 05:30 MCHC Differential 33.5 pg (28.0-36.0) 09/21/16 05:30 RDW 14.6 % (11.5-20.0) 09/21/16 05:30 Plt Count 437 Th/cmm (150-400) H 09/21/16 05:30 MPV 7.8 fl 09/21/16 05:30 Band Neutrophils % 2 % (0-10) 09/21/16 05:30 Neutrophils (Manual) 82 % (40-80) H 09/21/16 05:30 Lymphocytes 11 % (20-50) L 09/21/16 05:30 Monocytes 5 % (2-10) 09/21/16 05:30 Metamyelocytes 1 % (0-0) H 09/20/16 05:05 Nucleated RBCs 1.0 % (0-0) H 09/21/16 05:30 Platelet Estimate INCREASED PLATELETS (NORMAL) 09/21/16 05:30 Platelet Morphology NORMAL (NORMAL) 09/21/16 05:30 Polychromasia 1+ 09/20/16 05:05 Anisocytosis 1+ 09/20/16 05:05 RBC Morph Micro Appear NORMAL (NORMAL) 09/21/16 05:30 Smear Path Review SEE BELOW 09/19/16 04:55 PT 24.1 SECONDS (9.5-11.5) H 09/21/16 05:30 INR 2.22 (0.5-1.4) H 09/21/16 05:30 PTT (Actin FS) 46.9 SECONDS (26.0-38.0) H 09/21/16 05:30 Specimen Source Arterial 09/20/16 10:40 Sample Site rb 09/20/16 10:40 pH 7.35 (7.35-7.45) 09/20/16 10:40 pCO2 32.0 mmHg (35.0-45.0) L 09/20/16 10:40 pO2 68.0 mmHg (80.0-100.0) L 09/20/16 10:40 HCO3 19.4 mEq/L (20.0-26.0) L 09/20/16 10:40 Base Excess -6.9 mEq/L (-3.0-3.0) L 09/20/16 10:40 O2 Saturation 92.0 % (92.0-100.0) 09/20/16 10:40 Toni Test na 09/20/16 10:40 Vent Rate na 09/20/16 10:40 Inspired O2 36 09/20/16 10:40 Tidal Volume na 09/20/16 10:40 PEEP na 09/20/16 10:40 Pressure (ins/psv/peep) na 09/20/16 10:40 Critical Value e.aguilera 09/20/16 10:40 Sodium 133 mEq/L (136-145) L 09/21/16 05:30 Potassium 2.9 mEq/L (3.5-5.1) L* 09/21/16 05:30 Chloride 107 mEq/L (98-107) 09/21/16 05:30 Carbon Dioxide 16.8 mEq/L (21.0-31.0) L 09/21/16 05:30 Anion Gap 12.1 (7.0-16.0) 09/21/16 05:30 BUN 31 mg/dL (7-25) H 09/21/16 05:30 Creatinine 1.1 mg/dL (0.6-1.2) 09/21/16 05:30 Est GFR ( Amer) TNP 09/21/16 05:30 Est GFR (Non-Af Amer) TNP 09/21/16 05:30 BUN/Creatinine Ratio 28.2 09/21/16 05:30 Glucose 281 mg/dL (70-105) H 09/21/16 05:30 POC Glucose 172 MG/DL (70 - 105) H 09/21/16 18:18 Hemoglobin A1c % 5.7 % (4.0-6.0) 09/18/16 14:24 Whole Bld Lactic Acid 3.78 mmol/L (0.60-1.99) H* 09/18/16 22:13 Calcium 7.4 mg/dL (8.6-10.3) L 09/21/16 05:30 Total Bilirubin 0.8 mg/dL (0.3-1.0) 09/21/16 05:30 AST 9 U/L (13-39) L 09/21/16 05:30 ALT 3 U/L (7-52) L 09/21/16 05:30 Alkaline Phosphatase 80 U/L (34-104) 09/21/16 05:30 Troponin I 0.47 ng/mL (0.01-0.05) H* D 09/18/16 15:24 B-Natriuretic Peptide 1120.0 pg/mL (5.0-100.0) H 09/21/16 05:30 Total Protein 4.7 gm/dL (6.0-8.3) L 09/21/16 05:30 Albumin 2.1 gm/dL (3.7-5.3) L 09/21/16 05:30 Globulin 2.6 gm/dL 09/21/16 05:30 Albumin/Globulin Ratio 0.8 (1.0-1.8) L 09/21/16 05:30 Triglycerides 130 mg/dL (<150) 09/18/16 15:24 Cholesterol 48 mg/dL (<200) 09/18/16 15:24 LDL Cholesterol Direct 19 mg/dL (75-193) L 09/18/16 15:24 HDL Cholesterol 13 mg/dL (23-92) L 09/18/16 15:24 TSH 7.73 uIU/ml (0.34-5.60) H 09/18/16 15:24 Urine Source [place] 09/18/16 16:25 Urine Color YELLOW 09/18/16 16:25 Urine Clarity SLIGHT CLOUDY (CLEAR) 09/18/16 16:25 Urine pH 5.5 (4.6 - 8.0) 09/18/16 16:25 Ur Specific [place] 1.015 (1.005-1.030) 09/18/16 16:25 Urine Protein TRACE mg/dL (NEGATIVE) 09/18/16 16:25 Urine Glucose (UA) NEGATIVE mg/dL (NEGATIVE) 09/18/16 16:25 Urine Ketones NEGATIVE mg/dL (NEGATIVE) 09/18/16 16:25 Urine Blood NEGATIVE (NEGATIVE) 09/18/16 16:25 Urine Nitrate NEGATIVE (NEGATIVE) 09/18/16 16:25 Urine Bilirubin NEGATIVE (NEGATIVE) 09/18/16 16:25 Urine Urobilinogen 0.2 E.U./dL (0.2 - 1.0) 09/18/16 16:25 Ur Leukocyte Esterase SMALL (NEGATIVE) H 09/18/16 16:25 Urine RBC 2-5 /hpf (0-5) 09/18/16 16:25 Urine WBC 50-100 /hpf (0-5) H 09/18/16 16:25 Ur Epithelial Cells FEW /lpf (FEW) 09/18/16 16:25 Urine Bacteria 1+ /hpf (NONE SEEN) H 09/18/16 16:25 Vancomycin Trough 26.2 ug/mL (10-20) H 09/21/16 11:37 RPR NONREACTIVE (NONREACTIVE) 09/18/16 15:24 Blood Type O POSITIVE 09/21/16 09:30 Antibody Screen NEGATIVE 09/21/16 09:30 - Physical Exam Vitals and I&O: Vital Signs Temp 97.8 F 09/21/16 12:00 Pulse 95 09/21/16 16:20 Resp 22 09/21/16 16:20 BP 115/66 09/21/16 12:00 Pulse Ox 96 09/21/16 16:20 Intake & Output 09/20/16 09/21/16 09/21/16 18:59 06:59 18:59 Intake Total 0008.515 5229.688 308 Output Total 300 250 Balance 8212.899 8276.688 58 Weight (lbs) 115.757 kg 115.666 kg Intake: Intake, IV Amount 1129.189 8073.688 308 D5-0.9%Ns 1,000 ml @ 125 964.583 mls/hr IV .Q8H [facility] Rx#: [id number] Diltiazem 125 mg In 125 Dextrose 5% 100 ml @ 10 MG/HR 10 mls/hr IV TITR [facility] Rx#:[id number] KCL 20mEq/100mL Premix 20 100 meq In 100 ml @ 50 mls/ hr IV Q8H [facility] Rx#: [id number] Norepinephrine 8 mg In 252.84 217.688 258 Dextrose 5% 250 ml @ 10 MCG/MIN 19.35 mls/hr IV TITR PRN Rx#:[id number] Piperacillin Sodium/ 50 100 50 Tazobact 3.375 gm In Sodium Chloride 0.9% 50 ml @ 100 mls/hr IV Q8H [facility] Rx#:[id number] Sodium Chloride 0.9% 1, 1000 000 ml @ 100 mls/hr IV . Q10H [facility] Rx#:[id number] Vancomycin HCl 1.25 gm In 250 Sodium Chloride 0.9% 250 ml @ 165 mls/hr IV Q24H [facility] Rx#:[id number] Output: Urine 300 250 Active Medications: Current Medications Acetaminophen (Tylenol) 325 mg PO Q4HR PRN PRN Reason: Fever > 101 Stop: 11/17/16 19:17 Albuterol/Ipratropium (Duoneb Neb) 3 ml HHN Q4HRT [facility] Stop: 11/17/16 22:59 Last Admin: 09/21/16 16:10 Dose: 3 ml Ascorbic Acid (Vitamin C) 500 mg PO DAILY [facility] Stop: 11/18/16 08:59 Last Admin: 09/21/16 09:34 Dose: Not Given Bumetanide (Bumex) 1 mg IVP DAILY [facility] Stop: 09/23/16 09:01 Calcium/Vitamin D (Oscal W/Vitamin D) 1 tab PO DAILY [facility] Stop: 11/18/16 08:59 Last Admin: 09/21/16 09:35 Dose: Not Given Dextrose (D50w) 50 ml IVP PRN PRN PRN Reason: Blood Glucose less than 70 Stop: 11/17/16 20:09 Dextrose (Glutose 40%) 18.75 gm PO PRN PRN PRN Reason: Blood Glucose less than 70 Stop: 11/17/16 20:09 Diltiazem HCl (Cardizem) 10 mg IVP Q4HR PRN PRN Reason: HR >130 Stop: 11/18/16 20:11 Donepezil HCl (Aricept) 5 mg PO HS [facility] Stop: 11/17/16 20:59 Last Admin: 09/20/16 21:00 Dose: Not Given Ezetimibe (Zetia) 10 mg PO HS [facility] Stop: 11/17/16 20:59 Last Admin: 09/20/16 21:00 Dose: Not Given Glucagon (Glucagen) 1 mg IM PRN PRN PRN Reason: Blood Glucose less than 70 Stop: 11/17/16 20:09 Heparin Sodium (Porcine) (Heparin) 5,000 units SUBQ Q12HR [facility] Stop: 11/18/16 20:59 Last Admin: 09/21/16 09:40 Dose: 5,000 units Piperacillin Sod/Tazobactam (Sod 3.375 gm/ Sodium Chloride) 50 mls @ 100 mls/ hr IV Q8H [facility] Stop: 11/17/16 19:15 Last Admin: 09/21/16 18:37 Dose: 100 mls/hr Norepinephrine Bitartrate 8 mg (/ Dextrose) 258 mls @ 19.35 mls/hr IV TITR PRN ; Protocol; 10 MCG/MIN PRN Reason: BP MAINTENANCE (PER PROTOCOL) Stop: 11/17/16 19:17 Last Admin: 09/21/16 17:32 Dose: 10 mcg/min, 19.35 mls/hr Micafungin Sodium 100 mg/ (Sodium Chloride) 100 mls @ 100 mls/hr IV Q24H [facility] Stop: 11/17/16 19:59 Last Admin: 09/20/16 20:00 Dose: 100 mls/hr Diltiazem HCl 125 mg/ Dextrose 125 mls @ 10 mls/hr IV TITR [facility]; 10 MG/HR PRN Reason: Protocol Stop: 11/18/16 20:32 Last Admin: 09/20/16 21:56 Dose: 10 mg/hr, 10 mls/hr Vancomycin HCl 1 gm/ Sodium (Chloride) 250 mls @ 165 mls/hr IV Q24H [facility] Stop: 11/20/16 13:59 Last Admin: 09/21/16 16:22 Dose: 165 mls/hr Sodium Chloride (Nacl 0.9%) 1,000 mls @ 30 mls/hr IV .Q24H [facility] Stop: 11/19/16 14:18 Albumin Human (Albutein 25%) 12.5 gm in 50 mls @ 50 mls/hr IV TID ONE Stop: 09/21/16 19:44 Insulin Aspart (Novolog Insulin Sliding Scale) 0 units SUBQ Q6HR [facility] PRN Reason: Protocol Stop: 11/18/16 00:00 Last Admin: 09/21/16 18:21 Dose: Not Given Lactobacillus Rhamnosus (Culturelle) 1 each PO DAILY [facility] Stop: 11/21/16 08:59 Memantine (Namenda) 5 mg PO DAILY [facility] Stop: 11/18/16 08:59 Last Admin: 09/21/16 09:35 Dose: Not Given Metronidazole (Flagyl) 250 mg PO TID [facility] Stop: 11/18/16 13:59 Last Admin: 09/21/16 15:36 Dose: Not Given Mineral Oil (Mineral Oil 30 Ml) 30 ml NG DAILY [facility] Stop: 11/19/16 18:14 Last Admin: 09/21/16 09:36 Dose: Not Given Miscellaneous (Vancomycin Iv Per Pharmacy) 1 ea PRN PRN PRN Reason: PROTOCOL Stop: 11/17/16 19:15 Miscellaneous (Vte Chemical Prophylaxis Screen/ Admission) 1 ea PRN PRN PRN Reason: PROTOCOL Stop: 11/18/16 14:22 Miscellaneous (Probiotic Screen) 1 ea PRN PRN PRN Reason: PROTOCOL Stop: 11/20/16 12:42 Morphine Sulfate (Morphine) 1 mg IVP Q6HR PRN PRN Reason: Pain (Moderate) Stop: 11/18/16 20:02 Morphine Sulfate (Morphine) 1 mg IVP Q6H PRN PRN Reason: MODERATE PAIN Stop: 11/19/16 16:26 Ondansetron HCl (Zofran) 4 mg IV Q6HR PRN PRN Reason: NAUSEA/VOMITING Stop: 11/17/16 19:44 Pantoprazole Sodium (Protonix) 40 mg IVP DAILY [facility] Stop: 11/19/16 08:59 Last Admin: 09/21/16 09:40 Dose: 40 mg Sodium Bicarbonate (Sodium Bicarbonate) 650 mg PO BID [facility] PRN Reason: Protocol Stop: 11/19/16 16:59 Last Admin: 09/21/16 09:36 Dose: Not Given Zinc Sulfate (Zinc Sulfate) 220 mg PO DAILY [facility] Stop: 11/18/16 08:59 Last Admin: 09/21/16 09:36 Dose: Not Given General: No acute distress, Other (Patient is unconscious, responding only to pain) HEENT: Atraumatic, Mucous membr. moist/pink Neck: Supple, +2 carotid pulse wo bruit (irregular rhythm) Cardiovascular: Regular rate, Normal S1, Normal S2, Other (Tachicardic) Lungs: Other (few rhonchi) Abdomen: Bowel sounds, Soft Extremities: Edema (right leg), Other (Pitting edema, amputation above knee of left leg) Neurological: Sensation intact, Other (Non ambulatory) Skin: Significant lesion (ulcers right leg), Other (Multiple decubits ulcers) Psych/Mental Status: Mood NL, Other (Unconscious) - Procedures Procedures: Procedures Procedure Code Date AMPUTATE LEG AT THIGH 59749 08/03/16 ANNETTE SUBQ TISSUE 20 SQ CM/< 38376 08/03/16 DETACHMENT AT LEFT UPPER LEG, LOW, OPEN APPROACH [id number] 08/03/16 EXCISION OF R FOOT SUBCU/FASCIA, OPEN APPROACH [id number] 08/03/16 EXCISION OF R LOW LEG SUBCU/FASCIA, OPEN APPROACH [id number] 08/03/16 TRANSFUSE NONAUT RED BLOOD CELLS IN PERIPH VEIN, PERC 15192A1 08/03/16 Assessment/Plan - Problem List Patient Problems: All Active Problems ELEVATED WBC LEVELS (Acute) - Assessment Assessment: MICHAEL Shock Sepsis Sepsis 2nd to C. Diff, Right foot ulcers ?osteo, possible UTI A.Fib W/ RVR Acute Resp Failure Coagulopathy 2nd to DIC, Coumadin Lactic Acidosis T2 DM CAD Bipolar Disorder PAD S/P Left AKA, Sharp Debridement of Right Foot Ulcers Possible decomp CHF - Plan Plan: Lab - Result Diagrams 09/20/16 05:05 09/20/16 05:05 Current Medications Acetaminophen (Tylenol) 325 mg PO Q4HR PRN PRN Reason: Fever > 101 Stop: 11/17/16 19:17 Albuterol/Ipratropium (Duoneb Neb) 3 ml HHN Q4HRT [facility] Stop: 11/17/16 22:59 Last Admin: 09/20/16 13:50 Dose: 3 ml Ascorbic Acid (Vitamin C) 500 mg PO DAILY [facility] Stop: 11/18/16 08:59 Last Admin: 09/20/16 12:40 Dose: Not Given Calcium/Vitamin D (Oscal W/Vitamin D) 1 tab PO DAILY [facility] Stop: 11/18/16 08:59 Last Admin: 09/20/16 12:40 Dose: Not Given Dextrose (D50w) 50 ml IVP PRN PRN PRN Reason: Blood Glucose less than 70 Stop: 11/17/16 20:09 Dextrose (Glutose 40%) 18.75 gm PO PRN PRN PRN Reason: Blood Glucose less than 70 Stop: 11/17/16 20:09 Diltiazem HCl (Cardizem) 10 mg IVP Q4HR PRN PRN Reason: HR >130 Stop: 11/18/16 20:11 Donepezil HCl (Aricept) 5 mg PO HS [facility] Stop: 11/17/16 20:59 Last Admin: 09/19/16 21:55 Dose: 5 mg Ezetimibe (Zetia) 10 mg PO HS [facility] Stop: 11/17/16 20:59 Last Admin: 09/19/16 21:45 Dose: 10 mg Glucagon (Glucagen) 1 mg IM PRN PRN PRN Reason: Blood Glucose less than 70 Stop: 11/17/16 20:09 Heparin Sodium (Porcine) (Heparin) 5,000 units SUBQ Q12HR [facility] Stop: 11/18/16 20:59 Last Admin: 09/20/16 08:50 Dose: 5,000 units Piperacillin Sod/Tazobactam (Sod 3.375 gm/ Sodium Chloride) 50 mls @ 100 mls/ hr IV Q8H [facility] Stop: 11/17/16 19:15 Last Infusion: 09/20/16 12:44 Dose: Infused Norepinephrine Bitartrate 8 mg (/ Dextrose) 258 mls @ 19.35 mls/hr IV TITR PRN ; Protocol; 10 MCG/MIN PRN Reason: BP MAINTENANCE (PER PROTOCOL) Stop: 11/17/16 19:17 Last Admin: 09/20/16 12:53 Dose: 10 mcg/min, 19.35 mls/hr Micafungin Sodium 100 mg/ (Sodium Chloride) 100 mls @ 100 mls/hr IV Q24H [facility] Stop: 11/17/16 19:59 Last Admin: 09/19/16 20:30 Dose: 100 mls/hr Vancomycin HCl 1.25 gm/ Sodium (Chloride) 250 mls @ 165 mls/hr IV Q24H [facility] Stop: 11/18/16 10:59 Last Admin: 09/20/16 11:30 Dose: 165 mls/hr Dextrose/Sodium Chloride (D5-0.9%Ns) 1,000 mls @ 125 mls/hr IV .Q8H [facility] Stop: 11/18/16 12:47 Last Admin: 09/20/16 11:28 Dose: 125 mls/hr Diltiazem HCl 125 mg/ Dextrose 125 mls @ 10 mls/hr IV TITR [facility]; 10 MG/HR PRN Reason: Protocol Stop: 11/18/16 20:32 Last Admin: 09/19/16 21:30 Dose: 10 mg/hr, 10 mls/hr Potassium Chloride (Potassium Chloride) 20 meq in 100 mls @ 50 mls/hr IV Q8H [facility] Stop: 09/20/16 17:59 Last Admin: 09/20/16 11:20 Dose: 50 mls/hr Insulin Aspart (Novolog Insulin Sliding Scale) 0 units SUBQ Q6HR [facility] PRN Reason: Protocol Stop: 11/18/16 00:00 Last Admin: 09/20/16 11:50 Dose: 10 units Memantine (Namenda) 5 mg PO DAILY [facility] Stop: 11/18/16 08:59 Last Admin: 09/20/16 12:40 Dose: Not Given Metronidazole (Flagyl) 250 mg PO TID [facility] Stop: 11/18/16 13:59 Last Admin: 09/20/16 12:40 Dose: Not Given Miscellaneous (Vancomycin Iv Per Pharmacy) 1 ea PRN PRN PRN Reason: PROTOCOL Stop: 11/17/16 19:15 Miscellaneous (Vte Chemical Prophylaxis Screen/ Admission) 1 ea PRN PRN PRN Reason: PROTOCOL Stop: 11/18/16 14:22 Morphine Sulfate (Morphine) 1 mg IVP Q6HR PRN PRN Reason: Pain (Moderate) Stop: 11/18/16 20:02 Ondansetron HCl (Zofran) 4 mg IV Q6HR PRN PRN Reason: NAUSEA/VOMITING Stop: 11/17/16 19:44 Pantoprazole Sodium (Protonix) 40 mg IVP DAILY [facility] Stop: 11/19/16 08:59 Vancomycin HCl (Vancomycin Oral) 250 mg PO TID [facility] Stop: 11/18/16 13:59 Last Admin: 09/20/16 12:41 Dose: Not Given Zinc Sulfate (Zinc Sulfate) 220 mg PO DAILY [facility] Stop: 11/18/16 08:59 Last Admin: 09/19/16 08:43 Dose: 220 mg Cr. better @ 1.1 WBC back up to 40.8 continue Na HC03 decrease ivf due to peripheral edema, ascites, b/l effusions f/u electrolytes, cbc, PT/INR continue ABx agree w/ K replacement need to discuss w/ pharmacy about cross reactivity of Bumex w/ Lasix allergy Nutritional Asmnt/Malnutr-PDOC - Dietary Evaluation Malnutrition Findings (Please click <Entered> for more info): Nutritional Asmnt/Malnutrition Start: 09/19/16 15: 45 Text: Status: Complete Freq: Document 09/19/16 15:46 [facility] (Rec: 09/19/16 16:02 [facility] [id number]) Nutritional Asmnt/Malnutrition Patient General Information Nutritional Screening Consult Diagnosis Sepsis, pneumonia, hypotension Pertinent Medical Hx/Surgical Hx AFIB, CAD, CHF, HTN, hyperlipidemia, CVA, pneumonia , chronic renal insufficiency, DM, multiple decubitus ulcers in different parts of body, left AKA Subjective Information Nutrition consult for pt is diabetic received and completed. Pt is a 81-year-old female from [facility] admitted with chief complaint of sepsis. Pt is a poor historian at the moment, lethargic and nonverbal. Pt appears obese with edema observed. RD measured wt with medical devices removed, three pillows on bed: 216.2#/98.3 kg. Adjusted BMI with consideration of AKA: 40.3 kg/ m2. Adjusted IBW with consideration of AKA: 113#/51. 4 kg. Per medical records, pt wt 242#/110 kg in August 2016. NGT placed last night 09/18, pending tube feeding order. Current Diet Order/ Nutrition Support NPO Patient / S.O Can't verbalize diet edu Pertinent Medications Vitamin C, Oscal with Vitamin D, D5-0.9 Ns, Novolog (not given during NPO status), Flagyl, Piperacillin, Vancomycin, Coumadin, Zinc Sulfate Pertinent Labs (09/18) Glucose 344H, A1C WNL, HDL Cholesterol 13L, LDL Cholesterol 19L (09/19) Na 132L , K 3.3L, Glucose 290H, POC Glucose 246H-285H, BUN 27H, Creatinine 1.3H, Alkaline Phosphatase 107H, Albumin 2.2L Nutritional Hx/Data Height 1.7 m Height (Calculated Centimeters) 170.2 Current Weight (lbs) 98.067 kg Weight (Calculated Kilograms) 98.1 Weight (Calculated Grams) 31545.7 Usual body Weight (lbs) 242 % Usual Body Weight 89 [place] Body Weight 113 % [place] Body Weight 191 Recent Weight Change Yes Weight Status Morbidly Obese GI Symptoms GI Symptoms None Difficult in: Swallowing Food Allergies No Usual diet at home Mechanical soft ground with protein supplement 30 ml BID Skin Integrity/Comment: Grey 10. Pt with multiple wounds body and leg. Estimated Nutritional Goals BEE in Kcals: Using Current wt Calories/Kcals/Kg Based on current wt of 98.3 kg with consideration of wounds, sepsis,obesity Kcals Calculated 6721-0045 kcals/day ([place] [facility]. Jeor x 1.2-1.5) Protein: Adj wt of IBW Protein g/kg: Based on adjusted IBW 51.4 kg with consideration of wounds, sepsis Protein Calculated 93-103 gm/day (1.8-2 gm/kg) Fluid: ml Per MD/DO Nutritional Problem 2. Problem Problem Increased energy and protein needs related to Etiology altered skin integrity as evidenced by Signs/Symptoms: multiple decubitus ulcers to body and leg, per RN notes. 1. Problem Problem Malnutrition related to Etiology morbid obesity as evidenced by Signs/Symptoms: adjusted BMI of 40.3 kg/m2. Malnutrition Alert Protein-Calorie Malnutrition N/A Is there a minimum of two criteria No selected? Query Text:Check all the applicable criteria. A minimum of two criteria are recommended for diagnosis of either severe or non-severe malnutrition. Malnutrition Related to Morbid Obesity Malnutrition related to morbid obesity BMI> or equal to 40 Query Text:(Any 1 Criteria met) Malnutrition related to morbid obesity Yes Intervention/Recommendation Comments 1. When medically appropriate, recommend initiate tube feeding Diabetisource AC at 20 ml/hr. Increase by 10 ml/hr every 4 hours until the goal rate of 70 ml/hr is reached. Tube feeding to provide 2016 kcals, 101 gm protein, and 1374 ml free water per day. 2. Recommend one packet of Arginaid via NGT BID to promote wound healing. Expected Outcomes/Goals Expected Outcomes/Goals Provide pt with 100% of estimated nutritional needs to promote wound healing. Physician Parameters for PEM Serum Albumin (g/dl) <2.4 (Severe)
[2016-09-21] MEDS: Micafungin 100 MG in Sodium Chloride 0.9% 100 ML IV SCH (20:00)
[2016-09-21] MEDS: Albumin 25% 12.5gm/50mL 12.5 GM/50 ML BTL IV SCH (20:50)
[2016-09-22] MEDS: Albuterol/Ipratropium Neb 3 ML AERS HHN SCH ×6 (02:51→23:27)
[2016-09-22 04:29] LABS: HEMOGLOBIN 9.5 gm/dL (11.7-16.1); MEAN CELL VOLUME 88.9 fl (81-100); MEAN CORPUSCULAR HEMOGLOBIN 29.9 pg (27.0-31.0); MEAN CORPUSCULAR HGB CONC 33.7 pg (28.0-36.0); MEAN PLATELET VOLUME 7.7 fl; RED BLOOD COUNT 3.16 Mil/cmm (3.80-5.20); RED CELL DISTRIBUTION WIDTH 14.7 % (11.5-20.0)
[2016-09-22 04:35] LABS: HEMATOCRIT 28.1 % (35.0-45.0); WHITE BLOOD COUNT 32.1 Th/cmm (4.8-10.8)
[2016-09-22 04:36] LABS: PLATELET COUNT 298 Th/cmm (150-400)
[2016-09-22 04:40] LABS: ANION GAP 13.1 (7.0-16.0); BUN - UREA NITROGEN 28 mg/dL (7-25); BUN/CREATININE RATIO 31.1; CALCIUM SERUM 7.3 mg/dL (8.6-10.3); CARBON DIOXIDE 19.7 mEq/L (21.0-31.0); CHLORIDE 108 mEq/L (98-107); CREATININE - SERUM 0.9 mg/dL (0.6-1.2); GLUCOSE 216 mg/dL (70-105); SODIUM SERUM 138 mEq/L (136-145)
[2016-09-22 04:41] LABS: ALKALINE PHOSPHATASE 71 U/L (34-104); SGOT 8 U/L (13-39); SGPT/ALT 4 U/L (7-52)
[2016-09-22 04:44] LABS: INR 1.33 (0.5-1.4)
[2016-09-22 05:13] LABS: POTASSIUM SERUM 2.8 mEq/L (3.5-5.1)
[2016-09-22 05:17] LABS: BAND NEUTROPHILE 10 % (0-10); BASOPHIL 0 % (0-3); EOSINOPHIL 0 % (0-5); NEUTROPHILS 79 % (40-80); PLATELET ESTIMATE ADEQUATE (NORMAL); PLATELET MORPHOLOGY NORMAL (NORMAL); TOTAL CELLS COUNTED 100
[2016-09-22] MEDS: KCL 20mEq/100mL Premix 20 MEQ/100 ML PIGGYBACK IV SCH ×2 (05:33→09:30)
[2016-09-22] MEDS: INSULIN ASPART SLIDING SCALE 100 UNITS/ML UNIT SUBQ SCH ×4 (06:00→18:12)
[2016-09-22] MEDS: KCL 20mEq/100mL Premix 20 MEQ/100 ML PIGGYBACK IV ONE (07:33)
--- NOTE | 2016-09-22 07:43 | General Progress Note ---
Subjective - Review of Systems Service Date: 09/22/16 Events since last encounter: discussed options with son regarding leukocytosis, low K, now normal PT after FFP, Levophed drip, high risk with persistent infection. son wants to proceed and understands patient possibilities of morbidities and possible mortality Objective - Results Result Diagrams: 09/22/16 04:16 09/22/16 04:16 Recent Labs: Laboratory Last Values WBC 32.1 Th/cmm (4.8-10.8) H* D 09/22/16 04:16 RBC 3.16 Mil/cmm (3.80-5.20) L 09/22/16 04:16 Hgb 9.5 gm/dL (11.7-16.1) L 09/22/16 04:16 Hct 28.1 % (35.0-45.0) L D 09/22/16 04:16 MCV 88.9 fl (81-100) 09/22/16 04:16 MCH 29.9 pg (27.0-31.0) 09/22/16 04:16 MCHC Differential 33.7 pg (28.0-36.0) 09/22/16 04:16 RDW 14.7 % (11.5-20.0) 09/22/16 04:16 Plt Count 298 Th/cmm (150-400) D 09/22/16 04:16 MPV 7.7 fl 09/22/16 04:16 Band Neutrophils % 10 % (0-10) 09/22/16 04:16 Neutrophils (Manual) 79 % (40-80) 09/22/16 04:16 Lymphocytes 7 % (20-50) L 09/22/16 04:16 Monocytes 4 % (2-10) 09/22/16 04:16 Eosinophils 0 % (0-5) 09/22/16 04:16 Basophils 0 % (0-3) 09/22/16 04:16 Metamyelocytes 1 % (0-0) H 09/20/16 05:05 Nucleated RBCs 1.0 % (0-0) H 09/21/16 05:30 Platelet Estimate ADEQUATE (NORMAL) 09/22/16 04:16 Platelet Morphology NORMAL (NORMAL) 09/22/16 04:16 Polychromasia 1+ 09/20/16 05:05 Anisocytosis 1+ 09/20/16 05:05 RBC Morph Micro Appear NORMAL (NORMAL) 09/22/16 04:16 Smear Path Review SEE BELOW 09/19/16 04:55 PT 14.0 SECONDS (9.5-11.5) H 09/22/16 04:16 INR 1.33 (0.5-1.4) 09/22/16 04:16 PTT (Actin FS) 46.9 SECONDS (26.0-38.0) H 09/21/16 05:30 Specimen Source Arterial 09/20/16 10:40 Sample Site rb 09/20/16 10:40 pH 7.35 (7.35-7.45) 09/20/16 10:40 pCO2 32.0 mmHg (35.0-45.0) L 09/20/16 10:40 pO2 68.0 mmHg (80.0-100.0) L 09/20/16 10:40 HCO3 19.4 mEq/L (20.0-26.0) L 09/20/16 10:40 Base Excess -6.9 mEq/L (-3.0-3.0) L 09/20/16 10:40 O2 Saturation 92.0 % (92.0-100.0) 09/20/16 10:40 Toni Test na 09/20/16 10:40 Vent Rate na 09/20/16 10:40 Inspired O2 36 09/20/16 10:40 Tidal Volume na 09/20/16 10:40 PEEP na 09/20/16 10:40 Pressure (ins/psv/peep) na 09/20/16 10:40 Critical Value e.aguilera 09/20/16 10:40 Sodium 138 mEq/L (136-145) 09/22/16 04:16 Potassium 2.8 mEq/L (3.5-5.1) L* 09/22/16 04:16 Chloride 108 mEq/L (98-107) H 09/22/16 04:16 Carbon Dioxide 19.7 mEq/L (21.0-31.0) L 09/22/16 04:16 Anion Gap 13.1 (7.0-16.0) 09/22/16 04:16 BUN 28 mg/dL (7-25) H 09/22/16 04:16 Creatinine 0.9 mg/dL (0.6-1.2) 09/22/16 04:16 Est GFR ( Amer) TNP 09/22/16 04:16 Est GFR (Non-Af Amer) TNP 09/22/16 04:16 BUN/Creatinine Ratio 31.1 09/22/16 04:16 Glucose 216 mg/dL (70-105) H 09/22/16 04:16 POC Glucose 204 MG/DL (70 - 105) H 09/22/16 06:07 Hemoglobin A1c % 5.7 % (4.0-6.0) 09/18/16 14:24 Whole Bld Lactic Acid 3.78 mmol/L (0.60-1.99) H* 09/18/16 22:13 Calcium 7.3 mg/dL (8.6-10.3) L 09/22/16 04:16 Total Bilirubin 1.0 mg/dL (0.3-1.0) 09/22/16 04:16 AST 8 U/L (13-39) L 09/22/16 04:16 ALT 4 U/L (7-52) L 09/22/16 04:16 Alkaline Phosphatase 71 U/L (34-104) 09/22/16 04:16 Troponin I 0.47 ng/mL (0.01-0.05) H* D 09/18/16 15:24 B-Natriuretic Peptide 1120.0 pg/mL (5.0-100.0) H 09/21/16 05:30 Total Protein 4.4 gm/dL (6.0-8.3) L 09/22/16 04:16 Albumin 2.2 gm/dL (3.7-5.3) L 09/22/16 04:16 Globulin 2.2 gm/dL 09/22/16 04:16 Albumin/Globulin Ratio 1.0 (1.0-1.8) 09/22/16 04:16 Triglycerides 130 mg/dL (<150) 09/18/16 15:24 Cholesterol 48 mg/dL (<200) 09/18/16 15:24 LDL Cholesterol Direct 19 mg/dL (75-193) L 09/18/16 15:24 HDL Cholesterol 13 mg/dL (23-92) L 09/18/16 15:24 TSH 7.73 uIU/ml (0.34-5.60) H 09/18/16 15:24 Urine Source [place] 09/18/16 16:25 Urine Color YELLOW 09/18/16 16:25 Urine Clarity SLIGHT CLOUDY (CLEAR) 09/18/16 16:25 Urine pH 5.5 (4.6 - 8.0) 09/18/16 16:25 Ur Specific [place] 1.015 (1.005-1.030) 09/18/16 16:25 Urine Protein TRACE mg/dL (NEGATIVE) 09/18/16 16:25 Urine Glucose (UA) NEGATIVE mg/dL (NEGATIVE) 09/18/16 16:25 Urine Ketones NEGATIVE mg/dL (NEGATIVE) 09/18/16 16:25 Urine Blood NEGATIVE (NEGATIVE) 09/18/16 16:25 Urine Nitrate NEGATIVE (NEGATIVE) 09/18/16 16:25 Urine Bilirubin NEGATIVE (NEGATIVE) 09/18/16 16:25 Urine Urobilinogen 0.2 E.U./dL (0.2 - 1.0) 09/18/16 16:25 Ur Leukocyte Esterase SMALL (NEGATIVE) H 09/18/16 16:25 Urine RBC 2-5 /hpf (0-5) 09/18/16 16:25 Urine WBC 50-100 /hpf (0-5) H 09/18/16 16:25 Ur Epithelial Cells FEW /lpf (FEW) 09/18/16 16:25 Urine Bacteria 1+ /hpf (NONE SEEN) H 09/18/16 16:25 Vancomycin Trough 26.2 ug/mL (10-20) H 09/21/16 11:37 RPR NONREACTIVE (NONREACTIVE) 09/18/16 15:24 Blood Type O POSITIVE 09/21/16 09:30 Antibody Screen NEGATIVE 09/21/16 09:30 - Physical Exam Vitals and I&O: Vital Signs Temp 97.8 F 09/21/16 12:00 Pulse 93 09/22/16 07:00 Resp 22 09/22/16 02:51 BP 126/71 09/22/16 07:00 Pulse Ox 100 09/22/16 06:00 Intake & Output 09/21/16 09/22/16 09/22/16 18:59 06:59 18:59 Intake Total 408 1224.938 100 Output Total 250 860 Balance 158 364.938 100 Weight (lbs) 115.666 kg 115.666 kg Intake: Intake, IV Amount 408 874.938 100 Albumin 25% 12.5gm/50mL 50 12.5 gm In 50 ml @ 50 mls /hr IV TID [facility] Rx#: [id number] Diltiazem 125 mg In 125 Dextrose 5% 100 ml @ 10 MG/HR 10 mls/hr IV TITR [facility] Rx#:[id number] KCL 20mEq/100mL Premix 20 100 meq In 100 ml @ 50 mls/ hr IV Q2H [facility] Rx#: [id number] Micafungin 100 mg In 100 Sodium Chloride 0.9% 100 ml @ 100 mls/hr IV Q24H [facility] Rx#:[id number] Norepinephrine 8 mg In 258 249.938 Dextrose 5% 250 ml @ 10 MCG/MIN 19.35 mls/hr IV TITR PRN Rx#:[id number] Piperacillin Sodium/ 50 100 Tazobact 3.375 gm In Sodium Chloride 0.9% 50 ml @ 100 mls/hr IV Q8H [facility] Rx#:[id number] Vancomycin HCl 1 gm In 250 Sodium Chloride 0.9% 250 ml @ 165 mls/hr IV Q24H [facility] Rx#:[id number] Blood Product 300 Albumin 50 Output: Gastric Drainage 10 Urine 250 850 Other: # Bowel Movements 0 Active Medications: Current Medications Acetaminophen (Tylenol) 325 mg PO Q4HR PRN PRN Reason: Fever > 101 Stop: 11/17/16 19:17 Albuterol/Ipratropium (Duoneb Neb) 3 ml HHN Q4HRT [facility] Stop: 11/17/16 22:59 Last Admin: 09/22/16 02:51 Dose: 3 ml Ascorbic Acid (Vitamin C) 500 mg PO DAILY [facility] Stop: 11/18/16 08:59 Last Admin: 09/21/16 09:34 Dose: Not Given Calcium/Vitamin D (Oscal W/Vitamin D) 1 tab PO DAILY [facility] Stop: 11/18/16 08:59 Last Admin: 09/21/16 09:35 Dose: Not Given Dextrose (D50w) 50 ml IVP PRN PRN PRN Reason: Blood Glucose less than 70 Stop: 11/17/16 20:09 Dextrose (Glutose 40%) 18.75 gm PO PRN PRN PRN Reason: Blood Glucose less than 70 Stop: 11/17/16 20:09 Diltiazem HCl (Cardizem) 10 mg IVP Q4HR PRN PRN Reason: HR >130 Stop: 11/18/16 20:11 Donepezil HCl (Aricept) 5 mg PO HS [facility] Stop: 11/17/16 20:59 Last Admin: 09/21/16 20:53 Dose: 5 mg Ezetimibe (Zetia) 10 mg PO HS [facility] Stop: 11/17/16 20:59 Last Admin: 09/21/16 20:52 Dose: 10 mg Glucagon (Glucagen) 1 mg IM PRN PRN PRN Reason: Blood Glucose less than 70 Stop: 11/17/16 20:09 Heparin Sodium (Porcine) (Heparin) 5,000 units SUBQ Q12HR [facility] Stop: 11/18/16 20:59 Last Admin: 09/21/16 20:53 Dose: Not Given Piperacillin Sod/Tazobactam (Sod 3.375 gm/ Sodium Chloride) 50 mls @ 100 mls/ hr IV Q8H [facility] Stop: 11/17/16 19:15 Last Infusion: 09/22/16 03:46 Dose: Infused Norepinephrine Bitartrate 8 mg (/ Dextrose) 258 mls @ 19.35 mls/hr IV TITR PRN ; Protocol; 10 MCG/MIN PRN Reason: BP MAINTENANCE (PER PROTOCOL) Stop: 11/17/16 19:17 Last Admin: 09/22/16 06:27 Dose: 10 mcg/min, 19.35 mls/hr Micafungin Sodium 100 mg/ (Sodium Chloride) 100 mls @ 100 mls/hr IV Q24H [facility] Stop: 11/17/16 19:59 Last Infusion: 09/21/16 21:00 Dose: Infused Diltiazem HCl 125 mg/ Dextrose 125 mls @ 10 mls/hr IV TITR [facility]; 10 MG/HR PRN Reason: Protocol Stop: 11/18/16 20:32 Last Titration: 09/21/16 19:00 Dose: Infused Vancomycin HCl 1 gm/ Sodium (Chloride) 250 mls @ 165 mls/hr IV Q24H [facility] Stop: 11/20/16 13:59 Last Infusion: 09/21/16 19:02 Dose: Infused Albumin Human (Albutein 25%) 12.5 gm in 50 mls @ 50 mls/hr IV TID [facility] Stop: 09/24/16 14:59 Last Infusion: 09/21/16 21:50 Dose: Infused Potassium Chloride (Potassium Chloride) 20 meq in 100 mls @ 50 mls/hr IV Q2H [facility] Stop: 09/22/16 09:18 Last Infusion: 09/22/16 07:34 Dose: Infused Insulin Aspart (Novolog Insulin Sliding Scale) 0 units SUBQ Q6HR [facility] PRN Reason: Protocol Stop: 11/18/16 00:00 Last Admin: 09/22/16 06:00 Dose: 4 units Lactobacillus Rhamnosus (Culturelle) 1 each PO DAILY [facility] Stop: 11/21/16 08:59 Memantine (Namenda) 5 mg PO DAILY [facility] Stop: 11/18/16 08:59 Last Admin: 09/21/16 09:35 Dose: Not Given Metronidazole (Flagyl) 250 mg PO TID [facility] Stop: 11/18/16 13:59 Last Admin: 09/21/16 20:52 Dose: 250 mg Mineral Oil (Mineral Oil 30 Ml) 30 ml NG DAILY [facility] Stop: 11/19/16 18:14 Last Admin: 09/21/16 09:36 Dose: Not Given Miscellaneous (Vancomycin Iv Per Pharmacy) 1 ea PRN PRN PRN Reason: PROTOCOL Stop: 11/17/16 19:15 Miscellaneous (Vte Chemical Prophylaxis Screen/ Admission) 1 ea PRN PRN PRN Reason: PROTOCOL Stop: 11/18/16 14:22 Miscellaneous (Probiotic Screen) 1 ea PRN PRN PRN Reason: PROTOCOL Stop: 11/20/16 12:42 Morphine Sulfate (Morphine) 1 mg IVP Q6HR PRN PRN Reason: Pain (Moderate) Stop: 11/18/16 20:02 Morphine Sulfate (Morphine) 1 mg IVP Q6H PRN PRN Reason: MODERATE PAIN Stop: 11/19/16 16:26 Ondansetron HCl (Zofran) 4 mg IV Q6HR PRN PRN Reason: NAUSEA/VOMITING Stop: 11/17/16 19:44 Pantoprazole Sodium (Protonix) 40 mg IVP DAILY [facility] Stop: 11/19/16 08:59 Last Admin: 09/21/16 09:40 Dose: 40 mg Sodium Bicarbonate (Sodium Bicarbonate) 650 mg PO BID [facility] PRN Reason: Protocol Stop: 11/19/16 16:59 Last Admin: 09/21/16 19:01 Dose: Not Given Zinc Sulfate (Zinc Sulfate) 220 mg PO DAILY [facility] Stop: 11/18/16 08:59 Last Admin: 09/21/16 09:36 Dose: Not Given General: No acute distress, Other (Patient is unconscious, responding only to pain) HEENT: Atraumatic, Mucous membr. moist/pink Neck: Supple, +2 carotid pulse wo bruit (irregular rhythm) Cardiovascular: Regular rate, Normal S1, Normal S2, Other (Tachicardic) Lungs: Other (few rhonchi) Abdomen: Bowel sounds, Soft Extremities: Edema (right leg), Other (Pitting edema, amputation above knee of left leg) Neurological: Sensation intact, Other (Non ambulatory) Skin: Significant lesion (ulcers right leg), Other (Multiple decubits ulcers) Psych/Mental Status: Mood NL, Other (Unconscious) - Procedures Procedures: Procedures Procedure Code Date AMPUTATE LEG AT THIGH 74092 08/03/16 ANNETTE SUBQ TISSUE 20 SQ CM/< 70577 08/03/16 DETACHMENT AT LEFT UPPER LEG, LOW, OPEN APPROACH [id number] 08/03/16 EXCISION OF R FOOT SUBCU/FASCIA, OPEN APPROACH [id number] 08/03/16 EXCISION OF R LOW LEG SUBCU/FASCIA, OPEN APPROACH [id number] 08/03/16 TRANSFUSE NONAUT RED BLOOD CELLS IN PERIPH VEIN, PERC 03544H7 08/03/16 Assessment/Plan - Problem List Patient Problems: All Active Problems ELEVATED WBC LEVELS (Acute) Nutritional Asmnt/Malnutr-PDOC - Dietary Evaluation Malnutrition Findings (Please click <Entered> for more info): Nutritional Asmnt/Malnutrition Start: 09/19/16 15: 45 Text: Status: Complete Freq: Document 09/19/16 15:46 [facility] (Rec: 09/19/16 16:02 [facility] [id number]) Nutritional Asmnt/Malnutrition Patient General Information Nutritional Screening Consult Diagnosis Sepsis, pneumonia, hypotension Pertinent Medical Hx/Surgical Hx AFIB, CAD, CHF, HTN, hyperlipidemia, CVA, pneumonia , chronic renal insufficiency, DM, multiple decubitus ulcers in different parts of body, left AKA Subjective Information Nutrition consult for pt is diabetic received and completed. Pt is a 81-year-old female from [facility] admitted with chief complaint of sepsis. Pt is a poor historian at the moment, lethargic and nonverbal. Pt appears obese with edema observed. RD measured wt with medical devices removed, three pillows on bed: 216.2#/98.3 kg. Adjusted BMI with consideration of AKA: 40.3 kg/ m2. Adjusted IBW with consideration of AKA: 113#/51. 4 kg. Per medical records, pt wt 242#/110 kg in August 2016. NGT placed last night 09/18, pending tube feeding order. Current Diet Order/ Nutrition Support NPO Patient / S.O Can't verbalize diet edu Pertinent Medications Vitamin C, Oscal with Vitamin D, D5-0.9 Ns, Novolog (not given during NPO status), Flagyl, Piperacillin, Vancomycin, Coumadin, Zinc Sulfate Pertinent Labs (09/18) Glucose 344H, A1C WNL, HDL Cholesterol 13L, LDL Cholesterol 19L (09/19) Na 132L , K 3.3L, Glucose 290H, POC Glucose 246H-285H, BUN 27H, Creatinine 1.3H, Alkaline Phosphatase 107H, Albumin 2.2L Nutritional Hx/Data Height 1.7 m Height (Calculated Centimeters) 170.2 Current Weight (lbs) 98.067 kg Weight (Calculated Kilograms) 98.1 Weight (Calculated Grams) 90950.7 Usual body Weight (lbs) 242 % Usual Body Weight 89 [place] Body Weight 113 % [place] Body Weight 191 Recent Weight Change Yes Weight Status Morbidly Obese GI Symptoms GI Symptoms None Difficult in: Swallowing Food Allergies No Usual diet at home Mechanical soft ground with protein supplement 30 ml BID Skin Integrity/Comment: Grey 10. Pt with multiple wounds body and leg. Estimated Nutritional Goals BEE in Kcals: Using Current wt Calories/Kcals/Kg Based on current wt of 98.3 kg with consideration of wounds, sepsis,obesity Kcals Calculated 0477-8984 kcals/day ([place] St. Jeor x 1.2-1.5) Protein: Adj wt of IBW Protein g/kg: Based on adjusted IBW 51.4 kg with consideration of wounds, sepsis Protein Calculated 93-103 gm/day (1.8-2 gm/kg) Fluid: ml Per MD/DO Nutritional Problem 2. Problem Problem Increased energy and protein needs related to Etiology altered skin integrity as evidenced by Signs/Symptoms: multiple decubitus ulcers to body and leg, per RN notes. 1. Problem Problem Malnutrition related to Etiology morbid obesity as evidenced by Signs/Symptoms: adjusted BMI of 40.3 kg/m2. Malnutrition Alert Protein-Calorie Malnutrition N/A Is there a minimum of two criteria No selected? Query Text:Check all the applicable criteria. A minimum of two criteria are recommended for diagnosis of either severe or non-severe malnutrition. Malnutrition Related to Morbid Obesity Malnutrition related to morbid obesity BMI> or equal to 40 Query Text:(Any 1 Criteria met) Malnutrition related to morbid obesity Yes Intervention/Recommendation Comments 1. When medically appropriate, recommend initiate tube feeding Diabetisource AC at 20 ml/hr. Increase by 10 ml/hr every 4 hours until the goal rate of 70 ml/hr is reached. Tube feeding to provide 2016 kcals, 101 gm protein, and 1374 ml free water per day. 2. Recommend one packet of Arginaid via NGT BID to promote wound healing. Expected Outcomes/Goals Expected Outcomes/Goals Provide pt with 100% of estimated nutritional needs to promote wound healing. Physician Parameters for PEM Serum Albumin (g/dl) <2.4 (Severe)
[2016-09-22] MEDS: Albumin 25% 12.5gm/50mL 12.5 GM/50 ML BTL IV SCH ×3 (09:46→21:45)
[2016-09-22] MEDS: Calcium Carb/Vit D 500 mg/200 U Tab PO SCH (09:50)
[2016-09-22] MEDS: Venelex 60gm Tube TP SCH (09:50)
[2016-09-22] MEDS: Lactobacillus Rhamnosus 10 Billion CFU Capsule PO SCH (09:50)
--- NOTE | 2016-09-22 10:52 | Operative Report ---
DATE OF SURGERY: 09/22/2016 PREOPERATIVE DIAGNOSES: 1. Gangrene, right leg. 2. Status post left below knee amputation. 3. Atrial fibrillation. 4. Coronary artery disease. 5. Congestive heart failure. POSTOPERATIVE DIAGNOSES: 1. Gangrene, right leg. 2. Status post left below knee amputation. 3. Atrial fibrillation. 4. Coronary artery disease. 5. Congestive heart failure. OPERATION DONE: Right above knee amputation. SURGEON: Judy Thorpe M.D. ANESTHESIA: Spinal. ANESTHESIOLOGIST: [place] Pro M.D. INDICATIONS FOR SURGERY: Gangrene extending to the lateral aspect of the right leg and the whole foot. The patient extremely edematous. The son was called over the phone regarding the high morbidity and mortality, but the patient continues have extreme leukocytosis in 40,000 range. Son has agreed to proceed with the procedure. DESCRIPTION OF PROCEDURE: The patient was given spinal anesthesia. The right lower extremity was prepped with Betadine and draped. An incision is made just above the knee transecting muscle, which was rather very thin above the patella. Tissues were extremely edematous and kept pouring out watery discharge. All vessels were transected, no open vessels noted. The femur was transected and posterior muscles. This was done with a scalpel. Hemostasis was achieved with cautery and suture ligation. The open wound was washed with saline and prepped with Betadine. The incision was closed with interrupted sutures of #1 Vicryl for the fascia and the subcutaneous tissue closed with 3-0 Vicryl in a running fashion. Kasi-Rivera drain was left in the wound. The skin was closed with lore and compression dressing was placed over this. The patient tolerated the procedure well. JOB# [id number]
--- NOTE | 2016-09-22 13:36 | General Progress Note ---
Subjective - Review of Systems Service Date: 09/22/16 Subjective: remains stuporous, but comfortable Objective - Results Result Diagrams: 09/22/16 04:16 09/22/16 04:16 Recent Labs: Laboratory Last Values WBC 32.1 Th/cmm (4.8-10.8) H* D 09/22/16 04:16 RBC 3.16 Mil/cmm (3.80-5.20) L 09/22/16 04:16 Hgb 9.5 gm/dL (11.7-16.1) L 09/22/16 04:16 Hct 28.1 % (35.0-45.0) L D 09/22/16 04:16 MCV 88.9 fl (81-100) 09/22/16 04:16 MCH 29.9 pg (27.0-31.0) 09/22/16 04:16 MCHC Differential 33.7 pg (28.0-36.0) 09/22/16 04:16 RDW 14.7 % (11.5-20.0) 09/22/16 04:16 Plt Count 298 Th/cmm (150-400) D 09/22/16 04:16 MPV 7.7 fl 09/22/16 04:16 Band Neutrophils % 10 % (0-10) 09/22/16 04:16 Neutrophils (Manual) 79 % (40-80) 09/22/16 04:16 Lymphocytes 7 % (20-50) L 09/22/16 04:16 Monocytes 4 % (2-10) 09/22/16 04:16 Eosinophils 0 % (0-5) 09/22/16 04:16 Basophils 0 % (0-3) 09/22/16 04:16 Metamyelocytes 1 % (0-0) H 09/20/16 05:05 Nucleated RBCs 1.0 % (0-0) H 09/21/16 05:30 Platelet Estimate ADEQUATE (NORMAL) 09/22/16 04:16 Platelet Morphology NORMAL (NORMAL) 09/22/16 04:16 Polychromasia 1+ 09/20/16 05:05 Anisocytosis 1+ 09/20/16 05:05 RBC Morph Micro Appear NORMAL (NORMAL) 09/22/16 04:16 Smear Path Review SEE BELOW 09/19/16 04:55 PT 14.0 SECONDS (9.5-11.5) H 09/22/16 04:16 INR 1.33 (0.5-1.4) 09/22/16 04:16 PTT (Actin FS) 46.9 SECONDS (26.0-38.0) H 09/21/16 05:30 Specimen Source Arterial 09/20/16 10:40 Sample Site rb 09/20/16 10:40 pH 7.35 (7.35-7.45) 09/20/16 10:40 pCO2 32.0 mmHg (35.0-45.0) L 09/20/16 10:40 pO2 68.0 mmHg (80.0-100.0) L 09/20/16 10:40 HCO3 19.4 mEq/L (20.0-26.0) L 09/20/16 10:40 Base Excess -6.9 mEq/L (-3.0-3.0) L 09/20/16 10:40 O2 Saturation 92.0 % (92.0-100.0) 09/20/16 10:40 Toni Test na 09/20/16 10:40 Vent Rate na 09/20/16 10:40 Inspired O2 36 09/20/16 10:40 Tidal Volume na 09/20/16 10:40 PEEP na 09/20/16 10:40 Pressure (ins/psv/peep) na 09/20/16 10:40 Critical Value e.aguilera 09/20/16 10:40 Sodium 138 mEq/L (136-145) 09/22/16 04:16 Potassium 2.8 mEq/L (3.5-5.1) L* 09/22/16 04:16 Chloride 108 mEq/L (98-107) H 09/22/16 04:16 Carbon Dioxide 19.7 mEq/L (21.0-31.0) L 09/22/16 04:16 Anion Gap 13.1 (7.0-16.0) 09/22/16 04:16 BUN 28 mg/dL (7-25) H 09/22/16 04:16 Creatinine 0.9 mg/dL (0.6-1.2) 09/22/16 04:16 Est GFR ( Amer) TNP 09/22/16 04:16 Est GFR (Non-Af Amer) TNP 09/22/16 04:16 BUN/Creatinine Ratio 31.1 09/22/16 04:16 Glucose 216 mg/dL (70-105) H 09/22/16 04:16 POC Glucose 193 MG/DL (70 - 105) H 09/22/16 11:54 Hemoglobin A1c % 5.7 % (4.0-6.0) 09/18/16 14:24 Whole Bld Lactic Acid 3.78 mmol/L (0.60-1.99) H* 09/18/16 22:13 Calcium 7.3 mg/dL (8.6-10.3) L 09/22/16 04:16 Total Bilirubin 1.0 mg/dL (0.3-1.0) 09/22/16 04:16 AST 8 U/L (13-39) L 09/22/16 04:16 ALT 4 U/L (7-52) L 09/22/16 04:16 Alkaline Phosphatase 71 U/L (34-104) 09/22/16 04:16 Troponin I 0.47 ng/mL (0.01-0.05) H* D 09/18/16 15:24 B-Natriuretic Peptide 1120.0 pg/mL (5.0-100.0) H 09/21/16 05:30 Total Protein 4.4 gm/dL (6.0-8.3) L 09/22/16 04:16 Albumin 2.2 gm/dL (3.7-5.3) L 09/22/16 04:16 Globulin 2.2 gm/dL 09/22/16 04:16 Albumin/Globulin Ratio 1.0 (1.0-1.8) 09/22/16 04:16 Triglycerides 130 mg/dL (<150) 09/18/16 15:24 Cholesterol 48 mg/dL (<200) 09/18/16 15:24 LDL Cholesterol Direct 19 mg/dL (75-193) L 09/18/16 15:24 HDL Cholesterol 13 mg/dL (23-92) L 09/18/16 15:24 TSH 7.73 uIU/ml (0.34-5.60) H 09/18/16 15:24 Urine Source [place] 09/18/16 16:25 Urine Color YELLOW 09/18/16 16:25 Urine Clarity SLIGHT CLOUDY (CLEAR) 09/18/16 16:25 Urine pH 5.5 (4.6 - 8.0) 09/18/16 16:25 Ur Specific Mercedes 1.015 (1.005-1.030) 09/18/16 16:25 Urine Protein TRACE mg/dL (NEGATIVE) 09/18/16 16:25 Urine Glucose (UA) NEGATIVE mg/dL (NEGATIVE) 09/18/16 16:25 Urine Ketones NEGATIVE mg/dL (NEGATIVE) 09/18/16 16:25 Urine Blood NEGATIVE (NEGATIVE) 09/18/16 16:25 Urine Nitrate NEGATIVE (NEGATIVE) 09/18/16 16:25 Urine Bilirubin NEGATIVE (NEGATIVE) 09/18/16 16:25 Urine Urobilinogen 0.2 E.U./dL (0.2 - 1.0) 09/18/16 16:25 Ur Leukocyte Esterase SMALL (NEGATIVE) H 09/18/16 16:25 Urine RBC 2-5 /hpf (0-5) 09/18/16 16:25 Urine WBC 50-100 /hpf (0-5) H 09/18/16 16:25 Ur Epithelial Cells FEW /lpf (FEW) 09/18/16 16:25 Urine Bacteria 1+ /hpf (NONE SEEN) H 09/18/16 16:25 Vancomycin Trough 26.2 ug/mL (10-20) H 09/21/16 11:37 RPR NONREACTIVE (NONREACTIVE) 09/18/16 15:24 Blood Type O POSITIVE 09/21/16 09:30 Antibody Screen NEGATIVE 09/21/16 09:30 - Physical Exam Vitals and I&O: Vital Signs Temp 97.8 F 09/21/16 12:00 Pulse 102 09/22/16 13:15 Resp 22 09/22/16 11:58 BP 98/59 09/22/16 13:15 Pulse Ox 96 09/22/16 12:00 Intake & Output 09/21/16 09/22/16 09/22/16 18:59 06:59 18:59 Intake Total 408 1224.938 100 Output Total 250 860 Balance 158 364.938 100 Weight (lbs) 115.666 kg 115.666 kg Intake: Intake, IV Amount 408 874.938 100 Albumin 25% 12.5gm/50mL 50 12.5 gm In 50 ml @ 50 mls /hr IV TID [facility] Rx#: [id number] Diltiazem 125 mg In 125 Dextrose 5% 100 ml @ 10 MG/HR 10 mls/hr IV TITR [facility] Rx#:[id number] KCL 20mEq/100mL Premix 20 100 meq In 100 ml @ 50 mls/ hr IV Q2H [facility] Rx#: [id number] Micafungin 100 mg In 100 Sodium Chloride 0.9% 100 ml @ 100 mls/hr IV Q24H [facility] Rx#:[id number] Norepinephrine 8 mg In 258 249.938 Dextrose 5% 250 ml @ 10 MCG/MIN 19.35 mls/hr IV TITR [facility]N Rx#:[id number] Piperacillin Sodium/ 50 100 Tazobact 3.375 gm In Sodium Chloride 0.9% 50 ml @ 100 mls/hr IV Q8H [facility] Rx#:[id number] Vancomycin HCl 1 gm In 250 Sodium Chloride 0.9% 250 ml @ 165 mls/hr IV Q24H [facility] Rx#:[id number] Blood Product 300 Albumin 50 Output: Gastric Drainage 10 Urine 250 850 Other: # Bowel Movements 0 Active Medications: Current Medications Acetaminophen (Tylenol) 325 mg PO Q4HR PRN PRN Reason: Fever > 101 Stop: 11/17/16 19:17 Albuterol/Ipratropium (Duoneb Neb) 3 ml HHN Q4HRT [facility] Stop: 11/17/16 22:59 Last Admin: 09/22/16 11:58 Dose: 3 ml Ascorbic Acid (Vitamin C) 500 mg PO DAILY [facility] Stop: 11/18/16 08:59 Last Admin: 09/22/16 09:50 Dose: Not Given Calcium/Vitamin D (Oscal W/Vitamin D) 1 tab PO DAILY [facility] Stop: 11/18/16 08:59 Last Admin: 09/22/16 09:50 Dose: Not Given Dextrose (D50w) 50 ml IVP PRN PRN PRN Reason: Blood Glucose less than 70 Stop: 11/17/16 20:09 Dextrose (Glutose 40%) 18.75 gm PO PRN PRN PRN Reason: Blood Glucose less than 70 Stop: 11/17/16 20:09 Diltiazem HCl (Cardizem) 10 mg IVP Q4HR PRN PRN Reason: HR >130 Stop: 11/18/16 20:11 Donepezil HCl (Aricept) 5 mg PO HS [facility] Stop: 11/17/16 20:59 Last Admin: 09/21/16 20:53 Dose: 5 mg Ezetimibe (Zetia) 10 mg PO HS [facility] Stop: 11/17/16 20:59 Last Admin: 09/21/16 20:52 Dose: 10 mg Glucagon (Glucagen) 1 mg IM PRN PRN PRN Reason: Blood Glucose less than 70 Stop: 11/17/16 20:09 Heparin Sodium (Porcine) (Heparin) 5,000 units SUBQ Q12HR [facility] Stop: 11/18/16 20:59 Last Admin: 09/22/16 09:51 Dose: Not Given Piperacillin Sod/Tazobactam (Sod 3.375 gm/ Sodium Chloride) 50 mls @ 100 mls/ hr IV Q8H [facility] Stop: 11/17/16 19:15 Last Admin: 09/22/16 11:30 Dose: 100 mls/hr Norepinephrine Bitartrate 8 mg (/ Dextrose) 258 mls @ 19.35 mls/hr IV TITR PRN ; Protocol; 10 MCG/MIN PRN Reason: BP MAINTENANCE (PER PROTOCOL) Stop: 11/17/16 19:17 Last Admin: 09/22/16 06:27 Dose: 10 mcg/min, 19.35 mls/hr Micafungin Sodium 100 mg/ (Sodium Chloride) 100 mls @ 100 mls/hr IV Q24H [facility] Stop: 11/17/16 19:59 Last Infusion: 09/21/16 21:00 Dose: Infused Diltiazem HCl 125 mg/ Dextrose 125 mls @ 10 mls/hr IV TITR [facility]; 10 MG/HR PRN Reason: Protocol Stop: 11/18/16 20:32 Last Titration: 09/21/16 19:00 Dose: Infused Vancomycin HCl 1 gm/ Sodium (Chloride) 250 mls @ 165 mls/hr IV Q24H [facility] Stop: 11/20/16 13:59 Last Infusion: 09/21/16 19:02 Dose: Infused Albumin Human (Albutein 25%) 12.5 gm in 50 mls @ 50 mls/hr IV TID [facility] Stop: 09/24/16 14:59 Last Admin: 09/22/16 09:46 Dose: 50 mls/hr Insulin Aspart (Novolog Insulin Sliding Scale) 0 units SUBQ Q6HR [facility] PRN Reason: Protocol Stop: 11/18/16 00:00 Last Admin: 09/22/16 11:57 Dose: Not Given Lactobacillus Rhamnosus (Culturelle) 1 each PO DAILY [facility] Stop: 11/21/16 08:59 Last Admin: 09/22/16 09:50 Dose: Not Given Memantine (Namenda) 5 mg PO DAILY [facility] Stop: 11/18/16 08:59 Last Admin: 09/22/16 09:50 Dose: Not Given Metronidazole (Flagyl) 250 mg PO TID [facility] Stop: 11/18/16 13:59 Last Admin: 09/22/16 09:55 Dose: 250 mg Mineral Oil (Mineral Oil 30 Ml) 30 ml NG DAILY [facility] Stop: 11/19/16 18:14 Last Admin: 09/22/16 09:49 Dose: Not Given Miscellaneous (Vancomycin Iv Per Pharmacy) 1 ea PRN PRN PRN Reason: PROTOCOL Stop: 11/17/16 19:15 Miscellaneous (Vte Chemical Prophylaxis Screen/ Admission) 1 ea PRN PRN PRN Reason: PROTOCOL Stop: 11/18/16 14:22 Miscellaneous (Probiotic Screen) 1 ea PRN PRN PRN Reason: PROTOCOL Stop: 11/20/16 12:42 Morphine Sulfate (Morphine) 1 mg IVP Q6HR PRN PRN Reason: Pain (Moderate) Stop: 11/18/16 20:02 Morphine Sulfate (Morphine) 1 mg IVP Q6H PRN PRN Reason: MODERATE PAIN Stop: 11/19/16 16:26 Ondansetron HCl (Zofran) 4 mg IV Q6HR PRN PRN Reason: NAUSEA/VOMITING Stop: 11/17/16 19:44 Pantoprazole Sodium (Protonix) 40 mg IVP DAILY [facility] Stop: 11/19/16 08:59 Last Admin: 09/22/16 09:55 Dose: 40 mg Sodium Bicarbonate (Sodium Bicarbonate) 650 mg PO BID [facility] PRN Reason: Protocol Stop: 11/19/16 16:59 Last Admin: 09/22/16 09:54 Dose: 650 mg Zinc Sulfate (Zinc Sulfate) 220 mg PO DAILY [facility] Stop: 11/18/16 08:59 Last Admin: 09/22/16 09:49 Dose: Not Given General: No acute distress, Other (Patient is unconscious, responding only to pain) HEENT: Atraumatic, Mucous membr. moist/pink Neck: Supple, +2 carotid pulse wo bruit (irregular rhythm) Cardiovascular: Regular rate, Normal S1, Normal S2, Other (Tachicardic) Lungs: Other (few rhonchi) Abdomen: Bowel sounds, Soft Extremities: Edema (right leg), Other (Pitting edema, amputation above knee of left leg) Neurological: Sensation intact, Other (Non ambulatory) Skin: Other (Multiple decubits ulcers), no Significant lesion (B/L aka) Psych/Mental Status: Mood NL, Other (Unconscious) - Procedures Procedures: Procedures Procedure Code Date AMPUTATE LEG AT THIGH 87314 08/03/16 ANNETTE SUBQ TISSUE 20 SQ CM/< 53535 08/03/16 DETACHMENT AT LEFT UPPER LEG, LOW, OPEN APPROACH [id number] 08/03/16 EXCISION OF R FOOT SUBCU/FASCIA, OPEN APPROACH [id number] 08/03/16 EXCISION OF R LOW LEG SUBCU/FASCIA, OPEN APPROACH [id number] 08/03/16 TRANSFUSE NONAUT RED BLOOD CELLS IN PERIPH VEIN, PERC 43230I3 08/03/16 Assessment/Plan - Problem List Patient Problems: All Active Problems ELEVATED WBC LEVELS (Acute) - Assessment Assessment: MICHAEL Shock Sepsis Sepsis 2nd to C. Diff, Right foot ulcers ?osteo, possible UTI A.Fib W/ RVR Acute Resp Failure Coagulopathy 2nd to DIC, Coumadin Lactic Acidosis T2 DM CAD Bipolar Disorder PAD S/P B/L AKA Possible decomp CHF - Plan Plan: Lab - Result Diagrams 09/20/16 05:05 09/20/16 05:05 Current Medications Acetaminophen (Tylenol) 325 mg PO Q4HR PRN PRN Reason: Fever > 101 Stop: 11/17/16 19:17 Albuterol/Ipratropium (Duoneb Neb) 3 ml HHN Q4HRT [facility] Stop: 11/17/16 22:59 Last Admin: 09/20/16 13:50 Dose: 3 ml Ascorbic Acid (Vitamin C) 500 mg PO DAILY [facility] Stop: 11/18/16 08:59 Last Admin: 09/20/16 12:40 Dose: Not Given Calcium/Vitamin D (Oscal W/Vitamin D) 1 tab PO DAILY [facility] Stop: 11/18/16 08:59 Last Admin: 09/20/16 12:40 Dose: Not Given Dextrose (D50w) 50 ml IVP PRN PRN PRN Reason: Blood Glucose less than 70 Stop: 11/17/16 20:09 Dextrose (Glutose 40%) 18.75 gm PO PRN PRN PRN Reason: Blood Glucose less than 70 Stop: 11/17/16 20:09 Diltiazem HCl (Cardizem) 10 mg IVP Q4HR PRN PRN Reason: HR >130 Stop: 11/18/16 20:11 Donepezil HCl (Aricept) 5 mg PO HS [facility] Stop: 11/17/16 20:59 Last Admin: 09/19/16 21:55 Dose: 5 mg Ezetimibe (Zetia) 10 mg PO HS [facility] Stop: 11/17/16 20:59 Last Admin: 09/19/16 21:45 Dose: 10 mg Glucagon (Glucagen) 1 mg IM PRN PRN PRN Reason: Blood Glucose less than 70 Stop: 11/17/16 20:09 Heparin Sodium (Porcine) (Heparin) 5,000 units SUBQ Q12HR [facility] Stop: 11/18/16 20:59 Last Admin: 09/20/16 08:50 Dose: 5,000 units Piperacillin Sod/Tazobactam (Sod 3.375 gm/ Sodium Chloride) 50 mls @ 100 mls/ hr IV Q8H [facility] Stop: 11/17/16 19:15 Last Infusion: 09/20/16 12:44 Dose: Infused Norepinephrine Bitartrate 8 mg (/ Dextrose) 258 mls @ 19.35 mls/hr IV TITR PRN ; Protocol; 10 MCG/MIN PRN Reason: BP MAINTENANCE (PER PROTOCOL) Stop: 11/17/16 19:17 Last Admin: 09/20/16 12:53 Dose: 10 mcg/min, 19.35 mls/hr Micafungin Sodium 100 mg/ (Sodium Chloride) 100 mls @ 100 mls/hr IV Q24H [facility] Stop: 11/17/16 19:59 Last Admin: 09/19/16 20:30 Dose: 100 mls/hr Vancomycin HCl 1.25 gm/ Sodium (Chloride) 250 mls @ 165 mls/hr IV Q24H [facility] Stop: 11/18/16 10:59 Last Admin: 09/20/16 11:30 Dose: 165 mls/hr Dextrose/Sodium Chloride (D5-0.9%Ns) 1,000 mls @ 125 mls/hr IV .Q8H [facility] Stop: 11/18/16 12:47 Last Admin: 09/20/16 11:28 Dose: 125 mls/hr Diltiazem HCl 125 mg/ Dextrose 125 mls @ 10 mls/hr IV TITR [facility]; 10 MG/HR PRN Reason: Protocol Stop: 11/18/16 20:32 Last Admin: 09/19/16 21:30 Dose: 10 mg/hr, 10 mls/hr Potassium Chloride (Potassium Chloride) 20 meq in 100 mls @ 50 mls/hr IV Q8H [facility] Stop: 09/20/16 17:59 Last Admin: 09/20/16 11:20 Dose: 50 mls/hr Insulin Aspart (Novolog Insulin Sliding Scale) 0 units SUBQ Q6HR [facility] PRN Reason: Protocol Stop: 11/18/16 00:00 Last Admin: 09/20/16 11:50 Dose: 10 units Memantine (Namenda) 5 mg PO DAILY [facility] Stop: 11/18/16 08:59 Last Admin: 09/20/16 12:40 Dose: Not Given Metronidazole (Flagyl) 250 mg PO TID [facility] Stop: 11/18/16 13:59 Last Admin: 09/20/16 12:40 Dose: Not Given Miscellaneous (Vancomycin Iv Per Pharmacy) 1 [facility] PRN PRN PRN Reason: PROTOCOL Stop: 11/17/16 19:15 Miscellaneous (Vte [employer] Prophylaxis Screen/ Admission) 1 [facility] PRN PRN PRN Reason: PROTOCOL Stop: 11/18/16 14:22 Morphine Sulfate (Morphine) 1 mg IVP Q6HR PRN PRN Reason: Pain (Moderate) Stop: 11/18/16 20:02 Ondansetron HCl (Zofran) 4 mg IV Q6HR PRN PRN Reason: NAUSEA/VOMITING Stop: 11/17/16 19:44 Pantoprazole Sodium (Protonix) 40 mg IVP DAILY [facility] Stop: 11/19/16 08:59 Vancomycin HCl (Vancomycin Oral) 250 mg PO TID [facility] Stop: 11/18/16 13:59 Last Admin: 09/20/16 12:41 Dose: Not Given Zinc Sulfate (Zinc Sulfate) 220 mg PO DAILY [facility] Stop: 11/18/16 08:59 Last Admin: 09/19/16 08:43 Dose: 220 mg Cr. better @ 0.9 WBC down to 32.1 to 40.8 continue Na HC03 decrease ivf due to ascites, b/l effusions f/u electrolytes, cbc, PT/INR continue ABx agree w/ K replacement need to discuss w/ pharmacy about cross reactivity of Bumex w/ Lasix allergy Nutritional Asmnt/Malnutr-PDOC - Dietary Evaluation Malnutrition Findings (Please click <Entered> for more info): Nutritional Asmnt/Malnutrition Start: 09/19/16 15: 45 Text: Status: Complete Freq: Document 09/19/16 15:46 [facility] (Rec: 09/19/16 16:02 [facility] [id number]) Nutritional Asmnt/Malnutrition Patient General Information Nutritional Screening Consult Diagnosis Sepsis, pneumonia, hypotension Pertinent Medical Hx/Surgical Hx AFIB, CAD, CHF, HTN, hyperlipidemia, CVA, pneumonia , chronic renal insufficiency, DM, multiple decubitus ulcers in different parts of body, left AKA Subjective Information Nutrition consult for pt is diabetic received and completed. Pt is a 81-year-old female from [facility] admitted with chief complaint of sepsis. Pt is a poor historian at the moment, lethargic and nonverbal. Pt appears obese with edema observed. RD measured wt with medical devices removed, three pillows on bed: 216.2#/98.3 kg. Adjusted BMI with consideration of AKA: 40.3 kg/ m2. Adjusted IBW with consideration of AKA: 113#/51. 4 kg. Per medical records, pt wt 242#/110 kg in August 2016. NGT placed last night 09/18, pending tube feeding order. Current Diet Order/ Nutrition Support NPO Patient / S.O Can't verbalize diet edu Pertinent Medications Vitamin C, Oscal with Vitamin D, D5-0.9 Ns, Novolog (not given during NPO status), Flagyl, Piperacillin, Vancomycin, Coumadin, Zinc Sulfate Pertinent Labs (09/18) Glucose 344H, A1C WNL, HDL Cholesterol 13L, LDL Cholesterol 19L (09/19) Na 132L , K 3.3L, Glucose 290H, POC Glucose 246H-285H, BUN 27H, Creatinine 1.3H, Alkaline Phosphatase 107H, Albumin 2.2L Nutritional Hx/Data Height 1.7 m Height (Calculated Centimeters) 170.2 Current Weight (lbs) 98.067 kg Weight (Calculated Kilograms) 98.1 Weight (Calculated Grams) 02345.7 Usual body Weight (lbs) 242 % Usual Body Weight 89 Nelson Body Weight 113 % Nelson Body Weight 191 Recent Weight Change Yes Weight Status Morbidly Obese GI Symptoms GI Symptoms None Difficult in: Swallowing Food Allergies No Usual diet at home Mechanical soft ground with protein supplement 30 ml BID Skin Integrity/Comment: Grey 10. Pt with multiple wounds body and leg. Estimated Nutritional Goals BEE in Kcals: Using Current wt Calories/Kcals/Kg Based on current wt of 98.3 kg with consideration of wounds, sepsis,obesity Kcals Calculated 7708-8184 kcals/day ([place] St. Jeor x 1.2-1.5) Protein: Adj wt of IBW Protein g/kg: Based on adjusted IBW 51.4 kg with consideration of wounds, sepsis Protein Calculated 93-103 gm/day (1.8-2 gm/kg) Fluid: ml Per MD/DO Nutritional Problem 2. Problem Problem Increased energy and protein needs related to Etiology altered skin integrity as evidenced by Signs/Symptoms: multiple decubitus ulcers to body and leg, per RN notes. 1. Problem Problem Malnutrition related to Etiology morbid obesity as evidenced by Signs/Symptoms: adjusted BMI of 40.3 kg/m2. Malnutrition Alert Protein-Calorie Malnutrition N/A Is there a minimum of two criteria No selected? Query Text:Check all the applicable criteria. A minimum of two criteria are recommended for diagnosis of either severe or non-severe malnutrition. Malnutrition Related to Morbid Obesity Malnutrition related to morbid obesity BMI> or equal to 40 Query Text:(Any 1 Criteria met) Malnutrition related to morbid obesity Yes Intervention/Recommendation Comments 1. When medically appropriate, recommend initiate tube feeding Diabetisource AC at 20 ml/hr. Increase by 10 ml/hr every 4 hours until the goal rate of 70 ml/hr is reached. Tube feeding to provide 2016 kcals, 101 gm protein, and 1374 ml free water per day. 2. Recommend one packet of Arginaid via NGT BID to promote wound healing. Expected Outcomes/Goals Expected Outcomes/Goals Provide pt with 100% of estimated nutritional needs to promote wound healing. Physician Parameters for PEM Serum Albumin (g/dl) <2.4 (Severe)
[2016-09-22] MEDS: Micafungin 100 MG in Sodium Chloride 0.9% 100 ML IV SCH (20:30)
[2016-09-23] MEDS: INSULIN ASPART SLIDING SCALE 100 UNITS/ML UNIT SUBQ SCH ×5 (00:23→23:40)
[2016-09-23] MEDS: Albuterol/Ipratropium Neb 3 ML AERS HHN SCH ×6 (03:08→22:52)
[2016-09-23 07:28] LABS: ANION GAP 11.1 (7.0-16.0); BUN - UREA NITROGEN 23 mg/dL (7-25); BUN/CREATININE RATIO 28.8; CALCIUM SERUM 7.2 mg/dL (8.6-10.3); CARBON DIOXIDE 20.5 mEq/L (21.0-31.0); CHLORIDE 107 mEq/L (98-107); CREATININE - SERUM 0.8 mg/dL (0.6-1.2); GLUCOSE 263 mg/dL (70-105); SODIUM SERUM 136 mEq/L (136-145)
[2016-09-23 07:33] LABS: HEMATOCRIT 24.5 % (35.0-45.0); HEMOGLOBIN 8.6 gm/dL (11.7-16.1); MEAN CELL VOLUME 87.9 fl (81-100); MEAN CORPUSCULAR HEMOGLOBIN 30.7 pg (27.0-31.0); MEAN CORPUSCULAR HGB CONC 34.9 pg (28.0-36.0); MEAN PLATELET VOLUME 8.8 fl; PLATELET COUNT 280 Th/cmm (150-400); RED BLOOD COUNT 2.79 Mil/cmm (3.80-5.20); RED CELL DISTRIBUTION WIDTH 14.4 % (11.5-20.0)
[2016-09-23 08:20] LABS: WHITE BLOOD COUNT 33.2 Th/cmm (4.8-10.8)
[2016-09-23 08:22] LABS: POTASSIUM SERUM 2.6 mEq/L (3.5-5.1)
--- NOTE | 2016-09-23 08:32 | Diagnostic Imaging Report ---
Exam: Portable summation of chest. HISTORY: Congestive heart failure Findings: Portable upright examination of the chest at 0759 hours reviewed no prior studies available for comparison. The study demonstrates NG tube passes stomach. There is evidence for mild congestion. Left suprahilar peribronchial infiltrate is noted. The costophrenic angle blunted the right side due to pleural thickening. Bony thorax remarkable for degenerative osteopenia. IMPRESSION: 1. Mild congestion 2. Interstitial infiltrate in the left upper lung, follow-up is recommended.
[2016-09-23] MEDS ORDERED: KCL 20mEq/100mL Premix 20 MEQ/100 ML PIGGYBACK IV ONE ×3 (08:43→11:30)
[2016-09-23 08:58] LABS: BAND NEUTROPHILE 2 % (0-10); NEUTROPHILS 83 % (40-80); PLATELET ESTIMATE ADEQUATE (NORMAL); PLATELET MORPHOLOGY NORMAL (NORMAL); TOTAL CELLS COUNTED 100
[2016-09-23] MEDS: Venelex 60gm Tube TP SCH (09:00)
[2016-09-23] MEDS: Lactobacillus Rhamnosus 10 Billion CFU Capsule PO SCH (09:00)
[2016-09-23] MEDS: Calcium Carb/Vit D 500 mg/200 U Tab PO SCH (09:00)
[2016-09-23] MEDS ORDERED: IOHEXOL 350mg/mL 150mL IV ONE (11:07)
[2016-09-23] MEDS: Albumin 25% 12.5gm/50mL 12.5 GM/50 ML BTL IV SCH ×3 (11:46→21:47)
[2016-09-23] MEDS ORDERED: MAG SULFATE IV ONE (13:45)
--- NOTE | 2016-09-23 14:32 | General Progress Note ---
Subjective - Review of Systems Service Date: 09/23/16 Events since last encounter: labs noted, receiving KCL minimal ADELITA drainage still on Levo Objective - Results Result Diagrams: 09/23/16 06:18 09/23/16 06:18 Recent Labs: Laboratory Last Values WBC 33.2 Th/cmm (4.8-10.8) H* 09/23/16 06:18 RBC 2.79 Mil/cmm (3.80-5.20) L 09/23/16 06:18 Hgb 8.6 gm/dL (11.7-16.1) L 09/23/16 06:18 Hct 24.5 % (35.0-45.0) L 09/23/16 06:18 MCV 87.9 fl (81-100) 09/23/16 06:18 MCH 30.7 pg (27.0-31.0) 09/23/16 06:18 MCHC Differential 34.9 pg (28.0-36.0) 09/23/16 06:18 RDW 14.4 % (11.5-20.0) 09/23/16 06:18 Plt Count 280 Th/cmm (150-400) 09/23/16 06:18 MPV 8.8 fl 09/23/16 06:18 Band Neutrophils % 2 % (0-10) 09/23/16 06:18 Neutrophils (Manual) 83 % (40-80) H 09/23/16 06:18 Lymphocytes 12 % (20-50) L 09/23/16 06:18 Monocytes 3 % (2-10) 09/23/16 06:18 Eosinophils 0 % (0-5) 09/22/16 04:16 Basophils 0 % (0-3) 09/22/16 04:16 Metamyelocytes 1 % (0-0) H 09/20/16 05:05 Nucleated RBCs 1.0 % (0-0) H 09/23/16 06:18 Platelet Estimate ADEQUATE (NORMAL) 09/23/16 06:18 Platelet Morphology NORMAL (NORMAL) 09/23/16 06:18 Polychromasia 1+ 09/20/16 05:05 Anisocytosis 1+ 09/20/16 05:05 RBC Morph Micro Appear NORMAL (NORMAL) 09/23/16 06:18 Smear Path Review SEE BELOW 09/19/16 04:55 PT 14.0 SECONDS (9.5-11.5) H 09/22/16 04:16 INR 1.33 (0.5-1.4) 09/22/16 04:16 PTT (Actin FS) 46.9 SECONDS (26.0-38.0) H 09/21/16 05:30 Specimen Source Arterial 09/20/16 10:40 Sample Site rb 09/20/16 10:40 pH 7.35 (7.35-7.45) 09/20/16 10:40 pCO2 32.0 mmHg (35.0-45.0) L 09/20/16 10:40 pO2 68.0 mmHg (80.0-100.0) L 09/20/16 10:40 HCO3 19.4 mEq/L (20.0-26.0) L 09/20/16 10:40 Base Excess -6.9 mEq/L (-3.0-3.0) L 09/20/16 10:40 O2 Saturation 92.0 % (92.0-100.0) 09/20/16 10:40 Toni Test na 09/20/16 10:40 Vent Rate na 09/20/16 10:40 Inspired O2 36 09/20/16 10:40 Tidal Volume na 09/20/16 10:40 PEEP na 09/20/16 10:40 Pressure (ins/psv/peep) na 09/20/16 10:40 Critical Value e.[place]il[place] 09/20/16 10:40 Sodium 136 mEq/L (136-145) 09/23/16 06:18 Potassium 2.6 mEq/L (3.5-5.1) L* 09/23/16 06:18 Chloride 107 mEq/L (98-107) 09/23/16 06:18 Carbon Dioxide 20.5 mEq/L (21.0-31.0) L 09/23/16 06:18 Anion Gap 11.1 (7.0-16.0) 09/23/16 06:18 BUN 23 mg/dL (7-25) 09/23/16 06:18 Creatinine 0.8 mg/dL (0.6-1.2) 09/23/16 06:18 Est GFR ( Amer) TNP 09/23/16 06:18 Est GFR (Non-Af Amer) TNP 09/23/16 06:18 BUN/Creatinine Ratio 28.8 09/23/16 06:18 Glucose 263 mg/dL (70-105) H 09/23/16 06:18 POC Glucose 251 MG/DL (70 - 105) H 09/23/16 06:01 Hemoglobin A1c % 5.7 % (4.0-6.0) 09/18/16 14:24 Whole Bld Lactic Acid 1.45 mmol/L (0.60-1.99) 09/23/16 11:21 Calcium 7.2 mg/dL (8.6-10.3) L 09/23/16 06:18 Magnesium 1.3 mg/dL (1.9-2.7) L 09/23/16 06:18 Total Bilirubin 1.0 mg/dL (0.3-1.0) 09/22/16 04:16 AST 8 U/L (13-39) L 09/22/16 04:16 ALT 4 U/L (7-52) L 09/22/16 04:16 Alkaline Phosphatase 71 U/L (34-104) 09/22/16 04:16 Troponin I 0.47 ng/mL (0.01-0.05) H* D 09/18/16 15:24 B-Natriuretic Peptide 1120.0 pg/mL (5.0-100.0) H 09/21/16 05:30 Total Protein 4.4 gm/dL (6.0-8.3) L 09/22/16 04:16 Albumin 2.2 gm/dL (3.7-5.3) L 09/22/16 04:16 Globulin 2.2 gm/dL 09/22/16 04:16 Albumin/Globulin Ratio 1.0 (1.0-1.8) 09/22/16 04:16 Triglycerides 130 mg/dL (<150) 09/18/16 15:24 Cholesterol 48 mg/dL (<200) 09/18/16 15:24 LDL Cholesterol Direct 19 mg/dL (75-193) L 09/18/16 15:24 HDL Cholesterol 13 mg/dL (23-92) L 09/18/16 15:24 TSH 7.73 uIU/ml (0.34-5.60) H 09/18/16 15:24 Urine Source [place] 09/18/16 16:25 Urine Color YELLOW 09/18/16 16:25 Urine Clarity SLIGHT CLOUDY (CLEAR) 09/18/16 16:25 Urine pH 5.5 (4.6 - 8.0) 09/18/16 16:25 Ur Specific [place] 1.015 (1.005-1.030) 09/18/16 16:25 Urine Protein TRACE mg/dL (NEGATIVE) 09/18/16 16:25 Urine Glucose (UA) NEGATIVE mg/dL (NEGATIVE) 09/18/16 16:25 Urine Ketones NEGATIVE mg/dL (NEGATIVE) 09/18/16 16:25 Urine Blood NEGATIVE (NEGATIVE) 09/18/16 16:25 Urine Nitrate NEGATIVE (NEGATIVE) 09/18/16 16:25 Urine Bilirubin NEGATIVE (NEGATIVE) 09/18/16 16:25 Urine Urobilinogen 0.2 E.U./dL (0.2 - 1.0) 09/18/16 16:25 Ur Leukocyte Esterase SMALL (NEGATIVE) H 09/18/16 16:25 Urine RBC 2-5 /hpf (0-5) 09/18/16 16:25 Urine WBC 50-100 /hpf (0-5) H 09/18/16 16:25 Ur Epithelial Cells FEW /lpf (FEW) 09/18/16 16:25 Urine Bacteria 1+ /hpf (NONE SEEN) H 09/18/16 16:25 Vancomycin Trough 26.2 ug/mL (10-20) H 09/21/16 11:37 RPR NONREACTIVE (NONREACTIVE) 09/18/16 15:24 Blood Type O POSITIVE 09/21/16 09:30 Antibody Screen NEGATIVE 09/21/16 09:30 - Physical Exam Vitals and I&O: Vital Signs Temp 97.0 F 09/23/16 04:00 Pulse 103 09/23/16 11:39 Resp 23 09/23/16 11:39 BP 102/54 09/23/16 07:15 Pulse Ox 99 09/23/16 11:39 Intake & Output 09/22/16 09/23/16 09/23/16 18:59 06:59 18:59 Intake Total 940 558 Output Total 435 450 Balance 505 108 Weight (lbs) 96.247 kg 97.522 kg Intake: Intake, IV Amount 500 508 Albumin 25% 12.5gm/50mL 100 50 12.5 gm In 50 ml @ 50 mls /hr IV TID [facility] Rx#: [id number] KCL 20mEq/100mL Premix 20 100 meq In 100 ml @ 50 mls/ hr IV Q2H [facility] Rx#: [id number] Micafungin 100 mg In 100 Sodium Chloride 0.9% 100 ml @ 100 mls/hr IV Q24H [facility] Rx#:[id number] Norepinephrine 8 mg In 258 Dextrose 5% 250 ml @ 10 MCG/MIN 19.35 mls/hr IV TITR PRN Rx#:[id number] Piperacillin Sodium/ 50 100 Tazobact 3.375 gm In Sodium Chloride 0.9% 50 ml @ 100 mls/hr IV Q8H [facility] Rx#:[id number] Vancomycin HCl 1 gm In 250 Sodium Chloride 0.9% 250 ml @ 165 mls/hr IV Q24H [facility] Rx#:[id number] Tube Feeding 210 Albumin 50 Other 230 Output: Drainage 60 Right Thigh 60 Urine 275 400 Other 100 50 Other: # Bowel Movements 1 1 Stool Characteristics Liquid Soft Brown Brown Active Medications: Current Medications Acetaminophen (Tylenol) 325 mg PO Q4HR PRN PRN Reason: Fever > 101 Stop: 11/17/16 19:17 Albuterol/Ipratropium (Duoneb Neb) 3 ml HHN Q4HRT [facility] Stop: 11/17/16 22:59 Last Admin: 09/23/16 11:29 Dose: 3 ml Ascorbic Acid (Vitamin C) 500 mg PO DAILY [facility] Stop: 11/18/16 08:59 Last Admin: 09/22/16 09:50 Dose: Not Given Calcium/Vitamin D (Oscal W/Vitamin D) 1 tab PO DAILY [facility] Stop: 11/18/16 08:59 Last Admin: 09/22/16 09:50 Dose: Not Given Dextrose (D50w) 50 ml IVP PRN PRN PRN Reason: Blood Glucose less than 70 Stop: 11/17/16 20:09 Dextrose (Glutose 40%) 18.75 gm PO PRN PRN PRN Reason: Blood Glucose less than 70 Stop: 11/17/16 20:09 Diltiazem HCl (Cardizem) 10 mg IVP Q4HR PRN PRN Reason: HR >130 Stop: 11/18/16 20:11 Donepezil HCl (Aricept) 5 mg PO HS [facility] Stop: 11/17/16 20:59 Last Admin: 09/22/16 21:19 Dose: 5 mg Ezetimibe (Zetia) 10 mg PO HS [facility] Stop: 11/17/16 20:59 Last Admin: 09/22/16 21:19 Dose: 10 mg Glucagon (Glucagen) 1 mg IM PRN PRN PRN Reason: Blood Glucose less than 70 Stop: 11/17/16 20:09 Heparin Sodium (Porcine) (Heparin) 5,000 units SUBQ Q12HR [facility] Stop: 11/18/16 20:59 Last Admin: 09/23/16 11:10 Dose: 5,000 units Norepinephrine Bitartrate 8 mg (/ Dextrose) 258 mls @ 19.35 mls/hr IV TITR PRN ; Protocol; 10 MCG/MIN PRN Reason: BP MAINTENANCE (PER PROTOCOL) Stop: 11/17/16 19:17 Last Admin: 09/22/16 20:40 Dose: 9 mcg/min, 17.41 mls/hr Micafungin Sodium 100 mg/ (Sodium Chloride) 100 mls @ 100 mls/hr IV Q24H [facility] Stop: 11/17/16 19:59 Last Infusion: 09/22/16 21:30 Dose: Infused Diltiazem HCl 125 mg/ Dextrose 125 mls @ 10 mls/hr IV TITR [facility]; 10 MG/HR PRN Reason: Protocol Stop: 11/18/16 20:32 Last Titration: 09/21/16 19:00 Dose: Infused Vancomycin HCl 1 gm/ Sodium (Chloride) 250 mls @ 165 mls/hr IV Q24H [facility] Stop: 11/20/16 13:59 Last Infusion: 09/22/16 16:25 Dose: Infused Albumin Human (Albutein 25%) 12.5 gm in 50 mls @ 50 mls/hr IV TID [facility] Stop: 09/24/16 14:59 Last Admin: 09/23/16 11:46 Dose: 50 mls/hr Ceftazidime 1 gm/ Dextrose 50 mls @ 100 mls/hr IV Q8HR [facility] Stop: 11/22/16 13:29 Magnesium Sulfate (Magnesium Sulfate Premix) 4 gm in 100 mls @ 25 mls/hr IV X1 ONE Stop: 09/23/16 17:44 Insulin Aspart (Novolog Insulin Sliding Scale) 0 units SUBQ Q6HR [facility] PRN Reason: Protocol Stop: 11/22/16 00:00 Last Admin: 09/23/16 12:34 Dose: 2 units Lactobacillus Rhamnosus (Culturelle) 1 each PO DAILY [facility] Stop: 11/21/16 08:59 Last Admin: 09/22/16 09:50 Dose: Not Given Memantine (Namenda) 5 mg PO DAILY [facility] Stop: 11/18/16 08:59 Last Admin: 09/22/16 09:50 Dose: Not Given Metronidazole (Flagyl) 250 mg PO TID [facility] Stop: 11/18/16 13:59 Last Admin: 09/22/16 21:19 Dose: 250 mg Mineral Oil (Mineral Oil 30 Ml) 30 ml NG DAILY [facility] Stop: 11/19/16 18:14 Last Admin: 09/22/16 09:49 Dose: Not Given Miscellaneous (Vancomycin Iv Per Pharmacy) 1 ea PRN PRN PRN Reason: PROTOCOL Stop: 11/17/16 19:15 Miscellaneous (Vte Chemical Prophylaxis Screen/ Admission) 1 ea PRN PRN PRN Reason: PROTOCOL Stop: 11/18/16 14:22 Miscellaneous (Probiotic Screen) 1 ea PRN PRN PRN Reason: PROTOCOL Stop: 11/20/16 12:42 Morphine Sulfate (Morphine) 1 mg IVP Q6HR PRN PRN Reason: Pain (Moderate) Stop: 11/18/16 20:02 Morphine Sulfate (Morphine) 1 mg IVP Q6H PRN PRN Reason: MODERATE PAIN Stop: 11/19/16 16:26 Ondansetron HCl (Zofran) 4 mg IV Q6HR PRN PRN Reason: NAUSEA/VOMITING Stop: 11/17/16 19:44 Pantoprazole Sodium (Protonix) 40 mg IVP DAILY [facility] Stop: 11/19/16 08:59 Last Admin: 09/23/16 11:09 Dose: 40 mg Sodium Bicarbonate (Sodium Bicarbonate) 650 mg PO BID [facility] PRN Reason: Protocol Stop: 11/19/16 16:59 Last Admin: 09/22/16 16:12 Dose: 650 mg Zinc Sulfate (Zinc Sulfate) 220 mg PO DAILY [facility] Stop: 11/18/16 08:59 Last Admin: 09/22/16 09:49 Dose: Not Given General: No acute distress, Other (Patient is unconscious, responding only to pain) HEENT: Atraumatic, Mucous membr. moist/pink Neck: Supple, +2 carotid pulse wo bruit (irregular rhythm) Cardiovascular: Regular rate, Normal S1, Normal S2, Other (Tachicardic) Lungs: Other (few rhonchi) Abdomen: Bowel sounds, Soft Extremities: Edema (right leg), Other (Pitting edema, amputation above knee of left leg) Neurological: Sensation intact, Other (Non ambulatory) Skin: Other (Multiple decubits ulcers), no Significant lesion (B/L aka) Psych/Mental Status: Mood NL, Other (Unconscious) - Procedures Procedures: Procedures Procedure Code Date AMPUTATE LEG AT THIGH 00630 09/18/16 ANNETTE SUBQ TISSUE 20 SQ CM/< 77039 08/03/16 DETACHMENT AT LEFT UPPER LEG, LOW, OPEN APPROACH [id number] 08/03/16 DETACHMENT AT RIGHT UPPER LEG, LOW, OPEN APPROACH [id number] 09/18/16 EXCISION OF R FOOT SUBCU/FASCIA, OPEN APPROACH [id number] 08/03/16 EXCISION OF R LOW LEG SUBCU/FASCIA, OPEN APPROACH [id number] 08/03/16 TRANSFUSE NONAUT RED BLOOD CELLS IN PERIPH VEIN, PERC [id number] 08/03/16 Assessment/Plan - Problem List Patient Problems: All Active Problems ELEVATED WBC LEVELS (Acute) Nutritional Asmnt/Malnutr-PDOC - Dietary Evaluation Malnutrition Findings (Please click <Entered> for more info): Nutritional Asmnt/Malnutrition Start: 09/19/16 15: 45 Text: Status: Complete Freq: Document 09/19/16 15:46 [facility] (Rec: 09/19/16 16:02 [facility] [id number]) Nutritional Asmnt/Malnutrition Patient General Information Nutritional Screening Consult Diagnosis Sepsis, pneumonia, hypotension Pertinent Medical Hx/Surgical Hx AFIB, CAD, CHF, HTN, hyperlipidemia, CVA, pneumonia , chronic renal insufficiency, DM, multiple decubitus ulcers in different parts of body, left AKA Subjective Information Nutrition consult for pt is diabetic received and completed. Pt is a 81-year-old female from [facility] admitted with chief complaint of sepsis. Pt is a poor historian at the moment, lethargic and nonverbal. Pt appears obese with edema observed. RD measured wt with medical devices removed, three pillows on bed: 216.2#/98.3 kg. Adjusted BMI with consideration of AKA: 40.3 kg/ m2. Adjusted IBW with consideration of AKA: 113#/51. 4 kg. Per medical records, pt wt 242#/110 kg in August 2016. NGT placed last night 09/18, pending tube feeding order. Current Diet Order/ Nutrition Support NPO Patient / S.O Can't verbalize diet edu Pertinent Medications Vitamin C, Oscal with Vitamin D, D5-0.9 Ns, Novolog (not given during NPO status), Flagyl, Piperacillin, Vancomycin, Coumadin, Zinc Sulfate Pertinent Labs (09/18) Glucose 344H, A1C WNL, HDL Cholesterol 13L, LDL Cholesterol 19L (09/19) Na 132L , K 3.3L, Glucose 290H, POC Glucose 246H-285H, BUN 27H, Creatinine 1.3H, Alkaline Phosphatase 107H, Albumin 2.2L Nutritional Hx/Data Height 1.7 m Height (Calculated Centimeters) 170.2 Current Weight (lbs) 98.067 kg Weight (Calculated Kilograms) 98.1 Weight (Calculated Grams) 55936.7 Usual body Weight (lbs) 242 % Usual Body Weight 89 [place] Body Weight 113 % [place] Body Weight 191 Recent Weight Change Yes Weight Status Morbidly Obese GI Symptoms GI Symptoms None Difficult in: Swallowing Food Allergies No Usual diet at home Mechanical soft ground with protein supplement 30 ml BID Skin Integrity/Comment: Grey 10. Pt with multiple wounds body and leg. Estimated Nutritional Goals BEE in Kcals: Using Current wt Calories/Kcals/Kg Based on current wt of 98.3 kg with consideration of wounds, sepsis,obesity Kcals Calculated 3441-4492 kcals/day (Door St. Jeor x 1.2-1.5) Protein: Adj wt of IBW Protein g/kg: Based on adjusted IBW 51.4 kg with consideration of wounds, sepsis Protein Calculated 93-103 gm/day (1.8-2 gm/kg) Fluid: ml Per MD/DO Nutritional Problem 2. Problem Problem Increased energy and protein needs related to Etiology altered skin integrity as evidenced by Signs/Symptoms: multiple decubitus ulcers to body and leg, per RN notes. 1. Problem Problem Malnutrition related to Etiology morbid obesity as evidenced by Signs/Symptoms: adjusted BMI of 40.3 kg/m2. Malnutrition Alert Protein-Calorie Malnutrition N/A Is there a minimum of two criteria No selected? Query Text:Check all the applicable criteria. A minimum of two criteria are recommended for diagnosis of either severe or non-severe malnutrition. Malnutrition Related to Morbid Obesity Malnutrition related to morbid obesity BMI> or equal to 40 Query Text:(Any 1 Criteria met) Malnutrition related to morbid obesity Yes Intervention/Recommendation Comments 1. When medically appropriate, recommend initiate tube feeding Diabetisource AC at 20 ml/hr. Increase by 10 ml/hr every 4 hours until the goal rate of 70 ml/hr is reached. Tube feeding to provide 2016 kcals, 101 gm protein, and 1374 ml free water per day. 2. Recommend one packet of Arginaid via NGT BID to promote wound healing. Expected Outcomes/Goals Expected Outcomes/Goals Provide pt with 100% of estimated nutritional needs to promote wound healing. Physician Parameters for PEM Serum Albumin (g/dl) <2.4 (Severe)
--- NOTE | 2016-09-23 15:20 | General Progress Note ---
Subjective - Review of Systems Service Date: 09/23/16 Subjective: remains stuporous, but comfortable Objective - Results Result Diagrams: 09/23/16 06:18 09/23/16 06:18 Recent Labs: Laboratory Last Values WBC 33.2 Th/cmm (4.8-10.8) H* 09/23/16 06:18 RBC 2.79 Mil/cmm (3.80-5.20) L 09/23/16 06:18 Hgb 8.6 gm/dL (11.7-16.1) L 09/23/16 06:18 Hct 24.5 % (35.0-45.0) L 09/23/16 06:18 MCV 87.9 fl (81-100) 09/23/16 06:18 MCH 30.7 pg (27.0-31.0) 09/23/16 06:18 MCHC Differential 34.9 pg (28.0-36.0) 09/23/16 06:18 RDW 14.4 % (11.5-20.0) 09/23/16 06:18 Plt Count 280 Th/cmm (150-400) 09/23/16 06:18 MPV 8.8 fl 09/23/16 06:18 Band Neutrophils % 2 % (0-10) 09/23/16 06:18 Neutrophils (Manual) 83 % (40-80) H 09/23/16 06:18 Lymphocytes 12 % (20-50) L 09/23/16 06:18 Monocytes 3 % (2-10) 09/23/16 06:18 Eosinophils 0 % (0-5) 09/22/16 04:16 Basophils 0 % (0-3) 09/22/16 04:16 Metamyelocytes 1 % (0-0) H 09/20/16 05:05 Nucleated RBCs 1.0 % (0-0) H 09/23/16 06:18 Platelet Estimate ADEQUATE (NORMAL) 09/23/16 06:18 Platelet Morphology NORMAL (NORMAL) 09/23/16 06:18 Polychromasia 1+ 09/20/16 05:05 Anisocytosis 1+ 09/20/16 05:05 RBC Morph Micro Appear NORMAL (NORMAL) 09/23/16 06:18 Smear Path Review SEE BELOW 09/19/16 04:55 PT 14.0 SECONDS (9.5-11.5) H 09/22/16 04:16 INR 1.33 (0.5-1.4) 09/22/16 04:16 PTT (Actin FS) 46.9 SECONDS (26.0-38.0) H 09/21/16 05:30 Specimen Source Arterial 09/20/16 10:40 Sample Site rb 09/20/16 10:40 pH 7.35 (7.35-7.45) 09/20/16 10:40 pCO2 32.0 mmHg (35.0-45.0) L 09/20/16 10:40 pO2 68.0 mmHg (80.0-100.0) L 09/20/16 10:40 HCO3 19.4 mEq/L (20.0-26.0) L 09/20/16 10:40 Base Excess -6.9 mEq/L (-3.0-3.0) L 09/20/16 10:40 O2 Saturation 92.0 % (92.0-100.0) 09/20/16 10:40 Toni Test na 09/20/16 10:40 Vent Rate na 09/20/16 10:40 Inspired O2 36 09/20/16 10:40 Tidal Volume na 09/20/16 10:40 PEEP na 09/20/16 10:40 Pressure (ins/psv/peep) na 09/20/16 10:40 Critical Value e.aguilera 09/20/16 10:40 Sodium 136 mEq/L (136-145) 09/23/16 06:18 Potassium 2.6 mEq/L (3.5-5.1) L* 09/23/16 06:18 Chloride 107 mEq/L (98-107) 09/23/16 06:18 Carbon Dioxide 20.5 mEq/L (21.0-31.0) L 09/23/16 06:18 Anion Gap 11.1 (7.0-16.0) 09/23/16 06:18 BUN 23 mg/dL (7-25) 09/23/16 06:18 Creatinine 0.8 mg/dL (0.6-1.2) 09/23/16 06:18 Est GFR ( Amer) TNP 09/23/16 06:18 Est GFR (Non-Af Amer) TNP 09/23/16 06:18 BUN/Creatinine Ratio 28.8 09/23/16 06:18 Glucose 263 mg/dL (70-105) H 09/23/16 06:18 POC Glucose 251 MG/DL (70 - 105) H 09/23/16 06:01 Hemoglobin A1c % 5.7 % (4.0-6.0) 09/18/16 14:24 Whole Bld Lactic Acid 1.45 mmol/L (0.60-1.99) 09/23/16 11:21 Calcium 7.2 mg/dL (8.6-10.3) L 09/23/16 06:18 Magnesium 1.3 mg/dL (1.9-2.7) L 09/23/16 06:18 Total Bilirubin 1.0 mg/dL (0.3-1.0) 09/22/16 04:16 AST 8 U/L (13-39) L 09/22/16 04:16 ALT 4 U/L (7-52) L 09/22/16 04:16 Alkaline Phosphatase 71 U/L (34-104) 09/22/16 04:16 Troponin I 0.47 ng/mL (0.01-0.05) H* D 09/18/16 15:24 B-Natriuretic Peptide 1120.0 pg/mL (5.0-100.0) H 09/21/16 05:30 Total Protein 4.4 gm/dL (6.0-8.3) L 09/22/16 04:16 Albumin 2.2 gm/dL (3.7-5.3) L 09/22/16 04:16 Globulin 2.2 gm/dL 09/22/16 04:16 Albumin/Globulin Ratio 1.0 (1.0-1.8) 09/22/16 04:16 Triglycerides 130 mg/dL (<150) 09/18/16 15:24 Cholesterol 48 mg/dL (<200) 09/18/16 15:24 LDL Cholesterol Direct 19 mg/dL (75-193) L 09/18/16 15:24 HDL Cholesterol 13 mg/dL (23-92) L 09/18/16 15:24 TSH 7.73 uIU/ml (0.34-5.60) H 09/18/16 15:24 Urine Source [place] 09/18/16 16:25 Urine Color YELLOW 09/18/16 16:25 Urine Clarity SLIGHT CLOUDY (CLEAR) 09/18/16 16:25 Urine pH 5.5 (4.6 - 8.0) 09/18/16 16:25 Ur Specific [place] 1.015 (1.005-1.030) 09/18/16 16:25 Urine Protein TRACE mg/dL (NEGATIVE) 09/18/16 16:25 Urine Glucose (UA) NEGATIVE mg/dL (NEGATIVE) 09/18/16 16:25 Urine Ketones NEGATIVE mg/dL (NEGATIVE) 09/18/16 16:25 Urine Blood NEGATIVE (NEGATIVE) 09/18/16 16:25 Urine Nitrate NEGATIVE (NEGATIVE) 09/18/16 16:25 Urine Bilirubin NEGATIVE (NEGATIVE) 09/18/16 16:25 Urine Urobilinogen 0.2 E.U./dL (0.2 - 1.0) 09/18/16 16:25 Ur Leukocyte Esterase SMALL (NEGATIVE) H 09/18/16 16:25 Urine RBC 2-5 /hpf (0-5) 09/18/16 16:25 Urine WBC 50-100 /hpf (0-5) H 09/18/16 16:25 Ur Epithelial Cells FEW /lpf (FEW) 09/18/16 16:25 Urine Bacteria 1+ /hpf (NONE SEEN) H 09/18/16 16:25 Vancomycin Trough 26.2 ug/mL (10-20) H 09/21/16 11:37 RPR NONREACTIVE (NONREACTIVE) 09/18/16 15:24 Blood Type O POSITIVE 09/21/16 09:30 Antibody Screen NEGATIVE 09/21/16 09:30 - Physical Exam Vitals and I&O: Vital Signs Temp 97.0 F 09/23/16 04:00 Pulse 103 09/23/16 11:39 Resp 23 09/23/16 11:39 BP 113/60 09/23/16 09:00 Pulse Ox 99 09/23/16 11:39 Intake & Output 09/22/16 09/23/16 09/23/16 18:59 06:59 18:59 Intake Total 940 558 Output Total 435 450 Balance 505 108 Weight (lbs) 96.247 kg 97.522 kg Intake: Intake, IV Amount 500 508 Albumin 25% 12.5gm/50mL 100 50 12.5 gm In 50 ml @ 50 mls /hr IV TID [facility] Rx#: [id number] KCL 20mEq/100mL Premix 20 100 meq In 100 ml @ 50 mls/ hr IV Q2H [facility] Rx#: [id number] Micafungin 100 mg In 100 Sodium Chloride 0.9% 100 ml @ 100 mls/hr IV Q24H [facility] Rx#:[id number] Norepinephrine 8 mg In 258 Dextrose 5% 250 ml @ 10 MCG/MIN 19.35 mls/hr IV TITR PRN Rx#:[id number] Piperacillin Sodium/ 50 100 Tazobact 3.375 gm In Sodium Chloride 0.9% 50 ml @ 100 mls/hr IV Q8H [facility] Rx#:[id number] Vancomycin HCl 1 gm In 250 Sodium Chloride 0.9% 250 ml @ 165 mls/hr IV Q24H [facility] Rx#:[id number] Tube Feeding 210 Albumin 50 Other 230 Output: Drainage 60 Right Thigh 60 Urine 275 400 Other 100 50 Other: # Bowel Movements 1 1 Stool Characteristics Liquid Soft Brown Brown Active Medications: Current Medications Acetaminophen (Tylenol) 325 mg PO Q4HR PRN PRN Reason: Fever > 101 Stop: 11/17/16 19:17 Albuterol/Ipratropium (Duoneb Neb) 3 ml HHN Q4HRT [facility] Stop: 11/17/16 22:59 Last Admin: 09/23/16 11:29 Dose: 3 ml Ascorbic Acid (Vitamin C) 500 mg PO DAILY [facility] Stop: 11/18/16 08:59 Last Admin: 09/22/16 09:50 Dose: Not Given Calcium/Vitamin D (Oscal W/Vitamin D) 1 tab PO DAILY [facility] Stop: 11/18/16 08:59 Last Admin: 09/22/16 09:50 Dose: Not Given Dextrose (D50w) 50 ml IVP PRN PRN PRN Reason: Blood Glucose less than 70 Stop: 11/17/16 20:09 Dextrose (Glutose 40%) 18.75 gm PO PRN PRN PRN Reason: Blood Glucose less than 70 Stop: 11/17/16 20:09 Diltiazem HCl (Cardizem) 10 mg IVP Q4HR PRN PRN Reason: HR >130 Stop: 11/18/16 20:11 Donepezil HCl (Aricept) 5 mg PO HS [facility] Stop: 11/17/16 20:59 Last Admin: 09/22/16 21:19 Dose: 5 mg Ezetimibe (Zetia) 10 mg PO HS [facility] Stop: 11/17/16 20:59 Last Admin: 09/22/16 21:19 Dose: 10 mg Glucagon (Glucagen) 1 mg IM PRN PRN PRN Reason: Blood Glucose less than 70 Stop: 11/17/16 20:09 Heparin Sodium (Porcine) (Heparin) 5,000 units SUBQ Q12HR [facility] Stop: 11/18/16 20:59 Last Admin: 09/23/16 11:10 Dose: 5,000 units Norepinephrine Bitartrate 8 mg (/ Dextrose) 258 mls @ 19.35 mls/hr IV TITR PRN ; Protocol; 10 MCG/MIN PRN Reason: BP MAINTENANCE (PER PROTOCOL) Stop: 11/17/16 19:17 Last Admin: 09/22/16 20:40 Dose: 9 mcg/min, 17.41 mls/hr Micafungin Sodium 100 mg/ (Sodium Chloride) 100 mls @ 100 mls/hr IV Q24H [facility] Stop: 11/17/16 19:59 Last Infusion: 09/22/16 21:30 Dose: Infused Diltiazem HCl 125 mg/ Dextrose 125 mls @ 10 mls/hr IV TITR [facility]; 10 MG/HR PRN Reason: Protocol Stop: 11/18/16 20:32 Last Titration: 09/21/16 19:00 Dose: Infused Vancomycin HCl 1 gm/ Sodium (Chloride) 250 mls @ 165 mls/hr IV Q24H [facility] Stop: 11/20/16 13:59 Last Infusion: 09/22/16 16:25 Dose: Infused Albumin Human (Albutein 25%) 12.5 gm in 50 mls @ 50 mls/hr IV TID [facility] Stop: 09/24/16 14:59 Last Admin: 09/23/16 11:46 Dose: 50 mls/hr Ceftazidime 1 gm/ Dextrose 50 mls @ 100 mls/hr IV Q8HR [facility] Stop: 11/22/16 13:29 Last Admin: 09/23/16 15:04 Dose: 100 mls/hr Magnesium Sulfate (Magnesium Sulfate Premix) 4 gm in 100 mls @ 25 mls/hr IV X1 ONE Stop: 09/23/16 17:44 Insulin Aspart (Novolog Insulin Sliding Scale) 0 units SUBQ Q6HR [facility] PRN Reason: Protocol Stop: 11/22/16 00:00 Last Admin: 09/23/16 12:34 Dose: 2 units Lactobacillus Rhamnosus (Culturelle) 1 each PO DAILY [facility] Stop: 11/21/16 08:59 Last Admin: 09/22/16 09:50 Dose: Not Given Memantine (Namenda) 5 mg PO DAILY [facility] Stop: 11/18/16 08:59 Last Admin: 09/22/16 09:50 Dose: Not Given Metronidazole (Flagyl) 250 mg PO TID [facility] Stop: 11/18/16 13:59 Last Admin: 09/22/16 21:19 Dose: 250 mg Mineral Oil (Mineral Oil 30 Ml) 30 ml NG DAILY [facility] Stop: 11/19/16 18:14 Last Admin: 09/22/16 09:49 Dose: Not Given Miscellaneous (Vancomycin Iv Per Pharmacy) 1 ea PRN PRN PRN Reason: PROTOCOL Stop: 11/17/16 19:15 Miscellaneous (Vte Chemical Prophylaxis Screen/ Admission) 1 ea PRN PRN PRN Reason: PROTOCOL Stop: 11/18/16 14:22 Miscellaneous (Probiotic Screen) 1 ea PRN PRN PRN Reason: PROTOCOL Stop: 11/20/16 12:42 Morphine Sulfate (Morphine) 1 mg IVP Q6HR PRN PRN Reason: Pain (Moderate) Stop: 11/18/16 20:02 Morphine Sulfate (Morphine) 1 mg IVP Q6H PRN PRN Reason: MODERATE PAIN Stop: 11/19/16 16:26 Ondansetron HCl (Zofran) 4 mg IV Q6HR PRN PRN Reason: NAUSEA/VOMITING Stop: 11/17/16 19:44 Pantoprazole Sodium (Protonix) 40 mg IVP DAILY [facility] Stop: 11/19/16 08:59 Last Admin: 09/23/16 11:09 Dose: 40 mg Sodium Bicarbonate (Sodium Bicarbonate) 650 mg PO BID [facility] PRN Reason: Protocol Stop: 11/19/16 16:59 Last Admin: 09/22/16 16:12 Dose: 650 mg Zinc Sulfate (Zinc Sulfate) 220 mg PO DAILY [facility] Stop: 11/18/16 08:59 Last Admin: 09/22/16 09:49 Dose: Not Given General: No acute distress, Other (Patient is unconscious, responding only to pain) HEENT: Atraumatic, Mucous membr. moist/pink Neck: Supple, +2 carotid pulse wo bruit (irregular rhythm) Cardiovascular: Regular rate, Normal S1, Normal S2, Other (Tachicardic) Lungs: Other (few rhonchi) Abdomen: Bowel sounds, Soft Extremities: Edema (right leg), Other (Pitting edema, amputation above knee of left leg) Neurological: Sensation intact, Other (Non ambulatory) Skin: Other (Multiple decubits ulcers), no Significant lesion (B/L aka) Psych/Mental Status: Mood NL, Other (Unconscious) - Procedures Procedures: Procedures Procedure Code Date AMPUTATE LEG AT THIGH 90597 09/18/16 ANNETTE SUBQ TISSUE 20 SQ CM/< 94050 08/03/16 DETACHMENT AT LEFT UPPER LEG, LOW, OPEN APPROACH [id number] 08/03/16 DETACHMENT AT RIGHT UPPER LEG, LOW, OPEN APPROACH [id number] 09/18/16 EXCISION OF R FOOT SUBCU/FASCIA, OPEN APPROACH [id number] 08/03/16 EXCISION OF R LOW LEG SUBCU/FASCIA, OPEN APPROACH [id number] 08/03/16 TRANSFUSE NONAUT RED BLOOD CELLS IN PERIPH VEIN, PERC 81146C2 08/03/16 Assessment/Plan - Problem List Patient Problems: All Active Problems ELEVATED WBC LEVELS (Acute) - Assessment Assessment: MICHAEL Shock Sepsis Sepsis 2nd to C. Diff, Right foot ulcers ?osteo, possible UTI A.Fib W/ RVR Acute Resp Failure Coagulopathy 2nd to DIC, Coumadin Lactic Acidosis T2 DM CAD Bipolar Disorder PAD S/P B/L AKA Possible decomp CHF - Plan Plan: Lab - Result Diagrams 09/20/16 05:05 09/20/16 05:05 Current Medications Acetaminophen (Tylenol) 325 mg PO Q4HR PRN PRN Reason: Fever > 101 Stop: 11/17/16 19:17 Albuterol/Ipratropium (Duoneb Neb) 3 ml HHN Q4HRT [facility] Stop: 11/17/16 22:59 Last Admin: 09/20/16 13:50 Dose: 3 ml Ascorbic Acid (Vitamin C) 500 mg PO DAILY [facility] Stop: 11/18/16 08:59 Last Admin: 09/20/16 12:40 Dose: Not Given Calcium/Vitamin D (Oscal W/Vitamin D) 1 tab PO DAILY [facility] Stop: 11/18/16 08:59 Last Admin: 09/20/16 12:40 Dose: Not Given Dextrose (D50w) 50 ml IVP PRN PRN PRN Reason: Blood Glucose less than 70 Stop: 11/17/16 20:09 Dextrose (Glutose 40%) 18.75 gm PO PRN PRN PRN Reason: Blood Glucose less than 70 Stop: 11/17/16 20:09 Diltiazem HCl (Cardizem) 10 mg IVP Q4HR PRN PRN Reason: HR >130 Stop: 11/18/16 20:11 Donepezil HCl (Aricept) 5 mg PO HS [facility] Stop: 11/17/16 20:59 Last Admin: 09/19/16 21:55 Dose: 5 mg Ezetimibe (Zetia) 10 mg PO HS [facility] Stop: 11/17/16 20:59 Last Admin: 09/19/16 21:45 Dose: 10 mg Glucagon (Glucagen) 1 mg IM PRN PRN PRN Reason: Blood Glucose less than 70 Stop: 11/17/16 20:09 Heparin Sodium (Porcine) (Heparin) 5,000 units SUBQ Q12HR [facility] Stop: 11/18/16 20:59 Last Admin: 09/20/16 08:50 Dose: 5,000 units Piperacillin Sod/Tazobactam (Sod 3.375 gm/ Sodium Chloride) 50 mls @ 100 mls/ hr IV Q8H [facility] Stop: 11/17/16 19:15 Last Infusion: 09/20/16 12:44 Dose: Infused Norepinephrine Bitartrate 8 mg (/ Dextrose) 258 mls @ 19.35 mls/hr IV TITR PRN ; Protocol; 10 MCG/MIN PRN Reason: BP MAINTENANCE (PER PROTOCOL) Stop: 11/17/16 19:17 Last Admin: 09/20/16 12:53 Dose: 10 mcg/min, 19.35 mls/hr Micafungin Sodium 100 mg/ (Sodium Chloride) 100 mls @ 100 mls/hr IV Q24H [facility] Stop: 11/17/16 19:59 Last Admin: 09/19/16 20:30 Dose: 100 mls/hr Vancomycin HCl 1.25 gm/ Sodium (Chloride) 250 mls @ 165 mls/hr IV Q24H [facility] Stop: 11/18/16 10:59 Last Admin: 09/20/16 11:30 Dose: 165 mls/hr Dextrose/Sodium Chloride (D5-0.9%Ns) 1,000 mls @ 125 mls/hr IV .Q8H [facility] Stop: 11/18/16 12:47 Last Admin: 09/20/16 11:28 Dose: 125 mls/hr Diltiazem HCl 125 mg/ Dextrose 125 mls @ 10 mls/hr IV TITR [facility]; 10 MG/HR PRN Reason: Protocol Stop: 11/18/16 20:32 Last Admin: 09/19/16 21:30 Dose: 10 mg/hr, 10 mls/hr Potassium Chloride (Potassium Chloride) 20 meq in 100 mls @ 50 mls/hr IV Q8H [facility] Stop: 09/20/16 17:59 Last Admin: 09/20/16 11:20 Dose: 50 mls/hr Insulin Aspart (Novolog Insulin Sliding Scale) 0 units SUBQ Q6HR [facility] PRN Reason: Protocol Stop: 11/18/16 00:00 Last Admin: 09/20/16 11:50 Dose: 10 units Memantine (Namenda) 5 mg PO DAILY [facility] Stop: 11/18/16 08:59 Last Admin: 09/20/16 12:40 Dose: Not Given Metronidazole (Flagyl) 250 mg PO TID [facility] Stop: 11/18/16 13:59 Last Admin: 09/20/16 12:40 Dose: Not Given Miscellaneous (Vancomycin Iv Per Pharmacy) 1 ea MC PRN PRN PRN Reason: PROTOCOL Stop: 11/17/16 19:15 Miscellaneous (Vte Chemical Prophylaxis Screen/ Admission) 1 ea MC PRN PRN PRN Reason: PROTOCOL Stop: 11/18/16 14:22 Morphine Sulfate (Morphine) 1 mg IVP Q6HR PRN PRN Reason: Pain (Moderate) Stop: 11/18/16 20:02 Ondansetron HCl (Zofran) 4 mg IV Q6HR PRN PRN Reason: NAUSEA/VOMITING Stop: 11/17/16 19:44 Pantoprazole Sodium (Protonix) 40 mg IVP DAILY [facility] Stop: 11/19/16 08:59 Vancomycin HCl (Vancomycin Oral) 250 mg PO TID [facility] Stop: 11/18/16 13:59 Last Admin: 09/20/16 12:41 Dose: Not Given Zinc Sulfate (Zinc Sulfate) 220 mg PO DAILY [facility] Stop: 11/18/16 08:59 Last Admin: 09/19/16 08:43 Dose: 220 mg kidney fnc has improved WBC down to 33.2 continue Na HC03 decrease ivf due to ascites, b/l effusions f/u electrolytes, cbc, PT/INR continue Vanco, Zosyn agree w/ K, Mg replacement need to discuss w/ pharmacy about cross reactivity of Bumex w/ Lasix allergy CXR revealed mild congestion, Left upper lobe infiltrate Nutritional Asmnt/Malnutr-PDOC - Dietary Evaluation Malnutrition Findings (Please click <Entered> for more info): Nutritional Asmnt/Malnutrition Start: 09/19/16 15: 45 Text: Status: Complete Freq: Document 09/19/16 15:46 [facility] (Rec: 09/19/16 16:02 [facility] [id number]) Nutritional Asmnt/Malnutrition Patient General Information Nutritional Screening Consult Diagnosis Sepsis, pneumonia, hypotension Pertinent Medical Hx/Surgical Hx AFIB, CAD, CHF, HTN, hyperlipidemia, CVA, pneumonia , chronic renal insufficiency, DM, multiple decubitus ulcers in different parts of body, left AKA Subjective Information Nutrition consult for pt is diabetic received and completed. Pt is a 81-year-old female from [facility] admitted with chief complaint of sepsis. Pt is a poor historian at the moment, lethargic and nonverbal. Pt appears obese with edema observed. RD measured wt with medical devices removed, three pillows on bed: 216.2#/98.3 kg. Adjusted BMI with consideration of AKA: 40.3 kg/ m2. Adjusted IBW with consideration of AKA: 113#/51. 4 kg. Per medical records, pt wt 242#/110 kg in August 2016. NGT placed last night 09/18, pending tube feeding order. Current Diet Order/ Nutrition Support NPO Patient / S.O Can't verbalize diet edu Pertinent Medications Vitamin C, Oscal with Vitamin D, D5-0.9 Ns, Novolog (not given during NPO status), Flagyl, Piperacillin, Vancomycin, Coumadin, Zinc Sulfate Pertinent Labs (09/18) Glucose 344H, A1C WNL, HDL Cholesterol 13L, LDL Cholesterol 19L (09/19) Na 132L , K 3.3L, Glucose 290H, POC Glucose 246H-285H, BUN 27H, Creatinine 1.3H, Alkaline Phosphatase 107H, Albumin 2.2L Nutritional Hx/Data Height 1.7 m Height (Calculated Centimeters) 170.2 Current Weight (lbs) 98.067 kg Weight (Calculated Kilograms) 98.1 Weight (Calculated Grams) 84877.7 Usual body Weight (lbs) 242 % Usual Body Weight 89 [place] Body Weight 113 % [place] Body Weight 191 Recent Weight Change Yes Weight Status Morbidly Obese GI Symptoms GI Symptoms None Difficult in: Swallowing Food Allergies No Usual diet at home Mechanical soft ground with protein supplement 30 ml BID Skin Integrity/Comment: Grey 10. Pt with multiple wounds body and leg. Estimated Nutritional Goals BEE in Kcals: Using Current wt Calories/Kcals/Kg Based on current wt of 98.3 kg with consideration of wounds, sepsis,obesity Kcals Calculated 9718-6116 kcals/day ([place] St. Jeor x 1.2-1.5) Protein: Adj wt of IBW Protein g/kg: Based on adjusted IBW 51.4 kg with consideration of wounds, sepsis Protein Calculated 93-103 gm/day (1.8-2 gm/kg) Fluid: ml Per MD/DO Nutritional Problem 2. Problem Problem Increased energy and protein needs related to Etiology altered skin integrity as evidenced by Signs/Symptoms: multiple decubitus ulcers to body and leg, per RN notes. 1. Problem Problem Malnutrition related to Etiology morbid obesity as evidenced by Signs/Symptoms: adjusted BMI of 40.3 kg/m2. Malnutrition Alert Protein-Calorie Malnutrition N/A Is there a minimum of two criteria No selected? Query Text:Check all the applicable criteria. A minimum of two criteria are recommended for diagnosis of either severe or non-severe malnutrition. Malnutrition Related to Morbid Obesity Malnutrition related to morbid obesity BMI> or equal to 40 Query Text:(Any 1 Criteria met) Malnutrition related to morbid obesity Yes Intervention/Recommendation Comments 1. When medically appropriate, recommend initiate tube feeding Diabetisource AC at 20 ml/hr. Increase by 10 ml/hr every 4 hours until the goal rate of 70 ml/hr is reached. Tube feeding to provide 2016 kcals, 101 gm protein, and 1374 ml free water per day. 2. Recommend one packet of Arginaid via NGT BID to promote wound healing. Expected Outcomes/Goals Expected Outcomes/Goals Provide pt with 100% of estimated nutritional needs to promote wound healing. Physician Parameters for PEM Serum Albumin (g/dl) <2.4 (Severe)
[2016-09-23] MEDS: Morphine Sulfate 2 mg/mL 1mL Syr IVP PRN (17:48)
[2016-09-23] MEDS: Micafungin 100 MG in Sodium Chloride 0.9% 100 ML IV SCH (19:50)
[2016-09-24] MEDS: Morphine Sulfate 2 mg/mL 1mL Syr IVP PRN (01:35)
[2016-09-24] MEDS ORDERED: fentaNYL Citrate 100 mcg/2mL Vial IVP ONE (04:28)
[2016-09-24] MEDS ORDERED: fentaNYL Citrate 100 mcg/2mL Vial ONE (04:34)
[2016-09-24] MEDS ORDERED: Diltiazem 5 mg/mL 5mL Vial IVP STA ×2 (05:21→05:25)
--- NOTE | 2016-09-24 05:22 | ED Physician Chart ---
Chief Complaint/HPI - Patient Information Date Seen:: 09/24/16 Time Seen:: 04:45 Chief Complaint:: Respiratory distress History of Present Illness:: 81-year-old female in the ICU with acute, constant, severe, respiratory distress with associated hypoxia and rapid A. fib that started about 20 minutes before I was called. History limited as patient is unconscious History provided by ICU nursing Allergies:: Allergies Allergy/AdvReac Type Severity Reaction Status Date / Time furosemide [From Lasix] AdvReac Verified 06/14/16 11:58 Penicillins [PCN] AdvReac Verified 06/14/16 11:58 Tetanus Vaccines & Toxoid AdvReac Verified 06/14/16 11:58 Historian:: Other Review:: Nurse's Note Reviewed Review of Systems - Review of Systems Other: Complete system review otherwise unremarkable except as noted in history of present illness. Past Medical History - Past Medical History Past Medical History: Other (A. fib, recent BKA, diabetes mellitus) Family History: None Social History: Non Smoker, No Alcohol, No Drug Use, Care Facility Surgical History: other Medication: Reviewed Family Medical History - Family Member Mother History Unknown: Yes Ethnicity: Unknown Living Status: Unknown Hx Family Cancer: No Hx Family Congestive Heart Failure: No Hx Family Dementia: No Hx Family Hepatitis: No Hx Family Psychiatric Problems: No Physical Exam - Physical Examination Other:: INITIAL VITAL SIGNS: Reviewed by me GENERAL: Patient is lying in a ICU bed, NG tube in place HEAD: Head is normocephalic. No evidence of trauma. No scalp or facial swelling EYES: No scleral icterus bilaterally ENT: Oropharynx is clear of exudate and erythema NECK: Supple. No meningismus. No masses. No evidence of trauma. No cervical spine bony step-offs or crepitus to palpation RESPIRATORY: Shallow breaths, tachypneic, bilateral rales worse on the right than left. CV: Rapid, irregularly irregular rhythm No murmurs, rubs, or gallops ABDOMEN: Soft, non-distended. No masses EXTREMITIES: Upper extremities are edematous and cold to touch, bilateral BKAs SKIN: Warm and dry. No obvious rash. No jaundice NEUROLOGIC: Face is symmetric. Withdraws to pain in all extremities Labs/Radiology/EKG Results - Lab Results Results: Laboratory Tests 09/18/16 09/18/16 09/18/16 14:24 14:24 15:24 WBC RBC Hgb Hct MCV MCH MCHC Differential RDW Plt Count MPV Band Neutrophils % Neutrophils (Manual) Lymphocytes Monocytes Platelet Estimate PT 38.7 H INR 3.48 H PTT (Actin FS) 56.1 H Specimen Source Sample Site pH pCO2 pO2 HCO3 Base Excess O2 Saturation Toni Test Vent Rate Inspired O2 Tidal Volume PEEP Pressure (ins/psv/peep) Critical Value Sodium Potassium Chloride Carbon Dioxide Anion Gap BUN Creatinine Est GFR ( Amer) Est GFR (Non-Af Amer) BUN/Creatinine Ratio Glucose Hemoglobin A1c % 5.7 Whole Bld Lactic Acid 3.56 H* Calcium Total Bilirubin AST ALT Alkaline Phosphatase Troponin I Total Protein Albumin Globulin Albumin/Globulin Ratio Triglycerides Cholesterol LDL Cholesterol Direct HDL Cholesterol TSH Urine Source Urine Color Urine Clarity Urine pH Ur Specific Gray Urine Protein Urine Glucose (UA) Urine Ketones Urine Blood Urine Nitrate Urine Bilirubin Urine Urobilinogen Ur Leukocyte Esterase Urine RBC Urine WBC Ur Epithelial Cells Urine Bacteria RPR 09/18/16 09/18/16 09/18/16 15:24 15:24 15:24 WBC 46.1 H* D RBC 3.99 Hgb 12.1 D Hct 36.0 D MCV 90.0 MCH 30.3 MCHC Differential 33.6 RDW 14.7 Plt Count 515 H MPV 7.4 Band Neutrophils % 3 Neutrophils (Manual) 87 H Lymphocytes 8 L Monocytes 2 Platelet Estimate INCREASED PLATELETS PT INR PTT (Actin FS) Specimen Source Sample Site pH pCO2 pO2 HCO3 Base Excess O2 Saturation Toni Test Vent Rate Inspired O2 Tidal Volume PEEP Pressure (ins/psv/peep) Critical Value Sodium 129 L Potassium 3.6 Chloride 103 Carbon Dioxide 16.1 L Anion Gap 13.5 BUN 26 H Creatinine 1.3 H Est GFR ( Amer) TNP Est GFR (Non-Af Amer) TNP BUN/Creatinine Ratio 20.0 Glucose 344 H Hemoglobin A1c % Whole Bld Lactic Acid Calcium 7.9 L Total Bilirubin 0.7 AST 8 L ALT 4 L Alkaline Phosphatase 113 H Troponin I Total Protein 4.6 L Albumin 2.3 L Globulin 2.3 Albumin/Globulin Ratio 1.0 Triglycerides 130 Cholesterol 48 LDL Cholesterol Direct 19 L HDL Cholesterol 13 L TSH Urine Source Urine Color Urine Clarity Urine pH Ur Specific Gray Urine Protein Urine Glucose (UA) Urine Ketones Urine Blood Urine Nitrate Urine Bilirubin Urine Urobilinogen Ur Leukocyte Esterase Urine RBC Urine WBC Ur Epithelial Cells Urine Bacteria RPR 09/18/16 09/18/16 09/18/16 15:24 15:24 15:24 WBC RBC Hgb Hct MCV MCH MCHC Differential RDW Plt Count MPV Band Neutrophils % Neutrophils (Manual) Lymphocytes Monocytes Platelet Estimate PT INR PTT (Actin FS) Specimen Source Sample Site pH pCO2 pO2 HCO3 Base Excess O2 Saturation Toni Test Vent Rate Inspired O2 Tidal Volume PEEP Pressure (ins/psv/peep) Critical Value Sodium Potassium Chloride Carbon Dioxide Anion Gap BUN Creatinine Est GFR ( Amer) Est GFR (Non-Af Amer) BUN/Creatinine Ratio Glucose Hemoglobin A1c % Whole Bld Lactic Acid Calcium Total Bilirubin AST ALT Alkaline Phosphatase Troponin I 0.47 H* D Total Protein Albumin Globulin Albumin/Globulin Ratio Triglycerides Cholesterol LDL Cholesterol Direct HDL Cholesterol TSH 7.73 H Urine Source Urine Color Urine Clarity Urine pH Ur Specific Gray Urine Protein Urine Glucose (UA) Urine Ketones Urine Blood Urine Nitrate Urine Bilirubin Urine Urobilinogen Ur Leukocyte Esterase Urine RBC Urine WBC Ur Epithelial Cells Urine Bacteria RPR NONREACTIVE 09/18/16 09/18/16 16:16 16:25 WBC RBC Hgb Hct MCV MCH MCHC Differential RDW Plt Count MPV Band Neutrophils % Neutrophils (Manual) Lymphocytes Monocytes Platelet Estimate PT INR PTT (Actin FS) Specimen Source Arterial Sample Site RB pH 7.42 pCO2 23.0 L* pO2 70.0 L HCO3 18.8 L Base Excess -7.8 L O2 Saturation 94.0 Toni Test NA Vent Rate NA Inspired O2 37 Tidal Volume NA PEEP NA Pressure (ins/psv/peep) NA Critical Value SH Sodium Potassium Chloride Carbon Dioxide Anion Gap BUN Creatinine Est GFR ( Amer) Est GFR (Non-Af Amer) BUN/Creatinine Ratio Glucose Hemoglobin A1c % Whole Bld Lactic Acid Calcium Total Bilirubin AST ALT Alkaline Phosphatase Troponin I Total Protein Albumin Globulin Albumin/Globulin Ratio Triglycerides Cholesterol LDL Cholesterol Direct HDL Cholesterol TSH Urine Source [place] Urine Color YELLOW Urine Clarity SLIGHT CLOUDY Urine pH 5.5 Ur Specific Gray 1.015 Urine Protein TRACE Urine Glucose (UA) NEGATIVE Urine Ketones NEGATIVE Urine Blood NEGATIVE Urine Nitrate NEGATIVE Urine Bilirubin NEGATIVE Urine Urobilinogen 0.2 Ur Leukocyte Esterase SMALL H Urine RBC 2-5 Urine WBC 50-100 H Ur Epithelial Cells FEW Urine Bacteria 1+ H RPR Assessment - Assessment General Assessment: Critical Care Time: 35 minutes Treatments/Evaluations: Close monitoring and treatment of unstable vital signs, cardiorespiratory, and neurologic status, while maintaining tight balance of fluid, respiratory, and cardiac interventions. This time includes discussing the case with the patient and the patient's family. This time does not include all procedures stated elsewhere in this record. This time also includes reviewing old records, labs and radiological studies. This time includes examining and re-examining the patient. Additionally, this time also includes arranging care with admitting and consulting physicians. Critical Care Time: 35 Excludes all billable procedures: Yes This condition life threatening/high prob of deterioration: Yes - Procedures Procedures:: Intubation Endotracheal Intubation by me: Pre assessment performed. See preceding note for details. Pre-oxygenation performed with 100% oxygen RSI: Performed w/o complication or hypoxic events. Medications as ordered. Blade: MAC 4 ET Tube: 7.5 cm Depth: 22 cm at the lip Compl: No hypoxic events or bradycardia Intubation confirmed by colorimetric CO2, equal breath sounds, quiet over the stomach. Chest X-ray 1V Interpreted by me: 2.5 cm above the ashwini ET tube. Normal soft tissue, No pneumothorax. ED Septic Shock - . Is Septic Shock (SBP<90, OR Lactate>4 mmol\L) present?: No Reassessment (Disposition) - Reassessment Reassessment:: I was called by the ICU nursing staff about this patient who was noted to be in respiratory distress. They had received orders from the choral teacher requesting me to intubate the patient due to severe respiratory distress and hypoxia. This patient had a recent BKA here in the hospital. Apparently she had vomited prior to my arrival and aspirated on her vomit. O2 sats were dropping into the 60 percentile range. Patient was also noted to be A. fib with rapid ventricular response in the 140-150 bpm range. Patient was rapidly intubated. First attempt was successful. Good breath sounds bilaterally with good chest rise. 22 cm at the lip. Chest x-ray confirmed endotracheal intubation with good placement. Difficult to obtain pulse ox as she was on a vasopressor and extremities were quite cold. Tried multiple different areas including forehead, earlobe, multiple fingertips but it was difficult to obtain a good reading. ABG done 30 minutes after intubation showed good oxygen saturation. Patient was also in A. fib RVR. Despite good intubation and observation after the intubation the heart rate remained elevated at 140-150 bpm. She had a standing order of diltiazem when necessary dosing 10 mg IV push. However blood pressure was an issue. She was on a Levophed drip which was maxed out already. Blood pressure was low. Blood pressure was systolic in 60s and 70s. IV bolus was initiated. Blood pressure slightly improved. However only to the 80s. Concern of pushing diltiazem and dropping blood pressure even further. I mixed a dose of phenylephrine and used a push dose pressor of 100 g IV push of phenylephrine. Blood pressure improved to the low 100s without increasing the heart rate. Diltiazem was able to be administered. Heart rate improved but blood pressure dropped again heart rate increased again. Most likely the 10 mg IV push of diltiazem was not quite enough. I ordered a second IV push of diltiazem 10 mg. I also administered one more dose of IV push phenylephrine 100 g prior to administering the diltiazem. Blood pressure again improved to the 110 range without increasing the heart rate. The second dose of diltiazem push was able to be administered and was successful in reducing her heart rate to below 110 bpm. Blood pressure remained stable. No more phenylephrine was needed. As the heart rate slowed down the blood pressure remained stable. Patient appeared stable while I was there. There was critical care time 35 minutes of this patient did not include any billable procedure. Reassessment Condition:: Improved - Diagnosis Diagnosis:: Acute Respiratory failure Atrial fibrillation with rapid ventricular response Hypotension - Patient Disposition Discharge/Transfer:: Acute Care w/in this hosp Admitted to:: ICU Time:: 05:52 Condition at Disposition:: Stable ED Discharge Plan - Patient Disposition Admit/Discharge/Transfer: Acute Care w/in this hosp Condition at Disposition: Improved
[2016-09-24 05:42] LABS: ALLEN TEST yes; BE(B) -8.3 mEq/L (-3.0-3.0); FIO2 100; HCO3 18.5 mEq/L (20.0-26.0); MECH RATE 16; MECH VT 500
[2016-09-24] MEDS: INSULIN ASPART SLIDING SCALE 100 UNITS/ML UNIT SUBQ SCH (06:29)
[2016-09-24] MEDS: Albuterol/Ipratropium Neb 3 ML AERS HHN SCH ×3 (07:26→15:22)
[2016-09-24 07:41] LABS: HEMOGLOBIN 8.5 gm/dL (11.7-16.1)
[2016-09-24 07:49] LABS: MEAN CORPUSCULAR HEMOGLOBIN 29.9 pg (27.0-31.0); MEAN CORPUSCULAR HGB CONC 32.5 pg (28.0-36.0); NEUTROPHILE ABSOLUTE 11.9 Th/cmm (1.8-8.0); PLATELET COUNT 351 Th/cmm (150-400); RED BLOOD COUNT 2.83 Mil/cmm (3.80-5.20); RED CELL DISTRIBUTION WIDTH 15.4 % (11.5-20.0); WHITE BLOOD COUNT 14.5 Th/cmm (4.8-10.8)
--- NOTE | 2016-09-24 08:28 | Diagnostic Imaging Report ---
Exam: Portable examination of chest. HISTORY: Intubation. Findings: Portable supine examination of the chest at 0531 hours reviewed no prior studies available comparison. The study demonstrates endotracheal tube 4 cm above the ashwini. The NG tube passes stomach. There is evidence of congestive heart failure with consolidation infiltrate in the right lung. The costophrenic angles are clear. Left-sided PICC line terminates in left axillary vein. IMPRESSION: 1. Endotracheal tube 4 cm above the ashwini Congestive heart failure. Right-sided pneumonia. Follow-up examination recommended.
[2016-09-24 08:30] LABS: TOTAL CELLS COUNTED 100
[2016-09-24 08:35] LABS: BAND NEUTROPHILE 16 % (0-10); NEUTROPHILS 77 % (40-80)
[2016-09-24 08:36] LABS: ANISOCYTOSIS 1+; HYPOCHROMIA 1+; PLATELET ESTIMATE ADEQUATE (NORMAL); TOXIC GRANULATION 2+
[2016-09-24 08:41] LABS: CORRECTED WBC 13.2 Th/cmm (4.8-10.8)
--- NOTE | 2016-09-24 08:48 | Diagnostic Imaging Report ---
Exam: CT examination of the abdomen pelvis HISTORY: Colitis Total DLP equals 845 CTDI equals 17.5 Findings: Multiple contiguous thin section of the abdomen pelvis obtained from lower thorax to the pubic symphysis with administration of intravenous contrast material, oral contrast was not utilized. No prior studies available comparison. The study demonstrates bilateral pneumonia with superimposed effusions. Ascitic fluid in the abdomen appreciated. The liver parenchyma show diagnosis cirrhotic changes. The spleen is intact. The kidneys demonstrate normal concentration and excretion of contrast material, there is no evidence of hydronephrosis. The gallbladder distended there is a question of cholelithiasis. Diffuse atherosclerotic calcification of abdominal aorta and iliac vessels appreciated. There is evidence for mucosal thickening of the small bowel loops which might represent edema due to ascitic fluid inflammatory changes cannot be excluded. Small infraumbilical hernia is noted. There is evidence for fecal impaction in the sigmoid colon and the rectum. The urinary bladder is intact. There is evidence for anasarca. IMPRESSION: 1. Pneumonia, effusions 2. Ascites 3. Cirrhotic appearance of liver. 4. Distended gallbladder, cholelithiasis 5. There is no evidence of diverticular process or diverticulitis. 6. Anasarca 7. Edema over small bowel loops might be related to ascitic fluid.
--- NOTE | 2016-09-24 08:48 | General Progress Note ---
Subjective - Review of Systems Service Date: 09/24/16 Events since last encounter: intubated on Levophed son at bedside prognosis poor Objective - Results Result Diagrams: 09/24/16 07:30 09/23/16 06:18 Recent Labs: Laboratory Last Values WBC 14.5 Th/cmm (4.8-10.8) H D 09/24/16 07:30 Corrected WBC (auto) 13.2 Th/cmm (4.8-10.8) H 09/24/16 07:30 RBC 2.83 Mil/cmm (3.80-5.20) L 09/24/16 07:30 Hgb 8.5 gm/dL (11.7-16.1) L 09/24/16 07:30 Hct 26.0 % (35.0-45.0) L 09/24/16 07:30 MCV 92.0 fl (81-100) 09/24/16 07:30 MCH 29.9 pg (27.0-31.0) 09/24/16 07:30 MCHC Differential 32.5 pg (28.0-36.0) 09/24/16 07:30 RDW 15.4 % (11.5-20.0) 09/24/16 07:30 Plt Count 351 Th/cmm (150-400) D 09/24/16 07:30 MPV 9.0 fl 09/24/16 07:30 Band Neutrophils % 16 % (0-10) H 09/24/16 07:30 Basophils % [employer] 09/24/16 07:30 Neutrophils (Manual) 77 % (40-80) 09/24/16 07:30 Lymphocytes 5 % (20-50) L 09/24/16 07:30 Monocytes 2 % (2-10) 09/24/16 07:30 Eosinophils 0 % (0-5) 09/22/16 04:16 Basophils 0 % (0-3) 09/22/16 04:16 Metamyelocytes 1 % (0-0) H 09/20/16 05:05 Nucleated RBCs 10.0 % (0-0) H 09/24/16 07:30 Hypochromia 1+ 09/24/16 07:30 Toxic Granulation 2+ 09/24/16 07:30 Platelet Estimate ADEQUATE (NORMAL) 09/24/16 07:30 Platelet Morphology NORMAL (NORMAL) 09/23/16 06:18 Polychromasia 1+ 09/20/16 05:05 Anisocytosis 1+ 09/24/16 07:30 RBC Morph Micro Appear NORMAL (NORMAL) 09/23/16 06:18 Smear Path Review SEE BELOW 09/19/16 04:55 PT 14.0 SECONDS (9.5-11.5) H 09/22/16 04:16 INR 1.33 (0.5-1.4) 09/22/16 04:16 PTT (Actin FS) 46.9 SECONDS (26.0-38.0) H 09/21/16 05:30 Specimen Source arterial 09/24/16 05:15 Sample Site rr 09/24/16 05:15 pH 7.20 (7.35-7.45) L* 09/24/16 05:15 pCO2 51.0 mmHg (35.0-45.0) H 09/24/16 05:15 pO2 262.0 mmHg (80.0-100.0) H 09/24/16 05:15 HCO3 18.5 mEq/L (20.0-26.0) L 09/24/16 05:15 Base Excess -8.3 mEq/L (-3.0-3.0) L 09/24/16 05:15 O2 Saturation 100.0 % (92.0-100.0) 09/24/16 05:15 Toni Test yes 09/24/16 05:15 Vent Rate 16 09/24/16 05:15 Inspired O2 100 09/24/16 05:15 Tidal Volume 500 09/24/16 05:15 PEEP n/a 09/24/16 05:15 Pressure (ins/psv/peep) n/a 09/24/16 05:15 Critical Value abroedelrcp 09/24/16 05:15 Sodium 136 mEq/L (136-145) 09/23/16 06:18 Potassium 2.6 mEq/L (3.5-5.1) L* 09/23/16 06:18 Chloride 107 mEq/L (98-107) 09/23/16 06:18 Carbon Dioxide 20.5 mEq/L (21.0-31.0) L 09/23/16 06:18 Anion Gap 11.1 (7.0-16.0) 09/23/16 06:18 BUN 23 mg/dL (7-25) 09/23/16 06:18 Creatinine 0.8 mg/dL (0.6-1.2) 09/23/16 06:18 Est GFR ( Amer) TNP 09/23/16 06:18 Est GFR (Non-Af Amer) TNP 09/23/16 06:18 BUN/Creatinine Ratio 28.8 09/23/16 06:18 Glucose 263 mg/dL (70-105) H 09/23/16 06:18 POC Glucose 314 MG/DL (70 - 105) H 09/24/16 07:37 Hemoglobin A1c % 5.7 % (4.0-6.0) 09/18/16 14:24 Whole Bld Lactic Acid 1.45 mmol/L (0.60-1.99) 09/23/16 11:21 Calcium 7.2 mg/dL (8.6-10.3) L 09/23/16 06:18 Magnesium 1.3 mg/dL (1.9-2.7) L 09/23/16 06:18 Total Bilirubin 1.0 mg/dL (0.3-1.0) 09/22/16 04:16 AST 8 U/L (13-39) L 09/22/16 04:16 ALT 4 U/L (7-52) L 09/22/16 04:16 Alkaline Phosphatase 71 U/L (34-104) 09/22/16 04:16 Troponin I 0.47 ng/mL (0.01-0.05) H* D 09/18/16 15:24 B-Natriuretic Peptide 1120.0 pg/mL (5.0-100.0) H 09/21/16 05:30 Total Protein 4.4 gm/dL (6.0-8.3) L 09/22/16 04:16 Albumin 2.2 gm/dL (3.7-5.3) L 09/22/16 04:16 Globulin 2.2 gm/dL 09/22/16 04:16 Albumin/Globulin Ratio 1.0 (1.0-1.8) 09/22/16 04:16 Triglycerides 130 mg/dL (<150) 09/18/16 15:24 Cholesterol 48 mg/dL (<200) 09/18/16 15:24 LDL Cholesterol Direct 19 mg/dL (75-193) L 09/18/16 15:24 HDL Cholesterol 13 mg/dL (23-92) L 09/18/16 15:24 TSH 7.73 uIU/ml (0.34-5.60) H 09/18/16 15:24 Urine Source [place] 09/18/16 16:25 Urine Color YELLOW 09/18/16 16:25 Urine Clarity SLIGHT CLOUDY (CLEAR) 09/18/16 16:25 Urine pH 5.5 (4.6 - 8.0) 09/18/16 16:25 Ur Specific [place] 1.015 (1.005-1.030) 09/18/16 16:25 Urine Protein TRACE mg/dL (NEGATIVE) 09/18/16 16:25 Urine Glucose (UA) NEGATIVE mg/dL (NEGATIVE) 09/18/16 16:25 Urine Ketones NEGATIVE mg/dL (NEGATIVE) 09/18/16 16:25 Urine Blood NEGATIVE (NEGATIVE) 09/18/16 16:25 Urine Nitrate NEGATIVE (NEGATIVE) 09/18/16 16:25 Urine Bilirubin NEGATIVE (NEGATIVE) 09/18/16 16:25 Urine Urobilinogen 0.2 E.U./dL (0.2 - 1.0) 09/18/16 16:25 Ur Leukocyte Esterase SMALL (NEGATIVE) H 09/18/16 16:25 Urine RBC 2-5 /hpf (0-5) 09/18/16 16:25 Urine WBC 50-100 /hpf (0-5) H 09/18/16 16:25 Ur Epithelial Cells FEW /lpf (FEW) 09/18/16 16:25 Urine Bacteria 1+ /hpf (NONE SEEN) H 09/18/16 16:25 Vancomycin Trough 26.2 ug/mL (10-20) H 09/21/16 11:37 RPR NONREACTIVE (NONREACTIVE) 09/18/16 15:24 Blood Type O POSITIVE 09/21/16 09:30 Antibody Screen NEGATIVE 09/21/16 09:30 - Physical Exam Vitals and I&O: Vital Signs Temp 96.6 F 09/24/16 04:00 Pulse 102 09/24/16 08:00 Resp 10 09/24/16 05:00 BP 76/42 09/24/16 08:00 Pulse Ox 84 09/24/16 05:00 Intake & Output 09/23/16 09/24/16 09/24/16 18:59 06:59 18:59 Intake Total 50 1364.669 Output Total 30 330 Balance 20 1034.669 Weight (lbs) 97.522 kg 97.976 kg Intake: Intake, IV Amount 50 994.669 Albumin 25% 12.5gm/50mL 50 100 12.5 gm In 50 ml @ 50 mls /hr IV TID [facility] Rx#: [id number] Micafungin 100 mg In 100 Sodium Chloride 0.9% 100 ml @ 100 mls/hr IV Q24H [facility] Rx#:[id number] Norepinephrine 8 mg In 394.669 Dextrose 5% 250 ml @ 10 MCG/MIN 19.35 mls/hr IV TITR PRN Rx#:[id number] Vancomycin HCl 1 gm In 250 Sodium Chloride 0.9% 250 ml @ 165 mls/hr IV Q24H [facility] Rx#:[id number] cefTAZidime 1 gm In 150 Dextrose 5% 50 ml @ 100 mls/hr IV Q8HR [facility] Rx#: [id number] Tube Feeding 270 Other 100 Output: Drainage 30 30 Right Thigh 30 30 Urine 300 Other: Stool Characteristics Soft Soft Brown Brown Active Medications: Current Medications Acetaminophen (Tylenol) 325 mg PO Q4HR PRN PRN Reason: Fever > 101 Stop: 11/17/16 19:17 Albuterol/Ipratropium (Duoneb Neb) 3 ml HHN Q4HRT [facility] Stop: 11/17/16 22:59 Last Admin: 09/24/16 07:26 Dose: 3 ml Ascorbic Acid (Vitamin C) 500 mg PO DAILY [facility] Stop: 11/18/16 08:59 Last Admin: 09/23/16 09:00 Dose: Not Given Calcium/Vitamin D (Oscal W/Vitamin D) 1 tab PO DAILY [facility] Stop: 11/18/16 08:59 Last Admin: 09/23/16 09:00 Dose: Not Given Dextrose (D50w) 50 ml IVP PRN PRN PRN Reason: Blood Glucose less than 70 Stop: 11/17/16 20:09 Dextrose (Glutose 40%) 18.75 gm PO PRN PRN PRN Reason: Blood Glucose less than 70 Stop: 11/17/16 20:09 Diltiazem HCl (Cardizem) 10 mg IVP Q4HR PRN PRN Reason: HR >130 Stop: 11/18/16 20:11 Last Admin: 09/24/16 05:14 Dose: 10 mg Donepezil HCl (Aricept) 5 mg PO HS SHARIF Stop: 11/17/16 20:59 Last Admin: 09/23/16 20:51 Dose: 5 mg Ezetimibe (Zetia) 10 mg PO HS SHAR[facility] Stop: 11/17/16 20:59 Last Admin: 09/23/16 20:51 Dose: 10 mg Glucagon (Glucagen) 1 mg IM PRN PRN PRN Reason: Blood Glucose less than 70 Stop: 11/17/16 20:09 Heparin Sodium (Porcine) (Heparin) 5,000 units SUBQ Q12HR [facility] Stop: 11/18/16 20:59 Last Admin: 09/23/16 20:51 Dose: 5,000 units Norepinephrine Bitartrate 8 mg (/ Dextrose) 258 mls @ 19.35 mls/hr IV TITR PRN ; Protocol; 10 MCG/MIN PRN Reason: BP MAINTENANCE (PER PROTOCOL) Stop: 11/17/16 19:17 Last Admin: 09/24/16 05:46 Dose: 40 mcg/min, 77.4 mls/hr Diltiazem HCl 125 mg/ Dextrose 125 mls @ 10 mls/hr IV TITR SHARIF; 10 MG/HR PRN Reason: Protocol Stop: 11/18/16 20:32 Last Titration: 09/21/16 19:00 Dose: Infused Vancomycin HCl 1 gm/ Sodium (Chloride) 250 mls @ 165 mls/hr IV Q24H [facility] Stop: 11/20/16 13:59 Last Infusion: 09/23/16 20:47 Dose: Infused Albumin Human (Albutein 25%) 12.5 gm in 50 mls @ 50 mls/hr IV TID [facility]AR[facility] Stop: 09/24/16 14:59 Last Infusion: 09/23/16 22:47 Dose: Infused Ceftazidime 1 gm/ Dextrose 50 mls @ 100 mls/hr IV Q8HR [facility] Stop: 11/22/16 13:29 Last Infusion: 09/24/16 06:05 Dose: Infused Phenylephrine HCl 10 mg/ (Sodium Chloride) 250 mls @ 0 mls/hr IV TITR SHARIF; Per Protocol PRN Reason: Protocol Stop: 11/23/16 05:14 Insulin Aspart (Novolog Insulin Sliding Scale) 0 units SUBQ Q6HR SHAR[facility] PRN Reason: Protocol Stop: 11/22/16 00:00 Last Admin: 09/24/16 06:29 Dose: Not Given Lactobacillus Rhamnosus (Culturelle) 1 each PO DAILY [facility] Stop: 11/21/16 08:59 Last Admin: 09/23/16 09:00 Dose: Not Given Lorazepam (Ativan) 1 mg IVP Q2H PRN; Protocol PRN Reason: Agitation Stop: 11/23/16 04:10 Memantine (Namenda) 5 mg PO DAILY [facility] Stop: 11/18/16 08:59 Last Admin: 09/23/16 18:48 Dose: Not Given Metronidazole (Flagyl) 250 mg PO TID [facility] Stop: 11/18/16 13:59 Last Admin: 09/23/16 20:51 Dose: 250 mg Mineral Oil (Mineral Oil 30 Ml) 30 ml NG DAILY [facility] Stop: 11/19/16 18:14 Last Admin: 09/23/16 19:39 Dose: Not Given Miscellaneous (Vancomycin Iv Per Pharmacy) 1 ea MC PRN PRN PRN Reason: PROTOCOL Stop: 11/17/16 19:15 Miscellaneous (Vte Chemical Prophylaxis Screen/ Admission) 1 ea MC PRN PRN PRN Reason: PROTOCOL Stop: 11/18/16 14:22 Miscellaneous (Probiotic Screen) 1 ea MC PRN PRN PRN Reason: PROTOCOL Stop: 11/20/16 12:42 Morphine Sulfate (Morphine) 1 mg IVP Q6HR PRN PRN Reason: Pain (Moderate) Stop: 11/18/16 20:02 Last Admin: 09/24/16 01:35 Dose: 1 mg Morphine Sulfate (Morphine) 1 mg IVP Q6H PRN PRN Reason: MODERATE PAIN Stop: 11/19/16 16:26 Ondansetron HCl (Zofran) 4 mg IV Q6HR PRN PRN Reason: NAUSEA/VOMITING Stop: 11/17/16 19:44 Pantoprazole Sodium (Protonix) 40 mg IVP DAILY [facility] Stop: 11/19/16 08:59 Last Admin: 09/23/16 11:09 Dose: 40 mg Sodium Bicarbonate (Sodium Bicarbonate) 650 mg PO BID SHAR[facility] PRN Reason: Protocol Stop: 11/19/16 16:59 Last Admin: 09/23/16 19:40 Dose: Not Given Zinc Sulfate (Zinc Sulfate) 220 mg PO DAILY [facility] Stop: 11/18/16 08:59 Last Admin: 09/23/16 19:40 Dose: Not Given General: No acute distress, Other (Patient is unconscious, responding only to pain) HEENT: Atraumatic, Mucous membr. moist/pink Neck: Supple, +2 carotid pulse wo bruit (irregular rhythm) Cardiovascular: Regular rate, Normal S1, Normal S2, Other (Tachicardic) Lungs: Other (few rhonchi) Abdomen: Bowel sounds, Soft Extremities: Edema (right leg), Other (Pitting edema, amputation above knee of left leg) Neurological: Sensation intact, Other (Non ambulatory) Skin: Other (Multiple decubits ulcers), no Significant lesion (B/L aka) Psych/Mental Status: Mood NL, Other (Unconscious) - Procedures Procedures: Procedures Procedure Code Date AMPUTATE LEG AT THIGH 87896 09/18/16 ANNETTE SUBQ TISSUE 20 SQ CM/< 23905 08/03/16 DETACHMENT AT LEFT UPPER LEG, LOW, OPEN APPROACH [id number] 08/03/16 DETACHMENT AT RIGHT UPPER LEG, LOW, OPEN APPROACH [id number] 09/18/16 EXCISION OF R FOOT SUBCU/FASCIA, OPEN APPROACH [id number] 08/03/16 EXCISION OF R LOW LEG SUBCU/FASCIA, OPEN APPROACH [id number] 08/03/16 TRANSFUSE NONAUT RED BLOOD CELLS IN PERIPH VEIN, PERC 18522Y1 08/03/16 Assessment/Plan - Problem List Patient Problems: All Active Problems ELEVATED WBC LEVELS (Acute) Nutritional Asmnt/Malnutr-PDOC - Dietary Evaluation Malnutrition Findings (Please click <Entered> for more info): Nutritional Asmnt/Malnutrition Start: 09/19/16 15: 45 Text: Status: Complete Freq: Document 09/19/16 15:46 [facility] (Rec: 09/19/16 16:02 [facility] [id number]) Nutritional Asmnt/Malnutrition Patient General Information Nutritional Screening Consult Diagnosis Sepsis, pneumonia, hypotension Pertinent Medical Hx/Surgical Hx AFIB, CAD, CHF, HTN, hyperlipidemia, CVA, pneumonia , chronic renal insufficiency, DM, multiple decubitus ulcers in different parts of body, left AKA Subjective Information Nutrition consult for pt is diabetic received and completed. Pt is a 81-year-old female from [facility] admitted with chief complaint of sepsis. Pt is a poor historian at the moment, lethargic and nonverbal. Pt appears obese with edema observed. RD measured wt with medical devices removed, three pillows on bed: 216.2#/98.3 kg. Adjusted BMI with consideration of AKA: 40.3 kg/ m2. Adjusted IBW with consideration of AKA: 113#/51. 4 kg. Per medical records, pt wt 242#/110 kg in August 2016. NGT placed last night 09/18, pending tube feeding order. Current Diet Order/ Nutrition Support NPO Patient / S.O Can't verbalize diet edu Pertinent Medications Vitamin C, Oscal with Vitamin D, D5-0.9 Ns, Novolog (not given during NPO status), Flagyl, Piperacillin, Vancomycin, Coumadin, Zinc Sulfate Pertinent Labs (09/18) Glucose 344H, A1C WNL, HDL Cholesterol 13L, LDL Cholesterol 19L (09/19) Na 132L , K 3.3L, Glucose 290H, POC Glucose 246H-285H, BUN 27H, Creatinine 1.3H, Alkaline Phosphatase 107H, Albumin 2.2L Nutritional Hx/Data Height 1.7 m Height (Calculated Centimeters) 170.2 Current Weight (lbs) 98.067 kg Weight (Calculated Kilograms) 98.1 Weight (Calculated Grams) 13087.7 Usual body Weight (lbs) 242 % Usual Body Weight 89 [place] Body Weight 113 % [place] Body Weight 191 Recent Weight Change Yes Weight Status Morbidly Obese GI Symptoms GI Symptoms None Difficult in: Swallowing Food Allergies No Usual diet at home Mechanical soft ground with protein supplement 30 ml BID Skin Integrity/Comment: Grey 10. Pt with multiple wounds body and leg. Estimated Nutritional Goals BEE in Kcals: Using Current wt Calories/Kcals/Kg Based on current wt of 98.3 kg with consideration of wounds, sepsis,obesity Kcals Calculated 5678-4302 kcals/day (Roff St. Jeor x 1.2-1.5) Protein: Adj wt of IBW Protein g/kg: Based on adjusted IBW 51.4 kg with consideration of wounds, sepsis Protein Calculated 93-103 gm/day (1.8-2 gm/kg) Fluid: ml Per MD/DO Nutritional Problem 2. Problem Problem Increased energy and protein needs related to Etiology altered skin integrity as evidenced by Signs/Symptoms: multiple decubitus ulcers to body and leg, per RN notes. 1. Problem Problem Malnutrition related to Etiology morbid obesity as evidenced by Signs/Symptoms: adjusted BMI of 40.3 kg/m2. Malnutrition Alert Protein-Calorie Malnutrition N/A Is there a minimum of two criteria No selected? Query Text:Check all the applicable criteria. A minimum of two criteria are recommended for diagnosis of either severe or non-severe malnutrition. Malnutrition Related to Morbid Obesity Malnutrition related to morbid obesity BMI> or equal to 40 Query Text:(Any 1 Criteria met) Malnutrition related to morbid obesity Yes Intervention/Recommendation Comments 1. When medically appropriate, recommend initiate tube feeding Diabetisource AC at 20 ml/hr. Increase by 10 ml/hr every 4 hours until the goal rate of 70 ml/hr is reached. Tube feeding to provide 2016 kcals, 101 gm protein, and 1374 ml free water per day. 2. Recommend one packet of Arginaid via NGT BID to promote wound healing. Expected Outcomes/Goals Expected Outcomes/Goals Provide pt with 100% of estimated nutritional needs to promote wound healing. Physician Parameters for PEM Serum Albumin (g/dl) <2.4 (Severe)
[2016-09-24] MEDS: Albumin 25% 12.5gm/50mL 12.5 GM/50 ML BTL IV SCH (09:11)
[2016-09-24 09:41] LABS: ALB/GLOB RATIO 1.2 (1.0-1.8); ALKALINE PHOSPHATASE 88 U/L (34-104); ANION GAP 12.3 (7.0-16.0); BILIRUBIN,TOTAL 0.6 mg/dL (0.3-1.0); BUN - UREA NITROGEN 20 mg/dL (7-25); CALCIUM SERUM 6.2 mg/dL (8.6-10.3); CARBON DIOXIDE 17.8 mEq/L (21.0-31.0); CHLORIDE 111 mEq/L (98-107); CREATININE - SERUM 0.8 mg/dL (0.6-1.2); GLUCOSE 269 mg/dL (70-105); MAGNESIUM 1.5 mg/dL (1.9-2.7); PHOSPHOROUS 3.4 mg/dL (2.5-5.0); POTASSIUM SERUM 3.1 mEq/L (3.5-5.1); SGOT 9 U/L (13-39); SGPT/ALT 5 U/L (7-52); SODIUM SERUM 138 mEq/L (136-145)
[2016-09-24] MEDS ORDERED: DOPamine 400 MG/250 ML BAG IV ONE (09:49)
[2016-09-24] MEDS ORDERED: DOPamine 400 MG/250 ML BAG IV PRN (09:50)
[2016-09-24] MEDS ORDERED: Sodium Chloride 0.9% 1,000 ML IV SCH (09:52)
[2016-09-24] MEDS: DOPamine 400 MG/250 ML BAG IV PRN ×2 (10:09→14:02)
[2016-09-24] MEDS: Calcium Carb/Vit D 500 mg/200 U Tab PO SCH (10:40)
[2016-09-24] MEDS: Venelex 60gm Tube TP SCH (10:41)
[2016-09-24] MEDS: Lactobacillus Rhamnosus 10 Billion CFU Capsule PO SCH (10:41)
[2016-09-24] MEDS ORDERED: Sodium Bicarbonate 8.4% 50mEq PFS IVP ONE ×2 (12:04→12:10)
--- NOTE | 2016-09-24 13:50 | General Progress Note ---
Subjective - Review of Systems Service Date: 09/24/16 Subjective: remains stuporous, but comfortable, on vent Objective - Results Result Diagrams: 09/24/16 07:30 09/24/16 07:30 Recent Labs: Laboratory Last Values WBC 14.5 Th/cmm (4.8-10.8) H D 09/24/16 07:30 Corrected WBC (auto) 13.2 Th/cmm (4.8-10.8) H 09/24/16 07:30 RBC 2.83 Mil/cmm (3.80-5.20) L 09/24/16 07:30 Hgb 8.5 gm/dL (11.7-16.1) L 09/24/16 07:30 Hct 26.0 % (35.0-45.0) L 09/24/16 07:30 MCV 92.0 fl (81-100) 09/24/16 07:30 MCH 29.9 pg (27.0-31.0) 09/24/16 07:30 MCHC Differential 32.5 pg (28.0-36.0) 09/24/16 07:30 RDW 15.4 % (11.5-20.0) 09/24/16 07:30 Plt Count 351 Th/cmm (150-400) D 09/24/16 07:30 MPV 9.0 fl 09/24/16 07:30 Band Neutrophils % 16 % (0-10) H 09/24/16 07:30 Basophils % [employer] 09/24/16 07:30 Neutrophils (Manual) 77 % (40-80) 09/24/16 07:30 Lymphocytes 5 % (20-50) L 09/24/16 07:30 Monocytes 2 % (2-10) 09/24/16 07:30 Eosinophils 0 % (0-5) 09/22/16 04:16 Basophils 0 % (0-3) 09/22/16 04:16 Metamyelocytes 1 % (0-0) H 09/20/16 05:05 Nucleated RBCs 10.0 % (0-0) H 09/24/16 07:30 Hypochromia 1+ 09/24/16 07:30 Toxic Granulation 2+ 09/24/16 07:30 Platelet Estimate ADEQUATE (NORMAL) 09/24/16 07:30 Platelet Morphology NORMAL (NORMAL) 09/23/16 06:18 Polychromasia 1+ 09/20/16 05:05 Anisocytosis 1+ 09/24/16 07:30 RBC Morph Micro Appear NORMAL (NORMAL) 09/23/16 06:18 Smear Path Review SEE BELOW 09/19/16 04:55 PT 14.0 SECONDS (9.5-11.5) H 09/22/16 04:16 INR 1.33 (0.5-1.4) 09/22/16 04:16 PTT (Actin FS) 46.9 SECONDS (26.0-38.0) H 09/21/16 05:30 Specimen Source arterial 09/24/16 05:15 Sample Site rr 09/24/16 05:15 pH 7.20 (7.35-7.45) L* 09/24/16 05:15 pCO2 51.0 mmHg (35.0-45.0) H 09/24/16 05:15 pO2 262.0 mmHg (80.0-100.0) H 09/24/16 05:15 HCO3 18.5 mEq/L (20.0-26.0) L 09/24/16 05:15 Base Excess -8.3 mEq/L (-3.0-3.0) L 09/24/16 05:15 O2 Saturation 100.0 % (92.0-100.0) 09/24/16 05:15 Toni Test yes 09/24/16 05:15 Vent Rate 16 09/24/16 05:15 Inspired O2 100 09/24/16 05:15 Tidal Volume 500 09/24/16 05:15 PEEP n/a 09/24/16 05:15 Pressure (ins/psv/peep) n/a 09/24/16 05:15 Critical Value abroedelrcp 09/24/16 05:15 Sodium 138 mEq/L (136-145) 09/24/16 07:30 Potassium 3.1 mEq/L (3.5-5.1) L 09/24/16 07:30 Chloride 111 mEq/L (98-107) H 09/24/16 07:30 Carbon Dioxide 17.8 mEq/L (21.0-31.0) L 09/24/16 07:30 Anion Gap 12.3 (7.0-16.0) 09/24/16 07:30 BUN 20 mg/dL (7-25) 09/24/16 07:30 Creatinine 0.8 mg/dL (0.6-1.2) 09/24/16 07:30 Est GFR ( Amer) TNP 09/24/16 07:30 Est GFR (Non-Af Amer) TNP 09/24/16 07:30 BUN/Creatinine Ratio 25.0 09/24/16 07:30 Glucose 269 mg/dL (70-105) H 09/24/16 07:30 POC Glucose 314 MG/DL (70 - 105) H 09/24/16 07:37 Hemoglobin A1c % 5.7 % (4.0-6.0) 09/18/16 14:24 Whole Bld Lactic Acid 1.45 mmol/L (0.60-1.99) 09/23/16 11:21 Calcium 6.2 mg/dL (8.6-10.3) L 09/24/16 07:30 Phosphorus 3.4 mg/dL (2.5-5.0) 09/24/16 07:30 Magnesium 1.5 mg/dL (1.9-2.7) L 09/24/16 07:30 Total Bilirubin 0.6 mg/dL (0.3-1.0) 09/24/16 07:30 AST 9 U/L (13-39) L 09/24/16 07:30 ALT 5 U/L (7-52) L 09/24/16 07:30 Alkaline Phosphatase 88 U/L (34-104) 09/24/16 07:30 Troponin I 0.47 ng/mL (0.01-0.05) H* D 09/18/16 15:24 B-Natriuretic Peptide 1120.0 pg/mL (5.0-100.0) H 09/21/16 05:30 Total Protein 3.5 gm/dL (6.0-8.3) L 09/24/16 07:30 Albumin 1.9 gm/dL (3.7-5.3) L 09/24/16 07:30 Globulin 1.6 gm/dL 09/24/16 07:30 Albumin/Globulin Ratio 1.2 (1.0-1.8) 09/24/16 07:30 Triglycerides 130 mg/dL (<150) 09/18/16 15:24 Cholesterol 48 mg/dL (<200) 09/18/16 15:24 LDL Cholesterol Direct 19 mg/dL (75-193) L 09/18/16 15:24 HDL Cholesterol 13 mg/dL (23-92) L 09/18/16 15:24 TSH 7.73 uIU/ml (0.34-5.60) H 09/18/16 15:24 Urine Source [place] 09/18/16 16:25 Urine Color YELLOW 09/18/16 16:25 Urine Clarity SLIGHT CLOUDY (CLEAR) 09/18/16 16:25 Urine pH 5.5 (4.6 - 8.0) 09/18/16 16:25 Ur Specific [place] 1.015 (1.005-1.030) 09/18/16 16:25 Urine Protein TRACE mg/dL (NEGATIVE) 09/18/16 16:25 Urine Glucose (UA) NEGATIVE mg/dL (NEGATIVE) 09/18/16 16:25 Urine Ketones NEGATIVE mg/dL (NEGATIVE) 09/18/16 16:25 Urine Blood NEGATIVE (NEGATIVE) 09/18/16 16:25 Urine Nitrate NEGATIVE (NEGATIVE) 09/18/16 16:25 Urine Bilirubin NEGATIVE (NEGATIVE) 09/18/16 16:25 Urine Urobilinogen 0.2 E.U./dL (0.2 - 1.0) 09/18/16 16:25 Ur Leukocyte Esterase SMALL (NEGATIVE) H 09/18/16 16:25 Urine RBC 2-5 /hpf (0-5) 09/18/16 16:25 Urine WBC 50-100 /hpf (0-5) H 09/18/16 16:25 Ur Epithelial Cells FEW /lpf (FEW) 09/18/16 16:25 Urine Bacteria 1+ /hpf (NONE SEEN) H 09/18/16 16:25 Vancomycin Trough 26.2 ug/mL (10-20) H 09/21/16 11:37 RPR NONREACTIVE (NONREACTIVE) 09/18/16 15:24 Blood Type O POSITIVE 09/21/16 09:30 Antibody Screen NEGATIVE 09/21/16 09:30 - Physical Exam Vitals and I&O: Vital Signs Temp 99.7 F 09/24/16 08:00 Pulse 96 09/24/16 13:03 Resp 22 09/24/16 12:43 BP 73/38 09/24/16 09:00 Pulse Ox 95 09/24/16 08:00 Intake & Output 09/23/16 09/24/16 09/24/16 18:59 06:59 18:59 Intake Total 50 8897.120 4565.97 Output Total 30 330 Balance 20 9467.407 1254.97 Weight (lbs) 97.522 kg 97.976 kg Intake: Intake, IV Amount 50 421.258 1965.97 Albumin 25% 12.5gm/50mL 50 100 12.5 gm In 50 ml @ 50 mls /hr IV TID [facility] Rx#: [id number] Micafungin 100 mg In 100 Sodium Chloride 0.9% 100 ml @ 100 mls/hr IV Q24H [facility] Rx#:[id number] Norepinephrine 8 mg In 394.669 506.97 Dextrose 5% 250 ml @ 10 MCG/MIN 19.35 mls/hr IV TITR PRN Rx#:[id number] Phenylephrine HCl 10 mg 500 In Sodium Chloride 0.9% 250 ml @ Per Protocol IV TITR [facility] Rx#:[id number] Vancomycin HCl 1 gm In 250 Sodium Chloride 0.9% 250 ml @ 165 mls/hr IV Q24H [facility] Rx#:[id number] cefTAZidime 1 gm In 150 Dextrose 5% 50 ml @ 100 mls/hr IV Q8HR [facility] Rx#: [id number] Tube Feeding 270 Other 100 Output: Drainage 30 30 Right Thigh 30 30 Urine 300 Other: Stool Characteristics Soft Soft Soft Brown Brown Brown Active Medications: Current Medications Acetaminophen (Tylenol) 325 mg PO Q4HR PRN PRN Reason: Fever > 101 Stop: 11/17/16 19:17 Albuterol/Ipratropium (Duoneb Neb) 3 ml HHN Q4HRT [facility] Stop: 11/17/16 22:59 Last Admin: 09/24/16 11:05 Dose: 3 ml Ascorbic Acid (Vitamin C) 500 mg PO DAILY [facility] Stop: 11/18/16 08:59 Last Admin: 09/24/16 10:41 Dose: 500 mg Calcium/Vitamin D (Oscal W/Vitamin D) 1 tab PO DAILY [facility] Stop: 11/18/16 08:59 Last Admin: 09/24/16 10:40 Dose: 1 tab Dextrose (D50w) 50 ml IVP PRN PRN PRN Reason: Blood Glucose less than 70 Stop: 11/17/16 20:09 Dextrose (Glutose 40%) 18.75 gm PO PRN PRN PRN Reason: Blood Glucose less than 70 Stop: 11/17/16 20:09 Diltiazem HCl (Cardizem) 10 mg IVP Q4HR PRN PRN Reason: HR >130 Stop: 11/18/16 20:11 Last Admin: 09/24/16 05:14 Dose: 10 mg Donepezil HCl (Aricept) 5 mg PO HS [facility] Stop: 11/17/16 20:59 Last Admin: 09/23/16 20:51 Dose: 5 mg Ezetimibe (Zetia) 10 mg PO HS [facility] Stop: 11/17/16 20:59 Last Admin: 09/23/16 20:51 Dose: 10 mg Glucagon (Glucagen) 1 mg IM PRN PRN PRN Reason: Blood Glucose less than 70 Stop: 11/17/16 20:09 Heparin Sodium (Porcine) (Heparin) 5,000 units SUBQ Q12HR [facility] Stop: 11/18/16 20:59 Last Admin: 09/24/16 10:42 Dose: 5,000 units Norepinephrine Bitartrate 8 mg (/ Dextrose) 258 mls @ 19.35 mls/hr IV TITR PRN ; Protocol; 10 MCG/MIN PRN Reason: BP MAINTENANCE (PER PROTOCOL) Stop: 11/17/16 19:17 Last Admin: 09/24/16 13:09 Dose: 40 mcg/min, 77.4 mls/hr Diltiazem HCl 125 mg/ Dextrose 125 mls @ 10 mls/hr IV TITR [facility]; 10 MG/HR PRN Reason: Protocol Stop: 11/18/16 20:32 Last Titration: 09/21/16 19:00 Dose: Infused Vancomycin HCl 1 gm/ Sodium (Chloride) 250 mls @ 165 mls/hr IV Q24H [facility] Stop: 11/20/16 13:59 Last Infusion: 09/23/16 20:47 Dose: Infused Albumin Human (Albutein 25%) 12.5 gm in 50 mls @ 50 mls/hr IV TID [facility] Stop: 09/24/16 14:59 Last Admin: 09/24/16 09:11 Dose: 50 mls/hr Ceftazidime 1 gm/ Dextrose 50 mls @ 100 mls/hr IV Q8HR [facility] Stop: 11/22/16 13:29 Last Admin: 09/24/16 12:15 Dose: 100 mls/hr Phenylephrine HCl 10 mg/ (Sodium Chloride) 250 mls @ 0 mls/hr IV TITR [facility]; Per Protocol PRN Reason: Protocol Stop: 11/23/16 05:14 Last Admin: 09/24/16 13:07 Dose: 150 mcg/min, 225 mls/hr Dopamine HCl/Dextrose (Dopamine) 400 mg in 250 mls @ 0 mls/hr IV TITR PRN; Protocol; Per Protocol PRN Reason: BP MAINTENANCE (PER PROTOCOL) Stop: 11/23/16 09:46 Last Admin: 09/24/16 10:09 Dose: 2.72 mcg/kg/min, 10 mls/hr Sodium Chloride (Nacl 0.9%) 1,000 mls @ 100 mls/hr IV .Q10H [facility] Stop: 11/23/16 09:51 Last Admin: 09/24/16 10:18 Dose: 100 mls/hr Insulin Aspart (Novolog Insulin Sliding Scale) 0 units SUBQ Q6HR [facility] PRN Reason: Protocol Stop: 11/22/16 00:00 Last Admin: 09/24/16 06:29 Dose: Not Given Lactobacillus Rhamnosus (Culturelle) 1 each PO DAILY [facility] Stop: 11/21/16 08:59 Last Admin: 09/24/16 10:41 Dose: 1 each Lorazepam (Ativan) 1 mg IVP Q2H PRN; Protocol PRN Reason: Agitation Stop: 11/23/16 04:10 Memantine (Namenda) 5 mg PO DAILY [facility] Stop: 11/18/16 08:59 Last Admin: 09/24/16 10:40 Dose: 5 mg Metronidazole (Flagyl) 250 mg PO TID [facility] Stop: 11/18/16 13:59 Last Admin: 09/24/16 10:42 Dose: 250 mg Mineral Oil (Mineral Oil 30 Ml) 30 ml NG DAILY [facility] Stop: 11/19/16 18:14 Last Admin: 09/24/16 10:41 Dose: 30 ml Miscellaneous (Vancomycin Iv Per Pharmacy) 1 ea MC PRN PRN PRN Reason: PROTOCOL Stop: 11/17/16 19:15 Miscellaneous (Vte Chemical Prophylaxis Screen/ Admission) 1 ea MC PRN PRN PRN Reason: PROTOCOL Stop: 11/18/16 14:22 Miscellaneous (Probiotic Screen) 1 ea MC PRN PRN PRN Reason: PROTOCOL Stop: 11/20/16 12:42 Morphine Sulfate (Morphine) 1 mg IVP Q6HR PRN PRN Reason: Pain (Moderate) Stop: 11/18/16 20:02 Last Admin: 09/24/16 01:35 Dose: 1 mg Morphine Sulfate (Morphine) 1 mg IVP Q6H PRN PRN Reason: MODERATE PAIN Stop: 11/19/16 16:26 Ondansetron HCl (Zofran) 4 mg IV Q6HR PRN PRN Reason: NAUSEA/VOMITING Stop: 11/17/16 19:44 Pantoprazole Sodium (Protonix) 40 mg IVP DAILY [facility] Stop: 11/19/16 08:59 Last Admin: 09/24/16 10:41 Dose: 40 mg Sodium Bicarbonate (Sodium Bicarbonate) 650 mg PO BID [facility] PRN Reason: Protocol Stop: 11/19/16 16:59 Last Admin: 09/24/16 09:42 Dose: 650 mg Zinc Sulfate (Zinc Sulfate) 220 mg PO DAILY [facility] Stop: 11/18/16 08:59 Last Admin: 09/24/16 10:40 Dose: 220 mg General: No acute distress, Other (Patient is unconscious, responding only to pain) HEENT: Atraumatic, Mucous membr. moist/pink Neck: Supple, +2 carotid pulse wo bruit (irregular rhythm) Cardiovascular: Regular rate, Normal S1, Normal S2, Other (Tachicardic) Lungs: Other (few rhonchi, some rales) Abdomen: Bowel sounds, Soft Extremities: Edema (right leg), Other (Pitting edema, amputation above knee of left leg) Neurological: Sensation intact, Other (Non ambulatory) Skin: Other (Multiple decubits ulcers), no Significant lesion (B/L aka) Psych/Mental Status: Mood NL, Other (Unconscious) - Procedures Procedures: Procedures Procedure Code Date AMPUTATE LEG AT THIGH 79543 09/18/16 ANNETTE SUBQ TISSUE 20 SQ CM/< 76532 08/03/16 DETACHMENT AT LEFT UPPER LEG, LOW, OPEN APPROACH [id number] 06/29/17 DETACHMENT AT RIGHT UPPER LEG, LOW, OPEN APPROACH [id number] 09/18/16 EXCISION OF R FOOT SUBCU/FASCIA, OPEN APPROACH [id number] 08/03/16 EXCISION OF R LOW LEG SUBCU/FASCIA, OPEN APPROACH [id number] 08/03/16 TRANSFUSE NONAUT RED BLOOD CELLS IN PERIPH VEIN, PERC 21931N3 08/03/16 Assessment/Plan - Problem List Patient Problems: All Active Problems ELEVATED WBC LEVELS (Acute) - Assessment Assessment: MICHAEL Shock Sepsis Sepsis 2nd to C. Diff, Right foot ulcers ?osteo, possible UTI A.Fib W/ RVR Acute Resp Failure Coagulopathy 2nd to DIC, Coumadin Lactic Acidosis T2 DM CAD Bipolar Disorder PAD S/P B/L AKA Possible decomp CHF acute resp failure on vent - Plan Plan: Lab - Result Diagrams 09/20/16 05:05 09/20/16 05:05 Current Medications Acetaminophen (Tylenol) 325 mg PO Q4HR PRN PRN Reason: Fever > 101 Stop: 11/17/16 19:17 Albuterol/Ipratropium (Duoneb Neb) 3 ml HHN Q4HRT [facility] Stop: 11/17/16 22:59 Last Admin: 09/20/16 13:50 Dose: 3 ml Ascorbic Acid (Vitamin C) 500 mg PO DAILY [facility] Stop: 11/18/16 08:59 Last Admin: 09/20/16 12:40 Dose: Not Given Calcium/Vitamin D (Oscal W/Vitamin D) 1 tab PO DAILY [facility] Stop: 11/18/16 08:59 Last Admin: 09/20/16 12:40 Dose: Not Given Dextrose (D50w) 50 ml IVP PRN PRN PRN Reason: Blood Glucose less than 70 Stop: 11/17/16 20:09 Dextrose (Glutose 40%) 18.75 gm PO PRN PRN PRN Reason: Blood Glucose less than 70 Stop: 11/17/16 20:09 Diltiazem HCl (Cardizem) 10 mg IVP Q4HR PRN PRN Reason: HR >130 Stop: 11/18/16 20:11 Donepezil HCl (Aricept) 5 mg PO HS [facility] Stop: 11/17/16 20:59 Last Admin: 09/19/16 21:55 Dose: 5 mg Ezetimibe (Zetia) 10 mg PO HS [facility] Stop: 11/17/16 20:59 Last Admin: 09/19/16 21:45 Dose: 10 mg Glucagon (Glucagen) 1 mg IM PRN PRN PRN Reason: Blood Glucose less than 70 Stop: 11/17/16 20:09 Heparin Sodium (Porcine) (Heparin) 5,000 units SUBQ Q12HR [facility] Stop: 11/18/16 20:59 Last Admin: 09/20/16 08:50 Dose: 5,000 units Piperacillin Sod/Tazobactam (Sod 3.375 gm/ Sodium Chloride) 50 mls @ 100 mls/ hr IV Q8H [facility] Stop: 11/17/16 19:15 Last Infusion: 09/20/16 12:44 Dose: Infused Norepinephrine Bitartrate 8 mg (/ Dextrose) 258 mls @ 19.35 mls/hr IV TITR PRN ; Protocol; 10 MCG/MIN PRN Reason: BP MAINTENANCE (PER PROTOCOL) Stop: 11/17/16 19:17 Last Admin: 09/20/16 12:53 Dose: 10 mcg/min, 19.35 mls/hr Micafungin Sodium 100 mg/ (Sodium Chloride) 100 mls @ 100 mls/hr IV Q24H [facility] Stop: 11/17/16 19:59 Last Admin: 09/19/16 20:30 Dose: 100 mls/hr Vancomycin HCl 1.25 gm/ Sodium (Chloride) 250 mls @ 165 mls/hr IV Q24H [facility] Stop: 11/18/16 10:59 Last Admin: 09/20/16 11:30 Dose: 165 mls/hr Dextrose/Sodium Chloride (D5-0.9%Ns) 1,000 mls @ 125 mls/hr IV .Q8H [facility] Stop: 11/18/16 12:47 Last Admin: 09/20/16 11:28 Dose: 125 mls/hr Diltiazem HCl 125 mg/ Dextrose 125 mls @ 10 mls/hr IV TITR [facility]; 10 MG/HR PRN Reason: Protocol Stop: 11/18/16 20:32 Last Admin: 09/19/16 21:30 Dose: 10 mg/hr, 10 mls/hr Potassium Chloride (Potassium Chloride) 20 meq in 100 mls @ 50 mls/hr IV Q8H [facility] Stop: 09/20/16 17:59 Last Admin: 08/16/17 11:20 Dose: 50 mls/hr Insulin Aspart (Novolog Insulin Sliding Scale) 0 units SUBQ Q6HR [facility] PRN Reason: Protocol Stop: 11/18/16 00:00 Last Admin: 09/20/16 11:50 Dose: 10 units Memantine (Namenda) 5 mg PO DAILY [facility] Stop: 11/18/16 08:59 Last Admin: 09/20/16 12:40 Dose: Not Given Metronidazole (Flagyl) 250 mg PO TID [facility] Stop: 11/18/16 13:59 Last Admin: 09/20/16 12:40 Dose: Not Given Miscellaneous (Vancomycin Iv Per Pharmacy) 1 ea PRN PRN PRN Reason: PROTOCOL Stop: 11/17/16 19:15 Miscellaneous (Vte Chemical Prophylaxis Screen/ Admission) 1 ea PRN PRN PRN Reason: PROTOCOL Stop: 11/18/16 14:22 Morphine Sulfate (Morphine) 1 mg IVP Q6HR PRN PRN Reason: Pain (Moderate) Stop: 11/18/16 20:02 Ondansetron HCl (Zofran) 4 mg IV Q6HR PRN PRN Reason: NAUSEA/VOMITING Stop: 11/17/16 19:44 Pantoprazole Sodium (Protonix) 40 mg IVP DAILY [facility] Stop: 11/19/16 08:59 Vancomycin HCl (Vancomycin Oral) 250 mg PO TID [facility] Stop: 11/18/16 13:59 Last Admin: 09/20/16 12:41 Dose: Not Given Zinc Sulfate (Zinc Sulfate) 220 mg PO DAILY [facility] Stop: 11/18/16 08:59 Last Admin: 09/19/16 08:43 Dose: 220 mg kidney fnc continues to improve WBC down to 33.2 continue Na HC03 decrease ivf due to ascites, b/l effusions f/u electrolytes, cbc, PT/INR continue Vanco, Zosyn agree w/ K, Mg replacement events last nite noted, required intubation now on Levophed cxr still has chf, right pna, but allergic to lasix w/c has crossreactivity w/ bumex Nutritional Asmnt/Malnutr-PDOC - Dietary Evaluation Malnutrition Findings (Please click <Entered> for more info): Nutritional Asmnt/Malnutrition Start: 09/19/16 15: 45 Text: Status: Complete Freq: Document 09/19/16 15:46 JDANH (Rec: 09/19/16 16:02 [facility] [id number]) Nutritional Asmnt/Malnutrition Patient General Information Nutritional Screening Consult Diagnosis Sepsis, pneumonia, hypotension Pertinent Medical Hx/Surgical Hx AFIB, CAD, CHF, HTN, hyperlipidemia, CVA, pneumonia , chronic renal insufficiency, DM, multiple decubitus ulcers in different parts of body, left AKA Subjective Information Nutrition consult for pt is diabetic received and completed. Pt is a 81-year-old female from [facility] admitted with chief complaint of sepsis. Pt is a poor historian at the moment, lethargic and nonverbal. Pt appears obese with edema observed. RD measured wt with medical devices removed, three pillows on bed: 216.2#/98.3 kg. Adjusted BMI with consideration of AKA: 40.3 kg/ m2. Adjusted IBW with consideration of AKA: 113#/51. 4 kg. Per medical records, pt wt 242#/110 kg in August 2016. NGT placed last night 09/18, pending tube feeding order. Current Diet Order/ Nutrition Support NPO Patient / S.O Can't verbalize diet edu Pertinent Medications Vitamin C, Oscal with Vitamin D, D5-0.9 Ns, Novolog (not given during NPO status), Flagyl, Piperacillin, Vancomycin, Coumadin, Zinc Sulfate Pertinent Labs (09/18) Glucose 344H, A1C WNL, HDL Cholesterol 13L, LDL Cholesterol 19L (09/19) Na 132L , K 3.3L, Glucose 290H, POC Glucose 246H-285H, BUN 27H, Creatinine 1.3H, Alkaline Phosphatase 107H, Albumin 2.2L Nutritional Hx/Data Height 1.7 m Height (Calculated Centimeters) 170.2 Current Weight (lbs) 98.067 kg Weight (Calculated Kilograms) 98.1 Weight (Calculated Grams) 12253.7 Usual body Weight (lbs) 242 % Usual Body Weight 89 [place] Body Weight 113 % [place] Body Weight 191 Recent Weight Change Yes Weight Status Morbidly Obese GI Symptoms GI Symptoms None Difficult in: Swallowing Food Allergies No Usual diet at home Mechanical soft ground with protein supplement 30 ml BID Skin Integrity/Comment: Grey 10. Pt with multiple wounds body and leg. Estimated Nutritional Goals BEE in Kcals: Using Current wt Calories/Kcals/Kg Based on current wt of 98.3 kg with consideration of wounds, sepsis,obesity Kcals Calculated 1461-1431 kcals/day ([place] [facility]. Jeor x 1.2-1.5) Protein: Adj wt of IBW Protein g/kg: Based on adjusted IBW 51.4 kg with consideration of wounds, sepsis Protein Calculated 93-103 gm/day (1.8-2 gm/kg) Fluid: ml Per MD/DO Nutritional Problem 2. Problem Problem Increased energy and protein needs related to Etiology altered skin integrity as evidenced by Signs/Symptoms: multiple decubitus ulcers to body and leg, per RN notes. 1. Problem Problem Malnutrition related to Etiology morbid obesity as evidenced by Signs/Symptoms: adjusted BMI of 40.3 kg/m2. Malnutrition Alert Protein-Calorie Malnutrition N/A Is there a minimum of two criteria No selected? Query Text:Check all the applicable criteria. A minimum of two criteria are recommended for diagnosis of either severe or non-severe malnutrition. Malnutrition Related to Morbid Obesity Malnutrition related to morbid obesity BMI> or equal to 40 Query Text:(Any 1 Criteria met) Malnutrition related to morbid obesity Yes Intervention/Recommendation Comments 1. When medically appropriate, recommend initiate tube feeding Diabetisource AC at 20 ml/hr. Increase by 10 ml/hr every 4 hours until the goal rate of 70 ml/hr is reached. Tube feeding to provide 2016 kcals, 101 gm protein, and 1374 ml free water per day. 2. Recommend one packet of Arginaid via NGT BID to promote wound healing. Expected Outcomes/Goals Expected Outcomes/Goals Provide pt with 100% of estimated nutritional needs to promote wound healing. Physician Parameters for PEM Serum Albumin (g/dl) <2.4 (Severe)
[2016-09-24] MEDS ORDERED: KCL 20mEq/100mL Premix 20 MEQ/100 ML PIGGYBACK IV ONE (14:53)
--- NOTE | 2016-09-24 16:38 | General Progress Note ---
Subjective - Review of Systems Service Date: 09/24/16 Subjective: ER Physician Pronounciation Note: Called to pronounce pt as she just . On exam, pupils were fixed and nonreactive. No palpable carotid pulses. No auscultable cadiac sounds or spontaneous respiration. Pt was pronounced at 1630. Family members were at bedside. Condolences were extended. Pt's attending physician is to be notified about pt's demise per nursing staff. Objective - Results Result Diagrams: 09/24/16 07:30 09/24/16 07:30 Recent Labs: Laboratory Last Values WBC 14.5 Th/cmm (4.8-10.8) H D 09/24/16 07:30 Corrected WBC (auto) 13.2 Th/cmm (4.8-10.8) H 09/24/16 07:30 RBC 2.83 Mil/cmm (3.80-5.20) L 09/24/16 07:30 Hgb 8.5 gm/dL (11.7-16.1) L 09/24/16 07:30 Hct 26.0 % (35.0-45.0) L 09/24/16 07:30 MCV 92.0 fl (81-100) 09/24/16 07:30 MCH 29.9 pg (27.0-31.0) 09/24/16 07:30 MCHC Differential 32.5 pg (28.0-36.0) 09/24/16 07:30 RDW 15.4 % (11.5-20.0) 09/24/16 07:30 Plt Count 351 Th/cmm (150-400) D 09/24/16 07:30 MPV 9.0 fl 09/24/16 07:30 Band Neutrophils % 16 % (0-10) H 09/24/16 07:30 Basophils % FLIGHT/TRANSPORT NURSE 09/24/16 07:30 Neutrophils (Manual) 77 % (40-80) 09/24/16 07:30 Lymphocytes 5 % (20-50) L 09/24/16 07:30 Monocytes 2 % (2-10) 09/24/16 07:30 Eosinophils 0 % (0-5) 09/22/16 04:16 Basophils 0 % (0-3) 09/22/16 04:16 Metamyelocytes 1 % (0-0) H 09/20/16 05:05 Nucleated RBCs 10.0 % (0-0) H 09/24/16 07:30 Hypochromia 1+ 09/24/16 07:30 Toxic Granulation 2+ 09/24/16 07:30 Platelet Estimate ADEQUATE (NORMAL) 09/24/16 07:30 Platelet Morphology NORMAL (NORMAL) 09/23/16 06:18 Polychromasia 1+ 09/20/16 05:05 Anisocytosis 1+ 09/24/16 07:30 RBC Morph Micro Appear NORMAL (NORMAL) 09/23/16 06:18 Smear Path Review SEE BELOW 09/19/16 04:55 PT 14.0 SECONDS (9.5-11.5) H 09/22/16 04:16 INR 1.33 (0.5-1.4) 09/22/16 04:16 PTT (Actin FS) 46.9 SECONDS (26.0-38.0) H 09/21/16 05:30 Specimen Source arterial 09/24/16 05:15 Sample Site rr 09/24/16 05:15 pH 7.20 (7.35-7.45) L* 09/24/16 05:15 pCO2 51.0 mmHg (35.0-45.0) H 09/24/16 05:15 pO2 262.0 mmHg (80.0-100.0) H 09/24/16 05:15 HCO3 18.5 mEq/L (20.0-26.0) L 09/24/16 05:15 Base Excess -8.3 mEq/L (-3.0-3.0) L 09/24/16 05:15 O2 Saturation 100.0 % (92.0-100.0) 09/24/16 05:15 Toni Test yes 09/24/16 05:15 Vent Rate 16 09/24/16 05:15 Inspired O2 100 09/24/16 05:15 Tidal Volume 500 09/24/16 05:15 PEEP n/a 09/24/16 05:15 Pressure (ins/psv/peep) n/a 09/24/16 05:15 Critical Value abroedelrcp 09/24/16 05:15 Sodium 138 mEq/L (136-145) 09/24/16 07:30 Potassium 3.1 mEq/L (3.5-5.1) L 09/24/16 07:30 Chloride 111 mEq/L (98-107) H 09/24/16 07:30 Carbon Dioxide 17.8 mEq/L (21.0-31.0) L 09/24/16 07:30 Anion Gap 12.3 (7.0-16.0) 09/24/16 07:30 BUN 20 mg/dL (7-25) 09/24/16 07:30 Creatinine 0.8 mg/dL (0.6-1.2) 09/24/16 07:30 Est GFR ( Amer) TNP 09/24/16 07:30 Est GFR (Non-Af Amer) TNP 09/24/16 07:30 BUN/Creatinine Ratio 25.0 09/24/16 07:30 Glucose 269 mg/dL (70-105) H 09/24/16 07:30 POC Glucose 314 MG/DL (70 - 105) H 09/24/16 07:37 Hemoglobin A1c % 5.7 % (4.0-6.0) 09/18/16 14:24 Whole Bld Lactic Acid 1.45 mmol/L (0.60-1.99) 09/23/16 11:21 Calcium 6.2 mg/dL (8.6-10.3) L 09/24/16 07:30 Phosphorus 3.4 mg/dL (2.5-5.0) 09/24/16 07:30 Magnesium 1.5 mg/dL (1.9-2.7) L 09/24/16 07:30 Total Bilirubin 0.6 mg/dL (0.3-1.0) 09/24/16 07:30 AST 9 U/L (13-39) L 09/24/16 07:30 ALT 5 U/L (7-52) L 09/24/16 07:30 Alkaline Phosphatase 88 U/L (34-104) 09/24/16 07:30 Troponin I 0.47 ng/mL (0.01-0.05) H* D 09/18/16 15:24 B-Natriuretic Peptide 1120.0 pg/mL (5.0-100.0) H 09/21/16 05:30 Total Protein 3.5 gm/dL (6.0-8.3) L 09/24/16 07:30 Albumin 1.9 gm/dL (3.7-5.3) L 09/24/16 07:30 Globulin 1.6 gm/dL 09/24/16 07:30 Albumin/Globulin Ratio 1.2 (1.0-1.8) 09/24/16 07:30 Triglycerides 130 mg/dL (<150) 09/18/16 15:24 Cholesterol 48 mg/dL (<200) 09/18/16 15:24 LDL Cholesterol Direct 19 mg/dL (75-193) L 09/18/16 15:24 HDL Cholesterol 13 mg/dL (23-92) L 09/18/16 15:24 TSH 7.73 uIU/ml (0.34-5.60) H 09/18/16 15:24 Urine Source [place] 09/18/16 16:25 Urine Color YELLOW 09/18/16 16:25 Urine Clarity SLIGHT CLOUDY (CLEAR) 09/18/16 16:25 Urine pH 5.5 (4.6 - 8.0) 09/18/16 16:25 Ur Specific [place] 1.015 (1.005-1.030) 09/18/16 16:25 Urine Protein TRACE mg/dL (NEGATIVE) 09/18/16 16:25 Urine Glucose (UA) NEGATIVE mg/dL (NEGATIVE) 09/18/16 16:25 Urine Ketones NEGATIVE mg/dL (NEGATIVE) 09/18/16 16:25 Urine Blood NEGATIVE (NEGATIVE) 09/18/16 16:25 Urine Nitrate NEGATIVE (NEGATIVE) 09/18/16 16:25 Urine Bilirubin NEGATIVE (NEGATIVE) 09/18/16 16:25 Urine Urobilinogen 0.2 E.U./dL (0.2 - 1.0) 09/18/16 16:25 Ur Leukocyte Esterase SMALL (NEGATIVE) H 09/18/16 16:25 Urine RBC 2-5 /hpf (0-5) 09/18/16 16:25 Urine WBC 50-100 /hpf (0-5) H 09/18/16 16:25 Ur Epithelial Cells FEW /lpf (FEW) 09/18/16 16:25 Urine Bacteria 1+ /hpf (NONE SEEN) H 09/18/16 16:25 Vancomycin Trough 18.5 ug/mL (10-20) 09/24/16 13:00 RPR NONREACTIVE (NONREACTIVE) 09/18/16 15:24 Blood Type O POSITIVE 09/21/16 09:30 Antibody Screen NEGATIVE 09/21/16 09:30 - Physical Exam Vitals and I&O: Vital Signs Temp 96.7 F 09/24/16 11:00 Pulse 80 09/24/16 15:22 Resp 22 09/24/16 12:43 BP 42/19 09/24/16 11:00 Pulse Ox 95 09/24/16 08:00 Active Medications: Current Medications Acetaminophen (Tylenol) 325 mg PO Q4HR PRN PRN Reason: Fever > 101 Stop: 11/17/16 19:17 Albuterol/Ipratropium (Duoneb Neb) 3 ml HHN Q4HRT [facility] Stop: 11/17/16 22:59 Last Admin: 09/24/16 15:22 Dose: 3 ml Ascorbic Acid (Vitamin C) 500 mg PO DAILY [facility] Stop: 11/18/16 08:59 Last Admin: 09/24/16 10:41 Dose: 500 mg Calcium/Vitamin D (Oscal W/Vitamin D) 1 tab PO DAILY [facility] Stop: 11/18/16 08:59 Last Admin: 09/24/16 10:40 Dose: 1 tab Dextrose (D50w) 50 ml IVP PRN PRN PRN Reason: Blood Glucose less than 70 Stop: 11/17/16 20:09 Dextrose (Glutose 40%) 18.75 gm PO PRN PRN PRN Reason: Blood Glucose less than 70 Stop: 11/17/16 20:09 Diltiazem HCl (Cardizem) 10 mg IVP Q4HR PRN PRN Reason: HR >130 Stop: 11/18/16 20:11 Last Admin: 09/24/16 05:14 Dose: 10 mg Donepezil HCl (Aricept) 5 mg PO HS [facility] Stop: 11/17/16 20:59 Last Admin: 09/23/16 20:51 Dose: 5 mg Ezetimibe (Zetia) 10 mg PO HS [facility] Stop: 11/17/16 20:59 Last Admin: 09/23/16 20:51 Dose: 10 mg Glucagon (Glucagen) 1 mg IM PRN PRN PRN Reason: Blood Glucose less than 70 Stop: 11/17/16 20:09 Heparin Sodium (Porcine) (Heparin) 5,000 units SUBQ Q12HR [facility] Stop: 11/18/16 20:59 Last Admin: 09/24/16 10:42 Dose: 5,000 units Norepinephrine Bitartrate 8 mg (/ Dextrose) 258 mls @ 19.35 mls/hr IV TITR PRN ; Protocol; 10 MCG/MIN PRN Reason: BP MAINTENANCE (PER PROTOCOL) Stop: 11/17/16 19:17 Last Admin: 09/24/16 13:09 Dose: 40 mcg/min, 77.4 mls/hr Diltiazem HCl 125 mg/ Dextrose 125 mls @ 10 mls/hr IV TITR [facility]; 10 MG/HR PRN Reason: Protocol Stop: 11/18/16 20:32 Last Titration: 09/21/16 19:00 Dose: Infused Vancomycin HCl 1 gm/ Sodium (Chloride) 250 mls @ 165 mls/hr IV Q24H [facility] Stop: 11/20/16 13:59 Last Infusion: 09/23/16 20:47 Dose: Infused Ceftazidime 1 gm/ Dextrose 50 mls @ 100 mls/hr IV Q8HR [facility] Stop: 11/22/16 13:29 Last Admin: 09/24/16 12:15 Dose: 100 mls/hr Phenylephrine HCl 10 mg/ (Sodium Chloride) 250 mls @ 0 mls/hr IV TITR [facility]; Per Protocol PRN Reason: Protocol Stop: 11/23/16 05:14 Last Admin: 09/24/16 13:07 Dose: 150 mcg/min, 225 mls/hr Dopamine HCl/Dextrose (Dopamine) 400 mg in 250 mls @ 0 mls/hr IV TITR PRN; Protocol; Per Protocol PRN Reason: BP MAINTENANCE (PER PROTOCOL) Stop: 11/23/16 09:46 Last Admin: 09/24/16 14:02 Dose: 10.88 mcg/kg/min, 40 mls/hr Sodium Chloride (Nacl 0.9%) 1,000 mls @ 100 mls/hr IV .Q10H [facility] Stop: 11/23/16 09:51 Last Admin: 09/24/16 10:18 Dose: 100 mls/hr Potassium Chloride (Potassium Chloride) 20 meq in 100 mls @ 50 mls/hr IV X1 ONE Stop: 09/24/16 16:52 Insulin Aspart (Novolog Insulin Sliding Scale) 0 units SUBQ Q6HR [facility] PRN Reason: Protocol Stop: 11/22/16 00:00 Last Admin: 09/24/16 06:29 Dose: Not Given Lactobacillus Rhamnosus (Culturelle) 1 each PO DAILY [facility] Stop: 11/21/16 08:59 Last Admin: 09/24/16 10:41 Dose: 1 each Lorazepam (Ativan) 1 mg IVP Q2H PRN; Protocol PRN Reason: Agitation Stop: 11/23/16 04:10 Memantine (Namenda) 5 mg PO DAILY [facility] Stop: 11/18/16 08:59 Last Admin: 09/24/16 10:40 Dose: 5 mg Metronidazole (Flagyl) 250 mg PO TID [facility] Stop: 11/18/16 13:59 Last Admin: 09/24/16 10:42 Dose: 250 mg Mineral Oil (Mineral Oil 30 Ml) 30 ml NG DAILY [facility] Stop: 11/19/16 18:14 Last Admin: 09/24/16 10:41 Dose: 30 ml Miscellaneous (Vancomycin Iv Per Pharmacy) 1 ea [facility] PRN PRN PRN Reason: PROTOCOL Stop: 11/17/16 19:15 Miscellaneous (Vte Chemical Prophylaxis Screen/ Admission) 1 ea [facility] PRN PRN PRN Reason: PROTOCOL Stop: 11/18/16 14:22 Miscellaneous (Probiotic Screen) 1 ea PRN PRN PRN Reason: PROTOCOL Stop: 11/20/16 12:42 Morphine Sulfate (Morphine) 1 mg IVP Q6HR PRN PRN Reason: Pain (Moderate) Stop: 11/18/16 20:02 Last Admin: 09/24/16 01:35 Dose: 1 mg Morphine Sulfate (Morphine) 1 mg IVP Q6H PRN PRN Reason: MODERATE PAIN Stop: 11/19/16 16:26 Ondansetron HCl (Zofran) 4 mg IV Q6HR PRN PRN Reason: NAUSEA/VOMITING Stop: 11/17/16 19:44 Pantoprazole Sodium (Protonix) 40 mg IVP DAILY [facility] Stop: 11/19/16 08:59 Last Admin: 09/24/16 10:41 Dose: 40 mg Sodium Bicarbonate (Sodium Bicarbonate) 650 mg PO BID [facility] PRN Reason: Protocol Stop: 11/19/16 16:59 Last Admin: 09/24/16 09:42 Dose: 650 mg Zinc Sulfate (Zinc Sulfate) 220 mg PO DAILY [facility] Stop: 11/18/16 08:59 Last Admin: 09/24/16 10:40 Dose: 220 mg General: No acute distress, Other (Patient is unconscious, responding only to pain) HEENT: Atraumatic, Mucous membr. moist/pink Neck: Supple, +2 carotid pulse wo bruit (irregular rhythm) Cardiovascular: Regular rate, Normal S1, Normal S2, Other (Tachicardic) Lungs: Other (few rhonchi, some rales) Abdomen: Bowel sounds, Soft Extremities: Edema (right leg), Other (Pitting edema, amputation above knee of left leg) Neurological: Sensation intact, Other (Non ambulatory) Skin: Other (Multiple decubits ulcers), no Significant lesion (B/L aka) Psych/Mental Status: Mood NL, Other (Unconscious) - Procedures Procedures: Procedures Procedure Code Date AMPUTATE LEG AT THIGH 74080 09/18/16 ANNETTE SUBQ TISSUE 20 SQ CM/< 98576 08/03/16 DETACHMENT AT LEFT UPPER LEG, LOW, OPEN APPROACH [id number] 08/03/16 DETACHMENT AT RIGHT UPPER LEG, LOW, OPEN APPROACH [id number] 09/18/16 EXCISION OF R FOOT SUBCU/FASCIA, OPEN APPROACH [id number] 08/03/16 EXCISION OF R LOW LEG SUBCU/FASCIA, OPEN APPROACH [id number] 08/03/16 TRANSFUSE NONAUT RED BLOOD CELLS IN PERIPH VEIN, PERC [id number] 08/03/16 Assessment/Plan - Problem List Patient Problems: All Active Problems ELEVATED WBC LEVELS (Acute)
--- NOTE | 2016-09-24 17:36 | Infectious Disease Prog Note ---
Infectious Disease Subjective - Review of Systems Service Date: 09/24/16 Subjective: cc c diff/pn hpi- pt in icu d/w staff ros nofvevr o/e vs yang ortiz abd soft ext no edema dx cd iff pn. oklan merrem po vanco mycamine/ po flagyl Infectious Disease Objective - Results Result Diagrams: 09/24/16 07:30 09/24/16 07:30 Recent Labs: Laboratory Last Values WBC 14.5 Th/cmm (4.8-10.8) H D 09/24/16 07:30 Corrected WBC (auto) 13.2 Th/cmm (4.8-10.8) H 09/24/16 07:30 RBC 2.83 Mil/cmm (3.80-5.20) L 09/24/16 07:30 Hgb 8.5 gm/dL (11.7-16.1) L 09/24/16 07:30 Hct 26.0 % (35.0-45.0) L 09/24/16 07:30 MCV 92.0 fl (81-100) 09/24/16 07:30 MCH 29.9 pg (27.0-31.0) 09/24/16 07:30 MCHC Differential 32.5 pg (28.0-36.0) 09/24/16 07:30 RDW 15.4 % (11.5-20.0) 09/24/16 07:30 Plt Count 351 Th/cmm (150-400) D 09/24/16 07:30 MPV 9.0 fl 09/24/16 07:30 Band Neutrophils % 16 % (0-10) H 09/24/16 07:30 Basophils % [employer]UD[employer] EXPERT 09/24/16 07:30 Neutrophils (Manual) 77 % (40-80) 09/24/16 07:30 Lymphocytes 5 % (20-50) L 09/24/16 07:30 Monocytes 2 % (2-10) 09/24/16 07:30 Eosinophils 0 % (0-5) 09/22/16 04:16 Basophils 0 % (0-3) 09/22/16 04:16 Metamyelocytes 1 % (0-0) H 09/20/16 05:05 Nucleated RBCs 10.0 % (0-0) H 09/24/16 07:30 Hypochromia 1+ 09/24/16 07:30 Toxic Granulation 2+ 09/24/16 07:30 Platelet Estimate ADEQUATE (NORMAL) 09/24/16 07:30 Platelet Morphology NORMAL (NORMAL) 09/23/16 06:18 Polychromasia 1+ 09/20/16 05:05 Anisocytosis 1+ 09/24/16 07:30 RBC Morph Micro Appear NORMAL (NORMAL) 09/23/16 06:18 Smear Path Review SEE BELOW 09/19/16 04:55 PT 14.0 SECONDS (9.5-11.5) H 09/22/16 04:16 INR 1.33 (0.5-1.4) 09/22/16 04:16 PTT (Actin FS) 46.9 SECONDS (26.0-38.0) H 09/21/16 05:30 Specimen Source arterial 09/24/16 05:15 Sample Site rr 09/24/16 05:15 pH 7.20 (7.35-7.45) L* 09/24/16 05:15 pCO2 51.0 mmHg (35.0-45.0) H 09/24/16 05:15 pO2 262.0 mmHg (80.0-100.0) H 09/24/16 05:15 HCO3 18.5 mEq/L (20.0-26.0) L 09/24/16 05:15 Base Excess -8.3 mEq/L (-3.0-3.0) L 09/24/16 05:15 O2 Saturation 100.0 % (92.0-100.0) 09/24/16 05:15 Toni Test yes 09/24/16 05:15 Vent Rate 16 09/24/16 05:15 Inspired O2 100 09/24/16 05:15 Tidal Volume 500 09/24/16 05:15 PEEP n/a 09/24/16 05:15 Pressure (ins/psv/peep) n/a 09/24/16 05:15 Critical Value abroedelrcp 09/24/16 05:15 Sodium 138 mEq/L (136-145) 09/24/16 07:30 Potassium 3.1 mEq/L (3.5-5.1) L 09/24/16 07:30 Chloride 111 mEq/L (98-107) H 09/24/16 07:30 Carbon Dioxide 17.8 mEq/L (21.0-31.0) L 09/24/16 07:30 Anion Gap 12.3 (7.0-16.0) 09/24/16 07:30 BUN 20 mg/dL (7-25) 09/24/16 07:30 Creatinine 0.8 mg/dL (0.6-1.2) 09/24/16 07:30 Est GFR ( Amer) TNP 09/24/16 07:30 Est GFR (Non-Af Amer) TNP 09/24/16 07:30 BUN/Creatinine Ratio 25.0 09/24/16 07:30 Glucose 269 mg/dL (70-105) H 09/24/16 07:30 POC Glucose 314 MG/DL (70 - 105) H 09/24/16 07:37 Hemoglobin A1c % 5.7 % (4.0-6.0) 09/18/16 14:24 Whole Bld Lactic Acid 1.45 mmol/L (0.60-1.99) 09/23/16 11:21 Calcium 6.2 mg/dL (8.6-10.3) L 09/24/16 07:30 Phosphorus 3.4 mg/dL (2.5-5.0) 09/24/16 07:30 Magnesium 1.5 mg/dL (1.9-2.7) L 09/24/16 07:30 Total Bilirubin 0.6 mg/dL (0.3-1.0) 09/24/16 07:30 AST 9 U/L (13-39) L 09/24/16 07:30 ALT 5 U/L (7-52) L 09/24/16 07:30 Alkaline Phosphatase 88 U/L (34-104) 09/24/16 07:30 Troponin I 0.47 ng/mL (0.01-0.05) H* D 09/18/16 15:24 B-Natriuretic Peptide 1120.0 pg/mL (5.0-100.0) H 09/21/16 05:30 Total Protein 3.5 gm/dL (6.0-8.3) L 09/24/16 07:30 Albumin 1.9 gm/dL (3.7-5.3) L 09/24/16 07:30 Globulin 1.6 gm/dL 09/24/16 07:30 Albumin/Globulin Ratio 1.2 (1.0-1.8) 09/24/16 07:30 Triglycerides 130 mg/dL (<150) 09/18/16 15:24 Cholesterol 48 mg/dL (<200) 09/18/16 15:24 LDL Cholesterol Direct 19 mg/dL (75-193) L 09/18/16 15:24 HDL Cholesterol 13 mg/dL (23-92) L 09/18/16 15:24 TSH 7.73 uIU/ml (0.34-5.60) H 09/18/16 15:24 Urine Source [place] 09/18/16 16:25 Urine Color YELLOW 09/18/16 16:25 Urine Clarity SLIGHT CLOUDY (CLEAR) 09/18/16 16:25 Urine pH 5.5 (4.6 - 8.0) 09/18/16 16:25 Ur Specific [place] 1.015 (1.005-1.030) 09/18/16 16:25 Urine Protein TRACE mg/dL (NEGATIVE) 09/18/16 16:25 Urine Glucose (UA) NEGATIVE mg/dL (NEGATIVE) 09/18/16 16:25 Urine Ketones NEGATIVE mg/dL (NEGATIVE) 09/18/16 16:25 Urine Blood NEGATIVE (NEGATIVE) 09/18/16 16:25 Urine Nitrate NEGATIVE (NEGATIVE) 09/18/16 16:25 Urine Bilirubin NEGATIVE (NEGATIVE) 09/18/16 16:25 Urine Urobilinogen 0.2 E.U./dL (0.2 - 1.0) 09/18/16 16:25 Ur Leukocyte Esterase SMALL (NEGATIVE) H 09/18/16 16:25 Urine RBC 2-5 /hpf (0-5) 09/18/16 16:25 Urine WBC 50-100 /hpf (0-5) H 09/18/16 16:25 Ur Epithelial Cells FEW /lpf (FEW) 09/18/16 16:25 Urine Bacteria 1+ /hpf (NONE SEEN) H 09/18/16 16:25 Vancomycin Trough 18.5 ug/mL (10-20) 09/24/16 13:00 RPR NONREACTIVE (NONREACTIVE) 09/18/16 15:24 Blood Type O POSITIVE 09/21/16 09:30 Antibody Screen NEGATIVE 09/21/16 09:30 - Physical Exam Vitals and I&O: Vital Signs Temp 96.7 F 09/24/16 11:00 Pulse 80 09/24/16 15:22 Resp 22 09/24/16 12:43 BP 42/19 09/24/16 11:00 Pulse Ox 95 09/24/16 08:00 Intake & Output 09/23/16 09/24/16 09/24/16 18:59 06:59 18:59 Intake Total 50 9462.037 0896.803 Output Total 30 330 Balance 20 3570.045 5031.803 Weight (lbs) 97.522 kg 97.976 kg Intake: Intake, IV Amount 50 921.015 1816.803 Albumin 25% 12.5gm/50mL 50 100 12.5 gm In 50 ml @ 50 mls /hr IV TID [facility] Rx#: [id number] DOPamine 400 mg In 250 ml 38.833 @ Per Protocol IV TITR PRN Rx#:[id number] Micafungin 100 mg In 100 Sodium Chloride 0.9% 100 ml @ 100 mls/hr IV Q24H [facility] Rx#:[id number] Norepinephrine 8 mg In 394.669 506.97 Dextrose 5% 250 ml @ 10 MCG/MIN 19.35 mls/hr IV TITR PRN Rx#:[id number] Phenylephrine HCl 10 mg 500 In Sodium Chloride 0.9% 250 ml @ Per Protocol IV TITR [facility] Rx#:[id number] Vancomycin HCl 1 gm In 250 Sodium Chloride 0.9% 250 ml @ 165 mls/hr IV Q24H [facility] Rx#:[id number] cefTAZidime 1 gm In 150 Dextrose 5% 50 ml @ 100 mls/hr IV Q8HR [facility] Rx#: [id number] Tube Feeding 270 Other 100 Output: Drainage 30 30 Right Thigh 30 30 Urine 300 Other: Stool Characteristics Soft Soft Soft Brown Brown Brown Active Medications: Current Medications Acetaminophen (Tylenol) 325 mg PO Q4HR PRN PRN Reason: Fever > 101 Stop: 11/17/16 19:17 Albuterol/Ipratropium (Duoneb Neb) 3 ml HHN Q4HRT [facility] Stop: 11/17/16 22:59 Last Admin: 09/24/16 15:22 Dose: 3 ml Ascorbic Acid (Vitamin C) 500 mg PO DAILY [facility] Stop: 11/18/16 08:59 Last Admin: 09/24/16 10:41 Dose: 500 mg Calcium/Vitamin D (Oscal W/Vitamin D) 1 tab PO DAILY [facility] Stop: 11/18/16 08:59 Last Admin: 09/24/16 10:40 Dose: 1 tab Dextrose (D50w) 50 ml IVP PRN PRN PRN Reason: Blood Glucose less than 70 Stop: 11/17/16 20:09 Dextrose (Glutose 40%) 18.75 gm PO PRN PRN PRN Reason: Blood Glucose less than 70 Stop: 11/17/16 20:09 Diltiazem HCl (Cardizem) 10 mg IVP Q4HR PRN PRN Reason: HR >130 Stop: 11/18/16 20:11 Last Admin: 09/24/16 05:14 Dose: 10 mg Donepezil HCl (Aricept) 5 mg PO HS [facility] Stop: 11/17/16 20:59 Last Admin: 09/23/16 20:51 Dose: 5 mg Ezetimibe (Zetia) 10 mg PO HS [facility] Stop: 11/17/16 20:59 Last Admin: 09/23/16 20:51 Dose: 10 mg Glucagon (Glucagen) 1 mg IM PRN PRN PRN Reason: Blood Glucose less than 70 Stop: 11/17/16 20:09 Heparin Sodium (Porcine) (Heparin) 5,000 units SUBQ Q12HR [facility] Stop: 11/18/16 20:59 Last Admin: 09/24/16 10:42 Dose: 5,000 units Norepinephrine Bitartrate 8 mg (/ Dextrose) 258 mls @ 19.35 mls/hr IV TITR PRN ; Protocol; 10 MCG/MIN PRN Reason: BP MAINTENANCE (PER PROTOCOL) Stop: 11/17/16 19:17 Last Admin: 09/24/16 13:09 Dose: 40 mcg/min, 77.4 mls/hr Diltiazem HCl 125 mg/ Dextrose 125 mls @ 10 mls/hr IV TITR SHAR[facility]; 10 MG/HR PRN Reason: Protocol Stop: 11/18/16 20:32 Last Titration: 09/21/16 19:00 Dose: Infused Vancomycin HCl 1 gm/ Sodium (Chloride) 250 mls @ 165 mls/hr IV Q24H [facility] Stop: 11/20/16 13:59 Last Infusion: 09/23/16 20:47 Dose: Infused Ceftazidime 1 gm/ Dextrose 50 mls @ 100 mls/hr IV Q8HR [facility] Stop: 11/22/16 13:29 Last Admin: 09/24/16 12:15 Dose: 100 mls/hr Phenylephrine HCl 10 mg/ (Sodium Chloride) 250 mls @ 0 mls/hr IV TITR [facility]AR[facility]; Per Protocol PRN Reason: Protocol Stop: 11/23/16 05:14 Last Admin: 09/24/16 13:07 Dose: 150 mcg/min, 225 mls/hr Dopamine HCl/Dextrose (Dopamine) 400 mg in 250 mls @ 0 mls/hr IV TITR PRN; Protocol; Per Protocol PRN Reason: BP MAINTENANCE (PER PROTOCOL) Stop: 11/23/16 09:46 Last Admin: 09/24/16 14:02 Dose: 10.88 mcg/kg/min, 40 mls/hr Sodium Chloride (Nacl 0.9%) 1,000 mls @ 100 mls/hr IV .Q10H [facility] Stop: 11/23/16 09:51 Last Admin: 09/24/16 10:18 Dose: 100 mls/hr Insulin Aspart (Novolog Insulin Sliding Scale) 0 units SUBQ Q6HR [facility] PRN Reason: Protocol Stop: 11/22/16 00:00 Last Admin: 09/24/16 06:29 Dose: Not Given Lactobacillus Rhamnosus (Culturelle) 1 each PO DAILY [facility] Stop: 11/21/16 08:59 Last Admin: 09/24/16 10:41 Dose: 1 each Lorazepam (Ativan) 1 mg IVP Q2H PRN; Protocol PRN Reason: Agitation Stop: 11/23/16 04:10 Memantine (Namenda) 5 mg PO DAILY [facility] Stop: 11/18/16 08:59 Last Admin: 09/24/16 10:40 Dose: 5 mg Metronidazole (Flagyl) 250 mg PO TID [facility] Stop: 11/18/16 13:59 Last Admin: 09/24/16 10:42 Dose: 250 mg Mineral Oil (Mineral Oil 30 Ml) 30 ml NG DAILY [facility] Stop: 11/19/16 18:14 Last Admin: 09/24/16 10:41 Dose: 30 ml Miscellaneous (Vancomycin Iv Per Pharmacy) 1 ea MC PRN PRN PRN Reason: PROTOCOL Stop: 11/17/16 19:15 Miscellaneous (Vte Chemical Prophylaxis Screen/ Admission) 1 ea PRN PRN PRN Reason: PROTOCOL Stop: 11/18/16 14:22 Miscellaneous (Probiotic Screen) 1 ea PRN PRN PRN Reason: PROTOCOL Stop: 11/20/16 12:42 Morphine Sulfate (Morphine) 1 mg IVP Q6HR PRN PRN Reason: Pain (Moderate) Stop: 11/18/16 20:02 Last Admin: 09/24/16 01:35 Dose: 1 mg Morphine Sulfate (Morphine) 1 mg IVP Q6H PRN PRN Reason: MODERATE PAIN Stop: 11/19/16 16:26 Ondansetron HCl (Zofran) 4 mg IV Q6HR PRN PRN Reason: NAUSEA/VOMITING Stop: 11/17/16 19:44 Pantoprazole Sodium (Protonix) 40 mg IVP DAILY [facility] Stop: 11/19/16 08:59 Last Admin: 09/24/16 10:41 Dose: 40 mg Sodium Bicarbonate (Sodium Bicarbonate) 650 mg PO BID [facility] PRN Reason: Protocol Stop: 11/19/16 16:59 Last Admin: 09/24/16 09:42 Dose: 650 mg Zinc Sulfate (Zinc Sulfate) 220 mg PO DAILY [facility] Stop: 11/18/16 08:59 Last Admin: 09/24/16 10:40 Dose: 220 mg - Procedures Procedures: Procedures Procedure Code Date AMPUTATE LEG AT THIGH 03806 09/18/16 ANNETTE SUBQ TISSUE 20 SQ CM/< 84432 08/03/16 DETACHMENT AT LEFT UPPER LEG, LOW, OPEN APPROACH [id number] 08/03/16 DETACHMENT AT RIGHT UPPER LEG, LOW, OPEN APPROACH [id number] 09/18/16 EXCISION OF R FOOT SUBCU/FASCIA, OPEN APPROACH [id number] 08/03/16 EXCISION OF R LOW LEG SUBCU/FASCIA, OPEN APPROACH [id number] 08/03/16 TRANSFUSE NONAUT RED BLOOD CELLS IN PERIPH VEIN, PERC [id number] 08/03/16 Infectious Disease Assmt/Plan - Problem List Patient Problems: All Active Problems ELEVATED WBC LEVELS (Acute) Nutritional Asmnt/Malnutr-PDOC - Dietary Evaluation Malnutrition Findings (Please click <Entered> for more info): Nutritional Asmnt/Malnutrition Start: 09/19/16 15: 45 Text: Status: Complete Freq: Document 09/19/16 15:46 [facility] (Rec: 09/19/16 16:02 [facility] [id number]) Nutritional Asmnt/Malnutrition Patient General Information Nutritional Screening Consult Diagnosis Sepsis, pneumonia, hypotension Pertinent Medical Hx/Surgical Hx AFIB, CAD, CHF, HTN, hyperlipidemia, CVA, pneumonia , chronic renal insufficiency, DM, multiple decubitus ulcers in different parts of body, left AKA Subjective Information Nutrition consult for pt is diabetic received and completed. Pt is a 81-year-old female from [facility] admitted with chief complaint of sepsis. Pt is a poor historian at the moment, lethargic and nonverbal. Pt appears obese with edema observed. RD measured wt with medical devices removed, three pillows on bed: 216.2#/98.3 kg. Adjusted BMI with consideration of AKA: 40.3 kg/ m2. Adjusted IBW with consideration of AKA: 113#/51. 4 kg. Per medical records, pt wt 242#/110 kg in August 2016. NGT placed last night 09/18, pending tube feeding order. Current Diet Order/ Nutrition Support NPO Patient / S.O Can't verbalize diet edu Pertinent Medications Vitamin C, Oscal with Vitamin D, D5-0.9 Ns, Novolog (not given during NPO status), Flagyl, Piperacillin, Vancomycin, Coumadin, Zinc Sulfate Pertinent Labs (09/18) Glucose 344H, A1C WNL, HDL Cholesterol 13L, LDL Cholesterol 19L (09/19) Na 132L , K 3.3L, Glucose 290H, POC Glucose 246H-285H, BUN 27H, Creatinine 1.3H, Alkaline Phosphatase 107H, Albumin 2.2L Nutritional Hx/Data Height 1.7 m Height (Calculated Centimeters) 170.2 Current Weight (lbs) 98.067 kg Weight (Calculated Kilograms) 98.1 Weight (Calculated Grams) 64666.7 Usual body Weight (lbs) 242 % Usual Body Weight 89 [place] Body Weight 113 % [place] Body Weight 191 Recent Weight Change Yes Weight Status Morbidly Obese GI Symptoms GI Symptoms None Difficult in: Swallowing Food Allergies No Usual diet at home Mechanical soft ground with protein supplement 30 ml BID Skin Integrity/Comment: Grey 10. Pt with multiple wounds body and leg. Estimated Nutritional Goals BEE in Kcals: Using Current wt Calories/Kcals/Kg Based on current wt of 98.3 kg with consideration of wounds, sepsis,obesity Kcals Calculated 0126-6137 kcals/day ([place] St. Jeor x 1.2-1.5) Protein: Adj wt of IBW Protein g/kg: Based on adjusted IBW 51.4 kg with consideration of wounds, sepsis Protein Calculated 93-103 gm/day (1.8-2 gm/kg) Fluid: ml Per MD/DO Nutritional Problem 2. Problem Problem Increased energy and protein needs related to Etiology altered skin integrity as evidenced by Signs/Symptoms: multiple decubitus ulcers to body and leg, per RN notes. 1. Problem Problem Malnutrition related to Etiology morbid obesity as evidenced by Signs/Symptoms: adjusted BMI of 40.3 kg/m2. Malnutrition Alert Protein-Calorie Malnutrition N/A Is there a minimum of two criteria No selected? Query Text:Check all the applicable criteria. A minimum of two criteria are recommended for diagnosis of either severe or non-severe malnutrition. Malnutrition Related to Morbid Obesity Malnutrition related to morbid obesity BMI> or equal to 40 Query Text:(Any 1 Criteria met) Malnutrition related to morbid obesity Yes Intervention/Recommendation Comments 1. When medically appropriate, recommend initiate tube feeding Diabetisource AC at 20 ml/hr. Increase by 10 ml/hr every 4 hours until the goal rate of 70 ml/hr is reached. Tube feeding to provide 2016 kcals, 101 gm protein, and 1374 ml free water per day. 2. Recommend one packet of Arginaid via NGT BID to promote wound healing. Expected Outcomes/Goals Expected Outcomes/Goals Provide pt with 100% of estimated nutritional needs to promote wound healing. Physician Parameters for PEM Serum Albumin (g/dl) <2.4 (Severe)
--- NOTE | 2016-09-25 12:07 | Discharge Summary ---
DATE OF DISCHARGE/: 09/24/2016 ADMITTING DIAGNOSES: Sepsis, severe leukocytosis, lactic acidemia, right leg/foot necrosis/gangrene. SECONDARY DIAGNOSES: Include history of atrial fibrillation, CAD, PAD, recent history of left AKA, severe depression, dementia, hyperlipidemia, history of CVA, history of previous aspiration pneumonia, history of coccygeal decubitus ulcer, hx of type 2 diabetes. CAUSES OF : severe sepsis and shock/hypotension, respiratory failure 2ry to PNA. CONSULTANTS: ID, Dr. Surjit Gaytan. Nephrology, Dr. Berg. General Surgery, Dr. Thorpe. Dr. Ann, GI. Dr. Farley, Pulmonary, and Dr. Terrence Gaytan for Cardiology. MAJOR PROCEDURES: There was a head CT done on admission showing no evidence of intracranial hemorrhage. There was atrophy. There is moderate supratentorial white matter disease. There is atherosclerotic vascular disease. There is a chest CT showing extensive multifocal bilateral pulmonary infiltrates, most concerning for multifocal pneumonia, bibasilar consolidative changes are also seen with small pleural effusions. There was an abdominal and pelvic CT showing extensive abdominal changes along the descending and sigmoid colon regions and perirectal area. Evidence of pericolonic fluid. Findings may be associated with inflammatory changes. There is small amount of ascites throughout the abdomen and pelvis. There is also regular hepatic contour. No focal lesions as findings consistent with cholelithiasis. There are extensive atherosclerotic vascular changes. There was a small ventral hernia and there was anasarca, there was also cardiomegaly with small bilateral pleural effusions and pulmonary parenchymal changes within the lower lobes of the lung consistent with consolidation and/or atelectasis. There was a 2D echo done on 09/20/2016, showing hypertrophy of the left ventricle, cardiomyopathy, ejection fraction of 15-20%. On 09/22/2016, the patient underwent a right above- the-knee amputation without any complications done by Dr. Thorpe. There was a repeat abdomen and pelvic CT on 09/23/2016, showin. Pneumonia-interstitial. 2. Ascites. 3. Cirrhotic appearance of the liver. 4. Distended gallbladder, cholelithiasis. 5. There is no evidence of diverticulitis. 6. Anasarca. 7. Edema of small bowel loops. BRIEF HOSPITAL COURSE: The patient is an 81-year-old lady, resident of a local long term, who had been admitted to this facility couple of times in the last few months for decubitus ulcers infections including a coccygeal as well as a left and right foot infected ulcers. She had undergone a left-sided AKA few months prior and was [facility]. She also had multiple medical issues including diabetes, hypertension, CAD, CHF, atrial fibrillation, dementia and depression. The patient was admitted as noted above for fevers. She was noted to have right leg and foot gangrene. She was admitted to ICU, given the fact that she had abnormal vital signs (high temps and tachycardia) and a white count of over 40,000. She was placed on multiple broad-spec antibiotics and was also given IV fluids, and underwent the above-mentioned diagnostic procedures without any complications. She eventually underwent the right AKA and remained in the ICU. On 09/24/2016, she was noted to be somewhat tachy and hypotensive. Also, pt developed short of breath. She eventually required intubation with mechanical ventilation. The family was made aware of the patient's condition and they decided to make her a DNR level 3. She was placed on Trendelenburg position, given hypotension and was eventually placed on 3 pressors with no major improvement. She also remained on multiple IV antibiotics. She was noted to have no pulses and no blood pressure readings by 09/24/2016 and was pronounced by ER staff. JOB# [id number] HUMA
--- NOTE | 2016-09-26 17:43 | Pathology Report ---
[id number] Collection Date: 09/22/2016 Surgeon: Dr. Taras Thorpe Specimen Description: Right leg ghwqy-[id number]-sqfs amputation Gross Description: Received in the unfixed state is a right leg gzhui-rxf-itzp amputation measuring 10 cm from the femoral transection to the kneecap, 47 cm from the kneecap to the right heel, and 23 cm from the right heel to the right big toe. There are two large non-healing cutaneous ulcers appreciated with the largest covering a 15 x 8 cm region of the right lateral lower leg. A second non-healed cutaneous ulcer is identified covering the right heel measuring 6 x 4 cm. Sectioning of these two ulcerated areas shows brownish-black discoloration and degeneration with extension of these necrotic changes into the subcutaneous adipose tissue. The surrounding skin is intact and otherwise without ulceration. Examination of the large arterial vessels near the transection margin shows calcification and arteriosclerotic narrowing consistent with peripheral vascular disease. Airline Pilot Flight Instructor sections are submitted in three cassettes labeled A1 through A3. Cassette A1 shows the ulcerated necrotic ulcers, cassette A2 shows the intact skin adjacent to the margin, cassette A3 shows the larger arterial vessels. Microscopic Description: The histologic sections show ulcerated skin and subcutaneous tissue with extensive degeneration and necrosis, consistent with gangrene. Sections of the skin and soft tissue adjacent to the margin show intact cutaneous and subcutaneous tissue without degenerative changes. The arterial vessels show calcification and narrowing consistent with peripheral vascular disease. Diagnosis: 1. Multiple cutaneous ulcers with extensive necrosis consistent with gangrene (right wndau-jgn-gyen amputation). 2. The arterial vessels show calcification and narrowing consistent with peripheral vascular disease. [facility]# [id number]
== END 2016-09-24 16:30 | disposition expired | DRG 853 ==
LOC: ER 14:38 → ICU 16:52
PROVIDERS: ADMIT Internal Medicine; ATTEND Internal Medicine
PROC: 30233L1 Transfusion of Nonautologous Fresh Plasma into Peripheral Vein, Percutaneous Approach (ICD-10-PCS; 2016-09-21)
PROC: 30233K1 Transfusion of Nonautologous Frozen Plasma into Peripheral Vein, Percutaneous Approach (ICD-10-PCS; 2016-09-21)
PROC: 0Y6C0Z3 Detachment at Right Upper Leg, Low, Open Approach (ICD-10-PCS; principal; 2016-09-22)
PROC: 0BH17EZ Insertion of Endotracheal Airway into Trachea, Via Natural or Artificial Opening (ICD-10-PCS; 2016-09-24)
PROC: 5A1935Z Respiratory Ventilation, Less than 24 Consecutive Hours (ICD-10-PCS; 2016-09-24)
DX: A41.9 Sepsis, unspecified organism (principal); J69.0 Pneumonitis due to inhalation of food and vomit; J96.01 Acute respiratory failure with hypoxia; R65.21 Severe sepsis with septic shock; D65 Disseminated intravascular coagulation [defibrination syndrome]; G93.40 Encephalopathy, unspecified; N17.9 Acute kidney failure, unspecified; A04.7 Enterocolitis due to Clostridium difficile; E43 Unspecified severe protein-calorie malnutrition; I50.30 Unspecified diastolic (congestive) heart failure; E11.52 Type 2 diabetes mellitus with diabetic peripheral angiopathy with gangrene; I25.110 Atherosclerotic heart disease of native coronary artery with unstable angina pectoris; I13.0 Hypertensive heart and chronic kidney disease with heart failure and stage 1 through stage 4 chronic kidney disease, or unspecified chronic kidney disease; F02.81 Dementia in other diseases classified elsewhere, unspecified severity, with behavioral disturbance; K56.7 Ileus, unspecified; R18.8 Other ascites; E11.22 Type 2 diabetes mellitus with diabetic chronic kidney disease; E78.5 Hyperlipidemia, unspecified; E87.6 Hypokalemia; K74.60 Unspecified cirrhosis of liver; I95.9 Hypotension, unspecified; M81.0 Age-related osteoporosis without current pathological fracture; N18.2 Chronic kidney disease, stage 2 (mild); I48.0 Paroxysmal atrial fibrillation; E66.01 Morbid (severe) obesity due to excess calories; F31.9 Bipolar disorder, unspecified; G30.9 Alzheimer's disease, unspecified; F02.80 Dementia in other diseases classified elsewhere, unspecified severity, without behavioral disturbance, psychotic disturbance, mood disturbance, and anxiety; T45.515A Adverse effect of anticoagulants, initial encounter; E11.621 Type 2 diabetes mellitus with foot ulcer; Y92.89 Other specified places as the place of occurrence of the external cause; Z89.612 Acquired absence of left leg above knee; Z86.73 Personal history of transient ischemic attack (TIA), and cerebral infarction without residual deficits; Z86.718 Personal history of other venous thrombosis and embolism; Z88.0 Allergy status to penicillin; Z88.8 Allergy status to other drugs, medicaments and biological substances; Z88.7 Allergy status to serum and vaccine; Z68.36 Body mass index [BMI] 36.0-36.9, adult; Z79.4 Long term (current) use of insulin; Z79.01 Long term (current) use of anticoagulants
CPT/HCPCS: 36415-UA; 36600-90; 70450-TC; 71010-TC; 71250-TC; 80048-TC; 80053-TC; 80061-TC; 80202-TC; 81001-TC; 82803-TC; 82948-90; 83036-90; 83605; 83735-TC; 83880-TC; 84100-TC; 84443-TC; 84484-TC; 85007-TC; 85027-TC; 85610-TC; 85730-TC; 86592-TC; 86850-TC; 86900-TC; 86901-TC; 86927-TC; 87070; 87086-90; 87230-TC; 90779; 90799; 93005; 94002; 94003; 96372; 96374; 96375; 96379; 99201; A4217; C9113; J0713; J1265; J1644; J1815; J2248; J2270; J2370; J2543; J3370; J3430; J3475; J3480; J7030; J7040; J7042; P9017; P9046; P9047; X6206; X6452; Z7610